=== PATIENT | female | born 1940 | race Caucasian/White ===

== ENCOUNTER → 2016-09-30 | Outpatient (CLI) | payer MEDICARE ==
[~2016-09-30] MED LIST: MULT-513 PO; PRLSR20 PO; PRMVC PV
[2016-09-30 13:32] LABS: BASO % 0.7 %; BASO ABS # 0.05 K/uL (0-0.2); COMPLETE YES; EOS % 2.4 %; HEMATOCRIT 39.7 % (37-47); IG% 0.3 %; LYMPH % 24.1 %; MEAN CELL VOLUME 85.4 fL (80-100); MEAN CORPUSCULAR HEMOGLOBIN 28.4 pg (25-34); MEAN CORPUSCULAR HGB CONC 33.2 g/dl (32-36); MEAN PLATELET VOLUME 12.9 fL (7.4-10.4); MONO % 9.5 %; PLATELET COUNT 228 K/uL (130-400); RED BLOOD COUNT 4.65 M/uL (4.2-5.4); WHITE BLOOD COUNT 7.46 K/uL (4.8-10.8)
[2016-09-30 14:24] LABS: ALB/GLOB RATIO 0.8 (0.9-2); ALKALINE PHOSPHATASE 88 U/L (45-117); ALT/SGPT 21 U/L (12-78); AST/SGOT 18 U/L (15-37); BLOOD UREA NITROGEN 12 mg/dl (7-18); BUN/CREATININE RATIO 10.8 (10-20); CALCIUM 9.3 mg/dl (8.5-10.1); CARBON DIOXIDE 30 mmol/L (21-32); CHLORIDE 103 mmol/L (98-107); CHOLESTEROL 240 mg/dl (0-200); CHOLESTEROL/HDL RATIO 4.2; GLUCOSE 77 mg/dl (70-99); HDL CHOLESTEROL 57 mg/dl; POTASSIUM 3.4 mmol/L (3.5-5.1); SODIUM 140 mmol/L (136-145); TRIGLYCERIDES 183 mg/dl (0-150); VERY LOW DENSITY LIPOPROT CALC 37 mg/dl
== END | disposition home or self-care (01) ==
LOC: C.LABSPEC 12:46
PROVIDERS: ATTEND Internal Medicine
DX: E55.9 Vitamin D deficiency, unspecified (principal); Z00.01 Encounter for general adult medical examination with abnormal findings; E78.5 Hyperlipidemia, unspecified

== ENCOUNTER → 2017-11-16 | Outpatient (CLI) | payer MEDICARE | END | disposition home or self-care (01) | LOC: C.LAB 13:34 | PROVIDERS: ATTEND Obstetrics & Gynecology | DX: N39.0 Urinary tract infection, site not specified (principal) ==

== ENCOUNTER 2024-05-11 20:01 | Inpatient (IN) ==
--- OUTSIDE RECORDS SUMMARY | 2024-05-11 20:07 | External Medical Summary | Continuity of Care Document ---
Author Name Unknown Organization [facility] Address [address], [place] [id number] Care Team Providers Care Online Content Developer Name Role Phone Mary Hernandes Primary Care Physician [phone] Encounter [facility] [id number] Date(s): 01/09/24 - 01/09/24 [facility] [address], [address] [place] [address] [phone] Discharge Disposition: Home or Self Care Attending Physician: DO Saldaña Jason D Referring Physician: DO Saldaña Jason D Allergies, Adverse Reactions, Alerts Substance Reaction Severity Status Zofran confusion/unresponsive Activ e Phenergan confusion/unresponsive Activ e Immunizations Given and Recorded Vaccine Date Status Refusal Reason influenza virus vaccine, inactivated 07/20/23 Give n influenza virus vaccine, inactivated 07/14/22 Give n influenza virus vaccine, inactivated 10/09/17 Give n SARS-CoV-2 (COVID-19) mRNA-1273 vaccine 1 12/07/20 Recorded SARS-CoV-2 (COVID-19) mRNA-1273 vaccine 2 11/09/20 Recorded Zoster Vaccine Unspecified 3 05/24/12 Recorded 1Result Comment: 2023-07-20: Historical information-source unspecified 2Result Comment: 2023-07-20: Historical information-source unspecified 3Result Comment: 2023-07-20: Historical information-source unspecified Medications amLODIPine 2.5 mg oral tablet Start: 10/30/23 9:00:00 EST, 1 tab, PO, Daily, Disp# 90 tab, Refills: 3, Pharmacy: [facility]/pharmacy #[id number] Start Date: 10/30/23 Status: Ordered aspirin 81 mg oral delayed release tablet Start: 03/14/18 11:51:00 EDT, 1 tab, PO, Daily Start Date: 03/14/18 Status: Ordered Co-Q10 100 mg oral capsule Start: 12/17/19 15:04:00 EDT, 2 cap, PO, Daily Start Date: 12/17/19 Status: Ordered escitalopram 10 mg oral tablet Start: 07/20/23 14:51:00 EST, 1 tab, PO, Daily, Disp# 90 tab, Refills: 3, Pharmacy: [facility]/pharmacy #[id number] Start Date: 07/20/23 Stop Date: 07/14/24 Status: Ordered furosemide 20 mg oral tablet Start: 11/02/22 11:57:00 EST, See Instructions, Disp# 45 tab, Refills: 3, TAKE 1 TAB BY MOUTH dailyas needed for swelling, Pharmacy: [facility] [id number] Start Date: 11/02/22 Status: Ordered isosorbide mononitrate 30 mg oral tablet, extended release Start: 01/03/24 14:20:00 EDT, 1 tab, PO, qAM, Disp# 90 tab, Refills: 3, Pharmacy: [facility] [id number] Start Date: 01/03/24 Status: Ordered LORazepam 0.5 mg oral tablet Start: 06/28/23 13:39:00 EDT, 1 tab, PO, bid, Disp# 60 tab, Refills: 5, Note to Pharmacy: PRN for anxiety, [id number] Start Date: 06/28/23 Status: Ordered losartan 50 mg oral tablet Start: 07/20/23 9:57:00 EST, 1 tab, PO, Daily, Disp# 90 tab, Refills: 3, Pharmacy: [facility] [id number] Start Date: 07/20/23 Status: Ordered Metoprolol Succinate ER 50 mg oral tablet, extended release Start: 01/27/23 10:08:00 EDT, See Instructions, Disp# 90 tab, Refills: 3, TAKE 1 TABLET BY MOUTH EVERY DAY, Pharmacy: [facility] [id number] Start Date: 01/27/23 Status: Ordered Multi Vitamin+ oral liquid Start: 08/29/17 9:06:00, 1 tab, PO, Daily Start Date: 08/29/17 Status: Ordered nitroglycerin 0.4 mg sublingual tablet Start: 09/14/23 16:10:00 EST, 1 tab, SL, q5min, Disp# 30 tab, Refills: 1, PRN: as needed for chest pain, [id number] Start Date: 09/14/23 Status: Ordered Potassium Chloride (Eqv-K-Tab) 20 mEq oral tablet, extended release Start: 07/18/22 10:02:00 EST, 1 tab, PO, Daily, Disp# 90 tab, Refills: 3, [id number] Start Date: 07/18/22 Status: Ordered rosuvastatin 10 mg oral tablet Start: 07/20/23 9:57:00 EST, 1 tab, PO, qhs, Disp# 90 tab, Refills: 3, Pharmacy: [id number] Start Date: 07/20/23 Status: Ordered Problem List Condition Confirmation Course Effective Dates Status H ealth Status Informant Carotid bruit Confirmed Active Chronic diarrhea Confirmed Active Chronic insomnia Confirmed Active Disturbance of sleep Confirmed Active JESSICA (generalized anxiety disorder) Confirmed Active S/P CABG x 2 Confirmed Active Apical variant hypertrophic cardiomyopathy Confirmed Active Lung cancer Confirmed Active Mixed incontinence Confirmed Active Chronic pain of right knee Confirmed Active 3-vessel CAD Confirmed Active Wide-complex tachycardia Confirmed Active Procedures Procedure Date Related Diagnosis Body Site Status Mammogram 1 07/04/23 Completed Chest x-ray 2 11/02/[address] of head 3 11/02/22 Completed EKG 02/27/18 Completed Anterior colporrhaphy, Total vaginal hysterectomy. Bilateral uterosacral ligament vaginal vault suspension.Perineorrhaphy. Cystoscopy.. 4 10/09/17 Completed Cystoscopy 10/09/17 Completed Perineorrhaphy 10/09/17 Completed Posterior colporrhaphy 10/09/17 Co mpleted Total vaginal hysterectomy. Bilateral uterosacral ligament vaginal vault suspension.Anterior colporrhaphy.Posterior colporrhaphy. Perineorrhaphy, Cystoscopy. 5 10/09/17 Co mpleted Uterosacral ligament 10/09/17 Comp leted Hemorrhoidectomy 2018 Complete d Colonoscopy 2017 Completed Operation on lung, collapsed lung [address] [place] [address] Impression: ACR BI-RADS CATEGORY 2: BENIGN 1. No evidence of malignancy [address] [place] [address] Impression: 1. No acute process within the chest 2. Mild cardiomegaly again noted 3. Left apical density persists and is better appeciated on the lateral 07/18/[address] [place] [address] Impression: 1. No acute intracranial hemorrhage or skull fractures. Scalp swelling is seen in the right supraorbital soft tissues 41. Total vaginal hysterectomy. 2. Bilateral uterosacral ligament vaginal vault suspension. 3. Anterior colporrhaphy. 4. Posterior colporrhaphy. 5. Perineorrhaphy. 6. Cystoscopy. 51. Total vaginal hysterectomy. 2. Bilateral uterosacral ligament vaginal vault suspension. 3. Anterior colporrhaphy. 4. Posterior colporrhaphy. 5. Perineorrhaphy. 6. Cystoscopy. Results Radiology Reports * Exam Date Time Procedure Performing Provider Status 01/09/24 1:56 PM Echo TransTHORacic TTE Complete w/ Cont Betsy Maki; Final Notes: (Echo TransTHORacic TTE Complete w/ Cont) Reason For Exam: pa htn, cad Echo TransTHORacic TTE Complete w/ Cont Report Signatures Finalized by Dr. Krystian Saldaña MD on 01/09/2024 05:52 PM [place] Act 112: Yes - Discussed with patient Summary 1. Study enhanced with Definity contrast for better endocardial definition, especially of the LV apex. 2. Normal left ventricular size. 3. Hyperdynamic LV systolic function with no regional wall motion abnormalities. Biplane ejection fraction is >75%. 4. Severe hypertrophy of the mid and apical wall segments, consistent with apical variant hypertrophic cardiomyopathy. No evidence of LVOT obstruction. 5. Abnormal LV strain. Severely abnormal segmental strain in the mid and distal LV with normal strain values in the basal segments. Global longitudinal strain is -10%. 6. Evidence for elevated left ventricular end-diastolic pressure. Grade II diastolic dysfunction of the left ventricle (pseudonormal filling pattern). 7. Severely dilated left atrium. 8. Mildly dilated right ventricle with reduced systolic function. 9. Dilated right atrium. 10. Mild aortic insufficiency (PHT 744 ms). 11. Moderate mitral regurgitation. 12. Severe tricuspid valve regurgitation. 13. Severely elevated pulmonary artery pressures, estimated PASP is 76 mmHg and PAMP is 51 mmHg. 14. Compared to the previous study performed 12/03/2021, the degree of TR is worse and estimated PA pressures are higher (76 mm/hg vs 47 mm/hg);. Patient Info Name: HYUN GO Age: 83 years : 1940 Gender: Female Ht: 150 cm Wt: 45 kg BSA: 1.38 m2 HR: 50 bpm BP: 142 / 68 mmHg Heart Rhythm: Sinus Bradycardia Technical Quality: Excellent Exam Date: 01/09/2024 1:02 PM Exam Location: [facility] Patient Status: Outpatient Staff Ordering Physician: Krystian Saldaña Water Taxi Driver: Betsy Maki RDCS, RVT Attending Physician: Krystian Saldaña Study Info [facility] [id number] - [id number] - Indications I2510 - Coronary artery disease without angina pectoris I422 - Other hypertrophic cardiomyopathy Procedure(s) * A complete two-dimensional, color flow and Doppler transthoracic echocardiogram was performed. * Failed 2D images were enhanced with Definity per lab protocol. * Water Taxi Driver, Betsy Maki RDCS, CARMEL, provided education about ultrasound enhancing agent to the patient. Exam Type: Cardiac Basic Left Ventricle Normal left ventricular size. Hyperdynamic LV systolic function with no regional wall motion abnormalities. Biplane ejection fraction is >75%. Severe hypertrophy of the mid and apical wall segments, consistent with apical variant hypertrophic cardiomyopathy. No evidence of LVOT obstruction. Abnormal LV strain. Severely abnormal segmental strain in the mid and distal LV with normal strain values in the basal segments. Global longitudinal strain is -10%. Evidence for elevated left ventricular end-diastolic pressure. Grade II diastolic dysfunction of the left ventricle (pseudonormal filling pattern). Right Ventricle Mildly dilated right ventricle with reduced systolic function. TAPSE is 1.1 cm. Left Atrium Severely dilated left atrium. Right Atrium Dilated right atrium. Atrial Septum Appears intact. Aortic Valve Calcified, tricuspid aortic valve without stenosis. Mild aortic insufficiency (PHT 744 ms). Pulmonic Valve Mild pulmonic insufficiency. Mitral Valve Moderate mitral regurgitation. Tricuspid Valve Severe tricuspid valve regurgitation. Severely elevated pulmonary artery pressures, estimated PASP is 76 mmHg and PAMP is 51 mmHg. Pericardium/Pleural No pericardial effusion. Inferior Vena Cava Dilated IVC with reduced (less than 50%) collapse. Estimated right atrial pressure is 15 mmHg. Aorta The aortic root at the sinus of Valsalva is dilated, measuring 3.5 cm with an index of 2.53 cm/m2. The ascending aorta is dilated for small BSA, measuring 3.0 cm with an index of 2.17 cm/m2. Left Ventricular Outflow Tract Name Value Normal LVOT 2D LVOT Diameter 2.1 cm LVOT Doppler LVOT Peak Velocity 1.22 m/s LVOT Peak Gradient 6 mmHg LVOT Mean Gradient 2 mmHg LVOT VTI 23.11 cm LVOT Stroke Volume 77.51 ml LVOT Stroke Volume Index 0.06 l/m2 LVOT Cardiac Output 3.88 l/min LVOT Cardiac Index 2.82 L/min/m2 Pulmonic Valve Name Value Normal RVOT Doppler RVOT Peak Velocity 0.51 m/s PV Regurgitation Doppler HI Peak End Diastolic Velocity 1.30 m/s HI Peak End Diastolic Gradient 7 mmHg HI Peak Velocity 2.08 m/s HI Decel Time 1,140 ms HI PHT 331 ms Mitral Valve Name Value Normal MV Doppler MV PHT 72 ms MV Diastolic Function MV E Peak Velocity 0.61 m/s <=0.50 MV A Peak Velocity 0.29 m/s MV E/A 2.11 <=0.80 MV Decel Time 248 ms MV Annular TDI MV Septal s' Velocity 4.90 cm/s MV Septal e' Velocity 2.81 cm/s >=7.00 MV E/e' (Septal) 21.7 <=8.0 MV Lateral s' Velocity 6.19 cm/s MV Lateral e' Velocity 5.57 cm/s >=10.00 MV E/e' (Lateral) 10.93 <=8.00 MV e' Average 4.19 MV E/e' (Average) 16.30 <=14.00 Tricuspid Valve Name Value Normal TV Regurgitation Doppler TR Peak Velocity 3.91 m/s <=2.80 TR Peak Gradient 61 mmHg Estimated PAP/RSVP RA Pressure 15 mmHg <=5 PA Systolic Pressure 76 mmHg <40 PA End Diastolic Pressure for HI 22 mmHg PA Mean Pressure (HI Velocity) 32 mmHg PA Mean Pressure (TR Gradient) 51 mmHg TV Diastolic Function TV E Peak Velocity 0.43 m/s TV A Peak Velocity 0.26 m/s TV E/A 1.61 0.80-2.00 TV Decel Time 148 ms >=120 TV Annular TDI TV Lateral Anjelica s' Velocity 9.1 cm/s 9.5-18.7 TV Lateral Anjelica e' Velocity 8.2 cm/s <7.8 TV E/e' 5.16 2.00-6.00 Pulmonary Vessels Name Value Normal Pulmonary Artery Doppler PA End Diastolic Pressure for HI 22 mmHg Aorta Name Value Normal Ascending Aorta Sinus of Valsalva Diameter 3.5 cm 2.7-3.3 Sinus of Valsalva Index 2.53 cm/m2 1.60-2.00 Prox Asc Ao Diameter 3.0 cm 2.3-3.1 Prox Asc Ao Diameter Index 2.17 cm/m2 1.30-1.90 Thoracic Aorta Ao Arch Diameter 2.2 cm Venous Name Value Normal IVC/SVC IVC Diameter (Insp 2D) 1.3 cm IVC Diameter (Exp 2D) 2.2 cm <=2.1 IVC Diameter Percent Change (2D) 42 % >=50 Aortic Valve Name Value Normal AV Doppler AV Peak Velocity 1.30 m/s <2.00 AV Peak Gradient 7 mmHg AV Area (Cont Eq Chay) 3.2 cm2 AV Area Index (Cont Eq Chay) 2.29 cm2/m2 AV V1/V2 Ratio 0.94 AV Regurgitation 2D LVOT Area 3.4 cm2 AV Regurgitation Doppler AR Peak Velocity 4.02 m/s AR Decel Time 2,565 ms AR Decel [place] 170.00 cm/s2 AR PHT 744 ms Ventricles Name Value Normal LV Dimensions 2D/MM IVS Diastolic Thickness (2D) 1.2 cm 0.6-0.9 LVID Diastole (2D) 3.8 cm 3.3-5.1 LVIW Diastolic Thickness (2D) 1.0 cm 0.6-0.9 LVID Systole (2D) 1.9 cm 2.2-3.5 LVOT Diameter 2.1 cm LV Mass (2D Cubed) 142.94 g 67.00-162.00 LV Mass Index (2D Cubed) 0.01 g/cm2 0.00-0.01 Relative Wall Thickness (2D) 0.53 LV Fractional Shortening/Ejection Fraction 2D/MM LV Fractional Shortening (2D) 51 % 27-45 LV Diastolic Volume (4C MOD) 92 ml LV Diastolic Volume (2C MOD) 75 ml LV Diastolic Volume (BP MOD) 83 ml 46-106 LV Diastolic Volume Index (BP MOD) 60.17 ml/m2 29.00-61.00 LV Systolic Volume (BP MOD) 13 ml 14-42 LV Systolic Volume Index (BP MOD) 9.53 ml/m2 8.00-24.00 LV EF (BP MOD) 84 % 58-69 LV SV (BP MOD) 69.64 ml RV Dimensions 2D/MM RV Basal Diastolic Dimension 4.2 cm 2.5-4.1 TAPSE 1.1 cm >=1.7 Atria Name Value Normal LA Dimensions LA Area (4C) 23.2 cm2 LA Length (4C) 6.0 cm LA Area (2C) 22.8 cm2 LA Length (2C) 6.4 cm LA Volume (4C A-L) 76.53 ml LA Volume (2C A-L) 68.90 ml LA Volume (BP A-L) 75 ml 22-52 LA Volume Index (BP A-L) 54.83 ml/m2 <=34.00 RA Dimensions RA Area (4C) 21.2 cm2 <=18.0 Final Signed by:DO Saldaña Jason D Signed (Electronic Signature):01/09/2024 1:02 p Social History Social History Type Response Tobacco Former smoker, Start ed age 16 Years. Stopped age 75 Years. Smoking Status Former Smoker, quit > 1 yr Sex Female Patient Care team information Care Team Personnel Name: KARINA Hernandes, Mary Mejias Position: Physician Asst Exmpt - Family Med Member Role: Primary Care Provider Address: Address: [address] [place] [id number] Care Team Related Persons Name: KEENA DEWITT Name: CARLOS GO Address: home [address] [place] [phone]
--- OUTSIDE RECORDS SUMMARY | 2024-05-11 20:07 | External Medical Summary | Continuity of Care Document ---
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) - 12/14/23 3-vessel CAD(Discharge Diagnosis) - 12/14/23 S/P CABG x 2(Discharge Diagnosis) - 12/14/23 Discharge Disposition: Home or Self Care Attending Physician: DO Saldaña Jason D Referring Physician: DO Saldaña Jason D Allergies, Adverse Reactions, Alerts Substance Reaction Severity Status Zofran confusion/unresponsive Activ e Phenergan confusion/unresponsive Activ e Assessment and Plan Extracted from: Title:Cardiology Office Visit Note Author:DO Saldaña Jason D Date:12/14/23 1.3-vessel CAD 2.Apical variant hypertrophic cardiomyopathy 3.S/P CABG x 2 Given her increasing shortness of breath the question is this related to LV dysfunction, worsening pulmonary hypertension, worsening valvular heart disease, anginal symptoms, or significantly elevated blood pressure due to the stress in her life. I recommended an echocardiogram as well as increasing her amlodipine from 2-1/2 mg to 5 mg. Given her age and how tiny she is I would try to avoid an assessment of coronary disease. If she were to have progressive dyspnea without evidence of valvular heart disease or pulmonary hypertension with control of her blood pressure we can weigh the risks and benefits at 85. My hope is amlodipine will not only lower her blood pressure but also vasodilator coronaries and improve her symptoms. I did order a BNP and a BMP today. The BMP will allow us to rule out heart failure as a cause for her dyspnea. She will see Tran our nurse practitioner in 3 to 4 weeks. She will have an echocardiogram in the next couple of weeks. Will follow via phone regards to her blood work. Immunizations Given and Recorded Vaccine Date Status [...] Daily, Disp# 90 tab, Refills: 3, Pharmacy: [facility]/pharmacy #[id number] Start Date: 10/30/23 Status: Ordered aspirin 81 mg oral delayed release tablet Start: 03/14/18 11:51:00 EDT, 1 tab, PO, Daily Start Date: 03/14/18 Status: Ordered Co-Q10 100 mg oral capsule Start: 12/17/19 15:04:00 EDT, 2 cap, PO, Daily Start Date: 12/17/19 Status: Ordered escitalopram 10 mg oral tablet Start: 07/20/23 14:51:00 EST, 1 tab, PO, Daily, Disp# 90 tab, Refills: 3, Pharmacy: [facility]/pharmacy #[id number] Start Date: 07/20/23 Stop Date: 07/14/24 Status: Ordered furosemide 20 mg oral tablet Start: 11/02/22 11:57:00 EST, See Instructions, Disp# 45 tab, Refills: 3, TAKE 1 TAB BY MOUTH dailyas needed for swelling, Pharmacy: [id number] Start Date: 11/02/22 Status: Ordered isosorbide mononitrate 30 mg oral tablet, extended release Start: 11/02/22 11:57:00 EST, See Instructions, Disp# 90 tab, Refills: 3, TAKE 1 TABLET BY MOUTH EVERY DAY IN THE MORNING, Pharmacy: [id number] Start Date: 11/02/22 Status: Ordered LORazepam 0.5 mg oral tablet Start: 06/28/23 13:39:00 EDT, 1 tab, PO, bid, Disp# 60 tab, Refills: 5, Note to Pharmacy: PRN for anxiety, Pharmacy: [facility]/pharmacy #[id number] Start Date: 06/28/23 Status: Ordered losartan 50 mg oral tablet Start: 07/20/23 9:57:00 EST, 1 tab, PO, Daily, Disp# 90 tab, Refills: 3, Pharmacy: [facility] [id number] Start Date: 07/20/23 Status: Ordered Metoprolol Succinate ER 50 mg oral tablet, extended release Start: 01/27/23 10:08:00 EDT, See Instructions, Disp# 90 tab, Refills: 3, TAKE 1 TABLET BY MOUTH EVERY DAY, Pharmacy: [facility] [id number] Start Date: 01/27/23 Status: Ordered Multi Vitamin+ oral liquid Start: 08/29/17 9:06:00, 1 tab, PO, Daily Start Date: 08/29/17 Status: Ordered nitroglycerin 0.4 mg sublingual tablet Start: 09/14/23 16:10:00 EST, 1 tab, SL, q5min, Disp# 30 tab, Refills: 1, PRN: as needed for chest pain, Pharmacy: [facility]/pharmacy #[id number] Start Date: 09/14/23 Status: Ordered Potassium Chloride (Eqv-K-Tab) 20 mEq oral tablet, extended release Start: 07/18/22 10:02:00 EST, 1 tab, PO, Daily, Disp# 90 tab, Refills: 3, Pharmacy: [facility]/pharmacy #[id number] Start Date: 07/18/22 Status: Ordered rosuvastatin 10 mg oral tablet Start: 07/20/23 9:57:00 EST, 1 tab, PO, qhs, Disp# 90 tab, Refills: 3, Pharmacy: [facility] [id number] Start Date: 07/20/23 Status: Ordered Problem List [...] CAD Confirmed Active Wide-complex tachycardia Confirmed Active Diagnosis Diagnosis Type Effective Dates Health Status Clinical Service Informant 3-vessel CAD Discharge Diagnosis 12/14/23 Apical variant hypertrophic cardiomyopathy Discharge Diagnosis 12/14/23 S/P CABG x 2 Discharge Diagnosis 12/14/23 Procedures Procedure Date Related Diagnosis Body Site [...] Operation on lung, collapsed lung [address] [place] [address] Impression: ACR BI-RADS CATEGORY 2: BENIGN 1. No evidence of malignancy [address] [place] [address] Impression: 1. No acute process within the chest 2. Mild cardiomegaly again noted 3. Left apical density persists and is better appeciated on the lateral 07/18/[address] [place] [address] Impression: 1. No acute intracranial hemorrhage or skull fractures. Scalp swelling is seen in the right supraorbital soft tissues 41. Total vaginal hysterectomy. 2. Bilateral uterosacral ligament vaginal vault suspension. 3. Anterior colporrhaphy. 4. Posterior colporrhaphy. 5. Perineorrhaphy. 6. Cystoscopy. 51. Total vaginal hysterectomy. 2. Bilateral uterosacral ligament vaginal vault suspension. 3. Anterior colporrhaphy. 4. Posterior colporrhaphy. 5. Perineorrhaphy. 6. Cystoscopy. Vital Signs Most recent to oldest [Reference Range]: 1 Patient Weight 47 kg (12/14/23 2:42 PM) Heart Rate 65 bpm (12/14/23 2:42 PM) Blood Pressure 160/80mmHg (12/14/23 2:42 PM) BP Location # 1 Right Arm (12/14/23 2:42 PM) Social History Social History Type Response Tobacco Former smoker, Start ed age 16 Years. Stopped age 75 Years. Smoking Status Former Smoker, quit > 1 yr Sex Female Cardiology Outpatient Note * DO Saldaña Jason D: PERFORM Event Display: Cardiology Outpt Note Authored Date: [id number] Primary Care Provider KARINA Hernandes, Mary Mejias Referring Provider DO Saldaña Jason D Chief Complaint 3 mon f/u CAD Cabg 2017 History of Present Illness She returns for follow-up and describes increasing shortness of breath over the last 6 to 12 months. Her daughter is with her today. She confirms this and notes she appears more short of breath climbing the steps or working in the garden. Life has been very stressful since August when her was admitted to the hospital with heart failure and progressive dementia. In fact her blood pressure today is significantly elevated when normally it has been well- controlled in the past. She has no lightheadedness or dizziness. She does note headaches though which are somewhat new for her. She denies any lower extremity edema or increased abdominal distention. She only rarely needed her diuretics. She denies any orthopnea. She did have a fall after standing on the kitchen table to decorate for Easter. Review of Systems PAST MEDICAL HISTORY: 1. Coronary disease status coronary bypass grafting x2 with a vein graft to the LAD and a vein graft to the OM 04/2018. 2. Echo: Hyperdynamic left ventricular systolic function with an EF in the range of 70%, significant hypertrophy of the mid to distal apical wall segments consistent with apical hypertrophic cardiomyopathy; type 2 diastolic dysfunction; severe tricuspid regurgitation with moderate pulmonary hypert ension. 3. Catheterization [facility] 02/2018 with a 40% ostial left main lesion with dampening; 60-70% mid LAD lesion just after the takeoff of the second diagonal; 20-30% mid circumflex lesion with a 60% lesion in the ostial portion of OM1; right-dominant small caliber vessel with a 20-30% ostial lesion. 4. 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 Surgery 10/2017 with a total vaginal hysterectomy and uterosacral ligament vault suspension. 6. Hypertension. 7. Less than 50% right internal carotid artery stenosis with a 50-69% left internal carotid artery stenosis and a 50% left subclavian stenosis with a 30 mm mercury difference between right arm and left arm (01/2022). 8. History of Lyme disease. 9. Palpitations. Physical Exam Vitals & Measurements HR:65(Monitored) BP:160/80 SpO2:98% WT:47.000kg(Dosing) WT:47kg PHYSICAL EXAMINATION: She is awake, alert, oriented x3, is in no acute distress. She looks younger than her stated age. HEENT: 2+ carotid upstrokes. No evidence of bruit on the right. She has a left carotid bruit.Lungs clear to auscultation bilaterally, no rales, rhonchi or wheezing. Heart: Regular rate and rhythm. She has a prominent RV and LV lift. She has a soft 2/6 early peaking systolic ejection murmur at the right sternal border. Extremities: No clubbing, cyanosis or edema. Psychiatric: Her affect appeared appropriate. Assessment/Plan 1.3-vessel CAD 2.Apical variant hypertrophic cardiomyopathy 3.S/P CABG x 2 Given her increasing shortness of breath the question is this related to LV dysfunction, worsening pulmonary hypertension, worsening valvular heart disease, anginal symptoms, or significantly elevated blood pressure due to the stress in her life. I recommended an echocardiogram as well as increasing her amlodipine from 2-1/2 mg to 5 mg. Givenher age and how tiny she is I would try to avoid an assessment of coronary disease. If she were to have progressive dyspnea without evidence of valvular heart disease or pulmonary hypertension withcontrol of her blood pressure we can weigh the risks and benefits at 85. My hope is amlodipine will not only lower her blood pressure but also vasodilator coronaries and improve her symptoms. I did order a BNP and a BMP today. The BMP will allow us to rule out heart failure as a cause for her dyspnea. She will see Tran our nurse practitioner in 3 to 4 weeks. She will have an echocardiogram in the next couple of weeks. Will follow via phone regards to her blood work. Problem List/Past Medical History Ongoing 3-vessel CAD Apical variant hypertrophic cardiomyopathy Carotid bruit Chronic diarrhea Chronic insomnia Chronic pain of right knee Disturbance of sleep JESSICA (generalized anxiety disorder) Lung cancer Mixed incontinence S/P CABG x 2 Wide-complex tachycardia Historical Atrial fibrillation Female cystocele Incomplete uterovaginal prolapse Rectocele Uterine prolapse Procedure/Surgical History Mammogram| Service Date: 3Chest x-ray| Service Date: 3CT of head| Service Date: 11/02/2022EKG| Service Date: 02/27/2018Uterosacral ligament| Service Date: 10/09/2017Cystoscopy| Service Date: 10/09/2017Total vaginal hysterectomy. Bilateral uterosacral ligament vaginal vault suspension.Anterior colporrhaphy.Posterior colporrhaphy. Perineorrhaphy, Cystoscopy.| Service Date: 10/09/2017Perineorrhaphy| Service Date: 10/09/2017Posterior colporrhaphy| Service Date: 10/09/2017Anterior colporrhaphy, Total vaginal hysterectomy. Bilateral uterosacral ligament vaginal vault suspension.Perineorrhaphy. Cystoscopy..| Service Date: 10/09/2017Hemorrhoidectomy| Service Date: 2017Colonoscopy| Service Date: 2016Operation on lung, collapsed lung| ServiceDate: 2017 Medications amLODIPine(amLODIPine 2.5 mg oral tablet), 2.5 mg= 1 tab, PO, Daily, 3 refills aspirin(aspirin 81 mg oral delayed release tablet), 81 mg= 1 tab, PO, Daily escitalopram(escitalopram 10 mg oral tablet), 10 mg= 1 tab, PO, Daily, 3 refills furosemide(furosemide 20 mg oral tablet), See Instructions isosorbide mononitrate(isosorbide mononitrate 30 mg oral tablet, extended release), See Instructions LORazepam(LORazepam 0.5 mg oral tablet), 0.5 mg= 1 tab, PO, bid, 5 refills losartan(losartan 50 mg oral tablet), 1 tab, PO, Daily metoprolol(Metoprolol Succinate ER 50 mg oral tablet, extended release), See Instructions multivitamin(Multi Vitamin+ oral liquid), 1 tab, PO, Daily nitroglycerin(nitroglycerin 0.4 mg sublingual tablet), 0.4 mg= 1 tab, SL, q5min, PRN, 1 refills potassium chloride(Potassium Chloride (Eqv-K-Tab) 20 mEq oral tablet, extended release), 20 mEq= 1 tab, PO, Daily, 3 refills rosuvastatin(rosuvastatin 10 mg oral tablet), 1 tab, PO, qhs ubiquinone(Co-Q10 100 mg oral capsule), 200 mg= 2 cap, PO, Daily Allergies Phenerganconfusion/unresponsive Zofranconfusion/unresponsive Social History Smoking Status Former Smoker, quit > 1 yr Tobacco Use:Former smoker Started at age:16Years Stopped at age:75Years Electronic Signature on File CC: Mary Hernandes PA-C,MPAS [address] [place] [address] Electronically Reviewed/Signed by: Krystian Saldaña DO Author Signature Dt/Tm:12/14/2023 04:33 PM [employer] Workercompensation specialist [facility] [place] [address] JDF Patient Care team information Care Team Personnel Name: KARINA Hernandes, Mary Mejias Position: Physician Asst Exmpt - Family Med Member Role: Primary Care Provider Address: Address: [address] [place] [id number] [place] Care Team Related Persons Name: KEENA DEWITT Name: CARLOS GO Address: [address] [id number]"
--- OUTSIDE RECORDS SUMMARY | 2024-05-11 20:07 | External Medical Summary | Continuity of Care Document ---
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 Name Role Phone ShirleygenoMary holm Primary Care Physician [phone] [facility] [id number] Date(s): 04/08/24 - 04/08/24 [facility] [address], [address] [place] [address] [phone] Encounter Diagnosis Pulmonary HTN(Discharge Diagnosis) - 04/08/24 Diastolic CHF(Discharge Diagnosis) - 04/08/24 CAD in tribe artery(Discharge Diagnosis) - 04/08/24 Pulmonary hypertension, unspecified(Final) - Discharge Disposition: Home or Self Care Attending Physician: RAJESH Carrillo Sarah A Allergies, Adverse Reactions, Alerts Substance Criticality Severity Reaction Reaction Severity Status Zofran confusion/unresponsive Active Phenergan confusion/unresponsive Active Assessment and Plan Extracted from: Title:Cardiology Office Visit Note Author:RAJESH White rd, Sarah A Date:04/08/24 Impression: 1. Coronary disease status coronary bypass grafting x2 with a vein graft to the LAD and a vein graft to the OM 04/2018. 2. Echo: Hyperdynamic left ventricular systolic function with an EF in the range of 70%, significant hypertrophy of the mid to distal apical wall segments consistent with apical hypertrophic cardiomyopathy; type 2 diastolic dysfunction; severe tricuspid regurgitation with severe pulmonary hypertension. 3. Catheterization [facility] 02/2018 with a 40% ostial left [...] 8. History of Lyme disease. 9. Palpitations. Ms. Go's shortness of breath is much improvedwithmidrange Entresto. She was having some hypotension but with discontinuation of amlodipine this has resolved. I will have herrepeata limited echo to look at her pulmonary pressures. She will have a BMP and a BNP on her way out today. She is not having any concerning anginal symptomsis toleratingdiscontinuation of the amlodipine well fromthat standpoint. She continues to be on appropriate CAD medications with aspirinARB and statin. She return to the clinic in 2 months Immunizations Given and Recorded Vaccine Date Status [...] 3Result Comment: 2023-07-20: Historical information-source unspecified Medications aspirin 81 mg oral delayed release tablet Start: 03/14/18 11:51:00 AM EDT, 1 tab, PO, Daily Start Date: 03/14/18 Status: Ordered Co-Q10 100 mg oral capsule Start: 12/17/19 3:04:00 PM EDT, 2 cap, PO, Daily Start Date: 12/17/19 Status: Ordered Entresto 49 mg-51 mg oral tablet Start: 02/05/24 9:41:00 AM EDT, 1 tab, PO, bid, Disp# 60 tab, Refills: 3, Pharmacy: [facility]/pharmacy #[id number] Start Date: 02/05/24 Status: Ordered escitalopram 5 mg oral tablet Start: 04/08/24 1:20:00 PM EDT, 1 tab, PO, Daily, Disp# 90 tab, Refills: 3, Pharmacy: [facility] [id number] Start Date: 04/08/24 Status: Ordered furosemide 20 mg oral tablet Start: 11/02/22 11:57:00 AM EST, See Instructions, Disp# 45 tab, Refills: 3, TAKE 1 TAB BY MOUTH daily as needed for swelling, Pharmacy: [facility] [id number] Start Date: 11/02/22 Status: Ordered isosorbide mononitrate 30 mg oral tablet, extended release Start: 01/03/24 2:20:00 PM EDT, 1 tab, PO, qAM, Disp# 90 tab, Refills: 3, Pharmacy: [facility] [id number] Start Date: 01/03/24 Status: Ordered LORazepam 0.5 mg oral tablet Start: 02/02/24 4:31:00 PM EDT, 1 tab, PO, bid, Disp# 60 tab, Refills: 5, Note to Pharmacy: PRN for anxiety, [id number] Start Date: 02/02/24 Status: Ordered Metoprolol Succinate ER 50 mg oral tablet, extended release Start: 01/30/24 9:07:00 AM EDT, 1 tab, PO, Daily, Disp# 90 tab, Refills: 3, Pharmacy: [facility] [id number] Start Date: 01/30/24 Status: Ordered Multi Vitamin+ oral liquid Start: 08/29/17 9:06:00 AM EST, 1 tab, PO, Daily Start Date: 08/29/17 Status: Ordered nitroglycerin 0.4 mg sublingual tablet Start: 09/14/23 4:10:00 PM EST, 1 tab, SL, q5min, Disp# 30 tab, Refills: 1, PRN: as needed for chestpain, Pharmacy: [facility]/pharmacy #[id number] Start Date: 09/14/23 Status: Ordered Potassium Chloride (Eqv-K-Tab) 20 mEq oral tablet, extended release Start: 07/18/22 10:02:00 AM EST, 1 tab, PO, Daily, Disp# 90 tab, Refills: 3, Pharmacy: [facility]/pharmacy#[id number] Start Date: 07/18/22 Status: Ordered rosuvastatin 10 mg oral tablet Start: 07/20/23 9:57:00 AM EST, 1 tab, PO, qhs, Disp# 90 tab, Refills: 3, Pharmacy: [id number] Start Date: 07/20/23 Status: Ordered Mental Status 04/08/24 Barriers to Learning one year None evide nt Mandatory Health Literacy Documentation Yes Health Literacy Communication Barriers N ever Primary Language Ken[place] Problem List Condition Confirmation Course Effective Dates Status H ealth Status Informant Benign hypertension with coincident congestive heart failure Confirmed Active Carotid bruit Confirmed Active Chronic diarrhea Confirmed [...] Diagnosis Diagnosis Type Effective Dates Health Status Cl inical Service Informant Diastolic CHF Discharge Diagnosis 04/08/24 Non-Specified CAD in tribe artery Discharge Diagnosis 04/08/24 Non-Specified Pulmonary HTN Discharge Diagnosis 04/08/24 Non-Specified Procedures Procedure Date Related Diagnosis Body Site [...] mpleted Uterosacral ligament 10/09/17 Comp leted Hemorrhoidectomy 2017 Complete d Colonoscopy 2017 Completed Operation on lung, collapsed lung [address] [place] [address] Impression: ACR BI-RADS CATEGORY 2: BENIGN 1. No evidence of malignancy [address] [place] [address] Impression: 1. No acute process within the chest 2. Mild cardiomegaly again noted 3. Left apical density persists and is better appeciated on the lateral 07/18/[address] [place] [address] Impression: 1. No acute intracranial hemorrhage or skull fractures. Scalp swelling is seen in the right supraorbital soft tissues 41. Total vaginal hysterectomy. 2. Bilateral uterosacral ligament vaginal vault suspension. 3. Anterior colporrhaphy. 4. Posterior colporrhaphy. 5. Perineorrhaphy. 6. Cystoscopy. 51. Total vaginal hysterectomy. 2. Bilateral uterosacral ligament vaginal vault suspension. 3. Anterior colporrhaphy. 4. Posterior colporrhaphy. 5. Perineorrhaphy. 6. Cystoscopy. Results Laboratory List Name Date Basic Metabolic Panel (BASIC METAB PANEL ) 04/08/24 NT-Pro BNP 04/08/24 Most recent to oldest [Reference Range]: 1 eGFR CKD-EPI [>60 mL/min/1.73 m2] 51 mL/ min/1.73 m2 1 *LOW* (04/08/24 1:51 PM) BNP, NT-Pro [<450 pg/mL] 6318 pg/mL *HI* (04/08/24 1:51 PM) Estimated CrCl 26.82 mL/min (04/08/24 2:30 PM) Anion Gap [5-14 mmol/L] 5 mmol/L (04/08/24 1:51 PM) BUN [7-20 mg/dL] 17 mg/dL (04/08/24 1:51 PM) Ca [8.4-10.2 mg/dL] 9.2 mg/dL (04/08/24 1:51 PM) Cl- [96-107 mmol/L] 100 mmol/L (04/08/24 1:51 PM) HCO3 [22-30 mmol/L] 28 mmol/L (04/08/24 1:51 PM) Cret [0.60-1.00 mg/dL] 1.06 mg/dL *HI* (04/08/24 1:51 PM) Glu [74-106 mg/dL] 99 mg/dL (04/08/24 1:51 PM) K [3.5-5.1 mmol/L] 4.4 mmol/L (04/08/24 1:51 PM) Na [137-145 mmol/L] 133 mmol/L *LOW* (04/08/24 1:51 PM) 1Result Comment: Testing Performed By: Dept of Pathology [facility] [address], [address], [place] [address] Vital Signs Most recent to oldest [Reference Range]: 1 Patient Weight 44 kg (04/08/24 1:22 PM) Heart Rate 58 bpm (04/08/24 1:22 PM) Respiratory Rate 18 br/min (04/08/24 1:22 PM) Blood Pressure 112/60mmHg (04/08/24 1:22 PM) BP Location # 1 Left Arm (04/08/24 1:22 PM) Social History Social History Type Response Tobacco Former smoker, Start ed age 16 Years. Stopped age 75 Years. Smoking Status Former Smoker, quit > 1 yr Sex Female Sex Representation Female (finding) Cardiology Outpatient Note * RAJESH Carrillo Sarah A: MODIFY, PERFORM Event Display: Cardiology Outpt Note Authored Date: [id number] Primary Care Provider KARINA Hernandes Jessica A Chief Complaint ongoing shortness of breath with exertion is doing better lower extremities edema resolved with Lasix History of Present Illness Ms. Go presents for follow up of pulmonary hypertension and diastolic heart failure. Her on 03/05/2024 after a long decline.She has been holding up ok. She notes her sob is improved. She rarely has to take the Lasix for lower extremity edema. Her blood pressures have come up a bit with discontinuing the amlodipine. No dizziness and no falls Review of Systems All other systems reviewed and negative except as discussed in the HPI Physical Exam Vitals & Measurements HR:58(Monitored) RR:18 BP:112/60 SpO2:97% WT:44kg WT:44.000kg(Dosing) Physical Examination General: Alert and oriented, No acute distress. Respiratory: Lungs are clear to auscultation, Respirations are non-labored. Cardiovascular: Normal rate, Regular rhythm, No murmur, No edema, Integumentary: Warm, Dry, [place] Neurologic: Alert, Oriented. Cognition and Speech: Speech clear and coherent. Psychiatric: Cooperative, Appropriate mood & affect. Assessment/Plan Impression: 1. Coronary disease status coronary bypass grafting x2 with a vein graft to the LAD and a vein graft to the OM 04/2018. 2. Echo: Hyperdynamic left ventricular systolic function with an EF in the range of 70%, significant hypertrophy of the mid to distal apical wall segments consistent with apical hypertrophic cardiomyopathy; type 2 diastolic dysfunction; severe tricuspid regurgitation with severe pulmonary hypertension. 3. Catheterization [facility] 02/2018 with a 40% ostial left [...] 8. History of Lyme disease. 9. Palpitations. Ms. Luo shortness of breath is much improvedwithmidrange Entresto. She was having some hypotension but with discontinuation of amlodipine this has resolved. I will have herrepeata limited echo to look at her pulmonary pressures. She will have a BMP and a BNP on her way out today. She is not having any concerning anginal symptomsis toleratingdiscontinuation of the amlodipinewell fromthat standpoint. She continues to be on appropriate CAD medications with aspirinARB and statin. She return to the clinic in 2 months Problem List/Past Medical History Ongoing 3-vessel CAD Apical variant hypertrophic cardiomyopathy Benign hypertension with coincident congestive heart failure Carotid bruit Chronic diarrhea Chronic insomnia Chronic pain of right knee Disturbance of sleep JESSICA (generalized anxiety disorder) Lung cancer Mixed incontinence S/P CABG x 2 Wide-complex tachycardia Resolved Atrial fibrillation Female cystocele Incomplete uterovaginal prolapse Rectocele Uterine prolapse Procedure/Surgical History Mammogram| Service Date: 07/04/2023hest x-ray| Service Date: 3CT of head| Service [...] on lung, collapsed lung| ServiceDate: 2017 Medications aspirin(aspirin 81 mg oral delayed release tablet), 81 mg= 1 tab, PO, Daily escitalopram(escitalopram 5 mg oral tablet), 1 tab, PO, Daily furosemide(furosemide 20 mg oral tablet), See Instructions isosorbide mononitrate(isosorbide mononitrate 30 mg oral tablet, extended release), 1 tab, PO, qAM LORazepam(LORazepam 0.5 mg oral tablet), 0.5 mg= 1 tab, PO, bid, 5 refills metoprolol(Metoprolol Succinate ER 50 mg oral tablet, extended release), 1 tab, PO, Daily multivitamin(Multi Vitamin+ oral liquid), 1 tab, PO, Daily nitroglycerin(nitroglycerin 0.4 mg sublingual tablet), 0.4 mg= 1 tab, SL, q5min, PRN, 1 refills potassium chloride(Potassium Chloride (Eqv-K-Tab) 20 mEq oral tablet, extended release), 20 mEq= 1 tab, PO, Daily, 3 refills rosuvastatin(rosuvastatin 10 mg oral tablet), 1 tab, PO, qhs sacubitril-valsartan(Entresto 49 mg-51 mg oral tablet), 1 tab, PO, bid, 3 refills ubiquinone(Co-Q10 100 mg oral capsule), 200 mg= 2 cap, PO, Daily Allergies Phenerganconfusion/unresponsive Zofranconfusion/unresponsive Social History Smoking Status Former Smoker, quit > 1 yr Tobacco Use:Former smoker Started at age:16Years Stopped at age:75Years Electronic Signature on File CC: Mary Hernandes PA-C,MPAS [address] [facility] [address] Electronically Reviewed/Signed by: RAJESH Porras Author Signature Dt/Tm:04/08/2024 01:56 PM [facility] Patient Care team information Care Team Personnel Name: KARINA Hernandes, Mary Mejias Position: Physician Asst Exmpt - Family Med Member Role: Primary Care Provider Address: [address] [place] [id number] [place] Care Team Related Persons Name: KEENA DEWITT Name: CARLOS GO"
--- OUTSIDE RECORDS SUMMARY | 2024-05-11 20:07 | External Medical Summary | Continuity of Care Document ---
Author Name Unknown Organization [facility] [address] [facility] Address [address] [place], [place] [id number] Care Team Providers Care Psychiatric Registered Nurse Name Role Phone Mary Hernandes Primary Care Physician [phone] Encounter [facility] ARNUL[facility] [id number] Date(s): 01/18/24 - 01/18/24 [facility] [address], [address] [place] [address] [phone] Encounter Diagnosis 3-vessel CAD(Discharge Diagnosis) - 01/18/24 Chronic insomnia(Discharge Diagnosis) - 01/18/24 Lung cancer(Discharge Diagnosis) - 01/18/24 JESSICA (generalized anxiety disorder)(Discharge Diagnosis) - 01/18/24 Benign hypertension with coincident congestive heart failure(Discharge Diagnosis) - 01/18/24 Discharge Disposition: Home or Self Care Attending Physician: KARINA Hernandes Jessica A Allergies, Adverse Reactions, Alerts Substance Criticality Severity Reaction Reaction Severity Status Zofran confusion/unresponsive Active Phenergan confusion/unresponsive Active Assessment and Plan Extracted from: Title:6 month f/u Author:KARINA Hernandes Jessic a A Date:01/18/24 1.3-vessel CAD Three-vessel CADand benign hypertension with coincidental diastolic heart failureare chronic. She will continue to follow with [facility] cardiology. She was seen earlier this week and losartan was discontinuedand was started on low- dose Entresto twice daily due to worsening SEGUNDO. Blood pressure todayislow. Has overall felt well, but admits she does not do much. This was discussed with Dr. Saldaña and we will discontinue her amlodipine 2.5 mg dailyto prevent hypotension since starting Entresto. She will keep her follow-up appointment with cardiology in 2 weeks and have BMP completed prior to that visit. Last cardiology note reviewed from 01/15/2024. Labs reviewed from July 2023 as well. 2.Benign hypertension with coincident congestive heart failure As above in #1. 3.Chronic insomnia Chronic insomnia is currently well-controlled with use of lorazepam 0.5 mg, 1 tab p.o. nightly. To continue current regimen and follow-up again in 6 months. 4.JESSICA (generalized anxiety disorder) Generalized anxiety disorder is chronic and currently stable with Lexapro 10 mg, 1 tab p.o. daily. Goal is partial to full remission of symptoms. She has hadsome breakthrough anxiety and low moodthat she attributes toongoing life stressors, which she feels is tolerable and has good support system. Follow-up again in 6 months and sooner if needed. 5.Lung cancer Lung cancer is chronic and stable status post radiation therapy. To continue with care of radiation oncology at [facility]. Immunizations Given and Recorded Vaccine Date Status [...] Daily Start Date: 12/17/19 Status: Ordered Entresto 24 mg-26 mg oral tablet Start: 01/15/24 9:46:00 AM EDT, 1 tab, PO, bid, Disp# 60 tab, Refills: 3, Pharmacy: [facility]/pharmacy #[id number] Start Date: 01/15/24 Status: Ordered escitalopram 10 mg oral tablet Start: 07/20/23 2:51:00 PM EST, 1 tab, PO, Daily, Disp# 90 tab, Refills: 3, Pharmacy: [facility]/pharmacy #[id number] Start Date: 07/20/23 Stop Date: 07/14/24 Status: Ordered furosemide 20 mg oral tablet Start: 11/02/22 11:57:00 AM EST, See Instructions, Disp# 45 tab, Refills: 3, TAKE 1 TAB BY MOUTH daily as needed for swelling, Pharmacy: [id number] Start Date: 11/02/22 Status: Ordered isosorbide mononitrate 30 mg oral tablet, extended release Start: 01/03/24 2:20:00 PM EDT, 1 tab, PO, qAM, Disp# 90 tab, Refills: 3, Pharmacy: [facility] [id number] Start Date: 01/03/24 Status: Ordered LORazepam 0.5 mg oral tablet Start: 06/28/23 1:39:00 PM EDT, 1 tab, PO, bid, Disp# 60 tab, Refills: 5, Note to Pharmacy: PRN foranxiety, Pharmacy: [facility]/pharmacy #[id number] Start Date: 06/28/23 Status: Ordered Metoprolol Succinate ER 50 mg oral tablet, extended release Start: 01/27/23 10:08:00 AM EDT, See Instructions, Disp# 90 tab, Refills: 3, TAKE 1 TABLET BY MOUTH EVERY DAY, Pharmacy: [facility] [id number] Start Date: 01/27/23 Status: Ordered Multi Vitamin+ oral liquid Start: 08/29/17 9:06:00 AM EST, 1 tab, PO, Daily Start Date: 08/29/17 Status: Ordered nitroglycerin 0.4 mg sublingual tablet Start: 09/14/23 4:10:00 PM EST, 1 tab, SL, q5min, Disp# 30 tab, Refills: 1, PRN: as needed for chestpain, Pharmacy: [facility]/pharmacy #[id number] Start Date: 09/14/23 Status: Ordered Potassium Chloride (Eqv-K-Tab) 20 mEq oral tablet, extended release Start: 07/18/22 10:02:00 AM EST, 1 tab, PO, Daily, Disp# 90 tab, Refills: 3, Pharmacy: [facility]/pharmacy#[id number] Start Date: 07/18/22 Status: Ordered rosuvastatin 10 mg oral tablet Start: 07/20/23 9:57:00 AM EST, 1 tab, PO, qhs, Disp# 90 tab, Refills: 3, Pharmacy: [id number] Start Date: 07/20/23 Status: Ordered Mental Status 01/18/24 Barriers to Learning one year None evide nt Mandatory Health Literacy Documentation Yes Health Literacy Communication Barriers N ever Primary Language Peruvian Problem List Condition Confirmation Course Effective Dates [...] Effective Dates Health Status Clinical Service Informant Benign hypertension with coincident congestive heart failure Discharge Diagnosis 01/18/24 Non-Specified 3-vessel CAD Discharge Diagnosis 01/18/24 Non-Specified Chronic insomnia Discharge Diagnosis 01/18/24 Non-Specified Lung cancer Discharge Diagnosis 01/18/24 Non-Specified JESSICA (generalized anxiety disorder) Discharge Diagnosis 01/18/24 Non-Specified Procedures Procedure Date Related Diagnosis Body [...] Operation on lung, collapsed lung [address] [place] [address] Impression: ACR BI-RADS CATEGORY 2: BENIGN 1. No evidence of malignancy [address] [place] [address] Impression: 1. No acute process within the chest 2. Mild cardiomegaly again noted 3. Left apical density persists and is better appeciated on the lateral 07/18/[address] [place] [address] Impression: 1. No acute intracranial hemorrhage or [...] to oldest [Reference Range]: 1 Patient Weight 45.3 kg (01/18/24 2:43 PM) Temperature [36.5-37.9 DegC] 36.7 DegC (01/18/24 2:43 PM) Heart Rate 64 bpm (01/18/24 2:43 PM) Respiratory Rate 20 br/min (01/18/24 2:43 PM) Blood Pressure 94/66mmHg (01/18/24 2:43 PM) Cuff Pulse Pressure 28 mmHg (01/18/24 2:43 PM) BP Location # 1 Left Arm, Manual (01/18/24 2:43 PM) Social History Social History Type Response Tobacco Former smoker, Start ed age 16 Years. Stopped age 75 Years. Smoking Status Former Smoker, quit > 1 yr Sex Female [facility] Note * KARINA Hernandes, Mary Mejias: PERFORM Event Display: [facility] Note Authored Date: [id number] Chief Complaint 6 month follow-up History of Present Illness Mau presents for 6-month follow-up of generalized anxiety disorder,chronic insomnia,lung cancer and CAD. Last clinic note was reviewed today. Generalized anxiety disorder is chronic. Unfortunately, since the time of her last appointment and her has had ongoing health issues. He has advanced dementia, was diagnosed with CLLandhad recently been hospitalizedwith heart failure and an SD. Notes that her children are now assisting with a lot of things, which has been helpful, but is trying to get used to not doing things on her own. She does have periods of feelingdown, but is trying to stay positive.She continues on Phumkcp03 mg daily that she feels is working well. Feels as thoughhigher periods of anxiety and sadness are manageable. Has a good support system with her daughters. No thoughts of self-harm, SI or HI. Chronic insomnia stable with use of lorazepam 0.5 mg, 1 tab p.o. nightly. With the medication sheis getting 5 to 6 hours of sleep, which she is happy with. CAD and hypertension without history of congestive heart failure are chronic. Continues to follow with [facility] cardiology every 3 to 4 months. Has a hx of CABG x 2w/vein graft to the LAD and avein graft to the marginal branch secondary to severe left main disease (04/2018).She did have an updated echocardiogram earlier this month that showed "hyperdynamic left ventricular systolic function with an EF in the range of 70%, significant hypertrophy of the mid to distal apical wall segmentsconsistent with apical hypertrophic cardiomyopathy; type 2 diastolic dysfunction; severe tricuspid regurgitation with severe pulmonary hypertension."At her appointment with cardiology on 01/15/2024 she did admit to having worseningshortness of breath. Losartan was discontinued and she was started on low-dose Entresto 23-24 mg, 1 tab p.o. twice daily.Does not check BP at home. Former smoker. Occasional ETOH use. No recreational drug use or regular exercise. + chronic SEGUNDO thatis unchanged from her baseline. + chronic cough. No claudication, chest pain, palpitations, tachycardia, dizziness, lightheadedness, weakness, near syncope, syncope, nausea, vomiting, diarrhea, constipation, headaches, blurred vision, loss of vision, confusion or epistaxis. Lung cancer [facility]. Lung cancer was initially diagnosedmore than 5 years ago and was found incidentally on a CT scan. Underwent radiationand reports that pulmonary lesion has been stable since. Last CT scanwas in July 2022 and cannot recall when her next appointmentis at this time. + chronic cough. Diagnosed with lung cancer about 5 years agothat wasreportedly found incidentally on CT scan. She underwent radiationand lung lesion has been stable since. Had an updated CT scan of her chest and appointment with radiation oncology in August 2023 at [facility].She's now following up annually. Former smoker. + chronicDOE.No fevers, chills, hemoptysis, cough, wheezing, chest pain, chest tightnessor shortness of breath at rest. Review of Systems ROS:All other systems negative, except HPI. Physical Exam Vitals & Measurements T:36.7C HR:64(Monitored) RR:20 BP:94/66 SpO2:97% WT:45.3kg WT:45.300kg(Dosing) PHQ2 Data(Data Documented on:01/18/2024 14:43) Emotional health assessment NEGATIVE General: Alert and oriented, No acute distress.Pleasant, thin elderly female. Eye: Pupils are equal, round and reactive to light, Extraocular movements are intact, Normal conjunctiva. HENT: Normocephalic. Neck: Supple, No lymphadenopathy, No thyromegaly. Respiratory: Lungs are clear to auscultation, Respirations are non-labored, Breath sounds are equal, Symmetrical chest wall expansion.Diminished air exchange throughout all lung miller. Cardiovascular: Normal rate, Regular rhythm, No murmur, No gallop, Good pulses equal in all extremities, Normal peripheral perfusion. No LE edema. Abdomen: Normoactive BS x 4. Soft. No tenderness, palpable masses or organomegaly.No CVA tenderness Lymphatics: No submandibular, anterior or posterior cervical adenopathy palpable. Musculoskeletal Normal gait. 5/5 strength and FROM and bilateral LEs. Integumentary: Warm, [place], No pallor. Neurologic: Alert, Oriented, Cranial Nerves II-XII are grossly intact. Cognition and Speech: Oriented, Speech clear and coherent, Functional cognition intact. Psychiatric: Cooperative, Appropriate mood & affect, Normal judgment, Nonsuicidal. Assessment/Plan 1.3-vessel CAD Three-vessel CADand benign hypertension with coincidental diastolic heart failureare chronic. She will continue to follow with [facility] cardiology. She was seen earlier this week and losartan was discontinuedand was started on low-dose Entresto twice daily due to worsening SEGUNDO. Blood pressure todayislow. Has overall felt well, but admits she does not do much. This was discussed with Dr. Saldaña and we will discontinue her amlodipine 2.5 mg dailyto prevent hypotension since starting Entresto. She will keep her follow-up appointment with cardiology in 2 weeks and have BMP completed prior to that visit. Last cardiology note reviewed from 01/15/2024. Labs reviewed from July 2023 as well. 2.Benign hypertension with coincident congestive heart failure As above in #1. 3.Chronic insomnia Chronic insomnia is currently well-controlled with use of lorazepam 0.5 mg, 1 tab p.o. nightly.To continue current regimen and follow-up again in 6 months. 4.JESSICA (generalized anxiety disorder) Generalized anxiety disorder is chronic and currently stable with Lexapro 10 mg, 1 tab p.o. daily. Goal is partial to full remission of symptoms. She has hadsome breakthrough anxiety and low moodthat she attributes toongoing life stressors, which she feels is tolerable and has good support system. Follow-up again in 6 months and sooner if needed. 5.Lung cancer Lung cancer is chronic and stable status post radiation therapy. To continue with care of radiation oncology at [facility]. Problem List/Past Medical History Ongoing 3-vessel CAD [...] suspension.Perineorrhaphy. Cystoscopy..| Service Date: 10/09/2017Hemorrhoidectomy| Service Date: 2018Colonoscopy| Service Date: 2016Operation on lung, collapsed lung| [...] oral tablet), 1 tab, PO, qhs sacubitril-valsartan(Entresto 24 mg-26 mg oral tablet), 1 tab, PO, bid, 3 refills ubiquinone(Co-Q10 100 mg oral capsule), 200 mg= 2 cap, PO, Daily Allergies Phenerganconfusion/unresponsive Zofranconfusion/unresponsive Social History Smoking Status Former Smoker, quit > 1 yr Tobacco Use:Former smoker Started at age:16Years Stopped at age:75Years Immunizations Vaccine Date Status influenza virus vaccine, inactivated 07/20/2023 Given influenza virus vaccine, inactivated 07/14/2022 Given SARS-CoV-2 (COVID-19) mRNA-1273 vaccine 12/07/2020 Recorded Comments : 2023-07-20: Historical information-source unspecified SARS-CoV-2 (COVID-19) mRNA-1273 vaccine 11/09/2020 Recorded Comments : 2023-07-20: Historical information-source unspecified influenza virus vaccine, inactivated 10/09/2017 Given Zoster Vaccine Unspecified 05/24/2012 Recorded Comments : 2023-07-20: Historical information-source unspecified Recommendations Health Maintenance Pending(in the next year) OverDue Body Mass Index due07/15/23and every 366day Due Adult COVID-19 Vaccination due01/18/24Unknown Frequency Adult Social Determinants of Health Screening due01/18/24Unknown Frequency Adult Tdap/Td Vaccine due01/18/24Unknown Frequency Falls Plan of Care due01/18/24Unknown Frequency Medicare Annual Wellness Visit due01/18/24and every 1year Osteoporosis Screening due01/18/24One-time only Pneumococcal Vaccine Older Adults due01/18/24One-time only Shingles Vaccine due01/18/24One-time only Due In Future Adult Influenza Vaccine not due until03/03/24and every 1year Satisfied(in the past 1 year) Satisfied Adult Influenza Vaccine on07/20/23.Satisfied by ETHAN Camacho Andrew E Breast Cancer Screening on07/06/23.Satisfied by ETHAN Camacho Andrew E Lipid Screening on07/20/23.Satisfied by [employer], [employer]aker Patient Care team information Care Team Personnel Name: KARINA Hernandes, Mary Mejias Position: Physician Gracet Exmpt - Family Med Member Role: Primary Care Provider Address: Address: [address] [place] [id number] Care Team Related Persons Name: KEENA DEWITT Name: CARLOS GO Address: home [address], [place] [phone]
--- OUTSIDE RECORDS SUMMARY | 2024-05-11 20:07 | External Medical Summary | Continuity of Care Document ---
Author Name Unknown Organization [facility] Address [address] [place], [place] [id number] Care Team Providers Care Insurance Follow Up Representative Name Role Phone ShirleygenoMary holm Primary Care Physician [phone] [id number] Date(s): 01/15/24 - 01/15/24 [facility] [address], [address] [place] [address] [phone] Encounter Diagnosis Pulmonary HTN(Discharge Diagnosis) - 01/15/24 HTN (hypertension)(Discharge Diagnosis) - 01/15/24 SEGUNDO (dyspnea on exertion)(Discharge Diagnosis) - 01/15/24 Discharge Disposition: Home or Self Care Attending Physician: RAJESH Carrillo Sarah A Allergies, Adverse Reactions, Alerts Substance Criticality Severity Reaction Reaction Severity Status Zofran confusion/unresponsive Active Phenergan confusion/unresponsive Active Assessment and Plan Extracted from: Title:Cardiology Office Visit Note Author:RAJESH White [address], Sarah A Date:01/15/24 PAST MEDICAL HISTORY: 1. Coronary disease status [...] regurgitation with severe pulmonary hypertension. 3. Catheterization [facility] 02/2018 with a 40% ostial left main [...] of Lyme disease. 9. Palpitations. Ms. Go's sob is due to her worsening pulmonary hypertension, likely secondary to diastolic dysfunction. We recommend she start on Entresto. I will have her dc he losartan. She will have a bmp in 10 days. She continues to have some falls. 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 I recommended she avoid fall risks as much as possible as she may have a difficult time recovering from a broken hip given her comorbidities. Her blood pressure is controlled. She will return to the clinic in 2 weeks for a bp check and uptitration of her Entresto and then I will see her back in a month. Immunizations Given and Recorded Vaccine Date Status [...] 2.5 mg oral tablet Start: 10/30/23 9:00:00 AM EST, 1 tab, PO, Daily, Disp# 90 tab, Refills: 3, Pharmacy: [facility]/pharmacy #[id number] Start Date: 10/30/23 Status: Ordered aspirin 81 mg oral delayed release tablet Start: 03/14/18 11:51:00 AM EDT, 1 tab, PO, Daily Start Date: 03/14/18 Status: Ordered Co-Q10 100 mg oral capsule Start: 4/14/20 3:04:00 PM EDT, 2 cap, PO, Daily Start Date: 12/17/19 Status: Ordered Entresto 24 mg-26 mg oral tablet Start: 01/15/24 9:46:00 AM EDT, 1 tab, PO, bid, Disp# 60 tab, Refills: 3, Pharmacy: [facility]/pharmacy #[id number] Start Date: 01/15/24 Status: Ordered escitalopram 10 mg oral tablet Start: 07/20/23 2:51:00 PM EST, 1 tab, PO, Daily, Disp# 90 tab, Refills: 3, Pharmacy: [facility]/pharmacy #[id number] Start Date: 07/20/23 Stop Date: 07/14/24 Status: Ordered furosemide 20 mg oral tablet Start: 11/02/22 11:57:00 AM EST, See Instructions, Disp# 45 tab, Refills: 3, TAKE 1 TAB BY MOUTH daily as needed for swelling, Pharmacy: [facility] STORE [id number] Start Date: 11/02/22 Status: Ordered isosorbide mononitrate 30 mg oral tablet, extended release Start: 01/03/24 2:20:00 PM EDT, 1 tab, PO, qAM, Disp# 90 tab, Refills: 3, Pharmacy: [facility] STORE [id number] Start Date: 01/03/24 Status: Ordered LORazepam 0.5 mg oral tablet Start: 06/28/23 1:39:00 PM EDT, 1 tab, PO, bid, Disp# 60 tab, Refills: 5, Note to Pharmacy: PRN foranxiety, Pharmacy: [facility]/pharmacy #[id number] Start Date: 06/28/23 Status: Ordered Metoprolol Succinate ER 50 mg oral tablet, extended release Start: 01/27/23 10:08:00 AM EDT, See Instructions, Disp# 90 tab, Refills: 3, TAKE 1 TABLET BY MOUTH EVERY DAY, Pharmacy: [id number] Start Date: 01/27/23 Status: Ordered Multi Vitamin+ oral liquid Start: 08/29/17 9:06:00 AM EST, 1 tab, PO, Daily Start Date: 08/29/17 Status: Ordered nitroglycerin 0.4 mg sublingual tablet Start: 09/14/23 4:10:00 PM EST, 1 tab, SL, q5min, Disp# 30 tab, Refills: 1, PRN: as needed for chestpain, Pharmacy: [id number] Start Date: 09/14/23 Status: Ordered Potassium Chloride (Eqv-K-Tab) 20 mEq oral tablet, extended release Start: 07/18/22 10:02:00 AM EST, 1 tab, PO, Daily, Disp# 90 tab, Refills: 3, Pharmacy: [id number] Start Date: 07/18/22 Status: Ordered rosuvastatin 10 mg oral tablet Start: 07/20/23 9:57:00 AM EST, 1 tab, PO, qhs, Disp# 90 tab, Refills: 3, Pharmacy: [id number] Start Date: 07/20/23 Status: Ordered Mental Status 01/15/24 Barriers to Learning one year None evide nt Mandatory Health Literacy Documentation Yes Health Literacy Communication Barriers N ever Primary Language Nam[place]ian Problem List Condition Confirmation Course Effective Dates [...] Dates Health Status Cl inical Service Informant Pulmonary HTN Discharge Diagnosis 01/15/24 Non-Specified HTN (hypertension) Discharge Diagnosis 01/15/24 Non-Specified SEGUNDO (dyspnea on exertion) Discharge Diagnosis 01/15/24 Non-Specified Procedures Procedure Date Related Diagnosis Body [...] Operation on lung, collapsed lung [address] [place] [address] Impression: ACR BI-RADS CATEGORY 2: BENIGN 1. No evidence of malignancy [address] [place] [address] Impression: 1. No acute process within the chest 2. Mild cardiomegaly again noted 3. Left apical density persists and is better appeciated on the lateral 07/18/[address] [place] [address] Impression: 1. No acute intracranial hemorrhage or [...] to oldest [Reference Range]: 1 Patient Weight 45.7 kg (01/15/24 9:36 AM) Heart Rate 54 bpm (01/15/24 9:36 AM) Respiratory Rate 18 br/min (01/15/24 9:36 AM) Blood Pressure 130/60mmHg (01/15/24 9:36 AM) BP Location # 1 Right Arm (01/15/24 9:36 AM) Social History Social History Type Response Tobacco Former smoker, Start ed age 16 Years. Stopped age 75 Years. Smoking Status Former Smoker, quit > 1 yr Sex Female Cardiology Outpatient Note * RAJESH Carrillo Sarah A: PERFORM, MODIFY Event Display: Cardiology Outpt Note Authored Date: [id number] Primary Care Provider KARINA Hernandes, Mary Mejias Chief Complaint Increased SOB- denies chest pain/ tightness, flutters or heart racing, o denies dizziness or lightheadedness, left edema twisted last week no unusual bleeding, no change activity level History of Present Illness Ms. Go presents for follow up of her dyspnea on exertion. She does feel that her sob is worse. No edema. She did twist her ankle in a minor fall recently but it is improving. No chest discomfort No edema No palpitations Review of Systems All other systems reviewed and negative except as discussed in the HPI Physical Exam Vitals & Measurements HR:54(Monitored) RR:18 BP:130/60 SpO2:95% WT:45.7kg WT:45.700kg(Dosing) Physical Examination General: Alert and oriented, No acute distress. Respiratory: Lungs are clear to auscultation, Respirations are non-labored. Cardiovascular: Normal rate, Regular rhythm, No murmur, No edema, no carotid bruits to auscultation bilaterally. Integumentary: Warm, Dry, [place] Neurologic: Alert, Oriented. Cognition and Speech: Speech clear and coherent. Psychiatric: Cooperative, Appropriate mood & affect. Assessment/Plan PAST MEDICAL HISTORY: 1. Coronary disease status [...] regurgitation with severe pulmonary hypertension. 3. Catheterization [facility] 02/2018 with a 40% ostial left main [...] of Lyme disease. 9. Palpitations. Ms. Go's sob is due to her worsening pulmonary hypertension, likely secondary to diastolic dysfunction. We recommend she start on Entresto. I will have her dc he losartan. She will have a bmp in10 days. She continues to have some falls. 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 I recommended she avoid fall risks as much as possible as she may have a difficult time recovering from a broken hip given her comorbidities. Her blood pressure is controlled. She will return to the clinic in 2 weeks for a bp check and uptitration of her Entresto and thenI will see her back in a month. Problem List/Past Medical History Ongoing 3-vessel CAD Apical variant hypertrophic cardiomyopathy Carotid bruit Chronic diarrhea Chronic insomnia Chronic pain of right knee Disturbance of sleep JESSICA (generalized anxiety disorder) Lung cancer Mixed incontinence S/P CABG x 2 Wide-complex tachycardia Historical Atrial fibrillation Female cystocele Incomplete uterovaginal prolapse Rectocele Uterine prolapse Procedure/Surgical History Mammogram| Service Date: 07/04/2023hest x-ray| Service Date: 11/02/2022T of head| Service Date: 11/02/2022EKG| Service Date: 02/27/2018Uterosacral ligament| Service Date: 10/09/2017Cystoscopy| Service Date: 10/09/2017Total vaginal hysterectomy. Bilateral uterosacral ligament vaginal vault suspension.Anterior colporrhaphy.Posterior colporrhaphy. Perineorrhaphy, Cystoscopy.| Service Date: 10/09/2017Perineorrhaphy| Service Date: 10/09/2017Posterior colporrhaphy| Service Date: 10/09/2017Anterior colporrhaphy, Total vaginal hysterectomy. Bilateral uterosacral ligament vaginal vault suspension.Perineorrhaphy. Cystoscopy..| Service Date: 10/09/2017Hemorrhoidectomy| Service Date: 2017Colonoscopy| Service Date: 2016Operation on lung, collapsed lung| ServiceDate: 2016 Medications amLODIPine(amLODIPine 2.5 mg oral tablet), 2.5 [...] on File CC: Mary Hernandes PA-C,MPAS [address] [place] [address] Electronically Reviewed/Signed by: RAJESH Porras Author Signature Dt/Tm:01/15/2024 11:05 AM [facility] Patient Care team information Care Team Personnel Name: KARINA Hernandes, Mary Mejias Position: Physician Asst Exmpt - Family Med Member Role: Primary Care Provider Address: Address: [address] [place] [address] [place] Care Team Related Persons Name: KEENA DEWITT Name: CARLOS GO Address: home [address] [place] [phone]"
--- OUTSIDE RECORDS SUMMARY | 2024-05-11 20:07 | External Medical Summary | Continuity of Care Document ---
Author Name Unknown Organization [facility] Address [address] [place], [place] [address] Care Team Providers Care Supervisor Telephone Clerks Name Role Phone ShirleygenoMary holm Primary Care Physician [phone] [facility] [id number] Date(s): 02/05/24 - 02/05/24 [facility] [address], [address] [place] [address] [phone] Encounter Diagnosis Diastolic CHF(Discharge Diagnosis) - 02/05/24 Discharge Disposition: Home or Self Care Attending Physician: RAJESH Carrillo Sarah A Allergies, Adverse Reactions, Alerts Substance Criticality Severity Reaction Reaction Severity Status Zofran confusion/unresponsive Active Phenergan confusion/unresponsive Active Immunizations Given and Recorded Vaccine Date Status [...] bid, Disp# 60 tab, Refills: 3, [id number] Start Date: 02/05/24 Status: Ordered escitalopram 10 mg oral tablet Start: 07/20/23 2:51:00 PM EST, 1 tab, PO, Daily, Disp# 90 tab, Refills: 3, [id number] Start Date: 07/20/23 Stop Date: 07/14/24 Status: Ordered furosemide 20 mg oral tablet Start: 11/02/22 11:57:00 AM EST, See Instructions, Disp# 45 tab, Refills: 3, TAKE 1 TAB BY MOUTH daily as needed for swelling, Pharmacy: [id number] Start Date: 11/02/22 Status: Ordered isosorbide mononitrate 30 mg oral tablet, extended release Start: 01/03/24 2:20:00 PM EDT, 1 tab, PO, qAM, Disp# 90 tab, Refills: 3, Pharmacy: [facility] ST[id number] Start Date: 01/03/24 Status: Ordered LORazepam 0.5 mg oral tablet Start: 02/02/24 4:31:00 PM EDT, 1 tab, PO, bid, Disp# 60 tab, Refills: 5, Note to Pharmacy: PRN for anxiety, [id number] Start Date: 02/02/24 Status: Ordered Metoprolol Succinate ER 50 mg oral tablet, extended release Start: 01/30/24 9:07:00 AM EDT, 1 tab, PO, Daily, Disp# 90 tab, Refills: 3, Pharmacy: [id number] Start Date: 01/30/24 Status: Ordered Multi Vitamin+ oral liquid Start: 08/29/17 9:06:00 AM EST, 1 tab, PO, Daily Start Date: 08/29/17 Status: Ordered nitroglycerin 0.4 mg sublingual tablet Start: 09/14/23 4:10:00 PM EST, 1 tab, SL, q5min, Disp# 30 tab, Refills: 1, PRN: as needed for chestpain, Pharmacy: [facility]/pharmacy #[id number] Start Date: 1/11/24 Status: Ordered Potassium Chloride (Eqv-K-Tab) 20 mEq oral tablet, extended release Start: 07/18/22 10:02:00 AM EST, 1 tab, PO, Daily, Disp# 90 tab, Refills: 3, Pharmacy: [facility]/pharmacy#[id number] Start Date: 07/18/22 Status: Ordered rosuvastatin 10 mg oral tablet Start: 07/20/23 9:57:00 AM EST, 1 tab, PO, qhs, Disp# 90 tab, Refills: 3, Pharmacy: [facility] STORE [id number] Start Date: 07/20/23 Status: Ordered Problem List [...] inical Service Informant Diastolic CHF Discharge Diagnosis 02/05/24 Non-Specified Procedures Procedure Date Related Diagnosis Body [...] Operation on lung, collapsed lung [address] [place] [address] Impression: ACR BI-RADS CATEGORY 2: BENIGN 1. No evidence of malignancy [address] [place] [address] Impression: 1. No acute process within the chest 2. Mild cardiomegaly again noted 3. Left apical density persists and is better appeciated on the lateral 07/18/[address] [place] [address] Impression: 1. No acute intracranial hemorrhage or [...] to oldest [Reference Range]: 1 Patient Weight 45.8 kg (02/05/24 9:37 AM) Heart Rate 56 bpm (02/05/24 9:37 AM) Blood Pressure 124/56mmHg (02/05/24 9:37 AM) BP Location # 1 Left Arm (02/05/24 9:37 AM) Social History Social History Type Response Tobacco Former smoker, Start ed age 16 Years. Stopped age 75 Years. Smoking Status Former Smoker, quit > 1 yr Sex Female Patient Care team information Care Team Personnel Name: KARINA Hernandes, Mary Mejias Position: Physician Asst Exmpt - Family Med Member Role: Primary Care Provider Address: Address: [address] [place] [address] Care Team Related Persons Name: KEENA DEWITT Name: CARLOS GO Address: home [address] [place] [phone]
--- OUTSIDE RECORDS SUMMARY | 2024-05-11 20:07 | External Medical Summary | Continuity of Care Document ---
Author Name Unknown Organization [facility] [address] Address [address] [place], [place] [id number] Care Team Providers Care Extension Forester Name Role Phone Mary Hernandes Primary Care Physician [phone] [id number] Date(s): 01/25/24 - 01/25/24 [facility] [address] [facility] [address], [facility] [place], [place] [phone] Encounter Diagnosis Atherosclerotic heart disease of [place] coronary artery without angina pectoris (Final) - Other hypertrophic cardiomyopathy(Final) - Presence of aortocoronary bypass graft(Final) - Discharge Disposition: Home or Self Care Attending Physician: DO Saldaña Jason D Referring Physician: DO Saldaña Jason D Allergies, Adverse Reactions, Alerts Substance Criticality Severity [...] bid, Disp# 60 tab, Refills: 3, Pharmacy: [facility]/pharmacy #[id number] Start Date: 01/15/24 Status: Ordered escitalopram 10 mg oral tablet Start: 07/20/23 2:51:00 PM EST, 1 tab, PO, Daily, Disp# 90 tab, Refills: 3, Pharmacy: [facility]/pharmacy #[id number] Start Date: 07/20/23 Stop Date: 07/14/24 Status: Ordered furosemide 20 mg oral tablet Start: 11/02/22 11:57:00 AM EST, See Instructions, Disp# 45 tab, Refills: 3, TAKE 1 TAB BY MOUTH daily as needed for swelling, Pharmacy: [facility] STORE [id number] Start Date: 11/02/22 Status: Ordered isosorbide mononitrate 30 mg oral tablet, extended release Start: 01/03/24 2:20:00 PM EDT, 1 tab, PO, qAM, Disp# 90 tab, Refills: 3, Pharmacy: [facility] STORE [id number] Start Date: 01/03/24 Status: Ordered LORazepam 0.5 mg oral tablet Start: 06/28/23 1:39:00 PM EDT, 1 tab, PO, bid, Disp# 60 tab, Refills: 5, Note to Pharmacy: PRN foranxiety, Pharmacy: [facility]/pharmacy #[id number] Start Date: 06/28/23 Status: Ordered Metoprolol Succinate ER 50 mg oral tablet, extended release Start: 01/27/23 10:08:00 AM EDT, See Instructions, Disp# 90 tab, Refills: 3, TAKE 1 TABLET BY MOUTH EVERY DAY, Pharmacy: [facility] ST[id number] Start Date: 01/27/23 Status: Ordered Multi Vitamin+ oral liquid Start: 08/29/17 9:06:00 AM EST, 1 tab, PO, Daily Start Date: 08/29/17 Status: Ordered nitroglycerin 0.4 mg sublingual tablet Start: 09/14/23 4:10:00 PM EST, 1 tab, SL, q5min, Disp# 30 tab, Refills: 1, PRN: as needed for chestpain, [id number] Start Date: 09/14/23 Status: Ordered Potassium Chloride (Eqv-K-Tab) 20 mEq oral tablet, extended release Start: 07/18/22 10:02:00 AM EST, 1 tab, PO, Daily, Disp# 90 tab, Refills: 3, [id number] Start Date: 07/18/22 Status: Ordered rosuvastatin 10 mg oral tablet Start: 07/20/23 9:57:00 AM EST, 1 tab, PO, qhs, Disp# 90 tab, Refills: 3, Pharmacy: [facility] [id number] Start Date: 07/20/23 Status: Ordered Problem List [...] [facility] Impression: ACR BI-RADS CATEGORY 2: BENIGN 1. No evidence of malignancy [address] [place] [address] Impression: 1. No acute process within the chest 2. Mild cardiomegaly again noted 3. Left apical density persists and is better appeciated on the lateral 07/18/[address] [place] [address] Impression: 1. No acute intracranial hemorrhage or [...] Basic Metabolic Panel (BASIC METAB PANEL ) 01/25/24 Complete Blood Count (CBC) 01/25/24 NT-Pro BNP 01/25/24 Most recent to oldest [Reference Range]: 1 eGFR CKD-EPI [>60 mL/min/1.73 m2] 51 mL/ min/1.73 m2 1 *LOW* (01/25/24 11:15 AM) BNP, NT-Pro [<450 pg/mL] 7228 pg/mL *HI* (01/25/24 11:15 AM) Estimated CrCl 26.82 mL/min (01/25/24 12:29 PM) MPV [9.0-12.2 fL] 13.2 fL *HI* (01/25/24 11:15 AM) RDW [11.5-14.2 %] 15.5 % *HI* (01/25/24 11:15 AM) Anion Gap [5-14 mmol/L] 6 mmol/L (01/25/24 11:15 AM) BUN [7-20 mg/dL] 15 mg/dL (01/25/24 11:15 AM) Ca [8.4-10.2 mg/dL] 8.9 mg/dL (01/25/24 11:15 AM) Cl- [96-107 mmol/L] 100 mmol/L (01/25/24 11:15 AM) HCO3 [22-30 mmol/L] 29 mmol/L (01/25/24 11:15 AM) Cret [0.60-1.00 mg/dL] 1.06 mg/dL *HI* (01/25/24 11:15 AM) Glu [74-106 mg/dL] 76 mg/dL (01/25/24 11:15 AM) Hct [35-44 %] 38.7 % (01/25/24 11:15 AM) Hgb [11.7-15.0 g/dL] 12.1 g/dL (01/25/24 11:15 AM) K [3.5-5.1 mmol/L] 4.2 mmol/L (01/25/24 11:15 AM) MCH [28-33 pg] 28.0 pg (01/25/24 11:15 AM) MCHC [32-36 g/dL] 31.3 g/dL *LOW* (01/25/24 11:15 AM) MCV [81-96 fL] 89.6 fL (01/25/24 11:15 AM) Na [137-145 mmol/L] 135 mmol/L *LOW* (01/25/24 11:15 AM) Plts [150-350 K/uL] 196 K/uL (01/25/24 11:15 AM) RBC [3.90-5.00 M/uL] 4.32 M/uL (01/25/24 11:15 AM) WBC [4.0-10.4 K/uL] 5.41 K/uL (01/25/24 11:15 AM) 1Result Comment: Testing Performed By: Dept of Pathology [facility] Kitty [address]ciaga, [address] [place] [id number] Social History Social History Type Response Tobacco Former smoker, Start ed age 16 Years. Stopped age 75 Years. Smoking Status Former Smoker, quit > 1 yr Sex Female Patient Care team information Care Team Personnel Name: KARINA Hernandes Jessica A Position: Physician Asst Exmpt - Family Med Member Role: Primary Care Provider Address: Address: [address] [place] [id number] [place] Care Team Related Persons Name: KEENA DEWITT Name: CARLOS GO Address: home [address] [place] [phone]
--- NOTE | 2024-05-11 20:36 | Emergency Department Note ---
Impression & Plan Hypoxia, COPD (chronic obstructive pulmonary disease), S/P CABG (coronary artery bypass graft), Dizziness ED Provider Note NAME: HYUN GO AGE: 84 SEX: F : 1940 ARRIVES VIA: Ambulance INFORMANT: Patient, ED PROVIDER(S): Chuck Kong MD CHIEF COMPLAINT: Dizziness, diarrhea MEDICAL DECISION MAKING: Patient presents due to concern for dizziness and diarrhea. IV was established and blood work was obtained. Patient was ordered IV Zofran. Patient noted to be hypoxemic decreased breath sounds left base. Bio fire obtained the patient was ordered a neb treatment. Patient's blood work showed a normal white count hemoglobin and platelet count kidney function was unremarkable. TSH is normal. BioFire negative. Chest x- ray with possible right lower lobe pleural effusion. No obvious pneumonia. Given the patient's hypoxia and symptoms do believe she would benefit from inpatient treatment. Upon reassessment the patient did feel improved. I did update family who are also comfortable plan of care. Patient was admitted to medicine service by Dr. Mejia. Critical Care: I have personally spent 35 minutes of critical care time in direct management of this patient. This includes bedside care, interpretation of diagnostic studies, and testing, discussion with consultants, patient, and family members, and other require inpatient management activities. This 35 minutes is in excess of all separately billable procedures. Discussion w/ other healthcare providers: Dr. Mejia inpatient medicine service Prior /Outside records reviewed: None Differential diagnosis: Benign positional vertigo, dehydration, hypovolemia, anemia, infection, hypoglycemia, electrolyte abnormalities, arrhythmia, tox among others were considered. Diagnostics, as interpreted by me: ECG: Sinus, rate of 68, normal intervals, normal axis no ST elevations Cardiac monitoring: An order was placed for continuous cardiac monitoring. The monitor shows a rate of 72 with sinus rhythm. Patient was placed on pulse oximetry Medical decision rules: None Imaging studies: I informally interpreted the patient's chest x-ray shows possible trace right pleural effusion no obvious pneumonia with formal report to follow. HPI: Patient presents due to concern for dizziness and decreased appetite as well as possible syncope. The patient states that her symptoms been ongoing today. The patient has not taken her medications today. The patient was unable to get up and out of bed until around noon secondary to her dizziness. When asked the patient describes it as a lightheadedness. No reported vertiginous symptoms. Patient states that she does not remember but believes that she passed out twice back into her bed. No reported tongue biting or incontinence no seizure history. Patient denies any cough or fever. The patient has had nausea and dry heaves but no vomiting and the patient denies any abdominal pain. Patient has not take anything for symptoms at home. Patient has had decreased appetite. Patient does have a prior history of COPD and former smoker smoking in 2018 with a prior history of lung CA. Patient also reports a prior history of what sounds like pleurodesis secondary to prior lung collapse. She does not believe that she has had a prior lobectomy. Patient does have a history of CABG and does follow with Dr. Saldaña. Patient denies any chest pains or shortness of breath and no cough. Patient thought that she had a little bit of leg swelling yesterday. They were up and about doing car shopping and were on parking lots on a hot day most of yesterday and thought this may be contributory. Nursing reported the patient was hypoxemic to 84%. The patient was placed on 2 L nasal cannula and the patient denies any oxygen use. PAST MEDICAL HISTORY: See Below PAST SURGICAL HISTORY: See Below SOCIAL HISTORY: See Below HOME MEDICATIONS: See Below ALLERGIES: See Below VITALS: See Below PHYSICAL EXAMINATION: GENERAL: NAD, non-toxic. Nasal cannula in place. EYE EXAM: Normal conjunctiva. PERRL, no anisocoria and EOM's grossly intact w/o pain. OROPHARYNX: Moist mucus membranes, grossly normal dentition. NECK: Trachea midline, no stridor. LUNGS: Decreased breath sounds at the left base. Normal chest wall mechanics. HEART: NSR, no MRG. ABDOMEN: Abdomen soft, non-tender, no masses, no rebound or guarding. BACK: No CVA TTP. SKIN: No rashes and no bruising. UPPER EXTREMITIES: Upper extremities are grossly normal. LOWER EXTREMITIES: Grossly normal, no edema. NEURO EXAM: A&O x3, cranial nerves II-XII grossly intact, normal speech, moves all 4 extremities. Past Med/Surg History Problem List (Updated 05/12/24 @ 15:55 by Chuck Kong MD) Diastolic heart failure Hypertension Dizziness (Acute) Hypoxia (Acute) COVID-19 (Acute) Encounter for laboratory testing for COVID-19 virus (Acute) Solitary pulmonary nodule (Chronic) Abnormal PET scan of lung COPD (chronic obstructive pulmonary disease) (Acute) Afib Carotid artery stenosis S/P CABG (coronary artery bypass graft) (Acute) 05-03-2018 Coronary artery disease Lower GI bleed (Acute) Medical History Chronic obstructive bronchitis with pulmonary emphysema Acute Lyme disease 2007 Collapsed lung surgery 1979 FH: BRENT-BSO (total abdominal hysterectomy and bilateral salpingo-oophorectomy) 10-07-2017 and had bladder tacked Surgical History H/O dilation and curettage H/O hemorrhoidectomy 10-07-2017 Family History Mother , age 72 Hodgkins disease Lymphoma Father , age 75 Cancer Brother Mental problems Daughter No problems noted. Daughter No problems noted. Daughter No problems noted. Social History Smoking Status: Former smoker Tobacco Type: Cigarettes Smoking End Date: 2017; Second Hand Exposure: No; Do You Dip or Chew Tobacco: No; Hx Alcohol Use: Yes Alcohol type: hard liquor Hx Substance Use: No Preferred Language: Khmer Communication Ability: Effective Hearing Ability: Normal Edi Developer Required: No Beliefs That Will Affect Care: None Current Living Situation: Alone Current Living Situation Comment: Patient stated that she lives alone and her 2 mo ago current occupation: Retired Other Information That Helps Us Care for You: No Feels Safe at Home: Yes Safety Concerns: Feels Safe At This Time Assistive Devices: Glasses Allergies Allergies Allergy/AdvReac Type Severity Reaction Status Date / Time ondansetron [From Zofran] AdvReac Intermediate Unknown Verified 05/11/24 21:05 promethazine [From Phenergan] AdvReac unknown Verified 05/11/24 21:05 Home Meds Home Medications Medication Instructions Recorded Confirmed nitroglycerin 0.4 mg sublingual 0.4 mg sublingual UD PRN Chest Pain 05/22/18 05/11/24 tablet (Nitrostat) multivitamin (Daily Multi-Vitamin 1 tab PO DAILY 10/05/18 05/11/24 tablet) coenzyme Q10 100 mg capsule 200 mg PO DAILY 05/13/20 05/11/24 (CoQ-10) isosorbide dinitrate 30 mg tablet 30 mg PO QAM 01/14/22 05/11/24 calcium carbonate 600 mg-vitamin 1 tab PO DAILY 08/17/23 05/11/24 D3 20 mcg (800 unit) chewable tablet (Caltrate 600 plus D) amlodipine 2.5 mg tablet 2.5 mg PO DAILY 05/11/24 05/11/24 escitalopram oxalate 5 mg tablet 5 mg PO DAILY 05/11/24 05/11/24 furosemide 20 mg tablet 20 mg PO WK 05/11/24 05/11/24 lorazepam 0.5 mg tablet 0.5 mg PO BID 05/11/24 05/11/24 metoprolol succinate 50 mg 50 mg PO DAILY 05/11/24 05/11/24 tablet,extended release 24 hr omeprazole 20 mg tablet,delayed 20 mg PO DAILYBB 05/11/24 05/11/24 release rosuvastatin 10 mg tablet 10 mg PO HS 05/11/24 05/11/24 sacubitril 49 mg-valsartan 51 mg 1 tab PO BID 05/11/24 05/11/24 tablet (Entresto) Previous Rx's Medication Instructions Recorded aspirin 81 mg chewable tablet 81 mg PO DAILY #0 tabs 05/23/18 Results & Data (ED) Vital Signs Vital Signs - 24 hr 05/11/24 20:04 05/11/24 20:11 05/11/24 20:23 Temperature 36.7 C Temperature Source Oral Pulse Rate 73 67 Pulse Rate [Apical] Respiratory Rate 16 Respiratory Effort / Characteristics Non-Labored Spontaneous Respiratory Depth Normal Respiratory Pattern Regular Blood Pressure 172/78 H Blood Pressure [Right Arm] Blood Pressure Mean 109 Blood Pressure Mean [Right Arm] Blood Pressure Position Semi-fowlers Blood Pressure Position [Right Arm] Pulse Oximetry 95 87 L Oxygen Delivery Method Room Air Room Air Nasal Cannula Oxygen Flow Rate 0 Sepsis Recent Fever Within 48 Hours No Sepsis New/Unexplained Change in Mental Status N/A Sepsis Action Taken by Nursing No Action Required Oxygen Flow Rate - Titration 2 Pulse Oximetry Post Tiitration 99 05/11/24 20:44 05/11/24 22:00 05/11/24 22:25 Temperature Temperature Source Pulse Rate Pulse Rate [Apical] 73 82 Respiratory Rate 20 20 Respiratory Effort / Characteristics Non-Labored Spontaneous Respiratory Depth Normal Respiratory Pattern Regular Blood Pressure Blood Pressure [Right Arm] 167/69 H 114/65 Blood Pressure Mean Blood Pressure Mean [Right Arm] 101 81 Blood Pressure Position Blood Pressure Position [Right Arm] Semi-fowlers Pulse Oximetry 99 96 96 Oxygen Delivery Method Nasal Cannula Nasal Cannula Nasal Cannula Oxygen Flow Rate 2 2 2 Sepsis Recent Fever Within 48 Hours Sepsis New/Unexplained Change in Mental Status Sepsis Action Taken by Nursing Oxygen Flow Rate - Titration Pulse Oximetry Post Tiitration 05/11/24 22:33 Temperature Temperature Source Pulse Rate Pulse Rate [Apical] Respiratory Rate Respiratory Effort / Characteristics Respiratory Depth Respiratory Pattern Blood Pressure Blood Pressure [Right Arm] Blood Pressure Mean Blood Pressure Mean [Right Arm] Blood Pressure Position Blood Pressure Position [Right Arm] Pulse Oximetry 89 L Oxygen Delivery Method Room Air Oxygen Flow Rate Sepsis Recent Fever Within 48 Hours Sepsis New/Unexplained Change in Mental Status Sepsis Action Taken by Nursing Oxygen Flow Rate - Titration Pulse Oximetry Post Tiitration Home Medications Current Medication List: was personally reviewed by me Laboratory Data Attestation: I reviewed the patient's lab results. 05/12/24 04:50 05/12/24 04:50 Lab Results 05/11/24 05/11/24 Range/Units 20:11 20:43 WBC 6.42 (4.8-10.8) K/ul RBC 4.52 (4.20-5.40) M/uL Hgb 12.8 (12.0-16.0) g/dl Hct 38.2 (37.0-47.0) % MCV 84.5 (80.0-100.0) fL MCH 28.3 (25.0-34.0) pg MCHC 33.5 (32.0-36.0) g/dL RDW Std Deviation 47.3 H (36.4-46.3) fL RDW Coeff of Tanya 15.4 H (11.5-14.5) % Plt Count 214 (130-400) K/uL MPV 12.9 H (9.4-12.4) fL Immature Gran % (Auto) 0.2 % Neut % (Auto) 87.5 % Lymph % (Auto) 6.7 % Hood % (Auto) 4.8 % Eos % (Auto) 0.3 % Baso % (Auto) 0.5 % Neut # (Auto) 5.62 (1.40-6.50) K/uL Lymph # (Auto) 0.43 L (1.20-3.40) K/uL Hood # (Auto) 0.31 (0.11-0.59) K/uL Eos # (Auto) 0.02 (0.00-0.50) K/uL Baso # (Auto) 0.03 (0.00-0.20) K/uL Immature Gran # (Auto) 0.01 (0.01-0.20) K/uL Sodium 134 L (136-145) mmol/L Potassium 3.9 (3.5-5.1) mmol/L Chloride 98 (98-107) mmol/L Carbon Dioxide 25 (21-32) mmol/L Anion Gap 11 (3-11) BUN 15 (6-23) mg/dl Creatinine 1.10 (0.6-1.2) mg/dl Est Cr Clr Drug Dosing Not Reportable Est GFR ( Amer) 52.6 ml/min Est GFR (Non-Af Amer) 45.4 ml/min BUN/Creatinine Ratio 13.6 (10-20) Glucose 133 H (70-99(Fasting)) mg/dl Calcium 9.4 (8.6-10.3) mg/dl Magnesium 1.8 (1.7-2.4) mg/dl Total Bilirubin 0.8 (0.2-1.0) mg/dl AST 16 (13-39) U/L ALT 9 (7-52) U/L Alkaline Phosphatase 58 (34-104) U/L Total Protein 7.1 (6.0-8.3) gm/dl Albumin 4.2 (3.4-5.0) gm/dl Globulin 2.9 (2.5-4.0) gm/dl Albumin/Globulin Ratio 1.4 (0.9-2) TSH 3.419 (0.300-4.500) uIu/ml Adenovirus (PCR) Not Detected (NotDetected) B. pertussis DNA (PCR) Not Detected (NotDetected) B.parapertussis DNA PCR Not Detected (NotDetected) C. pneumoniae DNA (PCR) Not Detected (NotDetected) Coronavirus OC43 (PCR) Not Detected (NotDetected) Coronavirus HKU1 (PCR) Not Detected (NotDetected) Coronavirus 229E (PCR) Not Detected (NotDetected) SARS-CoV-2 (PCR) Not Detected (NotDetected) Coronavirus NL63 (PCR) Not Detected (NotDetected) Human Metapneumovir PCR Not Detected (NotDetected) Influenza Type A (PCR) Not Detected (NotDetected) Influenza Type B (PCR) Not Detected (NotDetected) M. pneumoniae (PCR) Not Detected (NotDetected) Parainfluenza 1 (PCR) Not Detected (NotDetected) Parainfluenza 2 (PCR) Not Detected (NotDetected) Parainfluenza 3 (PCR) Not Detected (NotDetected) Parainfluenza 4 (PCR) Not Detected (NotDetected) RSV (PCR) Not Detected (NotDetected) Entero/Rhino (PCR) Not Detected (NotDetected) Administered Medications Albuterol (Albut/Ipratrop 3mg/0.5mg Neb 3 Ml Vial) 3 ml INH Q6R CORY Stop: 06/11/24 00:59 Last Admin: 05/12/24 12:16 Dose: 3 ml Documented By: Admin: 05/12/24 06:55 Dose: 3 ml Documented By: Admin: 05/12/24 01:09 Dose: 3 ml Documented By: NIKHIL Amlodipine Besylate (Amlodipine Besylate 5 Mg Tab) 2.5 mg PO DAILY CORY Stop: 06/11/24 08:59 Last Admin: 05/12/24 08:30 Dose: 2.5 mg Documented By: COUNT INCLUDES THE [facility](2) Aspirin (Aspirin 81 Mg Chew) 81 mg PO DAILY CORY Stop: 06/11/24 08:59 Last Admin: 05/12/24 08:30 Dose: 81 mg Documented By: SERA(2) Calcium/Vitamin D (Calcium 600mg + Vit D 400 Iu Tab) 1 tab PO DAILY CORY Stop: 06/11/24 08:59 Last Admin: 05/12/24 08:31 Dose: 1 tab Documented By: SERA(2) Doxycycline Hyclate (Doxycycline Hyclate 100 Mg Cap) 100 mg PO BID CORY Stop: 05/19/24 10:14 Last Admin: 05/12/24 14:06 Dose: 100 mg Documented By: ORVILLE(2) Escitalopram Oxalate (Escitalopram Oxalate 10 Mg Tab) 5 mg PO DAILY CORY Stop: 06/11/24 08:59 Last Admin: 05/12/24 08:29 Dose: 5 mg Documented By: ORVILLE(2) Ceftriaxone Sodium (Rocephin) 1,000 mg in 50 mls @ 100 mls/hr IV Q24H CORY Stop: 05/19/24 10:14 Last Infusion: 05/12/24 14:13 Dose: Infused Documented By: TMDeclan(2) Admin: 05/12/24 13:20 Dose: 100 mls/hr Documented By: ORVILLE(2) Isosorbide Mononitrate (Isosorbide Hood Extended Rel 30 Mg Tabcr) 30 mg PO QAM CORY Stop: 06/11/24 08:59 Last Admin: 05/12/24 08:28 Dose: 30 mg Documented By: ORVILLE(2) Metoprolol Succinate (Metoprolol Succ 50mg Ext Rel Tab) 50 mg PO DAILY CORY Stop: 06/11/24 08:59 Last Admin: 05/12/24 08:29 Dose: 50 mg Documented By: ORVILLE(2) Multivitamins (Multivitamin Tab) 1 tab PO DAILY CORY Stop: 06/11/24 08:59 Last Admin: 05/12/24 08:31 Dose: 1 tab Documented By: ORVILLE(2) Pantoprazole Sodium (Pantoprazole 40 Mg Tab) 40 mg PO DAILY CORY Stop: 06/11/24 08:59 Last Admin: 05/12/24 08:30 Dose: 40 mg Documented By: ORVILLE(2) Sacubitril/Valsartan (Valsartan/Sacubitril 51/49 Mg Tab) 1 tab PO BID CORY Stop: 06/11/24 08:59 Last Admin: 05/12/24 08:31 Dose: 1 tab Documented By: ORVILLE(2) Discontinued Medications Albuterol (Albut/Ipratrop 3mg/0.5mg Neb 3 Ml Vial) 3 ml NEB NOW STA; Protocol Stop: 05/11/24 20:31 Last Admin: 05/11/24 20:40 Dose: 3 ml Documented By: BRANDIE Sodium Chloride (Nss) 1,000 mls @ 999 mls/hr IV .[id number] ONE Stop: 05/11/24 21:30 Last Infusion: 05/11/24 22:21 Dose: Infused Documented By: Admin: 05/11/24 20:40 Dose: 999 mls/hr Documented By: BRANDIE Lactated Ringer's (Lr) 1,000 mls @ 80 mls/hr IV .[id number] CORY Stop: 06/11/24 00:54 Last Infusion: 05/12/24 11:09 Dose: Infused Documented By: ORVILLE(2) Admin: 05/12/24 01:49 Dose: 80 mls/hr Documented By: LOS Magnesium Sulfate/Dextrose (Magnesium Sulfate / D5w) 1 gm in 100 mls @ 50 mls/hr IV Q2H CORY Stop: 05/12/24 05:14 Last Infusion: 05/12/24 05:50 Dose: Infused Documented By: Admin: 05/12/24 03:50 Dose: 50 mls/hr Documented By: Infusion: 05/12/24 03:50 Dose: Infused Documented By: Admin: 05/12/24 01:50 Dose: 50 mls/hr Documented By: LOS Imaging Data Radiologist's Impression: Chest X-Ray 05/11/24 20:30 XR chest 1V portable HISTORY: 84 years-old Female hypoxia, COPD, decreased BS L base acute shortness of breath COMPARISON: Chest CT 08/15/2023 TECHNIQUE: AP view of the chest FINDINGS: Cardiac silhouette is enlarged. Median sternotomy. Pulmonary vascular congestion. No pneumothorax, pleural effusion or pulmonary edema. Emphysema with chronic fibrosis. Linear nodular opacity left lung apex redemonstrated measuring approximately 3 cm. IMPRESSION: 1. Cardiomegaly with pulmonary vascular congestion. 2. Emphysema with chronic fibrosis redemonstrated. 3. Unchanged linear scarlike opacity of the left lung apex. ACT 112: Negative or not required by law. The above report was generated using voice recognition software. It may contain grammatical, syntax or spelling errors. Electronically signed by: Jarod Rodriguez M.D. 05/12/2024 7:42 AM Discharge Plan Visit Data Chief Complaint: Nausea Stated Complaint: N/V, Dizziness, Diarrhea ED Provider: Chuck Kong Discharge Problem: Hypoxia, COPD (chronic obstructive pulmonary disease), S/P CABG (coronary artery bypass graft), Dizziness Patient Disposition: Admitted As Inpatient Discharge Instructions Interventions: ED Discharge Assessment Last Done: 05/12/24 00:21 Discharge Problem: COPD (chronic obstructive pulmonary disease) Qualifiers: COPD type: unspecified COPD Qualified Code(s): J44.9 - Chronic obstructive pulmonary disease, unspecified
[2024-05-11] MEDS: ALBUT/IPRATROP 3MG/0.5MG NEB 3 ML VIAL NEB STA (20:40)
[2024-05-11] MEDS: SODIUM CHLORIDE 0.9% 1,000 ML IV ONE (20:40)
[2024-05-11 20:50] LABS: Alanine Aminotransferase 9 U/L (7-52); Albumin Globulin Ratio 1.4 (0.9-2); Albumin Level 4.2 gm/dl (3.4-5.0); Alkaline Phosphatase 58 U/L (34-104); Anion Gap 11 (3-11); Aspartate Aminotransferase 16 U/L (13-39); BUN Creatinine Ratio 13.6 (10-20); Bilirubin,Total 0.8 mg/dl (0.2-1.0); Blood Urea Nitrogen 15 mg/dl (6-23); Calcium 9.4 mg/dl (8.6-10.3); Carbon Dioxide 25 mmol/L (21-32); Chloride 98 mmol/L (98-107); Est GFR (African American) 52.6 ml/min; Est GFR (Non-African American) 45.4 ml/min; Globulin 2.9 gm/dl (2.5-4.0); Glucose 133 mg/dl (70-99(Fasting)); Magnesium 1.8 mg/dl (1.7-2.4); Potassium 3.9 mmol/L (3.5-5.1); Sodium 134 mmol/L (136-145); Total Protein 7.1 gm/dl (6.0-8.3)
[2024-05-11 20:52] LABS: Basophils # (auto) 0.03 K/uL (0.00-0.20); Basophils % (auto) 0.5 %; Eosinophils # (auto) 0.02 K/uL (0.00-0.50); Eosinophils % (auto) 0.3 %; Hematocrit (blood only) 38.2 % (37.0-47.0); Hemoglobin 12.8 g/dl (12.0-16.0); Immature Granulocytes # (auto) 0.01 K/uL (0.01-0.20); Immature Granulocytes % (auto) 0.2 %; Lymphocytes # (auto) 0.43 K/uL (1.20-3.40); Lymphocytes % (auto) 6.7 %; Mean Corpuscular Hemoglobin 28.3 pg (25.0-34.0); Mean Corpuscular Hgb Conc 33.5 g/dL (32.0-36.0); Mean Corpuscular Volume 84.5 fL (80.0-100.0); Mean Platelet Volume 12.9 fL (9.4-12.4); Monocytes # (auto) 0.31 K/uL (0.11-0.59); Monocytes % (auto) 4.8 %; Neutrophils # (auto) 5.62 K/uL (1.40-6.50); Neutrophils % (auto) 87.5 %; Platelet Count 214 K/uL (130-400); RDW Coefficient of Variation 15.4 % (11.5-14.5); RDW Standard Deviation 47.3 fL (36.4-46.3); Red Blood Count 4.52 M/uL (4.20-5.40); White Blood Count 6.42 K/ul (4.8-10.8)
[2024-05-11 21:05] LABS: Thyroid Stimulating Hormone 3.419 uIu/ml (0.300-4.500)
[2024-05-11 21:51] LABS: Adenovirus PCR Not Detected (NotDetected); Bordetella parapertussis PCR Not Detected (NotDetected); Bordetella pertussis PCR Not Detected (NotDetected); Chlamydia pneumoniae PCR Not Detected (NotDetected); Coronavirus 229E PCR Not Detected (NotDetected); Coronavirus CoV-2 (COVID19)PCR Not Detected (NotDetected); Coronavirus HKU1 PCR Not Detected (NotDetected); Coronavirus NL63 PCR Not Detected (NotDetected); Coronavirus OC43PCR Not Detected (NotDetected); Human Metapneumovirus PCR Not Detected (NotDetected); Influenza A PCR Not Detected (NotDetected); Influenza B PCR Not Detected (NotDetected); Mycoplasma pneumoniae PCR Not Detected (NotDetected); Parainfluenza Virus 1 PCR Not Detected (NotDetected); Parainfluenza Virus 2 PCR Not Detected (NotDetected); Parainfluenza Virus 3 PCR Not Detected (NotDetected); Parainfluenza Virus 4 PCR Not Detected (NotDetected); Respiratory Syncytial VirusPCR Not Detected (NotDetected); Rhinovirus/Enterovirus PCR Not Detected (NotDetected)
--- NOTE | 2024-05-11 23:16 | History & Physical Report ---
Date of Service May 11, 2024 Assessment & Plan (1) Hypoxia: Plan: -In the ED patient was found to be hypoxic at 84% and put on 2 L nasal cannula. She does not have a history of being on oxygen. -Chart review reveals a history of COPD though is not on any inhalers. -Chest x-ray unchanged from previous chest x-rays, no signs of pneumonia, hemidiaphragm on the left stable. -Respiratory BioFire negative. -CBC, CMP, TSH benign. -UA pending. -Scheduled DuoNebs and albuterol as needed. -Incentive spirometry and flutter valve scheduled. -PT OT ordered. -CBC, CMP, and mag in the a.m. (2) Dizziness: Plan: -Patient with dizziness from an acute illness that has mostly resolved at this point. -Describes presyncopal events though most likely secondary to dehydration. -Symptoms improved with fluids in the ED. -Will continue on LR at 80 mL an hour. (3) Solitary pulmonary nodule: Plan: -Stable at this time following with radiation oncology. (4) COPD (chronic obstructive pulmonary disease): Plan: -History of COPD per chart review the patient does not say that she has COPD. -Lung cancer with history of smoking. -DuoNeb scheduled, oxygen as needed, albuterol as needed. -Will hold off on steroids and antibiotics at this time as patient is stable though needing 2 L of oxygen at time of admission. (5) Coronary artery disease: Plan: -CABG done in 2018. --Continue on home Norvasc, aspirin, isordil, metoprolol, Crestor, and Entresto. Coronary disease status coronary bypass grafting x2 with a vein graft to the LAD and a vein graft to the OM 04/2018. 2. Echo: Hyperdynamic left ventricular systolic function with an EF in the range of 70%, significant hypertrophy of the mid to distal apical wall segments consistent with apical hypertrophic cardiomyopathy; type 2 diastolic dysfuncti on; severe tricuspid regurgitation with severe pulmonary hypertension. 3. Catheterization [facility] 02/2018 with a 40% ostial left main lesion with dampening; 60-70% mid LAD lesion just after the takeoff of the second diagonal; 20-30% mid circumflex lesion with a 60% lesion in the ostial portion of OM1; right-dominant small caliber vessel with a 20-30% ostial lesion. 4. 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 Surgery 10/2017 with a total vaginal hysterectomy and uterosacral ligament vault suspension. 6. Hypertension. 7. Less than 50% right internal carotid artery stenosis with a 50-69% left internal carotid artery stenosis and a 50% left subclavian stenosis with a 30 mm mercury difference between right arm and left arm (01/2022). (6) Hypertension: Plan: -Continue on home medications. (7) Diastolic heart failure: Plan: - Last echo showed type II diastolic dysfunction with severe tricuspid regurgitation with severe pulmonary hypertension. EF of 70%. - on Lasix 20mg once a week but does not use often. - last saw cards on 04/08/2024. - Will hold off on Lasix at this time as patient appears dry - No lower extremity edema or shortness of breath. Plan Fluids: LR at 80 mL an hour Nutrition: Heart healthy Code status: DNR/DNI DVT ppx: SCDs PT/OT: consulted Dispo: PCU/telemetry History of Present Illness Chief Complaint: Dizziness, hypoxia Primary Care Provider: Mary Hernandes PA-C Patient is a 84-year-old female with past medical history of diastolic congestive heart failure, solitary pulmonary nodule status post radiation and lobectomy, hypertension, coronary artery disease with coronary artery bypass in 2018, and COPD who presents to the hospital with dizziness, hypoxia, weakness, and possible syncope. Patient states that yesterday she felt fine and was active with her family. Today she woke up and was dizzy with some nausea and dry heaving. She also had some cold sweats as well. She denies any abdominal pain. States that she does have a cough but has been the same for the past couple of years. She was diagnosed with lung cancer approximately in 2019 and had radiation done last in 2019. States that the cough has been persistent since then. No changes to the cough or production. She also states that she has diarrhea though has been ongoing for many years. States that she has not had any sick contacts and that she did not eat any seafood. Does state that she ate the same thing as her daughter who is not sick yesterday. Previous history of smoking though is not smoked since 2018. Also states that she had near syncopal events but describes this as feeling very lightheaded when trying to stand up after having some nausea and dry heaving. No loss of consciousness. Allergies Allergy/AdvReac Type Severity Reaction Status Date / Time ondansetron [From Zofran] AdvReac Intermediate Unknown Verified 05/11/24 21:05 promethazine [From Phenergan] AdvReac unknown Verified 05/11/24 21:05 Home Medications Medication Instructions Recorded Confirmed Type nitroglycerin 0.4 mg sublingual 0.4 mg sublingual UD PRN Chest Pain 05/22/18 05/11/24 History tablet (Nitrostat) aspirin 81 mg chewable tablet 81 mg PO DAILY #0 tabs 05/23/18 05/11/24 Rx multivitamin (Daily Multi-Vitamin 1 tab PO DAILY 10/05/18 05/11/24 History tablet) coenzyme Q10 100 mg capsule 200 mg PO DAILY 05/13/20 05/11/24 History (CoQ-10) isosorbide dinitrate 30 mg tablet 30 mg PO QAM 01/14/22 05/11/24 History calcium carbonate 600 mg-vitamin 1 tab PO DAILY 08/17/23 05/11/24 History D3 20 mcg (800 unit) chewable tablet (Caltrate 600 plus D) amlodipine 2.5 mg tablet 2.5 mg PO DAILY 05/11/24 05/11/24 History escitalopram oxalate 5 mg tablet 5 mg PO DAILY 05/11/24 05/11/24 History furosemide 20 mg tablet 20 mg PO WK 05/11/24 05/11/24 History lorazepam 0.5 mg tablet 0.5 mg PO BID 05/11/24 05/11/24 History metoprolol succinate 50 mg 50 mg PO DAILY 05/11/24 05/11/24 History tablet,extended release 24 hr omeprazole 20 mg tablet,delayed 20 mg PO DAILYBB 05/11/24 05/11/24 History release rosuvastatin 10 mg tablet 10 mg PO HS 05/11/24 05/11/24 History sacubitril 49 mg-valsartan 51 mg 1 tab PO BID 05/11/24 05/11/24 History tablet (Entresto) Past Med/Surg History Problem List (Updated 05/12/24 @ 00:15 by Daniel Marcelino DO) Diastolic heart failure Hypertension Dizziness Hypoxia COVID-19 (Acute) Encounter for laboratory testing for COVID-19 virus (Acute) Solitary pulmonary nodule (Chronic) Abnormal PET scan of lung COPD (chronic obstructive pulmonary disease) Afib Carotid artery stenosis S/P CABG (coronary artery bypass graft) 05-03-2018 Coronary artery disease Lower GI bleed (Acute) Medical History Chronic obstructive bronchitis with pulmonary emphysema Acute Lyme disease 2007 Collapsed lung surgery 1979 FH: BRENT-BSO (total abdominal hysterectomy and bilateral salpingo-oophorectomy) 10-07-2017 and had bladder tacked Surgical History H/O dilation and curettage H/O hemorrhoidectomy 10-07-2017 Family History Mother , age 72 Hodgkins disease Lymphoma Father , age 75 Cancer Brother Mental problems Daughter No problems noted. Daughter No problems noted. Daughter No problems noted. Social History Smoking Status: Former smoker Tobacco Type: Cigarettes Smoking End Date: 2017; Second Hand Exposure: No; Do You Dip or Chew Tobacco: No; Hx Alcohol Use: Yes Alcohol type: hard liquor Hx Substance Use: No Preferred Language: Ukrainian Communication Ability: Effective Hearing Ability: Normal Line Camera Operator Required: No Beliefs That Will Affect Care: None Current Living Situation: Alone Current Living Situation Comment: Patient stated that she lives alone and her 2 mo ago current occupation: Retired Other Information That Helps Us Care for You: No Feels Safe at Home: Yes Safety Concerns: Feels Safe At This Time Assistive Devices: Glasses Review of Systems Review of Systems: All systems reviewed & are unremarkable except as noted in Subjective Physical Exam Physical Exam: Constitutional: well-appearing, no acute distress HEENT: NCAT, no conjunctival injection CV: regular rhythm, no murmur appreciated, extremities well-perfused, no LE edema Resp: CTABL, no wheezes/rales/rhonchi appreciated, no increased work of breathing GI: soft, nondistended, nontender, BS normoactive MSK: no gross deformities appreciated Skin: warm, dry, no rash appreciated Neuro: alert, oriented, no focal neurologic deficit appreciated Results & Data Results & Data Vital Signs (Past 12 Hours) Vital Signs Temp Pulse Pulse Resp BP BP Pulse Ox 05/11/24 22:33 89 L 05/11/24 22:25 96 05/11/24 22:00 82 20 114/65 96 05/11/24 20:44 73 20 167/69 H 99 05/11/24 20:23 87 L 05/11/24 20:11 36.7 C 67 16 172/78 H 95 05/11/24 20:04 73 O2 Del Method O2 Flow Rate 05/11/24 22:33 Room Air 05/11/24 22:25 Nasal Cannula 2 05/11/24 22:00 Nasal Cannula 2 05/11/24 20:44 Nasal Cannula 2 05/11/24 20:23 Room Air, Nasal Cannula 0 05/11/24 20:11 Room Air 05/11/24 20:04 Laboratory Results Laboratory Results WBC 4.78 K/ul (4.8-10.8) L 05/12/24 04:50 RBC 3.76 M/uL (4.20-5.40) L 05/12/24 04:50 Hgb 10.2 g/dl (12.0-16.0) L 05/12/24 04:50 Hct 31.7 % (37.0-47.0) L 05/12/24 04:50 MCV 84.3 fL (80.0-100.0) 05/12/24 04:50 MCH 27.1 pg (25.0-34.0) 05/12/24 04:50 MCHC 32.2 g/dL (32.0-36.0) 05/12/24 04:50 RDW Std Deviation 47.8 fL (36.4-46.3) H 05/12/24 04:50 RDW Coeff of Tanya 15.6 % (11.5-14.5) H 05/12/24 04:50 Plt Count 174 K/uL (130-400) 05/12/24 04:50 MPV 13.0 fL (9.4-12.4) H 05/12/24 04:50 Immature Gran % (Auto) 0.2 % 05/12/24 04:50 Neut % (Auto) 81.0 % 05/12/24 04:50 Lymph % (Auto) 10.5 % 05/12/24 04:50 Bonner % (Auto) 7.9 % 05/12/24 04:50 Eos % (Auto) 0.0 % 05/12/24 04:50 Baso % (Auto) 0.4 % 05/12/24 04:50 Neut # (Auto) 3.87 K/uL (1.40-6.50) 05/12/24 04:50 Lymph # (Auto) 0.50 K/uL (1.20-3.40) L 05/12/24 04:50 Bonner # (Auto) 0.38 K/uL (0.11-0.59) 05/12/24 04:50 Eos # (Auto) 0.00 K/uL (0.00-0.50) 05/12/24 04:50 Baso # (Auto) 0.02 K/uL (0.00-0.20) 05/12/24 04:50 Immature Gran # (Auto) 0.01 K/uL (0.01-0.20) 05/12/24 04:50 Sodium 135 mmol/L (136-145) L 05/12/24 04:50 Potassium 3.8 mmol/L (3.5-5.1) 05/12/24 04:50 Chloride 102 mmol/L (98-107) 05/12/24 04:50 Carbon Dioxide 26 mmol/L (21-32) 05/12/24 04:50 Anion Gap 7 (3-11) 05/12/24 04:50 BUN 14 mg/dl (6-23) 05/12/24 04:50 Creatinine 1.07 mg/dl (0.6-1.2) 05/12/24 04:50 Est Cr Clr Drug Dosing 25.7 ml/min 05/12/24 04:50 Est GFR ( Amer) 54.4 ml/min 05/12/24 04:50 Est GFR (Non-Af Amer) 47.0 ml/min 05/12/24 04:50 BUN/Creatinine Ratio 13.1 (10-20) 05/12/24 04:50 Glucose 113 mg/dl (70-99(Fasting)) H 05/12/24 04:50 Calcium 8.2 mg/dl (8.6-10.3) L 05/12/24 04:50 Magnesium 2.5 mg/dl (1.7-2.4) H 05/12/24 04:50 Total Bilirubin 0.5 mg/dl (0.2-1.0) 05/12/24 04:50 AST 13 U/L (13-39) 05/12/24 04:50 ALT 6 U/L (7-52) L 05/12/24 04:50 Alkaline Phosphatase 43 U/L (34-104) 05/12/24 04:50 Total Protein 5.7 gm/dl (6.0-8.3) L 05/12/24 04:50 Albumin 3.5 gm/dl (3.4-5.0) 05/12/24 04:50 Globulin 2.2 gm/dl (2.5-4.0) L 05/12/24 04:50 Albumin/Globulin Ratio 1.6 (0.9-2) 05/12/24 04:50 TSH 3.419 uIu/ml (0.300-4.500) 05/11/24 20:11 Urine Color Yellow 05/12/24 01:06 Urine Appearance Clear (Clear) 05/12/24 01:06 Urine pH 6.0 (4.5-7.5) 05/12/24 01:06 Ur Specific [place] 1.012 (1.000-1.030) 05/12/24 01:06 Urine Protein 1+ (Negative) H 05/12/24 01:06 Urine Glucose (UA) Negative (Negative) 05/12/24 01:06 Urine Ketones 2+ (Negative) H 05/12/24 01:06 Urine Blood Negative (Negative) 05/12/24 01:06 Urine Nitrite Negative (Negative) 05/12/24 01:06 Urine Bilirubin Negative (Negative) 05/12/24 01:06 Urine Urobilinogen Negative (Negative) 05/12/24 01:06 Ur Leukocyte Esterase 2+ (Negative) H 05/12/24 01:06 Urine WBC (Auto) 6-10 /hpf (0-5) H 05/12/24 01:06 Urine RBC (Auto) 0-2 /hpf (0-2) 05/12/24 01:06 U Hyaline Cast (Auto) 0-2 /lpf (0-2) 05/12/24 01:06 U Epithel Cells (Auto) 0-2 /hpf (0-2) 05/12/24 01:06 Urine Bacteria (Auto) None Seen (None Seen) 05/12/24 01:06 Adenovirus (PCR) Not Detected (NotDetected) 05/11/24 20:43 B. pertussis DNA (PCR) Not Detected (NotDetected) 05/11/24 20:43 B.parapertussis DNA PCR Not Detected (NotDetected) 05/11/24 20:43 C. pneumoniae DNA (PCR) Not Detected (NotDetected) 05/11/24 20:43 Coronavirus OC43 (PCR) Not Detected (NotDetected) 05/11/24 20:43 Coronavirus HKU1 (PCR) Not Detected (NotDetected) 05/11/24 20:43 Coronavirus 229E (PCR) Not Detected (NotDetected) 05/11/24 20:43 SARS-CoV-2 (PCR) Not Detected (NotDetected) 05/11/24 20:43 Coronavirus NL63 (PCR) Not Detected (NotDetected) 05/11/24 20:43 Human Metapneumovir PCR Not Detected (NotDetected) 05/11/24 20:43 Influenza Type A (PCR) Not Detected (NotDetected) 05/11/24 20:43 Influenza Type B (PCR) Not Detected (NotDetected) 05/11/24 20:43 M. pneumoniae (PCR) Not Detected (NotDetected) 05/11/24 20:43 Parainfluenza 1 (PCR) Not Detected (NotDetected) 05/11/24 20:43 Parainfluenza 2 (PCR) Not Detected (NotDetected) 05/11/24 20:43 Parainfluenza 3 (PCR) Not Detected (NotDetected) 05/11/24 20:43 Parainfluenza 4 (PCR) Not Detected (NotDetected) 05/11/24 20:43 RSV (PCR) Not Detected (NotDetected) 05/11/24 20:43 Entero/Rhino (PCR) Not Detected (NotDetected) 05/11/24 20:43 Supervising Physician Co-Signing Physician Notes Patient seen and examined, chart reviewed, case discussed with Dr. Marcelino and I agree with the assessment and plan as above. Patient evaluated in room 459. Appears to be improved. Resting comfortably on 2L NC Gen - NAD Skin - intact HEENT - MMM, Neck supple Heart - +S1/S2, regular, no m/r/g Lungs - CTA Abd - soft, NT/ND Ext - warm, well perfused Labs and images reviewed Assessment/Plan -Gentle IVF given -Check orthostatic VS today -Added holding parameters to antihypertensives - do not give is SBP < 100 -Patient should be discharged with Spiriva daily and Albuterol PRN for her COPD -Remainder as above
[2024-05-12] MEDS ORDERED: ONDANSETRON INJ 2 MG/ML 2 ML VIAL IV PRN (00:55)
[2024-05-12] MEDS ORDERED: ALBUT/IPRATROP 3MG/0.5MG NEB 3 ML VIAL NEB PRN (00:55)
[2024-05-12] MEDS ORDERED: ACETAMINOPHEN 325 MG TAB PO PRN (00:55)
[2024-05-12] MEDS ORDERED: MAGNESIUM SULFATE / D5W 1 GM/100 ML BAG IV SCH (01:00)
[2024-05-12] MEDS: ALBUT/IPRATROP 3MG/0.5MG NEB 3 ML VIAL INH SCH (01:09)
[2024-05-12 01:36] LABS: Appearance Urine Clear (Clear); Bacteria Urine Automated None Seen (None Seen); Bilirubin Urine Negative (Negative); Blood Urine Negative (Negative); Cast Urine Automated 0-2 /lpf (0-2); Color Urine Yellow; Epithelial Cell Urine Auto 0-2 /hpf (0-2); Glucose Urine UA Negative (Negative); Ketones Urine 2+ (Negative); Leukocyte Esterase Urine 2+ (Negative); Nitrite Urine Negative (Negative); Protein Urine 1+ (Negative); RBC Urine Automated 0-2 /hpf (0-2); Specific Gravity Urine 1.012 (1.000-1.030); Urobilinogen Urine Negative (Negative)
[2024-05-12] MEDS: LACTATED RINGER'S 1,000 ML IV SCH (01:49)
[2024-05-12] MEDS: MAGNESIUM SULFATE / D5W 1 GM/100 ML BAG IV SCH (01:50)
[2024-05-12 05:41] LABS: Basophils # (auto) 0.02 K/uL (0.00-0.20); Basophils % (auto) 0.4 %; Hematocrit (blood only) 31.7 % (37.0-47.0); Hemoglobin 10.2 g/dl (12.0-16.0); Immature Granulocytes # (auto) 0.01 K/uL (0.01-0.20); Immature Granulocytes % (auto) 0.2 %; Lymphocytes % (auto) 10.5 %; Mean Corpuscular Hemoglobin 27.1 pg (25.0-34.0); Mean Corpuscular Hgb Conc 32.2 g/dL (32.0-36.0); Mean Corpuscular Volume 84.3 fL (80.0-100.0); Monocytes # (auto) 0.38 K/uL (0.11-0.59); Monocytes % (auto) 7.9 %; Neutrophils # (auto) 3.87 K/uL (1.40-6.50); Platelet Count 174 K/uL (130-400); RDW Coefficient of Variation 15.6 % (11.5-14.5); RDW Standard Deviation 47.8 fL (36.4-46.3); Red Blood Count 3.76 M/uL (4.20-5.40); White Blood Count 4.78 K/ul (4.8-10.8)
[2024-05-12 05:57] LABS: Albumin Globulin Ratio 1.6 (0.9-2); Albumin Level 3.5 gm/dl (3.4-5.0); BUN Creatinine Ratio 13.1 (10-20); Bilirubin,Total 0.5 mg/dl (0.2-1.0); Calcium 8.2 mg/dl (8.6-10.3); Creatinine Clr Calc Pharmacy 25.7 ml/min; Est GFR (African American) 54.4 ml/min; Globulin 2.2 gm/dl (2.5-4.0); Magnesium 2.5 mg/dl (1.7-2.4); Potassium 3.8 mmol/L (3.5-5.1); Total Protein 5.7 gm/dl (6.0-8.3)
--- NOTE | 2024-05-12 06:48 | Billing Data ---
Date of Service May 11, 2024 Coding Level of Care Code 96184 INT INP/OBS CARE
--- NOTE | 2024-05-12 07:43 | XRay Report ---
XR chest 1V portable HISTORY: 84 years-old Female hypoxia, COPD, decreased BS L base acute shortness of breath COMPARISON: Chest CT 08/15/2023 TECHNIQUE: AP view of the chest FINDINGS: Cardiac silhouette is enlarged. Median sternotomy. Pulmonary vascular congestion. No pneumothorax, pl eural effusion or pulmonary edema. Emphysema with chronic fibrosis. Linear nodular opacity left lung apex redemonstrated measuring approximately 3 cm. IMPRESSION: 1. Cardiomegaly with pulmonary vascular congestion. 2. Emphysema with chronic fibrosis redemonstrated. 3. Unchanged linear scarlike opacity of the left lung apex. ACT 112: Negative or not required by law. The above report was generated using voice recognition software. It may contain grammatical, syntax o r spelling errors. Electronically signed by: Jarod Rodriguez M.D. 05/12/2024 7:42 AM
[2024-05-12] MEDS: ISOSORBIDE MONO EXTENDED REL 30 MG TABCR PO SCH (08:28)
[2024-05-12] MEDS: ESCITALOPRAM OXALATE 10 MG TAB PO SCH (08:29)
[2024-05-12] MEDS: METOPROLOL SUCC 50MG EXT REL TAB PO SCH (08:29)
[2024-05-12] MEDS: ASPIRIN 81 MG CHEW PO SCH (08:30)
[2024-05-12] MEDS: PANTOprazole 40 MG TAB PO SCH (08:30)
[2024-05-12] MEDS: amLODIPine BESYLATE 5 MG TAB PO SCH (08:30)
[2024-05-12] MEDS: MULTIVITAMIN TAB PO SCH (08:31)
[2024-05-12] MEDS: VALSARTAN/SACUBITRIL 51/49 MG TAB PO SCH (08:31)
[2024-05-12] MEDS: CALCIUM 600MG + VIT D 400 IU TAB PO SCH (08:31)
[2024-05-12] MEDS ORDERED: NON-FORMULARY MEDICATION (Coenzyme Q10 [Coq-10] 100 mg capsule) PO SCH (09:00)
--- NOTE | 2024-05-12 12:50 | Hospitalist Progress Note ---
Date of Service May 12, 2024 Assessment & Plan (1) Hypoxia: Plan: Patient presented to the ED on 05/11 for nausea, dry heaving, and dizziness. Patient found to be hypoxic at 84%. She was placed on 2L nasal cannula. Patient denies history of being on oxygen. -CXR reviewed: unchanged from previous -Respiratory biofire negative -CBC/BMP stable - hgb 10.2 -UA negative -Scheduled DuoNebs and albuterol prn -2 step done - patient benefit from 2L while ambulating at home Discussed w/ case management - O2 will be arranged for patient 05/13 upon discharge pending therapy eval. -PT/OT consults pending -Incentive Spirometry and flutter valve scheduled AM CBC, BMP (2) Dizziness: Plan: -Patient with dizziness from an acute illness that has mostly resolved at this point. -Describes presyncopal events though most likely secondary to dehydration. -Symptoms improved with fluids (3) COPD (chronic obstructive pulmonary disease): Plan: -History of COPD per chart review the patient does not say that she has COPD. -Lung cancer with history of smoking. -DuoNeb scheduled, oxygen as needed, albuterol as needed. -Started on Rocephin and Doxycycline 05/12 for concern for COPD exacerbation (4) Coronary artery disease: Plan: -CABG done in 2017. --Continue on home Norvasc, aspirin, isordil, metoprolol, Crestor, and Entresto. Coronary disease status coronary bypass grafting x2 with a vein graft to the LAD and a vein graft to the OM 04/2018. 2. Echo: Hyperdynamic left ventricular systolic function with an EF in the range of 70%, significant hypertrophy of the mid to distal apical wall segments consistent with apical hypertrophic cardiomyopathy; type 2 diastolic dysfunction; severe tricuspid regurgitation with severe pulmonary hypertension. 3. Catheterization [facility] 02/2018 with a 40% ostial left main lesion with dampening; 60-70% mid LAD lesion just after the takeoff of the second diagonal; 20-30% mid circumflex lesion with a 60% lesion in the ostial portion of OM1; right-dominant small caliber vessel with a 20-30% ostial lesion. 4. 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 Surgery 10/2017 with a total vaginal hysterectomy and uterosacral ligament vault suspension. 6. Hypertension. 7. Less than 50% right internal carotid artery stenosis with a 50-69% left internal carotid artery stenosis and a 50% left subclavian stenosis with a 30 mm mercury difference between right arm and left arm (01/2022). (5) Hypertension: Plan: -Continue on home medications. (6) Diastolic heart failure: Plan: - Last echo showed type II diastolic dysfunction with severe tricuspid regurgitation with severe pulmonary hypertension. EF of 70%. - on Lasix 20mg once a week but does not use often. - last saw cards on 04/08/2024. - Will hold off on Lasix at this time as patient appears dry - No lower extremity edema or shortness of breath. Plan Nutrition: Heart healthy Code status: DNR/DNI DVT ppx: SCDs Dispo: PCU/telemetry Updated family at bedside 05/12 Admission and Anticipated Discharge Date Admission Date: May 11, 2024 Subjective Patient seen and examined this afternoon with family at bedside. Patient reports to be feeling okay today. She was tolerating her lunch at time of encounter. She denied further nausea or dry heaving. She reports she never had an episode of emesis. Patient also reports history of diarrhea. Has tried Imodium in the past but that constipated her for a week. Patient is concerned diarrhea is contributing to her dehydration. Physical Exam 2 Constitutional: WD/WN, vitals as above Eyes: PERRL, conjunctivae normal, anicteric sclerae Respiratory: wheezing in b/l upper lobes Cardiovascular: RRR, no murmur, no edema Skin: no rashes, warm and dry Psychiatric: A+Ox3, euthymic affect Results & Data Results & Data Vital Signs (Past 12 Hours) Vital Signs Temp Pulse Pulse Pulse Pulse Pulse Pulse 05/12/24 12:14 76 05/12/24 12:10 86 78 76 65 05/12/24 11:48 36.7 C 70 05/12/24 08:28 05/12/24 06:58 78 05/12/24 03:10 36.7 C 83 05/12/24 01:28 36.7 C 74 05/12/24 01:10 72 05/12/24 01:10 79 05/12/24 01:00 05/12/24 00:55 05/12/24 00:55 36.7 C 74 Resp Resp Resp Resp Resp BP Pulse Ox 05/12/24 12:14 16 96 05/12/24 12:10 20 20 16 16 05/12/24 11:48 17 107/57 L 90 05/12/24 08:28 120/67 05/12/24 06:58 20 93 05/12/24 03:10 16 115/53 L 97 05/12/24 01:28 18 143/73 H 96 05/12/24 01:10 05/12/24 01:10 18 95 05/12/24 01:00 05/12/24 00:55 05/12/24 00:55 19 143/73 H 96 Pulse Ox Pulse Ox Pulse Ox Pulse Ox Pulse Ox O2 Del Method O2 Del Method 05/12/24 12:14 Room Air 05/12/24 12:10 95 86 L 93 92 05/12/24 11:48 Room Air 05/12/24 08:28 05/12/24 06:58 Nasal Cannula 05/12/24 03:10 Nasal Cannula 05/12/24 01:28 Nasal Cannula 05/12/24 01:10 05/12/24 01:10 Nasal Cannula 05/12/24 01:00 Nasal Cannula 05/12/24 00:55 96 Nasal Cannula 05/12/24 00:55 Room Air O2 Flow Rate O2 Flow Rate O2 Flow Rate 05/12/24 12:14 05/12/24 12:10 2 05/12/24 11:48 05/12/24 08:28 05/12/24 06:58 1 05/12/24 03:10 05/12/24 01:28 1 05/12/24 01:10 05/12/24 01:10 2 05/12/24 01:00 2 05/12/24 00:55 2 05/12/24 00:55 Laboratory Results 05/12/24 04:50 05/12/24 04:50 PG Care Time/CCT Total # of Minutes Spent Total Time Spent with Patient: Total time spent is greater than 50% in coordination of care (as documented) at patient's floor/unit and/or counseling patient: Coding Level of Care Code 58626 SUB INP/OBS CARE 2/35MIN Diagnoses Hypoxia R09.02 Dizziness R42 COPD (chronic obstructive pulmonary disease) J44.9 Coronary artery disease I25.10 Hypertension I10 Diastolic heart failure I50.30
[2024-05-12] MEDS: cefTRIAXone SODIUM 1,000 MG/50 ML BAG IV SCH (13:20)
[2024-05-12] MEDS: DOXYCYCLINE HYCLATE 100 MG CAP PO SCH (14:06)
[2024-05-12] MEDS: ROSUVASTATIN CALCIUM 10 MG TAB PO SCH (20:22)
--- NOTE | 2024-05-12 20:52 | Electrocardiogram Report ---
Test Reason : Blood Pressure : */* mmHG Vent. Rate : 68 BPM Atrial Rate : 68 BPM P-R Int : 144 ms QRS Dur : 80 ms QT Int : 380 ms P-R-T Axes : 53 46 128 degrees QTcB Int : 404 ms Sinus rhythm with Premature ventricular complexes Possible Left atrial enlargement Left ventricular hypertrophy with repolarization abnormality Abnormal ECG When compared with ECG of 02-Nov-2022 13:17, Premature ventricular complexes are now Present Confirmed by Jovani Washington ([id number]) on 05/12/2024 8:52:12 PM Referred By: REFERRED SELF Confirmed By: Jovani Washington
[2024-05-12] MEDS: PROCHLORPERAZINE 5 MG in SYRINGE 4 ML IV ONE (23:15)
[2024-05-13] MEDS: PROCHLORPERAZINE 5 MG in SYRINGE 4 ML IV ONE (03:23)
[2024-05-13 06:22] LABS: Hematocrit (blood only) 34.5 % (37.0-47.0); Hemoglobin 11.7 g/dl (12.0-16.0); Mean Corpuscular Hemoglobin 28.1 pg (25.0-34.0); Mean Corpuscular Hgb Conc 33.9 g/dL (32.0-36.0); Mean Corpuscular Volume 82.7 fL (80.0-100.0); Mean Platelet Volume 12.8 fL (9.4-12.4); Platelet Count 172 K/uL (130-400); RDW Coefficient of Variation 15.5 % (11.5-14.5); RDW Standard Deviation 47.1 fL (36.4-46.3); Red Blood Count 4.17 M/uL (4.20-5.40); White Blood Count 9.94 K/ul (4.8-10.8)
[2024-05-13 06:32] LABS: Calcium 8.6 mg/dl (8.6-10.3); Carbon Dioxide 25 mmol/L (21-32); Chloride 103 mmol/L (98-107)
[2024-05-13 06:53] LABS: BUN Creatinine Ratio 18.5 (10-20); Blood Urea Nitrogen 17 mg/dl (6-23); Creatinine Clr Calc Pharmacy 29.9 ml/min; Est GFR (African American) 65.3 ml/min; Est GFR (Non-African American) 56.4 ml/min; Glucose 130 mg/dl (70-99(Fasting))
--- NOTE | 2024-05-13 16:56 | Hospitalist Progress Note ---
Date of Service May 13, 2024 Assessment & Plan (1) Hypoxia: Plan: Patient presented to the ED on 05/11 for nausea, dry heaving, and dizziness. Patient found to be hypoxic at 84%. She was placed on 2L nasal cannula. Patient denies history of being on oxygen. -CXR reviewed: cardiomegaly, emphysema, and scar like opacity of left lung apex -Respiratory biofire negative -UA negative patient has been weaned down and stable on room air - nebs changed to PRN - 2 step recommending 2L with ambulation -PT/OT - recommend return home -continue Incentive Spirometry and flutter valve AM CBC, BMP (2) COPD (chronic obstructive pulmonary disease): Plan: -History of COPD per chart review, however patient denies this -Lung cancer with history of smoking. -abx discontinued as patient is afebrile, without worsening cough or sputum production, no elevation in WBC and does not tolerate abx well - will initiate LAMA therapy which should be continued at discharged with prn albuterol -nebs changed to PRN (3) Esophageal dysfunction: Plan: Patient with difficulty swallowing and feeling like food is getting stuck sub sternally. Has been going on for awhile, but getting worse - Evaluated by INDUCTION FURNACE OPERATOR, did not want intervention - recommend soft slippery foods, aspiration precautions has now agreed to barium swallow, ordered (4) Dizziness: Plan: -Patient with dizziness from an acute illness that has mostly resolved at this point. -Describes presyncopal events though most likely secondary to dehydration. -Symptoms improved with fluids (5) Diastolic heart failure: Plan: - Last echo showed type II diastolic dysfunction with severe tricuspid regurgitation with severe pulmonary hypertension. EF of 70%. - on Lasix 20mg once a week but does not use often. - Will hold off on Lasix at this time as patient appears dry and suspect dehydration causing her dizziness symptoms Plan Chronic stable medical conditions: * CAD/HTN - -CABG done in 2018. -Continue on home Norvasc, aspirin, isordil, metoprolol, Crestor, and Entresto. Dispo: continued inpatient stay DVT proh: lovenox Updated family at bedside 05/12 and 05/13 Admission and Anticipated Discharge Date Admission Date: May 11, 2024 Subjective patient seen sititng up in the chair eating lunch, while eating she had to stop talking because she felt that her food was stuck substernally states that her dizziness has improved still having diarrhea but this is not new for her. Review of Systems Review of Systems: All systems reviewed & are unremarkable except as noted in Subjective Physical Exam Physical Exam: General: NAD, VS as above HEENT: clear diffuclty with esophageal motility Resp: normal respiratory effort,diminished in basis CV: RRR, no murmur, Abd: normal bowel sounds, non tender, no hepatosplenomegaly Extremities: Moves all extremities, no edema Neuro: A&O x3, Skin: intact, no lesions noted Results & Data Results & Data Vital Signs (Past 12 Hours) Vital Signs Temp Pulse Resp BP Pulse Ox O2 Del Method O2 Flow Rate 05/13/24 16:00 36.7 C 78 18 127/66 92 Room Air 05/13/24 13:40 69 15 94 Room Air 05/13/24 12:54 Room Air 05/13/24 11:40 36.4 C L 70 17 107/63 91 Room Air 05/13/24 08:00 36.6 C 90 18 148/72 H 90 Room Air 05/13/24 07:10 71 17 98 Nasal Cannula 2 Laboratory Results CBC and chemistry reviewed PG Care Time/CCT Total # of Minutes Spent Total Time Spent with Patient: Total time spent is greater than 50% in coordination of care (as documented) at patient's floor/unit and/or counseling patient: Coding Level of Care Code 80528 SUB INP/OBS CARE 3/50MIN Diagnoses Hypoxia R09.02 COPD (chronic obstructive pulmonary disease) J44.9 COPD type: unspecified COPD Esophageal dysfunction K22.4 Dizziness R42 Diastolic heart failure I50.30 (2) COPD (chronic obstructive pulmonary disease) COPD type: unspecified COPD Qualified Code(s): J44.9 - Chronic obstructive pulmonary disease, unspecified
[2024-05-13] MEDS: ENOXAPARIN INJ 40 MG/0.4 ML SYR SQ SCH (20:19)
[2024-05-14] MEDS: MELATONIN 3 MG TAB PO PRN (02:43)
[2024-05-14 08:10] VITALS: O2SAT 93
[2024-05-14] MEDS: UMECLIDINIUM BROMIDE 62.5MCG/BLISTER 7 PUFFS/INHALER INH SCH (08:13)
[2024-05-14 12:46] VITALS: BP 138/63; PULSE 68; RESP 17; TEMP 97.9
--- NOTE | 2024-05-14 14:41 | Fluoroscopy Report ---
FL barium swallow CLINICAL HISTORY: esophageal dysfunction TECHNIQUE: The patient was observed drinking thick and thin barium under fluoroscopic observation in both the upright and recumbent positions. Total fluoroscopy time: 42 seconds Ka,r: 12.8 mGy COMPARISON: Comparison is made to CT chest 08/25/2020 FINDINGS: The patient had no problem initiating the swallowing mechanism. There was no evidence of aspiration. Numerous tertiary contractions are seen with delayed peristalsis. There was no evidence of strictures, filling defects, or outpouchings. Contrast flowed readily from t he esophagus into the stomach. There may be a very small hiatal hernia. Reflux was seen during the course of this exam. A 13 mm pill was ingested by the patient. This passed through the esophagus and into the stomach with out any evidence of holdup. IMPRESSION: Prominent dysmotility, likely small hiatal hernia, and reflux. ACT 112: Negative or not required by law. Electronically signed by: Aris Rodgers M.D. 05/14/2024 2:40 PM
--- NOTE | 2024-05-14 15:45 | Discharge Summary ---
Discharge Summary Date of Service May 14, 2024 Principal Dx & Hospital Course #1 = Principal Diagnosis (1) Hypoxia: Patient presented to the ED on 05/11 for nausea, dry heaving, and dizziness. Patient found to be hypoxic at 84%. She was placed on 2L nasal cannula. Patient denies history of being on oxygen. -CXR reviewed: cardiomegaly, emphysema, and scar like opacity of left lung apex -Respiratory biofire negative -UA negative patient has been weaned down and stable on room air - nebs changed to PRN - 2 step recommending 2L with ambulation --> home O2 arranged for discharge -PT/OT - recommend return home -continue Incentive Spirometry and flutter valve (2) COPD (chronic obstructive pulmonary disease): -History of COPD per chart review, however patient denies this -Lung cancer with history of smoking. -abx discontinued as patient is afebrile, without worsening cough or sputum production, no elevation in WBC and does not tolerate abx well - will initiate LAMA therapy which should be continued at discharged with prn albuterol (sent) (3) Esophageal dysfunction: Patient with difficulty swallowing and feeling like food is getting stuck substernally. Has been going on for awhile, but getting worse - Evaluated by HIGH SCHOOL MUSIC DIRECTOR, did not want intervention - recommend soft slippery foods, aspiration precautions Agreed to barium swallow studying - showing prominent dysmotility, small hiatal hernia and reflux - continue PPI, offered GI consult and pt declined (4) Dizziness: -Patient with dizziness from an acute illness that has mostly resolved at this point. -Describes presyncopal events though most likely secondary to dehydration. -Symptoms improved with fluids (5) Diastolic heart failure: - Last echo showed type II diastolic dysfunction with severe tricuspid regurgitation with severe pulmonary hypertension. EF of 70%. - on Lasix 20mg once a week but does not use often - continue home dosing at discharge Plan Chronic stable medical conditions: * CAD/HTN - -CABG done in 2018. -Continue on home Norvasc, aspirin, isordil, metoprolol, Crestor, and Entresto. Dispo: discharge to home today Updated family at bedside 05/12 and 05/13 and 05/14 Notes For Next Care Provider Admitted with hypoxia and dizziness thought to be from dehydration. started on inhalers for COPD, 2L oxygen with ambulation. dysmotility on barium swallow - continue PPI, declined GI referral Medication Changes From Visit Incruse ellipta albuterol inhaler prn home O2 with ambulation Admission HPI Per Admitting Provider Patient is a 84-year-old female with past medical history of diastolic congestive heart failure, solitary pulmonary nodule status post radiation and lobectomy, hypertension, coronary artery disease with coronary artery bypass in 2018, and COPD who presents to the hospital with dizziness, hypoxia, weakness, and possible syncope. Patient states that yesterday she felt fine and was active with her family. Today she woke up and was dizzy with some nausea and dry heaving. She also had some cold sweats as well. She denies any abdominal pain. States that she does have a cough but has been the same for the past couple of years. She was diagnosed with lung cancer approximately in 2019 and had radiation done last in 2019. States that the cough has been persistent since then. No changes to the cough or production. She also states that she has diarrhea though has been ongoing for many years. States that she has not had any sick contacts and that she did not eat any seafood. Does state that she ate the same thing as her daughter who is not sick yesterday. Previous history of smoking though is not smoked since 2018. Also states that she had near syncopal events but describes this as feeling very lightheaded when trying to stand up after having some nausea and dry heaving. No loss of consciousness. Discharge Exam General: NAD, VS as above Resp: normal respiratory effort,diminished in bases CV: RRR, no murmur, Extremities: Moves all extremities, no edema Neuro: A&O x3, Skin: intact, no lesions noted Discharge Plan Discharge Items Patient Disposition: Home - Self-Care Reason For Visit: DIZZINESS, HYPOXIC Discharge Diagnosis: Dizziness - resolved chronic GERD Activity: Resume your previous activity Non-emergency contact: Primary Care Provider Call non-emergency contact if: you have any medication questions, your pain is not controlled and your pain is worsening Follow-up/Referrals: Mary Hernandes PA-C [Primary Care Provider] - (follow up within one week ) Diet: Heart Healthy Addtl Attending Provider Instructions: Ms. Cano, You were hospitalized after having low oxygen levels and weakness. It is very likely that you have COPD based on the imaging you have had here, your lung Cancer history and your smoking history. I have started you on a daily inhaler for COPD - take this once in the morning. You will also have albuterol inhaler for as needed for wheezing. You have also qualified for oxygen at home, 2L with ambulation. I would recommend getting a pulse oximeter from the pharmacy so you can monitor your oxygen levels at home. Your dizziness got better with hydration and was likely from dehydration. You should make sure that you are staying hydrated, especially with your chronic diarrhea. There were concerns about your swallowing, you had a barium study that showed reflux, a small hiatal hernia and esophageal dysmotility. You should continue your omeprazole and add extra sauces and gravy to foods. The next step would be a GI referral and likely EGD (upper endoscopy), if this is something you would be interested in, your PCP can send that referral. Medications: Your medication list has been reviewed and reconciled upon discharge to ensure accuracy and continuity of care. An updated list of all your medications is included with your hospital discharge paperwork. Please review this list closely, and make note of any changes. Take your medications as instructed; do not skip a dose of your medicines. Make sure all of your doctors know every medicine you are taking (including [id number] medicines, vitamins, and supplements). Call your primary care provider before taking any new medicines (including over- the-counter medicines, vitamins, and supplements), because some of these may interact with your current medications, or may make your symptoms worse. Tell your primary care provider if you cannot afford your medications. Activity: You can do normal everyday activities as your body allows. Take rest breaks if you feel tired. Do not overexert. Stop activity if you have pain, shortness of breath or feel dizzy. Follow-up appointments: Make an appointment with your primary care physician within one week of discharge. A copy of this summary will be sent to them. Every time you see your primary care physician, or any other doctor, bring your medication list, and a list of questions. CONTACT YOUR PRIMARY CARE PROVIDER if you experience any of the following: Shortness of breath or difficulty breathing Fevers or chills Feeling tired with normal activity or experiencing dizziness or fainting Difficulty following your treatment plan, or difficulty taking medications CALL 911 OR GO TO THE EMERGENCY DEPARTMENT if you experience any of the following: Severe abdominal pain or nausea/vomiting Severe chest pain, or chest pain that radiates (moves) to your jaw or arm Sudden, severe shortness of breath or difficulty breathing Thank you for allowing us to participate in your care. Pending Studies at Discharge: No Stand-Alone Forms: My [facility], Smoking Cessation Medications and DC Order Prescriptions: New Incruse Ellipta 62.5 mcg/actuation Blister With Device 1 inh inhalation QAM Qty: 30 1RF albuterol sulfate 90 mcg/actuation HFA aerosol inhaler 1 inh inhalation Q4H PRN (Reason: shortness of breath or wheezing) Qty: 6.7 0RF Continued coenzyme Q10 [CoQ-10] 100 mg capsule 200 mg PO DAILY isosorbide dinitrate 30 mg tablet 30 mg PO QAM Rx Instructions: allow nitrate-free interval of 12-14 hrs per 24-hr period multivitamin [Daily Multi-Vitamin] tablet 1 tab PO DAILY Caltrate 600 plus D 600 mg-20 mcg (800 unit) tablet,chewable 1 tab PO DAILY nitroglycerin [Nitrostat] 0.4 mg tablet, sublingual 0.4 mg Sublingual UD PRN (Reason: Chest Pain) aspirin 81 mg Tablet,Chewable 81 mg PO DAILY Qty: 0 0RF lorazepam 0.5 mg tablet 0.5 mg PO BID Entresto 49-51 mg tablet 1 tab PO BID metoprolol succinate 50 mg tablet extended release 24 hr 50 mg PO DAILY amlodipine 2.5 mg tablet 2.5 mg PO DAILY escitalopram oxalate 5 mg tablet 5 mg PO DAILY rosuvastatin 10 mg tablet 10 mg PO HS furosemide 20 mg Tablet 20 mg PO WK Rx Instructions: wednesdays omeprazole 20 mg Tablet,Delayed Release (Dr/Ec) 20 mg PO DAILYBB Discharge Orders: Discharge Order (Routine); Ordered 05/14/24 Ordered By: Eula Hebert/Other Patient Handouts: COPD Controlled Breathing Dc Admission Data Admit Date/Time: 05/13/24 16:10 Attending Provider: Anders Gilbert Admit Provider: Daniel Marcelino Primary Care Provider: Mary Hernandes Other Providers: Zahraa Mejia Hospital Stay Data Consultations 05/12/24 00:11 ED Decision to Admit Stat Diagnostic Imagining Performed Chest X-Ray 05/11/24 20:30 XR chest 1V portable HISTORY: 84 years-old Female hypoxia, COPD, decreased BS L base acute shortness of breath COMPARISON: Chest CT 08/15/2023 TECHNIQUE: AP view of the chest FINDINGS: Cardiac silhouette is enlarged. Median sternotomy. Pulmonary vascular congestion. No pneumothorax, pleural effusion or pulmonary edema. Emphysema with chronic fibrosis. Linear nodular opacity left lung apex redemonstrated measuring approximately 3 cm. IMPRESSION: 1. Cardiomegaly with pulmonary vascular congestion. 2. Emphysema with chronic fibrosis redemonstrated. 3. Unchanged linear scarlike opacity of the left lung apex. ACT 112: Negative or not required by law. The above report was generated using voice recognition software. It may contain grammatical, syntax or spelling errors. Electronically signed by: Jarod Rodriguez M.D. 05/12/2024 7:42 AM Barium Swallow X-Ray 05/14/24 08:00 FL barium swallow CLINICAL HISTORY: esophageal dysfunction TECHNIQUE: The patient was observed drinking thick and thin barium under fluoroscopic observation in both the upright and recumbent positions. Total fluoroscopy time: 42 seconds Ka,r: 12.8 mGy COMPARISON: Comparison is made to CT chest 08/25/2020 FINDINGS: The patient had no problem initiating the swallowing mechanism. There was no evidence of aspiration. Numerous tertiary contractions are seen with delayed peristalsis. There was no evidence of strictures, filling defects, or outpouchings. Contrast flowed readily from the esophagus into the stomach. There may be a very small hiatal hernia. Reflux was seen during the course of this exam. A 13 mm pill was ingested by the patient. This passed through the esophagus and into the stomach without any evidence of holdup. IMPRESSION: Prominent dysmotility, likely small hiatal hernia, and reflux. ACT 112: Negative or not required by law. Electronically signed by: Aris Rodgers M.D. 05/14/2024 2:40 PM Pending Results Patient Have Any Pending Studies at Discharge: No Discharge Instructions Given to Patient (Per Discharging Provider) Ms. Cano, You were hospitalized after having low oxygen levels and weakness. It is very likely that you have COPD based on the imaging you have had here, your lung Cancer history and your smoking history. I have started you on a daily inhaler for COPD - take this once in the morning. You will also have albuterol inhaler for as needed for wheezing. You have also qualified for oxygen at home, 2L with ambulation. I would recommend getting a pulse oximeter from the pharmacy so you can monitor your oxygen levels at home. Your dizziness got better with hydration and was likely from dehydration. You should make sure that you are staying hydrated, especially with your chronic diarrhea. There were concerns about your swallowing, you had a barium study that showed reflux, a small hiatal hernia and esophageal dysmotility. You should continue your omeprazole and add extra sauces and gravy to foods. The next step would be a GI referral and likely EGD (upper endoscopy), if this is something you would be interested in, your PCP can send that referral. Medications: Your medication list has been reviewed and reconciled upon discharge to ensure accuracy and continuity of care. An updated list of all your medications is included with your hospital discharge paperwork. Please review this list close ly, and make note of any changes. Take your medications as instructed; do not skip a dose of your medicines. Make sure all of your doctors know every medicine you are taking (including fuwj-eon-kslscws medicines, vitamins, and supplements). Call your primary care provider before taking any new medicines (including over- the-counter medicines, vitamins, and supplements), because some of these may interact with your current medications, or may make your symptoms worse. Tell your primary care provider if you cannot afford your medications. Activity: You can do normal everyday activities as your body allows. Take rest breaks if you feel tired. Do not overexert. Stop activity if you have pain, shortness of breath or feel dizzy. Follow-up appointments: Make an appointment with your primary care physician within one week of discharge. A copy of this summary will be sent to them. Every time you see your primary care physician, or any other doctor, bring your medication list, and a list of questions. CONTACT YOUR PRIMARY CARE PROVIDER if you experience any of the following: Shortness of breath or difficulty breathing Fevers or chills Feeling tired with normal activity or experiencing dizziness or fainting Difficulty following your treatment plan, or difficulty taking medications CALL 911 OR GO TO THE EMERGENCY DEPARTMENT if you experience any of the following: Severe abdominal pain or nausea/vomiting Severe chest pain, or chest pain that radiates (moves) to your jaw or arm Sudden, severe shortness of breath or difficulty breathing Thank you for allowing us to participate in your care. Total Time Total Time Spent Total Time Spent (In Minutes): Time spent day of discharge 45 minutes including direct patient care, medication reconciliation, documentation, review of labs and images, and coordination of care. Coding Level of Care Code 24624 INP/OBS DISCH >30 MIN Diagnoses Hypoxia R09.02 COPD (chronic obstructive pulmonary disease) J44.9 COPD type: unspecified COPD Esophageal dysfunction K22.4 Dizziness R42 Diastolic heart failure I50.30
== END 2024-05-14 19:17 | disposition home or self-care (01) | DRG 641 ==
LOC: ED 20:01 → 4W 20:01 → SUATTDRO 23:37 → 4W 05-12 00:21

== ENCOUNTER 2025-05-27 16:38 | Observation (INO) ==
--- NOTE | 2025-05-27 16:52 | Emergency Department Note ---
Impression & Plan Generalized weakness, Nausea, vomiting, and diarrhea, Gastroenteritis, Elevated troponin ED Provider Note HISTORY OF PRESENT ILLNESS: Patient is an 85-year-old female presenting with abdominal pain, nausea and vomiting. Patient reports that she has been unable to tolerate anything by mouth over the last 3 days. Reports that she has had no appetite secondary to nausea and profuse vomiting. She states she has also had multiple episodes of diarrhea. Denies any recent antibiotic use. Denies any measured fevers at home, but states that she breaks out in sweats and gets chills when she is going to vomit. She reports diffuse abdominal pain. States that she has not vomited today or had any diarrhea today, but has been significantly nauseous. Denies any chest pain or shortness of breath. She denies any recent sick contact exposures or recent travel. ROS: as above PHYSICAL EXAM: Constitutional: Patient appears in no acute distress. HENT: Head: Normocephalic and atraumatic. Eyes: EOMI, PERRL Mouth/Throat: Mucous membranes moist. Neck: Trachea midline. Neck supple. Cardiovascular: RRR, No murmurs, rubs or gallops. Intact distal pulses. Pulmonary/Chest: No respiratory distress. Breath sounds clear and equal bilaterally. No wheezes or rales. Abdominal: Abdomen soft, no tenderness, rebound or guarding. Musculoskeletal: No edema, tenderness or deformity noted. Skin: Warm and dry. No rash, erythema, pallor or cyanosis Psychiatric: Appropriate mood and affect for situation. Neurological: Alert and keenly responsive. CN II-XII grossly intact, moving all extremities equally and fully. MDM: - Vitals signs showed hypertension - History obtained via patient. History as above. - Chronic conditions affecting care: Afib - Differential diagnoses include, but are not limited to: Viral syndrome; electrolyte abnormality; acute dehydration; ACS; bowel obstruction; UTI - Order placed for continuous cardiac monitoring. At this time, monitor showed rate of 70 bpm with normal sinus rhythm, per my interpretation. - External medical records reviewed. Discharge summary dated 05/14/2024 was reviewed. Patient was admitted at that time for hypoxia and dizziness thought to be from dehydration. - EKG image interpreted by myself showed normal sinus rhythm. Rate bradycardic at 56 bpm. QT 436. No acute ischemic changes. - Laboratory workup interpreted by myself showed normal WBC; stable electrolytes; normal lactate; normal AST/ALT; normal lipase; elevated troponin (48.1) - UA negative for infection. Noted to have ketonuria - Viral respiratory panel negative - Stool PCR ordered - CT abdomen/pelvis with IV contrast showed inflammatory changes in the stomach and loops of small bowel suggestive of gastroenteritis. - Patient given 1L NS and 4 mg IV zofran in ER. - Discussion was had with insurance case manager about patient's case and need for admission - Hospitalist consulted for admission [facility] ASSESSMENT AND PLAN: Diagnosis: Generalized weakness; nausea, vomiting and diarrhea; elevated troponin; gastroenteritis Plan: Admit Past Med/Surg History Problem List (Updated 05/27/25 @ 19:41 by Jill Hinton MD) Elevated troponin (Acute) Gastroenteritis (Acute) Nausea, vomiting, and diarrhea (Acute) Generalized weakness (Acute) COVID-19 (Acute) Encounter for laboratory testing for COVID-19 virus (Acute) Abnormal PET scan of lung Afib Carotid artery stenosis Lower GI bleed (Acute) Medical History Encounter for pre-operative examination History of COVID-19 Hx of Lyme disease 2007 Esophageal dysfunction Diastolic heart failure Hypertension Solitary pulmonary nodule radiation treatment 2017 for lung cancer COPD (chronic obstructive pulmonary disease) Coronary artery disease Chronic obstructive bronchitis with pulmonary emphysema Collapsed lung surgery 1979 Surgical History Hx of right cataract extraction S/P bladder repair 2017 S/P CABG (coronary artery bypass graft) 05-03-2018 ? atrial fib and pt unaware H/O dilation and curettage H/O hemorrhoidectomy 10-07-2017 Family History Mother , age 72 Hodgkins disease Lymphoma Father , age 75 Cancer Brother Mental problems Daughter No problems noted. Daughter No problems noted. Daughter No problems noted. Social History Smoking Status: Former smoker Tobacco Type: Cigarettes Second Hand Exposure: No; Do You Dip or Chew Tobacco: No; Hx Alcohol Use: No Hx Substance Use: No Preferred Language: Icelandic Communication Ability: Effective Hearing Ability: Normal Regional Hr Manager Required: No Beliefs That Will Affect Care: None Current Living Situation: Alone Current Living Situation Comment: Patient stated that she lives alone and her 2 mo ago current occupation: Retired Feels Safe at Home: Yes Assistive Devices: Denture - Upper, Denture - Lower and Glasses Allergies Allergies Allergy/AdvReac Type Severity Reaction Status Date / Time ondansetron [From Zofran] AdvReac Intermediate Unknown Verified 10/16/24 07:05 promethazine [From Phenergan] AdvReac Mild unknown Verified 10/16/24 07:05 Home Meds Home Medications Medication Instructions Recorded Confirmed nitroglycerin 0.4 mg sublingual 0.4 mg sublingual UD PRN Chest Pain 05/22/18 10/09/24 tablet (Nitrostat) multivitamin (Daily Multi-Vitamin 1 tab PO QAM 10/05/18 10/09/24 tablet) coenzyme Q10 100 mg capsule 200 mg PO QAM 05/13/20 10/09/24 (CoQ-10) isosorbide dinitrate 30 mg tablet 30 mg PO QAM 01/14/22 10/09/24 calcium 600 mg (as carbonate)-vit 1 tab PO QAM 08/17/23 10/09/24 D3 20 mcg (800 unit) chewable tablet (Caltrate plus D) amlodipine 2.5 mg tablet 2.5 mg PO QAM 05/11/24 10/09/24 escitalopram oxalate 5 mg tablet 5 mg PO QAM 05/11/24 10/09/24 metoprolol succinate 50 mg 50 mg PO QAM 05/11/24 10/09/24 tablet,extended release 24 hr omeprazole 20 mg tablet,delayed 20 mg PO QAM 05/11/24 10/09/24 release rosuvastatin 10 mg tablet 10 mg PO HS 05/11/24 10/09/24 sacubitril 49 mg-valsartan 51 mg 1 tab PO BID 05/11/24 10/09/24 tablet (Entresto) furosemide 20 mg tablet 20 mg PO UD 09/06/24 10/09/24 lorazepam 0.5 mg tablet 0.5 mg PO BID PRN Anxiety 09/06/24 10/09/24 aspirin 81 mg chewable tablet 81 mg PO QAM 09/24/24 10/09/24 Previous Rx's Medication Instructions Recorded albuterol sulfate 90 mcg/actuation 1 inh inhalation Q4H PRN shortness 05/14/24 aerosol inhaler of breath or wheezing #6.7 grams umeclidinium 62.5 mcg/actuation 1 inh inhalation QAM #30 ea 05/14/24 blister powder for inhalation (Incruse Ellipta) Results & Data (ED) Vital Signs Vital Signs - 24 hr 05/27/25 16:43 05/27/25 16:47 05/27/25 18:00 Temperature 36.7 C Temperature Source Oral Pulse Rate 66 59 L Pulse Rate [Apical] Respiratory Rate 16 Blood Pressure 162/62 H Blood Pressure [Right Arm] Blood Pressure Mean 95 Blood Pressure Mean [Right Arm] Pulse Oximetry 90 Oxygen Delivery Method Room Air Room Air Sepsis Recent Fever Within 48 Hours No Sepsis New/Unexplained Change in Mental Status No Sepsis Action Taken by Nursing No Action Required 05/27/25 18:10 Temperature Temperature Source Pulse Rate Pulse Rate [Apical] 67 Respiratory Rate 16 Blood Pressure Blood Pressure [Right Arm] 164/80 H Blood Pressure Mean Blood Pressure Mean [Right Arm] 108 Pulse Oximetry 93 Oxygen Delivery Method Sepsis Recent Fever Within 48 Hours Sepsis New/Unexplained Change in Mental Status Sepsis Action Taken by Nursing Laboratory Data 05/27/25 16:48 05/27/25 16:48 Lab Results 05/27/25 05/27/25 05/27/25 Range/Units 16:48 17:10 18:09 WBC 6.56 (4.8-10.8) K/ul RBC 4.68 (4.20-5.40) M/uL Hgb 12.5 (12.0-16.0) g/dl Hct 39.8 (37.0-47.0) % MCV 85.0 (80.0-100.0) fL MCH 26.7 (25.0-34.0) pg MCHC 31.4 L (32.0-36.0) g/dL RDW Std Deviation 50.3 H (36.4-46.3) fL RDW Coeff of Tanya 16.4 H (11.5-14.5) % Plt Count 200 (130-400) K/uL MPV 12.3 (9.4-12.4) fL Immature Gran % (Auto) 0.3 % Neut % (Auto) 83.8 % Lymph % (Auto) 7.8 % [place] % (Auto) 7.2 % Eos % (Auto) 0.3 % Baso % (Auto) 0.6 % Neut # (Auto) 5.50 (1.40-6.50) K/uL Lymph # (Auto) 0.51 L (1.20-3.40) K/uL [place] # (Auto) 0.47 (0.11-0.59) K/uL Eos # (Auto) 0.02 (0.00-0.50) K/uL Baso # (Auto) 0.04 (0.00-0.20) K/uL Immature Gran # (Auto) 0.02 (0.01-0.20) K/uL Sodium 140 (136-145) mmol/L Potassium 3.9 (3.5-5.1) mmol/L Chloride 104 (98-107) mmol/L Carbon Dioxide 28 (21-32) mmol/L Anion Gap 8 (3-11) BUN 14 (6-23) mg/dl Creatinine 1.08 (0.6-1.2) mg/dl Est Cr Clr Drug Dosing 25.0 ml/min eGFR 49.71 BUN/Creatinine Ratio 13.0 (10-20) Glucose 188 H (70-99(Fasting)) mg/dl Lactate 1.5 (0.4-2.0) mmol/L Calcium 8.9 (8.6-10.3) mg/dl Magnesium 1.7 (1.7-2.4) mg/dl Total Bilirubin 0.5 (0.2-1.0) mg/dl AST 20 (13-39) U/L ALT 9 (7-52) U/L Alkaline Phosphatase 68 (34-104) U/L Troponin I High Sens 48.1 H (0-14) pg/ml Total Protein 7.1 (6.0-8.3) gm/dl Albumin 3.8 (3.4-5.0) gm/dl Globulin 3.3 (2.5-4.0) gm/dl Albumin/Globulin Ratio 1.2 (0.9-2) Lipase 11 (11-82) U/L Procalcitonin < 0.02 (0-0.5) ng/ml Urine Color Yellow Urine Appearance Clear (Clear) Urine pH 6.0 (4.5-7.5) Ur Specific [place] 1.018 (1.000-1.030) Urine Protein 1+ H (Negative) Urine Glucose (UA) Negative (Negative) Urine Ketones Trace H (Negative) Urine Blood Negative (Negative) Urine Nitrite Negative (Negative) Urine Bilirubin Negative (Negative) Urine Urobilinogen Negative (Negative) Ur Leukocyte Esterase 2+ H (Negative) Urine WBC (Auto) 11-20 H (0-5) /hpf Urine RBC (Auto) 0-2 (0-2) /hpf U Hyaline Cast (Auto) 0-2 (0-2) /lpf U Epithel Cells (Auto) 0-2 (0-2) /hpf Urine Bacteria (Auto) None Seen (None Seen) Urine Comment Adenovirus (PCR) Not Detected (NotDetected) B. pertussis DNA (PCR) Not Detected (NotDetected) B.parapertussis DNA PCR Not Detected (NotDetected) C. pneumoniae DNA (PCR) Not Detected (NotDetected) Coronavirus OC43 (PCR) Not Detected (NotDetected) Coronavirus HKU1 (PCR) Not Detected (NotDetected) Coronavirus 229E (PCR) Not Detected (NotDetected) SARS-CoV-2 (PCR) Not Detected (NotDetected) Coronavirus NL63 (PCR) Not Detected (NotDetected) Human Metapneumovir PCR Not Detected (NotDetected) Influenza Type A (PCR) Not Detected (NotDetected) Influenza Type B (PCR) Not Detected (NotDetected) M. pneumoniae (PCR) Not Detected (NotDetected) Parainfluenza 1 (PCR) Not Detected (NotDetected) Parainfluenza 2 (PCR) Not Detected (NotDetected) Parainfluenza 3 (PCR) Not Detected (NotDetected) Parainfluenza 4 (PCR) Not Detected (NotDetected) RSV (PCR) Not Detected (NotDetected) Entero/Rhino (PCR) Not Detected (NotDetected) Administered Medications Discontinued Medications Sodium Chloride (Nss) 1,000 mls @ 999 mls/hr IV .Q1H1M ONE Stop: 05/27/25 17:47 Last Admin: 05/27/25 17:03 Dose: 999 mls/hr Documented By: KASIA Ioversol (Optiray 320 100ml) 90 ml IV ONCE ONE Stop: 05/27/25 17:55 Last Admin: 05/27/25 17:54 Dose: 90 ml Documented By: SHANA Ondansetron HCl (Ondansetron Inj 2 Mg/Ml 2 Ml Vial) 4 mg IV NOW STA Stop: 05/27/25 16:48 Last Admin: 05/27/25 17:03 Dose: 4 mg Documented By: KASIA Imaging Data Radiologist's Impression: Abdomen/Pelvis CT 05/27/25 16:47 CT ABDOMEN and PELVIS with INTRAVENOUS CONTRAST HISTORY: Abdominal pain TECHNIQUE: CT abdomen and pelvis with contrast. IV CONTRAST: 100 mL of OMNIPAQUE 300 ENTERIC CONTRAST: Not Given COMPARISON: None FINDINGS: LOWER CHEST: Cardiomegaly. Chronic interstitial lung changes. LIVER: No focal lesion identified. Hepatic steatosis and hepatomegaly. Mild periportal edema. GALLBLADDER/BILIARY: Unremarkable gallbladder. No abnormal biliary dilatation. SPLEEN: Hypodensity in the periphery of the parenchyma posteriorly measuring 1.6 cm is probably hemangioma.. PANCREAS: No discrete lesion is identified. ADRENALS: Unremarkable. KIDNEYS: Cortical scarring and cysts. No urolithiasis, hydronephrosis or hydroureter.. PERITONEUM/RETROPERITONEUM. No lymphadenopathy by size criteria. Extensive atherosclerosis resulting in multifocal stenoses of the celiac trunk, the SMA, the renal arteries and the RICK. There is a partially thrombosed infrarenal abdominal aortic aneurysm measuring up to 3.1 cm. GASTROINTESTINAL: No obstruction. Inflammatory changes with wall thickening and mild fluid filling of the stomach and the loops of small bowel. Appendix is normal. Colonic diverticulosis without evidence of diverticulitis. REPRODUCTIVE: Status post hysterectomy. Likely right adnexal cyst measuring 1.5 cm (series 2, image 52). BONES: No acute findings. IMPRESSION: Inflammatory changes of the stomach and the loops of small bowel suggesting a gastroenteritis of nonspecific etiology. This may be infectious/inflammatory however ischemic etiology is a consideration given the extensive atherosclerosis with stenoses of the mesenteric arterial vasculature with enlarged heart suggesting heart failure. Electronically signed by Ld Mobley 05-27-2025 6:42 PM Discharge Plan Visit Data Chief Complaint: Illness Stated Complaint: ILLNESS, NAUSA, VOMITING ED Provider: Jill Hinton Discharge Problem: Generalized weakness, Nausea, vomiting, and diarrhea, Gastroenteritis, Elevated troponin Condition: Fair Forms Stand Alone Forms: My [facility] [employer] Prescriptions Prescriptions: No Action coenzyme Q10 [CoQ-10] 100 mg capsule 200 mg PO QAM isosorbide dinitrate 30 mg tablet 30 mg PO QAM Rx Instructions: allow nitrate-free interval of 12-14 hrs per 24-hr period multivitamin [Daily Multi-Vitamin] tablet 1 tab PO QAM Caltrate 600 plus D 600 mg-20 mcg (800 unit) tablet,chewable 1 tab PO QAM nitroglycerin [Nitrostat] 0.4 mg tablet, sublingual 0.4 mg Sublingual UD PRN (Reason: Chest Pain) sacubitril-valsartan [Entresto] 49-51 mg tablet 1 tab PO BID metoprolol succinate 50 mg tablet extended release 24 hr 50 mg PO QAM amlodipine 2.5 mg tablet 2.5 mg PO QAM escitalopram oxalate 5 mg tablet 5 mg PO QAM rosuvastatin 10 mg tablet 10 mg PO HS omeprazole 20 mg Tablet,Delayed Release (Dr/Ec) 20 mg PO QAM Incruse Ellipta 62.5 mcg/actuation Blister With Device 1 inh inhalation QAM Qty: 30 1RF albuterol sulfate 90 mcg/actuation HFA aerosol inhaler 1 inh inhalation Q4H PRN (Reason: shortness of breath or wheezing) Qty: 6.7 0RF furosemide 20 mg tablet 20 mg PO UD Rx Instructions: takes as needed lorazepam 0.5 mg tablet 0.5 mg PO BID PRN (Reason: Anxiety) aspirin 81 mg tablet,chewable 81 mg PO QAM Referrals Referrals: Ceci Shelby PA-C [Primary Care Provider] -
[2025-05-27 17:03] LABS: Hematocrit (blood only) 39.8 % (37.0-47.0); Hemoglobin 12.5 g/dl (12.0-16.0); Immature Granulocytes # (auto) 0.02 K/uL (0.01-0.20); Immature Granulocytes % (auto) 0.3 %; Mean Corpuscular Hemoglobin 26.7 pg (25.0-34.0); Mean Corpuscular Volume 85.0 fL (80.0-100.0); Platelet Count 200 K/uL (130-400); RDW Standard Deviation 50.3 fL (36.4-46.3); Red Blood Count 4.68 M/uL (4.20-5.40); White Blood Count 6.56 K/ul (4.8-10.8)
[2025-05-27] MEDS: ONDANSETRON INJ 2 MG/ML 2 ML VIAL IV STA (17:03)
[2025-05-27] MEDS: SODIUM CHLORIDE 0.9% 1,000 ML IV ONE (17:03)
[2025-05-27 17:19] LABS: Alanine Aminotransferase 9.0 U/L (7-52); Albumin Globulin Ratio 1.2 (0.9-2); Albumin Level 3.8 gm/dl (3.4-5.0); Alkaline Phosphatase 68.0 U/L (34-104); Anion Gap 8.0 (3-11); Bilirubin,Total 0.5 mg/dl (0.2-1.0); Blood Urea Nitrogen 14.0 mg/dl (6-23); Calcium 8.9 mg/dl (8.6-10.3); Carbon Dioxide 28.0 mmol/L (21-32); Chloride 104.0 mmol/L (98-107); Creatinine Clr Calc Pharmacy 25.0 ml/min; Globulin 3.3 gm/dl (2.5-4.0); Glucose 188.0 mg/dl (70-99(Fasting)); Lipase 11.0 U/L (11-82); Magnesium 1.7 mg/dl (1.7-2.4); Potassium 3.9 mmol/L (3.5-5.1); Sodium 140.0 mmol/L (136-145); Total Protein 7.1 gm/dl (6.0-8.3)
[2025-05-27 17:48] LABS: Chlamydia pneumoniae PCR Not Detected (NotDetected); Coronavirus 229E PCR Not Detected (NotDetected); Coronavirus CoV-2 (COVID19)PCR Not Detected (NotDetected); Coronavirus HKU1 PCR Not Detected (NotDetected); Coronavirus NL63 PCR Not Detected (NotDetected); Coronavirus OC43PCR Not Detected (NotDetected); Human Metapneumovirus PCR Not Detected (NotDetected); Parainfluenza Virus 1 PCR Not Detected (NotDetected); Parainfluenza Virus 2 PCR Not Detected (NotDetected); Parainfluenza Virus 3 PCR Not Detected (NotDetected); Parainfluenza Virus 4 PCR Not Detected (NotDetected); Respiratory Syncytial VirusPCR Not Detected (NotDetected); Rhinovirus/Enterovirus PCR Not Detected (NotDetected)
[2025-05-27] MEDS: OPTIRAY 320 100ml IV ONE (17:54)
[2025-05-27 18:23] LABS: Appearance Urine Clear (Clear); Bacteria Urine Automated None Seen (None Seen); Cast Urine Automated 0-2 /lpf (0-2); Epithelial Cell Urine Auto 0-2 /hpf (0-2); Glucose Urine UA Negative (Negative); RBC Urine Automated 0-2 /hpf (0-2)
--- NOTE | 2025-05-27 18:43 | CT Scan Report ---
CT ABDOMEN and PELVIS with INTRAVENOUS CONTRAST HISTORY: Abdominal pain TECHNIQUE: CT abdomen and pelvis with contrast. IV CONTRAST: 100 mL of OMNIPAQUE 300 ENTERIC CONTRAST: Not Given COMPARISON: None FINDINGS: LOWER CHEST: Cardiomegaly. Chronic interstitial lung changes. LIVER: No focal lesion identified. Hepatic steatosis and hepatomegaly. Mild periportal edema. GALLBLADDER/BILIARY: Unremarkable gallbladder. No abnormal biliary dilatation. SPLEEN: Hypodensity in the periphery of the parenchyma posteriorly measuring 1.6 cm is probably hemangioma.. PANCREAS: No discrete lesion is identified. ADRENALS: Unremarkable. KIDNEYS: Cortical scarring and cysts. No urolithiasis, hydronephrosis or hydroureter.. PERITONEUM/RETROPERITONEUM. No lymphadenopathy by size criteria. Extensive atherosclerosis resulting in multifocal stenoses of the celiac trunk, the SMA, the renal arteries and the RICK. There is a partially thrombosed infrarenal abdominal aortic aneurysm measuring up to 3.1 cm. GASTROINTESTINAL: No obstruction. Inflammatory changes with wall thickening and mild fluid filling of the stomach and the loops of small bowel. Appendix is normal. Colonic diverticulosis without evidence of diverticulitis. REPRODUCTIVE: Status post hysterectomy. Likely right adnexal cyst measuring 1.5 cm (series 2, image 52). BONES: No acute findings. IMPRESSION: Inflammatory changes of the stomach and the loops of small bowel suggesting a gastroenteritis of nonspecific etiology. This may be infectious/inflammatory however ischemic etiology is a consideration given the extensive atherosclerosis with stenoses of the mesenteric arterial vasculature with enlarged heart suggesting heart failure. Electronically signed by Ld Mobley 05-27-2025 6:42 PM
--- NOTE | 2025-05-27 20:19 | History & Physical Report ---
Date of Service May 27, 2025 Assessment & Plan (1) Gastroenteritis: (2) Nausea, vomiting, and diarrhea: (3) Elevated troponin: (4) Hypomagnesemia: Plan The patient is an 85-year-old female with a past medical history including atrial fibrillation, carotid artery stenosis, lower GI bleed, anxiety and depression, CAD, hypertension, GERD, and hyperlipidemia. Patient presents to the emergency department with at least 3 weeks of decreased oral intake due to abdominal pain, nausea and vomiting per family who is in attendance. She presents to the emergency department today, due to a more significant worsening of the abdominal pain over the past 3 days. Family also reports that she has had multiple episodes of loose stools. Has not any recent antibiotic use. She has no recent travels or sick exposures. She continues with nausea today, but has not had any vomiting. She reports that she has been able to take his medications as directed. Workup in the emergency department included the following: Elevated troponin 48.1 with follow-up pending, CT scan of abdomen and pelvis suggesting gastroenteritis, with multiple possible etiologies including infection, inflammation, and less likely ischemia. Patient received normal saline 1 L bolus and Zofran 4 mg IV from the ED. She was then referred for evaluation for admission. Gastroenteritis/persistent nausea, vomiting, diarrhea over at least 3 weeks- Patient has had decreased oral intake during this time for both liquids and solids CT scan abdomen pelvis suggest gastroenteritis with multiple possible etiologies including infection, inflammation, or less likely ischemia Respiratory BioFire test negative Add stool PCR testing Full liquid diet, but suspect she will be not able to eat much for a few days Pantoprazole 40 mg IV twice daily Zofran 4 mg IV every 6 hours as needed Tylenol 1 g IV every 6 hours as needed for mild pain or fever LR at 80 mL/h x 2 L Serial CBC with differential, renal function panel and magnesium level Elevated troponin/hypertension/paroxysmal atrial fibrillation/hyperlipidemia- The patient will be admitted to telemetry for serial cardiac enzymes, serial EKG's, cardiac rhythm monitoring Unlikely to tolerate oral medications at this point Initial troponin of 48.1 with follow-up pending. Likely supply/demand mismatch Continue metoprolol succinate and isosorbide dinitrate. For now, until she is feeling better, hold amlodipine, aspirin, Entresto and rosuvastatin Home medications should be resumed when she is feeling better and able to tolerate oral intake Hydralazine 10 mg IV every 4 hours as needed for systolic blood pressure greater than 160 Anxiety and depression- Continue sertraline Mirtazapine had been discontinued by her outpatient physician Hypomagnesemia- Magnesium 1.7 on admission Give magnesium sulfate 1 g IV, and recheck laboratories in the a.m. History of Present Illness Chief Complaint: Patient presents to the emergency department with at least 3 weeks of decreased oral intake due to abdominal pain, nausea and vomiting per family who is in attendance. She presents to the emergency department today, due to a more significant worsening of the abdominal pain over the past 3 days. Family also reports that she has had multiple episodes of loose stools. Has not any recent antibiotic use. She has no recent travels or sick exposures. She continues with nausea today, but has not had any vomiting. She reports that she has been able to take his medications as directed. Primary Care Provider: Ceci Shelby The patient is an 85-year-old female with a past medical history including atrial fibrillation, carotid artery stenosis, lower GI bleed, anxiety and depression, CAD, hypertension, GERD, and hyperlipidemia. Patient presents to the emergency department with at least 3 weeks of decreased oral intake due to abdominal pain, nausea and vomiting per family who is in attendance. She pres ents to the emergency department today, due to a more significant worsening of the abdominal pain over the past 3 days. Family also reports that she has had multiple episodes of loose stools. Has not any recent antibiotic use. She has no recent travels or sick exposures. She continues with nausea today, but has not had any vomiting. She reports that she has been able to take his medications as directed. Workup in the emergency department included the following: Elevated troponin 48.1 with follow-up pending, CT scan of abdomen and pelvis suggesting gastroenteritis, with multiple possible etiologies including infection, inflammation, and less likely ischemia. Patient received normal saline 1 L bolus and Zofran 4 mg IV from the ED. She was then referred for evaluation for admission. Allergies Allergy/AdvReac Type Severity Reaction Status Date / Time ondansetron [From Zofran] AdvReac Intermediate Unknown Verified 05/27/25 20:17 promethazine [From Phenergan] AdvReac Mild unknown Verified 05/27/25 20:17 Home Medications Medication Instructions Recorded Confirmed Type nitroglycerin 0.4 mg sublingual 0.4 mg sublingual UD PRN Chest Pain 05/22/18 05/27/25 History tablet (Nitrostat) multivitamin (Daily Multi-Vitamin 1 tab PO QAM 10/05/18 05/27/25 History tablet) coenzyme Q10 100 mg capsule 100 mg PO QAM 05/13/20 05/27/25 History (CoQ-10) isosorbide dinitrate 30 mg tablet 30 mg PO QAM 01/14/22 05/27/25 History calcium 600 mg (as carbonate)-vit 1 tab PO QAM 08/17/23 05/27/25 History D3 20 mcg (800 unit) chewable tablet (Caltrate plus D) amlodipine 2.5 mg tablet 2.5 mg PO QAM 05/11/24 05/27/25 History escitalopram oxalate 5 mg tablet 5 mg PO QAM 05/11/24 05/27/25 History metoprolol succinate 50 mg 50 mg PO QAM 05/11/24 05/27/25 History tablet,extended release 24 hr omeprazole 20 mg tablet,delayed 20 mg PO QAM 05/11/24 05/27/25 History release rosuvastatin 10 mg tablet 10 mg PO HS 05/11/24 05/27/25 History sacubitril 49 mg-valsartan 51 mg 1 tab PO BID 05/11/24 05/27/25 History tablet (Entresto) albuterol sulfate 90 mcg/actuation 1 inh inhalation Q4H PRN shortness 05/14/24 05/27/25 Rx aerosol inhaler of breath or wheezing #6.7 grams furosemide 20 mg tablet 20 mg PO UD 09/06/24 05/27/25 History lorazepam 0.5 mg tablet 0.5 mg PO BID PRN Anxiety 09/06/24 05/27/25 History aspirin 81 mg chewable tablet 81 mg PO QAM 09/24/24 05/27/25 History mirtazapine 7.5 mg tablet 7.5 mg PO HS 05/27/25 05/27/25 History sertraline 50 mg tablet 50 mg PO DAILY 05/27/25 05/27/25 History Past Med/Surg History Problem List (Updated 05/28/25 @ 05:33 by Julien Lara MD) Hypomagnesemia Elevated troponin (Acute) Gastroenteritis (Acute) Nausea, vomiting, and diarrhea (Acute) Generalized weakness (Acute) COVID-19 (Acute) Encounter for laboratory testing for COVID-19 virus (Acute) Abnormal PET scan of lung Afib Carotid artery stenosis Lower GI bleed (Acute) Medical History Encounter for pre-operative examination History of COVID-19 Hx of Lyme disease 2007 Esophageal dysfunction Diastolic heart failure Hypertension Solitary pulmonary nodule radiation treatment 2017 for lung cancer COPD (chronic obstructive pulmonary disease) Coronary artery disease Chronic obstructive bronchitis with pulmonary emphysema Collapsed lung surgery 1979 Surgical History Hx of right cataract extraction S/P bladder repair 2017 S/P CABG (coronary artery bypass graft) 05-03-2018 ? atrial fib and pt unaware H/O dilation and curettage H/O hemorrhoidectomy 10-07-2017 Family History Mother , age 72 Hodgkins disease Lymphoma Father , age 75 Cancer Brother Mental problems Daughter No problems noted. Daughter No problems noted. Daughter No problems noted. Social History Smoking Status: Former smoker Tobacco Type: Cigarettes Second Hand Exposure: No; Do You Dip or Chew Tobacco: No; Tobacco Cessation Education Requested by Patient: No Hx Alcohol Use: No Hx Substance Use: No Preferred Language: Kinyarwanda Communication Ability: Effective Hearing Ability: Normal Electronic Device Monitor Required: No Beliefs That Will Affect Care: None Current Living Situation: Alone Current Living Situation Comment: home alone current occupation: Retired Other Information That Helps Us Care for You: No Feels Safe at Home: Yes Safety Concerns: Feels Safe At This Time Assistive Devices: Glasses Review of Systems Review of Systems: The patient denies chest pain, palpitations, shortness of breath, dyspnea on exertion, cough, lower extremity swelling, sore throat, blood in urine or stool, dysuria, urinary frequency or urgency, loss of consciousness, rash, abnormal bruising or bleeding, focal weakness, numbness or tingling in arms or legs, generalized arthralgias or myalgias, back or neck pain, or night sweats. The review of systems is otherwise negative other than for that already noted above, and at least 10 systems have been reviewed. Physical Exam Physical Exam: The patient is awake, alert and oriented 3, normocephalic and atraumatic, lying in bed and in no acute distress. HEENT--PERRL, EOMI, mucous membranes and oropharynx dry. Neck--supple. No JVD. No bruits. Thyroid normal, trachea midline, no adenopathy. Heart--normal S1 and S2. No murmurs, rubs or gallops. Lungs--clear bilaterally, no respiratory distress, no accessory muscle use. Abdomen--normal bowel sounds and soft. Mild generalized pain. Nondistended, no hernias or masses, no organomegaly. Extremities--no cyanosis or clubbing. No edema. There are good distal pulses b/l. Dermatologic--normal skin turgor, normal color, no abnormal lymph nodes, no rash. Neurologic--cranial nerves II through XII grossly intact. Rheumatologic--normal range of motion. Psychiatric--normal affect. Results & Data Results & Data Vital Signs (Past 12 Hours) Vital Signs Temp Pulse Pulse Resp BP BP Pulse Ox 05/27/25 18:10 67 16 164/80 H 93 05/27/25 18:00 59 L 05/27/25 16:47 05/27/25 16:43 36.7 C 66 16 162/62 H 90 O2 Del Method 05/27/25 18:10 05/27/25 18:00 05/27/25 16:47 Room Air 05/27/25 16:43 Room Air Laboratory Results Laboratory Results WBC 6.56 K/ul (4.8-10.8) 05/27/25 16:48 RBC 4.68 M/uL (4.20-5.40) 05/27/25 16:48 Hgb 12.5 g/dl (12.0-16.0) 05/27/25 16:48 Hct 39.8 % (37.0-47.0) 05/27/25 16:48 MCV 85.0 fL (80.0-100.0) 05/27/25 16:48 MCH 26.7 pg (25.0-34.0) 05/27/25 16:48 MCHC 31.4 g/dL (32.0-36.0) L 05/27/25 16:48 RDW Std Deviation 50.3 fL (36.4-46.3) H 05/27/25 16:48 RDW Coeff of Tanya 16.4 % (11.5-14.5) H 05/27/25 16:48 Plt Count 200 K/uL (130-400) 05/27/25 16:48 MPV 12.3 fL (9.4-12.4) 05/27/25 16:48 Immature Gran % (Auto) 0.3 % 05/27/25 16:48 Neut % (Auto) 83.8 % 05/27/25 16:48 Lymph % (Auto) 7.8 % 05/27/25 16:48 [place] % (Auto) 7.2 % 05/27/25 16:48 Eos % (Auto) 0.3 % 05/27/25 16:48 Baso % (Auto) 0.6 % 05/27/25 16:48 Neut # (Auto) 5.50 K/uL (1.40-6.50) 05/27/25 16:48 Lymph # (Auto) 0.51 K/uL (1.20-3.40) L 05/27/25 16:48 [place] # (Auto) 0.47 K/uL (0.11-0.59) 05/27/25 16:48 Eos # (Auto) 0.02 K/uL (0.00-0.50) 05/27/25 16:48 Baso # (Auto) 0.04 K/uL (0.00-0.20) 05/27/25 16:48 Immature Gran # (Auto) 0.02 K/uL (0.01-0.20) 05/27/25 16:48 Sodium 140 mmol/L (136-145) 05/27/25 16:48 Potassium 3.9 mmol/L (3.5-5.1) 05/27/25 16:48 Chloride 104 mmol/L (98-107) 05/27/25 16:48 Carbon Dioxide 28 mmol/L (21-32) 05/27/25 16:48 Anion Gap 8 (3-11) 05/27/25 16:48 BUN 14 mg/dl (6-23) 05/27/25 16:48 Creatinine 1.08 mg/dl (0.6-1.2) 05/27/25 16:48 Est Cr Clr Drug Dosing 25.0 ml/min 05/27/25 16:48 eGFR 49.71 05/27/25 16:48 BUN/Creatinine Ratio 13.0 (10-20) 05/27/25 16:48 Glucose 188 mg/dl (70-99(Fasting)) H 05/27/25 16:48 POC Glucose 91 mg/dl (70-99) 05/27/25 20:30 Lactate 1.5 mmol/L (0.4-2.0) 05/27/25 17:10 Calcium 8.9 mg/dl (8.6-10.3) 05/27/25 16:48 Magnesium 1.7 mg/dl (1.7-2.4) 05/27/25 16:48 Total Bilirubin 0.5 mg/dl (0.2-1.0) 05/27/25 16:48 AST 20 U/L (13-39) 05/27/25 16:48 ALT 9 U/L (7-52) 05/27/25 16:48 Alkaline Phosphatase 68 U/L (34-104) 05/27/25 16:48 Troponin I High Sens 61.7 pg/ml (0-14) H* D 05/27/25 19:29 Total Protein 7.1 gm/dl (6.0-8.3) 05/27/25 16:48 Albumin 3.8 gm/dl (3.4-5.0) 05/27/25 16:48 Globulin 3.3 gm/dl (2.5-4.0) 05/27/25 16:48 Albumin/Globulin Ratio 1.2 (0.9-2) 05/27/25 16:48 Lipase 11 U/L (11-82) 05/27/25 16:48 Procalcitonin < 0.02 ng/ml (0-0.5) 05/27/25 16:48 Urine Color Yellow 05/27/25 18:09 Urine Appearance Clear (Clear) 05/27/25 18:09 Urine pH 6.0 (4.5-7.5) 05/27/25 18:09 Ur Specific [place] 1.018 (1.000-1.030) 05/27/25 18:09 Urine Protein 1+ (Negative) H 05/27/25 18:09 Urine Glucose (UA) Negative (Negative) 05/27/25 18:09 Urine Ketones Trace (Negative) H 05/27/25 18:09 Urine Blood Negative (Negative) 05/27/25 18:09 Urine Nitrite Negative (Negative) 05/27/25 18:09 Urine Bilirubin Negative (Negative) 05/27/25 18:09 Urine Urobilinogen Negative (Negative) 05/27/25 18:09 Ur Leukocyte Esterase 2+ (Negative) H 05/27/25 18:09 Urine WBC (Auto) 11-20 /hpf (0-5) H 05/27/25 18:09 Urine RBC (Auto) 0-2 /hpf (0-2) 05/27/25 18:09 U Hyaline Cast (Auto) 0-2 /lpf (0-2) 05/27/25 18:09 U Epithel Cells (Auto) 0-2 /hpf (0-2) 05/27/25 18:09 Urine Bacteria (Auto) None Seen (None Seen) 05/27/25 18:09 Urine Comment 05/27/25 18:09 Adenovirus (PCR) Not Detected (NotDetected) 05/27/25 16:48 Anaplasma Smear See Comment 05/27/25 21:11 Babesia Smear See Comment 05/27/25 21:11 B. pertussis DNA (PCR) Not Detected (NotDetected) 05/27/25 16:48 B.parapertussis DNA PCR Not Detected (NotDetected) 05/27/25 16:48 Lyme Disease Screen Negative (Negative) 05/27/25 21:11 C. pneumoniae DNA (PCR) Not Detected (NotDetected) 05/27/25 16:48 Coronavirus OC43 (PCR) Not Detected (NotDetected) 05/27/25 16:48 Coronavirus HKU1 (PCR) Not Detected (NotDetected) 05/27/25 16:48 Coronavirus 229E (PCR) Not Detected (NotDetected) 05/27/25 16:48 SARS-CoV-2 (PCR) Not Detected (NotDetected) 05/27/25 16:48 Coronavirus NL63 (PCR) Not Detected (NotDetected) 05/27/25 16:48 Human Metapneumovir PCR Not Detected (NotDetected) 05/27/25 16:48 Influenza Type A (PCR) Not Detected (NotDetected) 05/27/25 16:48 Influenza Type B (PCR) Not Detected (NotDetected) 05/27/25 16:48 M. pneumoniae (PCR) Not Detected (NotDetected) 05/27/25 16:48 Parainfluenza 1 (PCR) Not Detected (NotDetected) 05/27/25 16:48 Parainfluenza 2 (PCR) Not Detected (NotDetected) 05/27/25 16:48 Parainfluenza 3 (PCR) Not Detected (NotDetected) 05/27/25 16:48 Parainfluenza 4 (PCR) Not Detected (NotDetected) 05/27/25 16:48 RSV (PCR) Not Detected (NotDetected) 05/27/25 16:48 Entero/Rhino (PCR) Not Detected (NotDetected) 05/27/25 16:48 Impressions Abdomen/Pelvis CT 05/27/25 16:47 CT ABDOMEN and PELVIS with INTRAVENOUS CONTRAST HISTORY: Abdominal pain TECHNIQUE: CT abdomen and pelvis with contrast. IV CONTRAST: 100 mL of OMNIPAQUE 300 ENTERIC CONTRAST: Not Given COMPARISON: None FINDINGS: LOWER CHEST: Cardiomegaly. Chronic interstitial lung changes. LIVER: No focal lesion identified. Hepatic steatosis and hepatomegaly. Mild periportal edema. GALLBLADDER/BILIARY: Unremarkable gallbladder. No abnormal biliary dilatation. SPLEEN: Hypodensity in the periphery of the parenchyma posteriorly measuring 1.6 cm is probably hemangioma.. PANCREAS: No discrete lesion is identified. ADRENALS: Unremarkable. KIDNEYS: Cortical scarring and cysts. No urolithiasis, hydronephrosis or hydroureter.. PERITONEUM/RETROPERITONEUM. No lymphadenopathy by size criteria. Extensive atherosclerosis resulting in multifocal stenoses of the celiac trunk, the SMA, the renal arteries and the RICK. There is a partially thrombosed infrarenal abdominal aortic aneurysm measuring up to 3.1 cm. GASTROINTESTINAL: No obstruction. Inflammatory changes with wall thickening and mild fluid filling of the stomach and the loops of small bowel. Appendix is normal. Colonic diverticulosis without evidence of diverticulitis. REPRODUCTIVE: Status post hysterectomy. Likely right adnexal cyst measuring 1.5 cm (series 2, image 52). BONES: No acute findings. IMPRESSION: Inflammatory changes of the stomach and the loops of small bowel suggesting a gastroenteritis of nonspecific etiology. This may be infectious/inflammatory however ischemic etiology is a consideration given the extensive atherosclerosis with stenoses of the mesenteric arterial vasculature with enlarged heart suggesting heart failure. Electronically signed by Ld Mobley 05-27-2025 6:42 PM Code Status & VTE Plan Code Status Conditional code: Patient will except intubation. She does not want CPR or defibrillation. She would except pressors VTE Prophylaxis Plan VTE Prophylaxis will be ordered: Yes PG Care Time/CCT Total # of Minutes Spent Total Time Spent with Patient: Total time spent is greater than 50% in coordination of care (as documented) at patient's floor/unit and/or counseling patient: Coding Level of Care Code 19403 INT INP/OBS CARE 3/75MIN Diagnoses Gastroenteritis K52.9 Nausea, vomiting, and diarrhea R11.2; R19.7 Elevated troponin R79.89 Hypomagnesemia E83.42
[2025-05-27] MEDS: D5W AND LACTATED RINGERS 1,000 ML IV SCH (20:35)
[2025-05-27] MEDS: PANTOprazole 40 MG/10 ML SYR IV ONE (20:50)
[2025-05-27] MEDS: MAGNESIUM SULFATE / D5W 1 GM/100 ML BAG IV ONE (20:55)
[2025-05-27] MEDS: LACTATED RINGER'S 1,000 ML IV SCH (20:55)
[2025-05-27] MEDS: HEPARIN SOD 5,000 UNIT/0.5 ML VIAL SQ SCH (21:31)
[2025-05-27] MEDS ORDERED: ALBUTEROL HFA 8 GM INHALER INH PRN (21:31)
[2025-05-27] MEDS ORDERED: ACETAMINOPHEN 1000 MG/100 ML IV IV PRN (21:31)
[2025-05-28 06:11] LABS: Hematocrit (blood only) 33.1 % (37.0-47.0); Hemoglobin 10.8 g/dl (12.0-16.0); Immature Granulocytes # (auto) 0.01 K/uL (0.01-0.20); Immature Granulocytes % (auto) 0.2 %; Mean Corpuscular Hemoglobin 27.8 pg (25.0-34.0); Mean Corpuscular Volume 85.1 fL (80.0-100.0); Platelet Count 163 K/uL (130-400); RDW Standard Deviation 50.9 fL (36.4-46.3); Red Blood Count 3.89 M/uL (4.20-5.40); White Blood Count 4.98 K/ul (4.8-10.8)
[2025-05-28 06:24] LABS: Albumin Level 3.2 gm/dl (3.4-5.0); Anion Gap 5.0 (3-11); Blood Urea Nitrogen 10.0 mg/dl (6-23); Calcium 8.3 mg/dl (8.6-10.3); Carbon Dioxide 26.0 mmol/L (21-32); Chloride 108.0 mmol/L (98-107); Creatinine Clr Calc Pharmacy 27.9 ml/min; Glucose 84.0 mg/dl (70-99(Fasting)); Magnesium 2.0 mg/dl (1.7-2.4); Potassium 3.6 mmol/L (3.5-5.1); Sodium 139.0 mmol/L (136-145)
[2025-05-28] MEDS: UMECLIDINIUM BROMIDE 62.5MCG/BLISTER 7 PUFFS/INHALER INH SCH (09:03)
[2025-05-28] MEDS: METOPROLOL SUCC 50MG EXT REL TAB PO SCH (09:03)
[2025-05-28] MEDS: ISOSORBIDE MONO EXTENDED REL 30 MG TABCR PO SCH (09:03)
[2025-05-28] MEDS: SERTRALINE HCL 50 MG TABLET PO SCH (09:03)
[2025-05-28] MEDS: PANTOprazole 40 MG/10 ML SYR IV SCH (09:34)
--- NOTE | 2025-05-28 10:55 | Hospitalist Progress Note ---
Date of Service May 28, 2025 Assessment & Plan (1) Gastroenteritis: (2) Nausea, vomiting, and diarrhea: (3) Mesenteric artery stenosis: (4) Elevated troponin: (5) Hypomagnesemia: (6) COPD (chronic obstructive pulmonary disease): (7) Pulmonary hypertension: (8) Severe protein-calorie malnutrition: (9) Coronary artery disease: (10) S/P CABG (coronary artery bypass graft): (11) PAF (paroxysmal atrial fibrillation): Plan 85yo female with h/o paroxysmal atrial fibrillation, carotid artery stenosis, lower GI bleed, anxiety and depression, CAD, hypertension, GERD, and hyperlipidemia. Presented with 3 weeks of poor appetite, weight loss, post-prandial abdominal pain episodes, nausea, vomiting, and most recently loose stools for a few days. #post-prandial abdominal pain episodes with nausea/emesis - -CT a/p at presentation with significant stenoses of all 3 mesenteric vessels noted -same CT also saw inflammatory changes of the stomach and small bowel -differential - gastroenteritis vs mesenteric ischemia vs other -if she has diarrhea will send stool for Stool BioFire -will obtain mesenteric doppler study to look at her celiac/SMA/RICK more closely; could potentially need a dedicated CTA or MRA of her mesenterics -keep on liquid diet; no advancement -GI consult requested; appreciate their assistance -cont PPI IV -if indeed her symptoms are due to mesenteric ischemia will need vascular evaluation #severe protein calorie malnutrition - -6-7 pounds of weight loss since 3-4 weeks ago -2nd to the GI symptoms above -worrisome for mesenteric ischemia -GI consult requested #low-normal O2 sats, JVD on exam, etc - -echo 2023 with severe pulmonary HTN, severe TR, grade 2 diastolic dysfunction, apical variant hypertrophic CM -will repeat her echo -will obtain cxr - r/o pulm edema -suspect she will need a formal 2-step later in the stay #elevated troponin - -likely myocardial demand ischemia in setting of her GI symptoms -doubt ACS #h/o PAF - -her problem list mentions PAF but she is not on anticoagulation -would need to check with cardiology about this #hyperlipidemia - -cont rosuvastatin #HTN/CAD - -cont meto succ -cont imdur -cont asa -cont statin -with preserved EF on prior echo uncertain why she is on Entresto #Anxiety and depression - -Continue sertraline #Hypomagnesemia - -Magnesium 1.7 on admission -repleted/resolved will order PT/OT asiya while here Admission and Anticipated Discharge Date Admission Date: May 27, 2025 Subjective patient reports that her abdominal pain symptoms occur about 10-15 minutes after eating pain is "everywhere" - points to the whole abdomen some nausea with vomiting with these pain episodes first few episodes starting about 3 weeks ago has lost at least 6-7 pounds of weight during this time period took full liquids for breakfast this am and tolerated this without pain fortunately she has had these pains despite taking PPI regularly she does think she has had EGD in the past but can't remember when this am staff report her O2 sats in room air run low 90s she complained of mild dyspnea while laying in bed follows with [facility] in [place] last echo - January 2024 - -EF >75% -mild RV dilatation with reduced RV function -severe TR -severe pulmonary HTN with PAP 76mmHg -apical variant hypertrophic CM -grade 2 diastolic dysfunction Review of Systems Review of Systems: gen - weight loss as noted above cv - no chest pain pulm - dyspnea this am GI - see HPI Physical Exam Physical Exam: gen - very thin, NAD, lying in bed neck - severe JVD - to the jaw mouth - MMM heart - RRR, s1 s2, 3/6 holosystolic murmur LLSB lungs - CTA b/l except some mild crackles bases abd - soft, NT, ND, BS+, no HSM, no mass ext - no edema, pulses b/l feet 2+ psych - a/o x 3 Results & Data Results & Data Vital Signs (Past 12 Hours) Vital Signs Temp Pulse Pulse Resp BP Pulse Ox O2 Del Method 05/28/25 10:25 37.0 C 67 17 134/54 L 91 Nasal Cannula 05/28/25 09:00 Nasal Cannula 05/28/25 08:50 145/64 H 05/28/25 08:00 60 05/28/25 07:40 36.7 C 72 17 177/84 H 92 Room Air 05/28/25 03:50 36.7 C 70 17 151/77 H 91 Room Air O2 Flow Rate 05/28/25 10:25 2 05/28/25 09:00 2 05/28/25 08:50 05/28/25 08:00 05/28/25 07:40 05/28/25 03:50 Laboratory Results Laboratory Results - last 24 hr 05/27/25 05/27/25 05/27/25 16:48 17:10 18:09 WBC 6.56 RBC 4.68 Hgb 12.5 Hct 39.8 MCV 85.0 MCH 26.7 MCHC 31.4 L RDW Std Deviation 50.3 H RDW Coeff of Tanya 16.4 H Plt Count 200 MPV 12.3 Immature Gran % (Auto) 0.3 Neut % (Auto) 83.8 Lymph % (Auto) 7.8 [place] % (Auto) 7.2 Eos % (Auto) 0.3 Baso % (Auto) 0.6 Neut # (Auto) 5.50 Lymph # (Auto) 0.51 L [place] # (Auto) 0.47 Eos # (Auto) 0.02 Baso # (Auto) 0.04 Immature Gran # (Auto) 0.02 Sodium 140 Potassium 3.9 Chloride 104 Carbon Dioxide 28 Anion Gap 8 BUN 14 Creatinine 1.08 Est Cr Clr Drug Dosing 25.0 eGFR 49.71 BUN/Creatinine Ratio 13.0 Glucose 188 H POC Glucose Lactate 1.5 Calcium 8.9 Phosphorus Magnesium 1.7 Total Bilirubin 0.5 AST 20 ALT 9 Alkaline Phosphatase 68 Troponin I High Sens 48.1 H Total Protein 7.1 Albumin 3.8 Globulin 3.3 Albumin/Globulin Ratio 1.2 Lipase 11 Procalcitonin < 0.02 Urine Color Yellow Urine Appearance Clear Urine pH 6.0 Ur Specific [place] 1.018 Urine Protein 1+ H Urine Glucose (UA) Negative Urine Ketones Trace H Urine Blood Negative Urine Nitrite Negative Urine Bilirubin Negative Urine Urobilinogen Negative Ur Leukocyte Esterase 2+ H Urine WBC (Auto) 11-20 H Urine RBC (Auto) 0-2 U Hyaline Cast (Auto) 0-2 U Epithel Cells (Auto) 0-2 Urine Bacteria (Auto) None Seen Urine Comment Adenovirus (PCR) Not Detected Anaplasma Smear A. phagocytophilum DNA Babesia Smear Babesia microti DNA PCR B. pertussis DNA (PCR) Not Detected B.parapertussis DNA PCR Not Detected Lyme Disease Screen C. pneumoniae DNA (PCR) Not Detected Coronavirus OC43 (PCR) Not Detected Coronavirus HKU1 (PCR) Not Detected Coronavirus 229E (PCR) Not Detected SARS-CoV-2 (PCR) Not Detected Coronavirus NL63 (PCR) Not Detected Ehrlichia DNA (PCR) Human Metapneumovir PCR Not Detected Influenza Type A (PCR) Not Detected Influenza Type B (PCR) Not Detected M. pneumoniae (PCR) Not Detected Parainfluenza 1 (PCR) Not Detected Parainfluenza 2 (PCR) Not Detected Parainfluenza 3 (PCR) Not Detected Parainfluenza 4 (PCR) Not Detected RSV (PCR) Not Detected Entero/Rhino (PCR) Not Detected 05/27/25 05/27/25 05/27/25 19:29 20:30 21:11 WBC RBC Hgb Hct MCV MCH MCHC RDW Std Deviation RDW Coeff of Tanya Plt Count MPV Immature Gran % (Auto) Neut % (Auto) Lymph % (Auto) [place] % (Auto) Eos % (Auto) Baso % (Auto) Neut # (Auto) Lymph # (Auto) [place] # (Auto) Eos # (Auto) Baso # (Auto) Immature Gran # (Auto) Sodium Potassium Chloride Carbon Dioxide Anion Gap BUN Creatinine Est Cr Clr Drug Dosing eGFR BUN/Creatinine Ratio Glucose POC Glucose 91 Lactate Calcium Phosphorus Magnesium Total Bilirubin AST ALT Alkaline Phosphatase Troponin I High Sens 61.7 H* D Total Protein Albumin Globulin Albumin/Globulin Ratio Lipase Procalcitonin Urine Color Urine Appearance Urine pH Ur Specific [place] Urine Protein Urine Glucose (UA) Urine Ketones Urine Blood Urine Nitrite Urine Bilirubin Urine Urobilinogen Ur Leukocyte Esterase Urine WBC (Auto) Urine RBC (Auto) U Hyaline Cast (Auto) U Epithel Cells (Auto) Urine Bacteria (Auto) Urine Comment Adenovirus (PCR) Anaplasma Smear See Comment A. phagocytophilum DNA Pending Babesia Smear See Comment Babesia microti DNA PCR Pending B. pertussis DNA (PCR) B.parapertussis DNA PCR Lyme Disease Screen Negative C. pneumoniae DNA (PCR) Coronavirus OC43 (PCR) Coronavirus HKU1 (PCR) Coronavirus 229E (PCR) SARS-CoV-2 (PCR) Coronavirus NL63 (PCR) Ehrlichia DNA (PCR) Pending Human Metapneumovir PCR Influenza Type A (PCR) Influenza Type B (PCR) M. pneumoniae (PCR) Parainfluenza 1 (PCR) Parainfluenza 2 (PCR) Parainfluenza 3 (PCR) Parainfluenza 4 (PCR) RSV (PCR) Entero/Rhino (PCR) 05/28/25 05:48 WBC 4.98 RBC 3.89 L Hgb 10.8 L Hct 33.1 L MCV 85.1 MCH 27.8 MCHC 32.6 RDW Std Deviation 50.9 H RDW Coeff of Tanya 16.4 H Plt Count 163 MPV 12.4 Immature Gran % (Auto) 0.2 Neut % (Auto) 62.3 Lymph % (Auto) 22.9 [place] % (Auto) 11.8 Eos % (Auto) 2.0 Baso % (Auto) 0.8 Neut # (Auto) 3.10 Lymph # (Auto) 1.14 L [place] # (Auto) 0.59 Eos # (Auto) 0.10 Baso # (Auto) 0.04 Immature Gran # (Auto) 0.01 Sodium 139 Potassium 3.6 Chloride 108 H Carbon Dioxide 26 Anion Gap 5 BUN 10 Creatinine 0.97 Est Cr Clr Drug Dosing 27.9 eGFR 56.56 BUN/Creatinine Ratio 10.3 Glucose 84 POC Glucose Lactate Calcium 8.3 L Phosphorus 3.5 Magnesium 2.0 Total Bilirubin AST ALT Alkaline Phosphatase Troponin I High Sens 60.3 H* Total Protein Albumin 3.2 L Globulin Albumin/Globulin Ratio Lipase Procalcitonin Urine Color Urine Appearance Urine pH Ur Specific [place] Urine Protein Urine Glucose (UA) Urine Ketones Urine Blood Urine Nitrite Urine Bilirubin Urine Urobilinogen Ur Leukocyte Esterase Urine WBC (Auto) Urine RBC (Auto) U Hyaline Cast (Auto) U Epithel Cells (Auto) Urine Bacteria (Auto) Urine Comment Adenovirus (PCR) Anaplasma Smear A. phagocytophilum DNA Babesia Smear Babesia microti DNA PCR B. pertussis DNA (PCR) B.parapertussis DNA PCR Lyme Disease Screen C. pneumoniae DNA (PCR) Coronavirus OC43 (PCR) Coronavirus HKU1 (PCR) Coronavirus 229E (PCR) SARS-CoV-2 (PCR) Coronavirus NL63 (PCR) Ehrlichia DNA (PCR) Human Metapneumovir PCR Influenza Type A (PCR) Influenza Type B (PCR) M. pneumoniae (PCR) Parainfluenza 1 (PCR) Parainfluenza 2 (PCR) Parainfluenza 3 (PCR) Parainfluenza 4 (PCR) RSV (PCR) Entero/Rhino (PCR) Diagnostic Findings CT a/p: "Extensive atherosclerosis resulting in multifocal stenoses of the celiac trunk, the SMA, the renal arteries and the RICK. There is a partially thrombosed infrarenal abdominal aortic aneurysm measuring up to 3.1 cm. GASTROINTESTINAL: No obstruction. Inflammatory changes with wall thickening and mild fluid filling of the stomach and the loops of small bowel. Appendix is normal. Colonic diverticulosis without evidence of diverticulitis. REPRODUCTIVE: Status post hysterectomy. Likely right adnexal cyst measuring 1.5 cm (series 2, image 52). BONES: No acute findings. IMPRESSION: Inflammatory changes of the stomach and the loops of small bowel suggesting a gastroenteritis of nonspecific etiology. This may be infectious/inflammatory however ischemic etiology is a consideration given the extensive atherosclerosis with stenoses of the mesenteric arterial vasculature with enlarged heart suggesting heart failure." PG Care Time/CCT Total # of Minutes Spent Total Time Spent with Patient: Total time spent is greater than 50% in coordination of care (as documented) at patient's floor/unit and/or counseling patient: Coding Level of Care Code 28911 SUB INP/OBS CARE 3/50MIN Diagnoses Gastroenteritis K52.9 Nausea, vomiting, and diarrhea R11.2; R19.7 Mesenteric artery stenosis K55.1 Elevated troponin R79.89 Hypomagnesemia E83.42 COPD (chronic obstructive pulmonary disease) J44.9 COPD type: unspecified COPD Pulmonary hypertension I27.20 Severe protein-calorie malnutrition E43 Coronary artery disease I25.10 S/P CABG (coronary artery bypass graft) Z95.1 PAF (paroxysmal atrial fibrillation) I48.0 (6) COPD (chronic obstructive pulmonary disease) COPD type: unspecified COPD Qualified Code(s): J44.9 - Chronic obstructive pulmonary disease, unspecified
--- NOTE | 2025-05-28 11:35 | Gastrointestinal Consultation ---
Date of Consultation May 28, 2025 Assessment & Plan (1) Gastroenteritis: (2) Nausea, vomiting, and diarrhea: Plan Patient admitted with what appears to be a self limited gastroenteritis. She reports that her symptoms are resolving and that she was able to tolerate breakfast. her only GI complaint currently is some heartburn which she tells me has been an issue even before these acute symptoms. - continue with protonix 40mg bid. would recommend increasing her outpatient PPI to 40mg dosage on discharge. - she is tolerating her diet and would like to advance this. okay to advance diet from a GI standpoint. - if concern for ischemia, would recommend vascular opinion on her extensive atherosclerosis. - Further recommendations to come with Supervising GI provider on medical rounds. Please see co-signature comments. Supervising Physician Co-Signing Physician Notes Patient is a very pleasant 85-year-old female seen with her family at bedside. We are asked to see her regarding abdominal pain, nausea, and vomiting. She states she was in her usual state of health until about 2 to 3 weeks ago when she developed abdominal pain generally occurring just after eating. She states her pain will present 15 to 20 minutes after eating. It would resolve on its own but was occasionally associated with diarrhea and vomiting. She states she has lost at least 5 pounds over the past 2 weeks. She denies any blood in her stool. She states the pain became so severe yesterday she told her daughter to call an ambulance. On imaging she was noted to have some bowel wall thickening as well as some atherosclerotic disease of her SMA. Certainly, her symptoms could be related to a viral or bacterial gastroenteritis. We will check stool studies. I am quite concerned however that this could be ischemic in nature given her findings on her CT. I am going to check a lactic acid level on her. She is to undergo an ultrasound of her mesenteric vessels. Pending on the results of this, she may need to consult with vascular surgery. History of Present Illness Reason for Consultation: abdominal pain, nauesa, vomiting, abnormal CT - ? ischemia Requesting Physician: Mike Astorga MD Attending Physician: Mike Astorga MD History of Present Illness Patient is an 85 year old female with a past medical history of atrial fibrillation, carotid artery stenosis, lower GI bleed, anxiety and depression, CAD, hypertension, GERD, and hyperlipidemia who presented to the emergency department with at least 3 weeks of decreased oral intake due to abdominal pain, nausea, vomiting, and diarrhea. She had some worsening symptoms over the past 3 days leading into her ED evaluation. CT scan of abdomen and pelvis suggesting gastroenteritis, with multiple possible etiologies including infection, inflammation, and less likely ischemia. Since admission, she tells me that she is starting to feel better. she no longer has abdominal pain. she was able to tolerate cream of wheat and orange juice for breakfast. no nausea/vomiting. she admits to heartburn, but this is not new. Omeprazole 20mg as outpatient helps, but does not control. the remainder of GI ros are unremarkable. 05/28/25 wbc 4.98, hgb 10.8, hct 33.1, plts 163, Na 139, K 3.6, BUN 10, Cr 0.97. 05/27/25 CT - Inflammatory changes of the stomach and the loops of small bowel suggesting a gastroenteritis of nonspecific etiology. This may be infectious/inflammatory however ischemic etiology is a consideration given the extensive atherosclerosis with stenoses of the mesenteric arterial vasculature with enlarged heart suggesting heart failure. Allergies Allergy/AdvReac Type Severity Reaction Status Date / Time ondansetron [From Zofran] AdvReac Intermediate Unknown Verified 05/27/25 20:17 promethazine [From Phenergan] AdvReac Mild unknown Verified 05/27/25 20:17 Home Medications Medication Instructions Recorded Confirmed Type nitroglycerin 0.4 mg sublingual 0.4 mg sublingual UD PRN Chest Pain 05/22/18 05/27/25 History tablet (Nitrostat) multivitamin (Daily Multi-Vitamin 1 tab PO QAM 10/05/18 05/27/25 History tablet) coenzyme Q10 100 mg capsule 100 mg PO QAM 05/13/20 05/27/25 History (CoQ-10) isosorbide dinitrate 30 mg tablet 30 mg PO QAM 01/14/22 05/27/25 History calcium 600 mg (as carbonate)-vit 1 tab PO QAM 08/17/23 05/27/25 History D3 20 mcg (800 unit) chewable tablet (Caltrate plus D) amlodipine 2.5 mg tablet 2.5 mg PO QAM 05/11/24 05/27/25 History escitalopram oxalate 5 mg tablet 5 mg PO QAM 05/11/24 05/27/25 History metoprolol succinate 50 mg 50 mg PO QAM 05/11/24 05/27/25 History tablet,extended release 24 hr omeprazole 20 mg tablet,delayed 20 mg PO QAM 05/11/24 05/27/25 History release rosuvastatin 10 mg tablet 10 mg PO HS 05/11/24 05/27/25 History sacubitril 49 mg-valsartan 51 mg 1 tab PO BID 05/11/24 05/27/25 History tablet (Entresto) albuterol sulfate 90 mcg/actuation 1 inh inhalation Q4H PRN shortness 05/14/24 05/27/25 Rx aerosol inhaler of breath or wheezing #6.7 grams furosemide 20 mg tablet 20 mg PO UD 09/06/24 05/27/25 History lorazepam 0.5 mg tablet 0.5 mg PO BID PRN Anxiety 09/06/24 05/27/25 History aspirin 81 mg chewable tablet 81 mg PO QAM 09/24/24 05/27/25 History mirtazapine 7.5 mg tablet 7.5 mg PO HS 05/27/25 05/27/25 History sertraline 50 mg tablet 50 mg PO DAILY 05/27/25 05/27/25 History Patient History Medical History Encounter for pre-operative examination History of COVID-19 Hx of Lyme disease 2007 Esophageal dysfunction Diastolic heart failure Hypertension Solitary pulmonary nodule radiation treatment 2017 for lung cancer COPD (chronic obstructive pulmonary disease) Coronary artery disease Chronic obstructive bronchitis with pulmonary emphysema Collapsed lung surgery 1979 Surgical History Hx of right cataract extraction S/P bladder repair 2017 S/P CABG (coronary artery bypass graft) 05-03-2018 ? atrial fib and pt unaware H/O dilation and curettage H/O hemorrhoidectomy 10-07-2017 Family History Mother , age 72 Hodgkins disease Lymphoma Father , age 75 Cancer Brother Mental problems Daughter No problems noted. Daughter No problems noted. Daughter No problems noted. Social History Smoking Status: Former smoker Tobacco Type: Cigarettes Second Hand Exposure: No; Do You Dip or Chew Tobacco: No; Tobacco Cessation Education Requested by Patient: No Hx Alcohol Use: No Hx Substance Use: No Preferred Language: Slovak Communication Ability: Effective Hearing Ability: Normal [employer] Teacher Required: No Beliefs That Will Affect Care: None Current Living Situation: Alone Current Living Situation Comment: home alone current occupation: Retired Other Information That Helps Us Care for You: No Feels Safe at Home: Yes Safety Concerns: Feels Safe At This Time Assistive Devices: None Review of Systems Review of Systems: All systems reviewed & are unremarkable except as noted in HPI & below Physical Exam Constitutional: WD/WN, vitals as above Respiratory: normal respiratory effort, lungs clear to auscultation Cardiovascular: Rate/Rhythm: regular rate and regular rhythm Gastrointestinal (Abdomen): normal bowel sounds, soft, nontender, no hepatosplenomegaly Psychiatric: Orientation: alert and oriented x 3 Affect: euthymic affect Results & Data Vital Signs (Past 12 Hours) Vital Signs Temp Pulse Pulse Resp BP Pulse Ox O2 Del Method 05/28/25 10:25 98.6 F 67 17 134/54 L 91 Nasal Cannula 05/28/25 09:00 Nasal Cannula 05/28/25 08:50 145/64 H 05/28/25 08:00 60 05/28/25 07:40 98.1 F 72 17 177/84 H 92 Room Air 05/28/25 03:50 98.1 F 70 17 151/77 H 91 Room Air O2 Flow Rate 05/28/25 10:25 2 05/28/25 09:00 2 05/28/25 08:50 05/28/25 08:00 05/28/25 07:40 05/28/25 03:50 Coding Level of Care Code 22554 INT INP/OBS CARE 2/55MIN Diagnoses Gastroenteritis K52.9 Nausea, vomiting, and diarrhea R11.2; R19.7
--- NOTE | 2025-05-28 11:41 | XRay Report ---
XR chest 1V portable CLINICAL HISTORY: b/l basilar crackles, dyspnea COMPARISON STUDY: 05/11/2024 FINDINGS: Stable prominent cardiomegaly with mild pulmonary vascular congestion. Stable CABG. Stable diffuse pulmonary interstitial prominence. No consolidation or pleural effusion seen. No pneumothorax . IMPRESSION: CHF. ACT 112: Negative or not required by law. Electronically signed by: Caleb Marie M.D. 05/28/2025 11:40 AM
--- NOTE | 2025-05-28 20:31 | Ultrasound Report ---
Exam(s): US OTHER duplex mesenteric EXAM: US Duplex Arterial/Venous of the Abdomen, Complete CLINICAL HISTORY: ?celiac/SMA stenosis?. TECHNIQUE: Real-time duplex ultrasound scan of the aorta and mesenteric arteries integrating B-mode two-dimensional vascular structure, Doppler spectral analysis and color flow Doppler imaging. COMPARISON: No relevant prior studies available. FINDINGS: Aorta: Noted involving the abdominal aorta. The peak systolic velocity is 42 cm/sec. Mesenteric: The celiac artery is patent with elevated velocities of 246 cm/sec. The superior mesenteric artery is patent with biphasic waveforms and a peak systolic velocity of 500 70 cm/sec. The mid SMA demonstrates a peak systolic velocity of 277 cm/sec. The RICK is patent with a peak systolic velocity of 363 cm/sec. IMPRESSION: All three mesenteric arteries are patent; however, there is 70-99% luminal stenosis by duplex velocity measurements involving all three arteries. 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 Electronically signed by: Gerard Dong MD 05/28/25 20:30 PM
--- NOTE | 2025-05-28 21:31 | Communication Note ---
Date of Service: May 28, 2025 Nurse alerted me to results of mesenteric US in the system; "All three mesenteric arteries are patent; however, there is 70-99% luminal stenosis by duplex velocity measurements involving all three arteries. These findings are concerning for arterial mesenteric ischemia." Lactate level this evening was 0.9. Went to bedside. Pt states that she ate dinner and, as has been the case about the last 3 weeks, about 10 minutes after eating she experiences quite excruciating abdominal pain. She states with dinner tonight the pain was quite bad but less so than days prior. At this time, she states she is no longer having pain and feels well. Abdomen is soft and nontender. Consult placed for vascular surgery and reached out to surgeon around 2129. Heparin SQ transitioned to IV pending vascular consult recommendation and pt placed NPO given symptom burden with intake.Pt asymptomatic and hemodynamically stable at this point. Resident Activity Tracking Resident Involvement: Resident Care Provided Care Provided: Adult Hospital Medicine
[2025-05-28] MEDS: HEPARIN 25000 UNIT/500 ML D5W 25,000 UNITS/500 ML BAG IV SCH (23:34)
[2025-05-28] MEDS: Heparin IV Adult Wt-Based Standard *NO* INITIAL Bolus Protocol IV SCH (23:37)
[2025-05-29 00:48] LABS: INR 1.0 (0.9-1.1); Partial Thromboplastin Time 31 Seconds (21-31); Prothrombin Time 11.1 Seconds (9.0-12.0)
--- NOTE | 2025-05-29 05:58 | Electrocardiogram Report ---
Test Reason : Blood Pressure : */* mmHG Vent. Rate : 56 BPM Atrial Rate : 56 BPM P-R Int : 134 ms QRS Dur : 84 ms QT Int : 436 ms P-R-T Axes : 72 52 86 degrees QTcB Int : 420 ms Sinus bradycardia with Premature atrial complexes Left ventricular hypertrophy with repolarization abnormality Abnormal ECG When compared with ECG of 11-May-2024 20:05, Premature ventricular complexes are no longer Present Confirmed by Jovani Washington ([id number]) on 05/29/2025 5:57:43 AM Referred By: REFERRED SELF Confirmed By: Jovani Washington
[2025-05-29 06:29] LABS: Hematocrit (blood only) 32.5 % (37.0-47.0); Hemoglobin 10.8 g/dl (12.0-16.0); Immature Granulocytes # (auto) 0.02 K/uL (0.01-0.20); Immature Granulocytes % (auto) 0.2 %; Mean Corpuscular Hemoglobin 27.9 pg (25.0-34.0); Mean Corpuscular Volume 84.0 fL (80.0-100.0); Platelet Count 164 K/uL (130-400); RDW Standard Deviation 50.7 fL (36.4-46.3); Red Blood Count 3.87 M/uL (4.20-5.40); White Blood Count 8.21 K/ul (4.8-10.8)
[2025-05-29 07:14] LABS: Albumin Level 3.4 gm/dl (3.4-5.0); Anion Gap 7.0 (3-11); Blood Urea Nitrogen 13.0 mg/dl (6-23); Calcium 8.5 mg/dl (8.6-10.3); Carbon Dioxide 26.0 mmol/L (21-32); Chloride 106.0 mmol/L (98-107); Creatinine Clr Calc Pharmacy 25.3 ml/min; Glucose 98.0 mg/dl (70-99(Fasting)); Magnesium 1.8 mg/dl (1.7-2.4); Potassium 3.8 mmol/L (3.5-5.1); Sodium 139.0 mmol/L (136-145)
[2025-05-29 07:22] LABS: ANTI-Xa, UFH(UnfractionatedHep 0.64 IU/ml (0.3-0.7)
--- NOTE | 2025-05-29 10:10 | Vascular Surgery Consultation ---
Date of Consultation May 29, 2025 Assessment & Plan (1) Mesenteric artery stenosis: symptoms include postprandial abdominal pain, weight loss, nausea chronic (given extensive atherosclerotic disease on CT scan, history of carotid stenosis and CAD requiring CABG) vs acute on chronic given shorter duration of symptoms (possibly non-occlusive mesenteric ischemia related to heart failure) Lactate 0.9, WBC normal, no peritoneal signs on exam CT with extensive atherosclerosis in mesenteric vessels and aorta Mesenteric duplex with elevated velocities in all three mesenteric vessels, and especially in SMA, all suggesting >70% stenosis Recommend CTA abdomen/pelvis for better evaluation of stenoses and help with planning vascular intervention. Given her Cr and GFR, likely will need gentle hydration for contrast load-will discuss with attending. Ok to advance diet slowly and see how she tolerates Continue heparin drip for now. As long as abdominal exam continues to be benign, could do intervention as outpatient. (2) Abdominal pain: possibly related to mesenteric ischemia- see above, as pain seems to be post prandial also associated nausea, diarrhea-no bloody stools follow up on stool PCR as well to rule out infectious gastroenteritis Abdominal location: unspecified location Qualified Code(s): R10.9 - Unspecified abdominal pain History of Present Illness Reason for Consultation: mesenteric ischemia Requesting Physician: Dr. Xiao Suarez Attending Physician: Mike Astorga MD History of Present Illness Ms. Cano is a very pleasant 85 yo female admitted with 3 week history of nausea, diarrhea and abdominal pain, who we are being asked to see for mesenteric ischemia. History was obtained from patient as well as from reviewing patient's medical records. Patient has a past medical history significant for CAD s/p 2 vessel CABG, atrial fibrillation, carotid artery stenosis (L 50-69%), lower GI bleeding, HTN, hyperlipidemia, solitary pulmonary nodule s/p radiation therapy, COPD, GERD, anxiety and depression, who presented to [facility] after 3 weeks of decreased PO intake secondary to abdominal pain, nausea, vomiting and diarrhea, that had worsened the three days prior to admission. Work up in the ED revealed an elevated troponin of 48.1, thought to be due to supply/demand mismatch, CT abdomen/pelvis showed inflammatory changes of stomach and small bowel, which were non-specific for infectious vs inflammatory vs ischemia given the extensive atherosclerosis on CT. Upon admission stool PCR studies were ordered to asses for infectious causes, and are currently pending. Yesterday evening mesenteric arterial duplex was ordered along with a lactic acid, to assess for mesenteric ischemia. Lactic acid wnl at 0.9, however mesenteric duplex demonstrated elevated velocities in celiac artery, SMA and RICK, with SMA velocities close to 500 cm/s. In talking with her this morning, she notes again that her pain started about 3 weeks ago, more of a gradual onset, and she noted the pain several minutes after eating, along with some nausea and vomiting. The pain would eventually resolve on its own. She notes that during the past 3 weeks she has been unable to eat her normal amount (which is not much to begin with she says), due to the pain she experiences after she eats. She is even having the pain with drinking, although not as severe. She does not note any pain when she is not eating. As mentioned, she has had looser stools during this time as well, but denies any red stools, blood or clots in the toilet. Overall she estimates that she has lost 5 pounds in about 2 weeks. She does note that the pain in her stomach got worse a couple of days ago, which is why she presented to the ED. Given the findings on her mesenteric duplex, she was started on a heparin drip and made NPO. She is not currently having any pain. She is a former smoker. She is on aspirin and statin at home. As mentioned above she has a history of afib. She is unsure of when her last echo was. She lives alone, no difficulty ambulating. As mentioned lactate yesterday 0.9. WBC normal at 8.21 Coags within normal limits, heparin anti Xa 0.64 BUN 13, Cr 1.07 with eGFR 50. Allergies Allergy/AdvReac Type Severity Reaction Status Date / Time ondansetron [From Zofran] AdvReac Intermediate Unknown Verified 05/27/25 20:17 promethazine [From Phenergan] AdvReac Mild unknown Verified 05/27/25 20:17 Home Medications Medication Instructions Recorded Confirmed Type nitroglycerin 0.4 mg sublingual 0.4 mg sublingual UD PRN Chest Pain 05/22/18 05/27/25 History tablet (Nitrostat) multivitamin (Daily Multi-Vitamin 1 tab PO QAM 10/05/18 05/27/25 History tablet) coenzyme Q10 100 mg capsule 100 mg PO QAM 05/13/20 05/27/25 History (CoQ-10) isosorbide dinitrate 30 mg tablet 30 mg PO QAM 01/14/22 05/27/25 History calcium 600 mg (as carbonate)-vit 1 tab PO QAM 08/17/23 05/27/25 History D3 20 mcg (800 unit) chewable tablet (Caltrate plus D) amlodipine 2.5 mg tablet 2.5 mg PO QAM 05/11/24 05/27/25 History escitalopram oxalate 5 mg tablet 5 mg PO QAM 05/11/24 05/27/25 History metoprolol succinate 50 mg 50 mg PO QAM 05/11/24 05/27/25 History tablet,extended release 24 hr omeprazole 20 mg tablet,delayed 20 mg PO QAM 05/11/24 05/27/25 History release rosuvastatin 10 mg tablet 10 mg PO HS 05/11/24 05/27/25 History sacubitril 49 mg-valsartan 51 mg 1 tab PO BID 05/11/24 05/27/25 History tablet (Entresto) albuterol sulfate 90 mcg/actuation 1 inh inhalation Q4H PRN shortness 05/14/24 05/27/25 Rx aerosol inhaler of breath or wheezing #6.7 grams furosemide 20 mg tablet 20 mg PO UD 09/06/24 05/27/25 History lorazepam 0.5 mg tablet 0.5 mg PO BID PRN Anxiety 09/06/24 05/27/25 History aspirin 81 mg chewable tablet 81 mg PO QAM 09/24/24 05/27/25 History mirtazapine 7.5 mg tablet 7.5 mg PO HS 05/27/25 05/27/25 History sertraline 50 mg tablet 50 mg PO DAILY 05/27/25 05/27/25 History Patient History Medical History Encounter for pre-operative examination History of COVID-19 Hx of Lyme disease 2007 Esophageal dysfunction Diastolic heart failure Hypertension Solitary pulmonary nodule radiation treatment 2018 for lung cancer COPD (chronic obstructive pulmonary disease) Coronary artery disease Chronic obstructive bronchitis with pulmonary emphysema Collapsed lung surgery 1979 Surgical History Hx of right cataract extraction S/P bladder repair 2017 S/P CABG (coronary artery bypass graft) 05-03-2018 ? atrial fib and pt unaware H/O dilation and curettage H/O hemorrhoidectomy 10-07-2017 Family History Mother , age 72 Hodgkins disease Lymphoma Father , age 75 Cancer Brother Mental problems Daughter No problems noted. Daughter No problems noted. Daughter No problems noted. Social History Smoking Status: Former smoker Tobacco Type: Cigarettes Second Hand Exposure: No; Do You Dip or Chew Tobacco: No; Tobacco Cessation Education Requested by Patient: No Hx Alcohol Use: No Hx Substance Use: No Preferred Language: Guyanese Communication Ability: Effective Hearing Ability: Normal Manager Pulmonary Required: No Beliefs That Will Affect Care: None Current Living Situation: Alone Current Living Situation Comment: home alone current occupation: Retired Other Information That Helps Us Care for You: No Feels Safe at Home: Yes Safety Concerns: Feels Safe At This Time Assistive Devices: None Review of Systems Constitutional: Denies fevers, chills, sweats, fatigue Respiratory: denies coughing, wheezing, shortness of breath Cardiovascular: Additional Comments: Denies palpitations, racing heart beat, chest pain, dyspnea on exertion Gastrointestinal: see HPI Genitourinary: no dysuria, hematuria, or difficulty urinating Musculoskeletal: + occasional knee pain, no other joint p ain, muscle pain or muscle weakness Integumentary: no rashes, ulcerations, itching Neurologic: no history of stroke or mini stroke, does feel off balance with ambulation at times, no numbness or tingling Hematologic / Lymphatic: no easy bleeding or bruising, no history of blood clots that she is aware of Physical Exam Constitutional: thin, lying in bed, in no distress, pleasant and talkative Eyes: PERRLA, EOMI Neck: supple, trachea midline Respiratory: no increased respiratory effort or accessory muscle use, CTAB, no wheezes, rales or rhonchi Cardiovascular: RRR, no murmurs noted no carotid bruits appreciated +2 bilateral radial pulses +2 DP pulses bilaterally + 2 femoral pulses bilaterally Gastrointestinal (Abdomen): no abdominal bruits noted, non-distended, soft, NTTP. No masses noted. Musculoskeletal: no cyanosis, clubbing or edema noted. Skin: warm and dry with good capillary refill. Neurologic: CN II-XII grossly intact, AA&O x 3 Results & Data Vital Signs (Past 12 Hours) Vital Signs Temp Pulse Resp BP Pulse Ox O2 Del Method 05/29/25 08:00 36.9 C 76 17 148/73 H 90 Room Air 05/29/25 07:25 Room Air 05/29/25 04:27 36.9 C 74 18 170/64 H 90 Room Air 05/28/25 23:14 37.5 C 78 16 143/66 H 91 Room Air Laboratory Results 05/27/25 18:09 Urine Culture - Preliminary Urine,Clean Catch Pin-point growth present, reincubating. 05/29/25 05/28/25 05/28/25 05:27 23:57 20:19 WBC 8.21 RBC 3.87 L Hgb 10.8 L Hct 32.5 L MCV 84.0 MCH 27.9 MCHC 33.2 RDW Std Deviation 50.7 H RDW Coeff of Tanya 16.7 H Plt Count 164 MPV 12.8 H Immature Gran % (Auto) 0.2 Neut % (Auto) 79.0 Lymph % (Auto) 8.2 Talbot % (Auto) 10.7 Eos % (Auto) 1.0 Baso % (Auto) 0.9 Neut # (Auto) 6.49 Lymph # (Auto) 0.67 L Talbot # (Auto) 0.88 H Eos # (Auto) 0.08 Baso # (Auto) 0.07 Immature Gran # (Auto) 0.02 PT 11.1 INR 1.0 APTT 31 PTT Ratio 1.2 Heparin Anti-Xa, Unfract 0.64 Sodium 139 Potassium 3.8 Chloride 106 Carbon Dioxide 26 Anion Gap 7 BUN 13 Creatinine 1.07 Est Cr Clr Drug Dosing 25.3 eGFR 50.27 BUN/Creatinine Ratio 12.1 Glucose 98 Lactate 0.9 Calcium 8.5 L Phosphorus 3.3 Magnesium 1.8 Albumin 3.4 Diagnostic Findings Chest X-Ray 05/28/25 10:52 XR chest 1V portable CLINICAL HISTORY: b/l basilar crackles, dyspnea COMPARISON STUDY: 05/11/2024 FINDINGS: Stable prominent cardiomegaly with mild pulmonary vascular congestion. Stable CABG. Stable diffuse pulmonary interstitial prominence. No consolidation or pleural effusion seen. No pneumothorax. IMPRESSION: CHF. ACT 112: Negative or not required by law. Electronically signed by: Caleb Marie M.D. 05/28/2025 11:40 AM Mesenteric US 05/28/25 10:52 Exam(s): US OTHER duplex mesenteric EXAM: US Duplex Arterial/Venous of the Abdomen, Complete CLINICAL HISTORY: ?celiac/SMA stenosis?. TECHNIQUE: Real-time duplex ultrasound scan of the aorta and mesenteric arteries integrating B-mode two-dimensional vascular structure, Doppler spectral analysis and color flow Doppler imaging. COMPARISON: No relevant prior studies available. FINDINGS: Aorta: Noted involving the abdominal aorta. The peak systolic velocity is 42 cm/sec. Mesenteric: The celiac artery is patent with elevated velocities of 246 cm/sec. The superior mesenteric artery is patent with biphasic waveforms and a peak systolic velocity of 500 70 cm/sec. The mid SMA demonstrates a peak systolic velocity of 277 cm/sec. The RICK is patent with a peak systolic velocity of 363 cm/sec. IMPRESSION: All three mesenteric arteries are patent; however, there is 70-99% luminal stenosis by duplex velocity measurements involving all three arteries. 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 Electronically signed by: Gerard Dong MD 05/28/25 20:30 PM Medications Administered Home Medications Medication Instructions Recorded Confirmed Last Taken nitroglycerin 0.4 mg sublingual 0.4 mg sublingual UD PRN Chest Pain 05/22/18 05/27/25 05/27/25 tablet (Nitrostat) multivitamin (Daily Multi-Vitamin 1 tab PO QAM 10/05/18 05/27/25 05/27/25 tablet) coenzyme Q10 100 mg capsule 100 mg PO QAM 05/13/20 05/27/25 05/27/25 (CoQ-10) isosorbide dinitrate 30 mg tablet 30 mg PO QAM 01/14/22 05/27/25 05/27/25 calcium 600 mg (as carbonate)-vit 1 tab PO QAM 08/17/23 05/27/25 05/27/25 D3 20 mcg (800 unit) chewable tablet (Caltrate plus D) amlodipine 2.5 mg tablet 2.5 mg PO QAM 05/11/24 05/27/25 05/27/25 escitalopram oxalate 5 mg tablet 5 mg PO QAM 05/11/24 05/27/25 05/27/25 metoprolol succinate 50 mg 50 mg PO QAM 05/11/24 05/27/25 05/27/25 tablet,extended release 24 hr omeprazole 20 mg tablet,delayed 20 mg PO QAM 05/11/24 05/27/25 05/27/25 release rosuvastatin 10 mg tablet 10 mg PO 05/11/24 05/27/25 05/26/25 sacubitril 49 mg-valsartan 51 mg 1 tab PO BID 05/11/24 05/27/25 05/27/25 tablet (Entresto) albuterol sulfate 90 mcg/actuation 1 inh inhalation Q4H PRN shortness 05/14/24 05/27/25 05/27/25 aerosol inhaler of breath or wheezing #6.7 grams furosemide 20 mg tablet 20 mg PO UD 09/06/24 05/27/25 05/27/25 lorazepam 0.5 mg tablet 0.5 mg PO BID PRN Anxiety 09/06/24 05/27/25 05/27/25 aspirin 81 mg chewable tablet 81 mg PO QA 09/24/24 05/27/25 05/27/25 mirtazapine 7.5 mg tablet 7.5 mg PO 05/27/25 05/27/25 05/27/25 sertraline 50 mg tablet 50 mg PO DAILY 05/27/25 05/27/25 05/26/25 Active Medications Generic Name Dose Route Start Last Admin Trade Name Freq PRN Reason Stop Dose Admin Hydralazine HCl 10 mg 05/28/25 05:38 05/28/25 07:53 Hydralazine Hcl 20 Mg/Ml Vial IV 06/27/25 05:37 10 mg Q4H PRN Administration SBP above 160 Lactated Ringer's 1,000 mls @ 80 mls/hr 05/27/25 20:15 05/28/25 18:41 Lr IV Infused .[id number] CORY Infusion Pantoprazole Sodium 40 mg in 10 mls @ 5 mls/min 05/28/25 09:00 05/29/25 08:22 Protonix IV 06/27/25 08:59 5 mls/min BID CORY Administration Heparin Sodium/Dextrose 25,000 units in 500 mls @ 16 mls/hr 05/28/25 22:15 05/29/25 06:55 Heparin 96650 Unit/500 Ml D5w IV 06/27/25 22:14 800 units/hr .Q24H CORY 16 mls/hr Titration Protocol 800 UNITS/HR Isosorbide Mononitrate 30 mg 05/28/25 09:00 05/29/25 08:23 Isosorbide Talbot Extended Rel 30 Mg Tabcr PO 06/27/25 08:59 30 mg QAM CORY Administration Metoprolol Succinate 50 mg 05/28/25 09:00 05/29/25 08:23 Metoprolol Succ 50mg Ext Rel Tab PO 06/27/25 08:59 50 mg QAM CORY Administration Sertraline HCl 50 mg 05/28/25 09:00 05/29/25 08:23 Sertraline Hcl 50 Mg Tablet PO 06/27/25 08:59 50 mg DAILY CORY Administration Umeclidinium Webb 1 puffs 05/28/25 09:00 05/29/25 08:22 Umeclidinium Webb 62.5mcg/Blister 7 Puffs/Inhaler INH 06/27/25 08:59 1 puffs QAM CORY Administration PG Care Time/CCT Total # of Minutes Spent Total Time Spent with Patient: Total time spent is greater than 50% in coordination of care (as documented) at patient's floor/unit and/or counseling patient: [place] [address] INT INP/OBS CARE 3/75MIN Patient Type New History Detailed Exam Comprehensive Medical Decision Making High Complexity Diagnoses Mesenteric artery stenosis K55.1 Abdominal pain, unspecified abdominal location R10.9 Abdominal location: unspecified location
--- NOTE | 2025-05-29 12:27 | Hospitalist Progress Note ---
Date of Service May 29, 2025 Assessment & Plan (1) Abdominal pain: (2) Nausea, vomiting, and diarrhea: (3) Mesenteric artery stenosis: (4) Elevated troponin: (5) Hypomagnesemia: (6) COPD (chronic obstructive pulmonary disease): (7) Pulmonary hypertension: (8) Severe protein-calorie malnutrition: (9) Coronary artery disease: (10) S/P CABG (coronary artery bypass graft): (11) PAF (paroxysmal atrial fibrillation): Plan 85yo female with h/o paroxysmal atrial fibrillation, carotid artery stenosis, lower GI bleed, anxiety and depression, CAD, hypertension, GERD, and hyperlipidemia. Presented with 3 weeks of poor appetite, weight loss, post-prandial abdominal pain episodes, nausea, vomiting, and most recently loose stools for a few days. #post-prandial abdominal pain episodes with nausea/emesis and some recent diarrhea - -CT a/p at presentation with significant stenoses of all 3 mesenteric vessels noted -same CT also saw inflammatory changes of the stomach and small bowel -differential - gastroenteritis vs mesenteric ischemia vs other -if she has diarrhea will send stool for Stool BioFire but today's stool was formed by report -mesenteric doppler suggested high-grade stenoses of all 3 vessels including the celiac/SMA/RICK -vascular surgery consulted; they advised CTA a/p -this returned with mild celiac artery stenosis and moderate SMA/RICK stenosis but NOTHING high-grade -I corresponded with vascular surgery - no intervention at this time of any mesenteric vessel -GI following -did not tolerate liquids last pm --- etiology of symptoms?? -retrial of clears this evening and see how things go -cont IV PPI -added carafate for "heartburn" symptoms -anti-emetics prn -if diarrhea develops then send for c.diff and stool biofire -I corresponded with GI today updating them on the status of the mesenteric ischemia w/u -- GI to see again tomorrow -per vascular can STOP heparin drip; resume statin/asa #severe protein calorie malnutrition - -6-7 pounds of weight loss since 3-4 weeks ago -2nd to the GI symptoms above -see above discussion -GI and vascular surgery consults appreciated #low-normal O2 sats, JVD on exam, etc - -echo 2023 with severe pulmonary HTN, severe TR, grade 2 diastolic dysfunction, apical variant hypertrophic CM -repeat echo with ongoing SEVERE pulm HTN which is the likely cause of her JVD, low-normal O2 sats, etc. -EF >70%, RV function wnl -cause of pulm HTN - COPD?? other? -will need a formal 2-step later in the stay -will need f/u with Dr Krystian Saldaña, her primary payroll manager, post-d/c #elevated troponin - -likely myocardial demand ischemia in setting of her GI symptoms -doubt ACS -due to "heartburn" today I obtained a repeat EKG - looks similar to prior EKG (anterior ST changes, but has LVH as well) -repeat troponin was 58 - lower than prior #h/o PAF - -her problem list mentions PAF but she is not on anticoagulation -would need to check with cardiology about this #hyperlipidemia - -cont rosuvastatin -cont asa -SEVERE PAD as seen on CTA a/p today; also with known CAD and carotid artery stenosis #HTN/CAD - -cont meto succ -cont imdur -cont asa -cont statin -with preserved EF on prior echo uncertain why she is on Entresto #Anxiety and depression - -Continue sertraline #Hypomagnesemia - -Magnesium 1.7 on admission -repleted/resolved PT/OT evals requested updated pt's daughter Katja Cano by phone this pm (about 15 min phone conversation); all questions answered updated pt's grand-daughter at bedside this evening multiple correspondences with GI & vascular surgery today Admission and Anticipated Discharge Date Admission Date: May 27, 2025 Subjective saw patient couple times today first was on AM rounds she did not tolerate diet yesterday evening had CTA a/p - no severe mesenteric stenosis seen of the celiac/RICK/SMA vascular reported no plans for intervention clear liquids ordered for dinner today -- she did tolerate such without any nausea/vomiting/pain 2nd visit was late in the day after dinner -- grand-daughter present at bedside Review of Systems Review of Systems: gen - no fevers, no chills cv - had "heartburn" earlier in the day today, now resolved; apparently refused the carafate ordered pulm - denies dyspnea GI - see HPI; formed stool this am Physical Exam Physical Exam: gen - very thin, NAD, lying in bed comfortably, looks good today neck - severe JVD - to the jaw mouth - MMM heart - RRR, s1 s2, 3/6 holosystolic murmur LLSB lungs - CTA b/l abd - soft, NT, ND, BS+, no HSM, no mass, no peritoneal signs ext - no edema, pulses b/l feet 2+ psych - a/o x 3 Results & Data Results & Data Vital Signs (Past 12 Hours) Vital Signs Temp Pulse Pulse Resp BP Pulse Ox O2 Del Method 05/29/25 11:10 37.2 C 78 17 175/87 H 90 Room Air 05/29/25 10:55 76 05/29/25 08:00 36.9 C 76 17 148/73 H 90 Room Air 05/29/25 07:25 Room Air 05/29/25 04:27 36.9 C 74 18 170/64 H 90 Room Air Laboratory Results Laboratory Results - last 48 hr 05/28/25 05/28/25 05/29/25 20:19 23:57 05:27 WBC 8.21 RBC 3.87 L Hgb 10.8 L Hct 32.5 L MCV 84.0 MCH 27.9 MCHC 33.2 RDW Std Deviation 50.7 H RDW Coeff of Tanya 16.7 H Plt Count 164 MPV 12.8 H Immature Gran % (Auto) 0.2 Neut % (Auto) 79.0 Lymph % (Auto) 8.2 Rush % (Auto) 10.7 Eos % (Auto) 1.0 Baso % (Auto) 0.9 Neut # (Auto) 6.49 Lymph # (Auto) 0.67 L Rush # (Auto) 0.88 H Eos # (Auto) 0.08 Baso # (Auto) 0.07 Immature Gran # (Auto) 0.02 Absolute Nucleated RBC Nucleated RBC % (auto) Neutrophils % (Manual) Band Neutrophils % Lymphocytes % (Manual) Prolymphocyte % Reactive Lymphs % (Man) Monocytes % (Manual) Eosinophils % (Manual) Basophils % (Manual) Metamyelocytes % (Man) Myelocytes % (Man) Promyelocytes % (Man) Blast Cells % (Manual) Plasma Cell % (Manual) Other Cells % Nucleated RBC % Neutrophils # (Manual) Band Neutrophils # Total Absolute Neuts Lymphocytes # (Manual) Prolymphocyte # Reactive Lymphs # Total Abs Lymphocytes Monocytes # (Manual) Eosinophils # (Manual) Basophils # (Manual) Metamyelocytes # (Man) Myelocytes # (Manual) Promyelocytes # (Man) Blast Cells # (Man) Plasma Cell # (Manual) Other Cells # Nucleated RBCs # (Man) Hypersegmented Neuts Hyposegmented Neuts Hypogranular Neuts Large Granular Lymphs # Lrg Granular Lymphs Hairy Cells Smudge Cells Toxic Granulation Toxic Vacuolation Dohle Bodies Douglas Rods Platelet Estimate Hypogranular Platelets Giant Platelets Platelet Satelliting RBC Morphology Polychromasia Hypochromasia Poikilocytosis Basophilic Stippling Anisocytosis Microcytosis Macrocytosis Spherocytes Pappenheimer Bodies Sickle Cells Target Cells Tear Drop Cells Ovalocytes Stomatocytes Mulligan-[place] Corner Bodies Echinocytes Acanthocytes (Spur) Rouleaux RBC Agglutinates Schistocytes Sezary Cell PT 11.1 INR 1.0 APTT 31 PTT Ratio 1.2 Heparin Anti-Xa, Unfract 0.64 Sodium 139 Potassium 3.8 Chloride 106 Carbon Dioxide 26 Anion Gap 7 BUN 13 Creatinine 1.07 Est Cr Clr Drug Dosing 25.3 eGFR 50.27 BUN/Creatinine Ratio 12.1 Glucose 98 Lactate 0.9 Calcium 8.5 L Phosphorus 3.3 Magnesium 1.8 Troponin I High Sens Albumin 3.4 Blood Parasites ID Diagnostic Findings Abdomen/Pelvis CTA 05/29/25 12:21 CT ANGIOGRAM OF THE ABDOMEN AND PELVIS COMBO CLINICAL HISTORY: Generalized abdominal pain. Mesenteric stenosis. COMPARISON STUDY: Abdominal CT dated 05/27/2025. TECHNIQUE: Before and following the IV administration of 115 cc of Optiray 320, CT angiogram of the abdomen and pelvis was performed from the lung bases the proximal femora. Images are reviewed in the axial, sagittal, and coronal planes. 3-D MIPS images are created and assessed. IV contrast was administered without c omplication. A dose lowering technique was utilized adhering to the principles of ALARA. The examination is compromised by motion artifact. CT DOSE: 532.43 mGy.cm FINDINGS: Lower chest: The heart is enlarged and without pericardial effusion. There are small pleural effusions with dependent atelectasis. There is a small hiatal hernia. Liver: The contrast-enhanced liver is normal in size, contour, and attenuation. There is no intrahepatic biliary ductal dilatation. Reflux of contrast into hepatic veins suggests cardiac dysfunction. Gallbladder: The gallbladder is filled with vicariously excreted contrast. Spleen: Normal in size and attenuation noting heterogeneous arterial phase enhancement. Pancreas: Moderately atrophic and grossly unremarkable. Adrenal glands: Unremarkable. Kidneys: The contrast enhanced kidneys are atrophic and without hydronephrosis. No renal calculi are identified on the unenhanced series and no ureteral stone is seen. Retained cortical contrast is noted bilaterally. The kidneys enhance symmetrically. Cortical scarring is seen on the right. A 1.7 cm cyst is seen in the left lower pole. Abdominal aorta and iliac arteries: There is advanced atherosclerotic calcification and diffuse aneurysmal dilatation of the abdominal aorta. The aorta measures 3.3 x 3.9 cm at the hiatus (AP x transverse), 3.2 x 3.2 cm at the level of the renal arteries, 3.3 x 3.4 cm below the renal arteries, and 1.7 x 2.0 cm above the bifurcation. The abdominal aorta is patent noting mural thrombus. No dissection is seen. There is advanced atherosclerotic plaque and irregularity throughout the iliac arteries which are patent bilaterally. There is ectasia of the distal left common iliac artery which measures up to 1.3 cm. There is moderate to high-grade stenosis of the origin of both internal iliac arteries. Major branches of the abdominal aorta: There is moderate stenosis at the origin of the celiac trunk. Mild stenosis is seen in the proximal superior mesenteric artery approximately 1 cm from its origin. There is also moderate stenosis at the origin of the inferior mesenteric artery. Hepatic arterial anatomy is conventional. The splenic artery is patent. There are single bilateral renal arteries. Moderate to high-grade stenosis is seen at the origin of both renal arteries. Bowel: There is advanced colonic diverticulosis without CT evidence of acute diverticulitis. No bowel obstruction is seen. The appendix is not visualized. Peritoneum: There is no intraperitoneal free air or abdominal ascites. Lymphadenopathy: None. Pelvic viscera: The the bladder is filled with excreted IV contrast and grossly unremarkable. The uterus is surgically absent. No adnexal lesion is seen. Skeletal structures: The skeletal structures are osteopenic. There is mild to moderate lumbosacral spondylosis. No lytic or blastic bony lesions are seen. IMPRESSION: 1. There is advanced atherosclerotic change and mild diffuse aneurysmal dilatation throughout the abdominal aorta. This measures a maximum of 3.3 x 3.4 cm. 2. The abdominal aorta and iliac arteries are patent. 3. There is moderate to high-grade stenosis at the origin of both internal iliac arteries. 4. Moderate to high-grade stenosis is seen at the origin of both renal arteries. 5. There is moderate stenosis at the origin of the celiac artery, mild stenosis of the proximal superior mesenteric artery, and moderate stenosis at the origin of the inferior mesenteric artery 6. Cardiomegaly and small pleural effusions. 7. Diverticulosis of the colon without CT evidence of acute diverticulitis. 8. There is retained cortical contrast within both kidneys on the unenhanced series suggesting renal injury. 9. Additional findings as above. ACT 112: Negative or not required by law. Electronically signed by: Daniel Abreu M.D. 05/29/2025 3:53 PM PG Care Time/CCT Total # of Minutes Spent Total Time Spent with Patient: Total time spent is greater than 50% in coordination of care (as documented) at patient's floor/unit and/or counseling patient: Coding Level of Care Code 98046 SUB INP/OBS CARE 3/50MIN Diagnoses Abdominal pain, unspecified abdominal location R10.9 Abdominal location: unspecified location Nausea, vomiting, and diarrhea R11.2; R19.7 Mesenteric artery stenosis K55.1 Elevated troponin R79.89 Hypomagnesemia E83.42 COPD (chronic obstructive pulmonary disease) J44.9 COPD type: unspecified COPD Pulmonary hypertension I27.20 Severe protein-calorie malnutrition E43 Coronary artery disease I25.10 S/P CABG (coronary artery bypass graft) Z95.1 PAF (paroxysmal atrial fibrillation) I48.0 (1) Abdominal pain Abdominal location: unspecified location Qualified Code(s): R10.9 - Unspecified abdominal pain (6) COPD (chronic obstructive pulmonary disease) COPD type: unspecified COPD Qualified Code(s): J44.9 - Chronic obstructive pulmonary disease, unspecified
[2025-05-29] MEDS: SODIUM CHLORIDE 0.9% 500 ML IV SCH (13:02)
[2025-05-29] MEDS: OPTIRAY 320 125ml IV ONE (14:05)
[2025-05-29] MEDS: SUCRALFATE 1 GM/10 ML UDC PO SCH (14:19)
--- NOTE | 2025-05-29 15:18 | XCELERA ---
[id number]
--- NOTE | 2025-05-29 15:54 | CT Scan Report ---
CT ANGIOGRAM OF THE ABDOMEN AND PELVIS COMBO CLINICAL HISTORY: Generalized abdominal pain. Mesenteric stenosis. COMPARISON STUDY: Abdominal CT dated 05/27/2025. TECHNIQUE: Before and following the IV administration of 115 cc of Optiray 320, CT angiogram of the a bdomen and pelvis was performed from the lung bases the proximal femora. Images are reviewed in the a xial, sagittal, and coronal planes. 3-D MIPS images are created and assessed. IV contrast was adminis tered without complication. A dose lowering technique was utilized adhering to the principles of ALA RA. The examination is compromised by motion artifact. CT DOSE: 532.43 mGy.cm FINDINGS: Lower chest: The heart is enlarged and without pericardial effusion. There are small pleural effusion s with dependent atelectasis. There is a small hiatal hernia. Liver: The contrast-enhanced liver is normal in size, contour, and attenuation. There is no intrahepa tic biliary ductal dilatation. Reflux of contrast into hepatic veins suggests cardiac dysfunction. Gallbladder: The gallbladder is filled with vicariously excreted contrast. Spleen: Normal in size and attenuation noting heterogeneous arterial phase enhancement. Pancreas: Moderately atrophic and grossly unremarkable. Adrenal glands: Unremarkable. Kidneys: The contrast enhanced kidneys are atrophic and without hydronephrosis. No renal calculi are identified on the unenhanced series and no ureteral stone is seen. Retained cortical contrast is note d bilaterally. The kidneys enhance symmetrically. Cortical scarring is seen on the right. A 1.[address] is seen in the left lower pole. Abdominal aorta and iliac arteries: There is advanced atherosclerotic calcification and diffuse aneur ysmal dilatation of the abdominal aorta. The aorta measures 3.3 x 3.9 cm at the hiatus (AP x transver se), 3.2 x 3.2 cm at the level of the renal arteries, 3.3 x 3.4 cm below the renal arteries, and 1.7 x 2.0 cm above the bifurcation. The abdominal aorta is patent noting mural thrombus. No dissection is seen. There is advanced atherosclerotic plaque and irregularity throughout the iliac arteries which are patent bilaterally. There is ectasia of the distal left common iliac artery which measures up to 1.3 cm. There is moderate to high-grade stenosis of the origin of both internal iliac arteries. Major branches of the abdominal aorta: There is moderate stenosis at the origin of the celiac trunk. Mild stenosis is seen in the proximal superior mesenteric artery approximately 1 cm from its origin. There is also moderate stenosis at the origin of the inferior mesenteric artery. Hepatic arterial dominick tete is conventional. The splenic artery is patent. There are single bilateral renal arteries. Modera te to high-grade stenosis is seen at the origin of both renal arteries. Bowel: There is advanced colonic diverticulosis without CT evidence of acute diverticulitis. No bowel obstruction is seen. The appendix is not visualized. Peritoneum: There is no intraperitoneal free air or abdominal ascites. Lymphadenopathy: None. Pelvic viscera: The the bladder is filled with excreted IV contrast and grossly unremarkable. The inaja [place] is surgically absent. No adnexal lesion is seen. Skeletal structures: The skeletal structures are osteopenic. There is mild to moderate lumbosacral sp ondylosis. No lytic or blastic bony lesions are seen. IMPRESSION: 1. There is advanced atherosclerotic change and mild diffuse aneurysmal dilatation throughout the abd ominal aorta. This measures a maximum of 3.3 x 3.4 cm. 2. The abdominal aorta and iliac arteries are patent. 3. There is moderate to high-grade stenosis at the origin of both internal iliac arteries. 4. Moderate to high-grade stenosis is seen at the origin of both renal arteries. 5. There is moderate stenosis at the origin of the celiac artery, mild stenosis of the proximal super ior mesenteric artery, and moderate stenosis at the origin of the inferior mesenteric artery 6. Cardiomegaly and small pleural effusions. 7. Diverticulosis of the colon without CT evidence of acute diverticulitis. 8. There is retained cortical contrast within both kidneys on the unenhanced series suggesting renal injury. 9. Additional findings as above. ACT 112: Negative or not required by law. Electronically signed by: Daniel Abreu M.D. 05/29/2025 3:53 PM
[2025-05-30 06:53] LABS: Albumin Level 3.6 gm/dl (3.4-5.0); Anion Gap 9.0 (3-11); Blood Urea Nitrogen 12.0 mg/dl (6-23); Calcium 8.6 mg/dl (8.6-10.3); Carbon Dioxide 23.0 mmol/L (21-32); Chloride 104.0 mmol/L (98-107); Creatinine Clr Calc Pharmacy 29.1 ml/min; Glucose 120.0 mg/dl (70-99(Fasting)); Magnesium 1.7 mg/dl (1.7-2.4); Potassium 3.6 mmol/L (3.5-5.1); Sodium 136.0 mmol/L (136-145)
[2025-05-30 07:57] LABS: Hematocrit (blood only) 32.4 % (37.0-47.0); Hemoglobin 10.8 g/dl (12.0-16.0); Mean Corpuscular Hemoglobin 27.5 pg (25.0-34.0); Mean Corpuscular Volume 82.4 fL (80.0-100.0); Platelet Count 175 K/uL (130-400); RDW Standard Deviation 49.1 fL (36.4-46.3); Red Blood Count 3.93 M/uL (4.20-5.40); White Blood Count 8.93 K/ul (4.8-10.8)
[2025-05-30 08:14] LABS: Immature Granulocytes # (auto) 0.03 K/uL (0.01-0.20); Immature Granulocytes % (auto) 0.3 %; Ovalocytes 1+; Polychromasia 1+
[2025-05-30 08:44] LABS: Alanine Aminotransferase 8.0 U/L (7-52); Alkaline Phosphatase 57.0 U/L (34-104); Bilirubin,Total 0.9 mg/dl (0.2-1.0); Lipase 4.0 U/L (11-82); Total Protein 6.2 gm/dl (6.0-8.3)
[2025-05-30] MEDS: FAMOTIDINE 20MG IV PUSH 20 MG/5 ML SYR IV ONE (08:44)
--- NOTE | 2025-05-30 09:42 | Gastroenterology Progress Note ---
Date of Service May 30, 2025 Assessment & Plan (1) Nausea, vomiting, and diarrhea: Plan Patient with ongoing symptoms. Not felt to be due to vascular issue per vascular team. Case was discussed with Dr. Bartlett. - recommend checking HIDA scan to evaluate for gallbladder etiology to symptoms. - continue with protonix 40mg IV bid. she was just started on carafate 1 gm qid yesterday. would assess response. - recommend collecting stool sample to assess for infectious causes of symptoms. Still uncollected per chart. Admission and Anticipated Discharge Date Admission Date: May 27, 2025 Supervising Physician Co-Signing Physician Notes Patient seen with her family at bedside. She has been n.p.o. for the day. Because of this, she states she thinks she is feeling better. Her pain seems to be improved. Stool studies thus far are negative. C. difficile is still pending. Her abdominal exam today is completely benign, soft, nontender, no guarding or rebound. She is currently maintained on Protonix, Pepcid, and Carafate. HIDA scan results noted. No evidence of cholecystitis but it does not appear that the tracer reached the small bowel. This could be concerning for something such as ampullary stenosis or distal CBD stricture. I think this is less likely given her LFTs are normal and she does not have any biliary dilatation seen on any of the imaging that she has had. We may consider an MRCP pending her hospital course this weekend. If her symptoms persist we may need to consider an EGD on Monday. I did explain to the family that she would be a high risk for anesthesia given her high pulmonary artery pressures. I am going to restart her on clears tonight. I am going to add boost shakes. Subjective Patient has had ongoing nausea symptoms. Her last episode of this was this morning around 7 am. she denies any emesis. no abdominal pain. She has not had anything to eat today. Last bowel movement was yesterday that she tells me was still diarrhea. no blood in the stools or melena. Vascular PA-Jeannette was in the see patient this morning while I was in and tells me she does not feel like this is a vascular issue. CTA 05/29/25 1. There is advanced atherosclerotic change and mild diffuse aneurysmal dilatation throughout the abdominal aorta. This measures a maximum of 3.3 x 3.4 cm. 2. The abdominal aorta and iliac arteries are patent. 3. There is moderate to high-grade stenosis at the origin of both internal iliac arteries. 4. Moderate to high-grade stenosis is seen at the origin of both renal arteries. 5. There is moderate stenosis at the origin of the celiac artery, mild stenosis of the proximal superior mesenteric artery, and moderate stenosis at the origin of the inferior mesenteric artery 6. Cardiomegaly and small pleural effusions. 7. Diverticulosis of the colon without CT evidence of acute diverticulitis. 8. There is retained cortical contrast within both kidneys on the unenhanced series suggesting renal injury. Review of Systems Review of Systems: All systems reviewed & are unremarkable except as noted in HPI & below Physical Exam Constitutional: WD/WN, vitals as above Respiratory: normal respiratory effort, lungs clear to auscultation Cardiovascular: Rate/Rhythm: regular rate and regular rhythm Gastrointestinal (Abdomen): normal bowel sounds, soft, nontender, no hepatosplenomegaly Psychiatric: Orientation: alert and oriented x 3 Results & Data Results & Data Vital Signs (Past 12 Hours) Vital Signs Temp Pulse Pulse Pulse Resp BP BP 05/30/25 09:03 82 05/30/25 07:15 98.1 F 72 22 157/67 H 05/30/25 07:10 05/30/25 02:44 98.1 F 81 20 111/44 L 05/30/25 00:00 05/29/25 23:46 98.1 F 71 16 180/84 H 05/29/25 23:00 05/29/25 22:00 80 Pulse Ox Pulse Ox O2 Del Method O2 Del Method O2 Flow Rate O2 Flow Rate 05/30/25 09:03 05/30/25 07:15 92 Room Air 05/30/25 07:10 Room Air 05/30/25 02:44 97 Nasal Cannula 1.0 05/30/25 00:00 98 Nasal Cannula 1 05/29/25 23:46 90 Room Air 05/29/25 23:00 Nasal Cannula 1 05/29/25 22:00 Coding Level of Care Code 67176 SUB INP/OBS CARE 2/35MIN Diagnoses Nausea, vomiting, and diarrhea R11.2; R19.7
--- NOTE | 2025-05-30 09:43 | Vascular Surgery Progress Note ---
Date of Service May 30, 2025 Assessment & Plan (1) Mesenteric artery stenosis: Plan: She continues with nausea and diarrhea, however no abdominal pain and exam remains benign, last lactate wnl and no elevated WBC Mesenteric duplex with elevated velocities in all three mesenteric vessels, and especially in SMA, all suggesting >70% stenosis, however follow up CTA with only mild to moderate stenoses in celiac, SMA and RICK. Given these findings, less likely mesenteric ischemia causing current symptoms. Will hold off on any vascular intervention at this time OK from Vascular perspective to stop heparin (d/c last night) Medical management with statin and ASA (she is already on at home) (2) Abdominal pain: Plan: Continues with more nausea, vomiting and non bloody diarrhea less likely to be related to mesenteric ischemia based on CTA yesterday afternoon stool studies pending Continue work up per GI, primary Admission and Anticipated Discharge Date Admission Date: May 27, 2025 Subjective underwent CTA abd/pelvis yesterday to further assess her areas of stenoses in celiac, SMA and RICK. Stenoses in these vessels less impressive on CTA. Diet was started last night and she at some jello and ice. about 15-20 minutes after eating she started to feel nauseous and had vomiting and diarrhea during the night. She denies any blood in her stools. She denies any abdominal pain with eating last night, or this morning. Stool studies are pending. Heparin drip discontinued last night. Physical Exam Constitutional: thin, lying in bed, in no distress, appears tired. Gastrointestinal (Abdomen): no abdominal bruits noted, non-distended, soft, NTTP. No masses noted. Skin: warm and dry with good capillary refill. Results & Data Vital Signs (Past 12 Hours) Vital Signs Temp Pulse Pulse Pulse Resp BP BP 05/30/25 09:03 82 05/30/25 07:15 36.7 C 72 22 157/67 H 05/30/25 07:10 05/30/25 02:44 36.7 C 81 20 111/44 L 05/30/25 00:00 05/29/25 23:46 36.7 C 71 16 180/84 H 05/29/25 23:00 05/29/25 22:00 80 Pulse Ox Pulse Ox O2 Del Method O2 Del Method O2 Flow Rate O2 Flow Rate 05/30/25 09:03 05/30/25 07:15 92 Room Air 05/30/25 07:10 Room Air 05/30/25 02:44 97 Nasal Cannula 1.0 05/30/25 00:00 98 Nasal Cannula 1 05/29/25 23:46 90 Room Air 05/29/25 23:00 Nasal Cannula 1 05/29/25 22:00 Laboratory Results 05/27/25 18:09 Urine Culture - Final Urine,Clean Catch More than three types of organisms present, all low counts mixed probable skin margaret. No further identifications or sensitivities to follow. 05/30/25 05/30/25 05/29/25 07:36 06:01 17:57 WBC 8.93 Cancelled RBC 3.93 L Cancelled Hgb 10.8 L Cancelled Hct 32.4 L Cancelled MCV 82.4 Cancelled MCH 27.5 Cancelled MCHC 33.3 Cancelled RDW Std Deviation 49.1 H Cancelled RDW Coeff of Tanya 16.3 H Cancelled Plt Count 175 Cancelled MPV 12.7 H Cancelled Immature Gran % (Auto) 0.3 Cancelled Neut % (Auto) 90.2 Cancelled Lymph % (Auto) 3.6 Cancelled [place] % (Auto) 5.7 Cancelled Eos % (Auto) 0.0 Cancelled Baso % (Auto) 0.2 Cancelled Neut # (Auto) 8.05 H Cancelled Lymph # (Auto) 0.32 L Cancelled [place] # (Auto) 0.51 Cancelled Eos # (Auto) 0.00 Cancelled Baso # (Auto) 0.02 Cancelled Immature Gran # (Auto) 0.03 Cancelled Absolute Nucleated RBC Cancelled Nucleated RBC % (auto) Cancelled Neutrophils % (Manual) Cancelled Band Neutrophils % Cancelled Lymphocytes % (Manual) Cancelled Prolymphocyte % Cancelled Reactive Lymphs % (Man) Cancelled Monocytes % (Manual) Cancelled Eosinophils % (Manual) Cancelled Basophils % (Manual) Cancelled Metamyelocytes % (Man) Cancelled Myelocytes % (Man) Cancelled Promyelocytes % (Man) Cancelled Blast Cells % (Manual) Cancelled Plasma Cell % (Manual) Cancelled Other Cells % Cancelled Nucleated RBC % Cancelled Neutrophils # (Manual) Cancelled Band Neutrophils # Cancelled Total Absolute Neuts Cancelled Lymphocytes # (Manual) Cancelled Prolymphocyte # Cancelled Reactive Lymphs # Cancelled Total Abs Lymphocytes Cancelled Monocytes # (Manual) Cancelled Eosinophils # (Manual) Cancelled Basophils # (Manual) Cancelled Metamyelocytes # (Man) Cancelled Myelocytes # (Manual) Cancelled Promyelocytes # (Man) Cancelled Blast Cells # (Man) Cancelled Plasma Cell # (Manual) Cancelled Other Cells # Cancelled Nucleated RBCs # (Man) Cancelled Hypersegmented Neuts Cancelled Hyposegmented Neuts Cancelled Hypogranular Neuts Cancelled Large Granular Lymphs Cancelled # Lrg Granular Lymphs Cancelled Hairy Cells Cancelled Smudge Cells Cancelled Toxic Granulation Cancelled Toxic Vacuolation Cancelled Dohle Bodies Cancelled Douglas Rods Cancelled Platelet Estimate Cancelled Hypogranular Platelets Cancelled Giant Platelets Cancelled Platelet Satelliting Cancelled RBC Morphology Cancelled Polychromasia 1+ Cancelled Hypochromasia Cancelled Poikilocytosis Cancelled Basophilic Stippling Cancelled Anisocytosis Cancelled Microcytosis Cancelled Macrocytosis Cancelled Spherocytes Cancelled Pappenheimer Bodies Cancelled Sickle Cells Cancelled Target Cells Cancelled Tear Drop Cells Cancelled Ovalocytes 1+ Cancelled Stomatocytes Cancelled Mulligan-[place] Bodies Cancelled Echinocytes Cancelled Acanthocytes (Spur) Cancelled Rouleaux Cancelled RBC Agglutinates Cancelled Schistocytes Cancelled Sezary Cell Cancelled Sodium 136 Potassium 3.6 Chloride 104 Carbon Dioxide 23 Anion Gap 9 BUN 12 Creatinine 0.93 Est Cr Clr Drug Dosing 29.1 eGFR 59.49 BUN/Creatinine Ratio 12.9 Glucose 120 H Calcium 8.6 Phosphorus 3.2 Magnesium 1.7 Total Bilirubin 0.9 Direct Bilirubin 0.2 AST 19 ALT 8 Alkaline Phosphatase 57 Troponin I High Sens 58.0 H* Total Protein 6.2 Albumin 3.6 Lipase 4 L Blood Parasites ID Cancelled Diagnostic Findings Abdomen/Pelvis CTA 05/29/25 12:21 CT ANGIOGRAM OF THE ABDOMEN AND PELVIS COMBO CLINICAL HISTORY: Generalized abdominal pain. Mesenteric stenosis. COMPARISON STUDY: Abdominal CT dated 05/27/2025. TECHNIQUE: Before and following the IV administration of 115 cc of Optiray 320, CT angiogram of the abdomen and pelvis was performed from the lung bases the proximal femora. Images are reviewed in the axial, sagittal, and coronal planes. 3-D MIPS images are created and assessed. IV contrast was administered without complication. A dose lowering technique was utilized adhering to the principles of ALARA. The examination is compromised by motion artifact. CT DOSE: 532.43 mGy.cm FINDINGS: Lower chest: The heart is enlarged and without pericardial effusion. There are small pleural effusions with dependent atelectasis. There is a small hiatal hernia. Liver: The contrast-enhanced liver is normal in size, contour, and attenuation. There is no intrahepatic biliary ductal dilatation. Reflux of contrast into hepatic veins suggests cardiac dysfunction. Gallbladder: The gallbladder is filled with vicariously excreted contrast. Spleen: Normal in size and attenuation noting heterogeneous arterial phase enhancement. Pancreas: Moderately atrophic and grossly unremarkable. Adrenal glands: Unremarkable. Kidneys: The contrast enhanced kidneys are atrophic and without hydronephrosis. No renal calculi are identified on the unenhanced series and no ureteral stone is seen. Retained cortical contrast is noted bilaterally. The kidneys enhance symmetrically. Cortical scarring is seen on the right. A 1.7 cm cyst is seen in the left lower pole. Abdominal aorta and iliac arteries: There is advanced atherosclerotic calcification and diffuse aneurysmal dilatation of the abdominal aorta. The aorta measures 3.3 x 3.9 cm at the hiatus (AP x transverse), 3.2 x 3.2 cm at the level of the renal arteries, 3.3 x 3.4 cm below the renal arteries, and 1.7 x 2.0 cm above the bifurcation. The abdominal aorta is patent noting mural thrombus. No dissection is seen. There is advanced atherosclerotic plaque and irregularity throughout the iliac arteries which are patent bilaterally. There is ectasia of the distal left common iliac artery which measures up to 1.3 cm. There is moderate to high-grade stenosis of the origin of both internal iliac arteries. Major branches of the abdominal aorta: There is moderate stenosis at the origin of the celiac trunk. Mild stenosis is seen in the proximal superior mesenteric artery approximately 1 cm from its origin. There is also moderate stenosis at the origin of the inferior mesenteric artery. Hepatic arterial anatomy is conventional. The splenic artery is patent. There are single bilateral renal arteries. Moderate to high-grade stenosis is seen at the origin of both renal arteries. Bowel: There is advanced colonic diverticulosis without CT evidence of acute diverticulitis. No bowel obstruction is seen. The appendix is not visualized. Peritoneum: There is no intraperitoneal free air or abdominal ascites. Lymphadenopathy: None. Pelvic viscera: The the bladder is filled with excreted IV contrast and grossly unremarkable. The uterus is surgically absent. No adnexal lesion is seen. Skeletal structures: The skeletal structures are osteopenic. There is mild to moderate lumbosacral spondylosis. No lytic or blastic bony lesions are seen. IMPRESSION: 1. There is advanced atherosclerotic change and mild diffuse aneurysmal dilatation throughout the abdominal aorta. This measures a maximum of 3.3 x 3.4 cm. 2. The abdominal aorta and iliac arteries are patent. 3. There is moderate to high-grade stenosis at the origin of both internal iliac arteries. 4. Moderate to high-grade stenosis is seen at the origin of both renal arteries. 5. There is moderate stenosis at the origin of the celiac artery, mild stenosis of the proximal superior mesenteric artery, and moderate stenosis at the origin of the inferior mesenteric artery 6. Cardiomegaly and small pleural effusions. 7. Diverticulosis of the colon without CT evidence of acute diverticulitis. 8. There is retained cortical contrast within both kidneys on the unenhanced series suggesting renal injury. 9. Additional findings as above. ACT 112: Negative or not required by law. Electronically signed by: Daniel Abreu M.D. 05/29/2025 3:53 PM Medications Administered Home Medications Medication Instructions Recorded Confirmed Last Taken nitroglycerin 0.4 mg sublingual 0.4 mg sublingual UD PRN Chest Pain 05/22/18 05/27/25 05/27/25 tablet (Nitrostat) multivitamin (Daily Multi-Vitamin 1 tab PO QAM 10/05/18 05/27/25 05/27/25 tablet) coenzyme Q10 100 mg capsule 100 mg PO QAM 05/13/20 05/27/25 05/27/25 (CoQ-10) isosorbide dinitrate 30 mg tablet 30 mg PO QAM 01/14/22 05/27/25 05/27/25 calcium 600 mg (as carbonate)-vit 1 tab PO QAM 08/17/23 05/27/25 05/27/25 D3 20 mcg (800 unit) chewable tablet (Caltrate plus D) amlodipine 2.5 mg tablet 2.5 mg PO QAM 05/11/24 05/27/25 05/27/25 escitalopram oxalate 5 mg tablet 5 mg PO QAM 05/11/24 05/27/25 05/27/25 metoprolol succinate 50 mg 50 mg PO QAM 05/11/24 05/27/25 05/27/25 tablet,extended release 24 hr omeprazole 20 mg tablet,delayed 20 mg PO QAM 05/11/24 05/27/25 05/27/25 release rosuvastatin 10 mg tablet 10 mg PO HS 05/11/24 05/27/25 05/26/25 sacubitril 49 mg-valsartan 51 mg 1 tab PO BID 05/11/24 05/27/25 05/27/25 tablet (Entresto) albuterol sulfate 90 mcg/actuation 1 inh inhalation Q4H PRN shortness 05/14/24 05/27/25 05/27/25 aerosol inhaler of breath or wheezing #6.7 grams furosemide 20 mg tablet 20 mg PO UD 09/06/24 05/27/25 05/27/25 lorazepam 0.5 mg tablet 0.5 mg PO BID PRN Anxiety 09/06/24 05/27/25 05/27/25 aspirin 81 mg chewable tablet 81 mg PO QAM 09/24/24 05/27/25 05/27/25 mirtazapine 7.5 mg tablet 7.5 mg PO HS 05/27/25 05/27/25 05/27/25 sertraline 50 mg tablet 50 mg PO DAILY 05/27/25 05/27/25 05/26/25 Active Medications Generic Name Dose Route Start Last Admin Trade Name Freq PRN Reason Stop Dose Admin Hydralazine HCl 10 mg 05/28/25 05:38 05/30/25 00:45 Hydralazine Hcl 20 Mg/Ml Vial IV 06/27/25 05:37 10 mg Q4H PRN Administration SBP above 160 Pantoprazole Sodium 40 mg in 10 mls @ 5 mls/min 05/28/25 09:00 05/30/25 07:11 Protonix IV 06/27/25 08:59 5 mls/min BID CORY Administration Isosorbide Mononitrate 30 mg 05/28/25 09:00 05/30/25 08:09 Isosorbide [place] Extended Rel 30 Mg Tabcr PO 06/27/25 08:59 30 mg QAM CORY Administration Metoprolol Succinate 50 mg 05/28/25 09:00 05/30/25 08:08 Metoprolol Succ 50mg Ext Rel Tab PO 06/27/25 08:59 50 mg QAM CORY Administration Sertraline HCl 50 mg 05/28/25 09:00 05/30/25 08:08 Sertraline Hcl 50 Mg Tablet PO 06/27/25 08:59 50 mg DAILY CORY Administration Sucralfate 1 gm 05/29/25 13:00 05/30/25 08:08 Sucralfate 1 Gm/10 Ml Udc PO 06/28/25 12:59 1 gm QID CORY Administration Umeclidinium [place] 1 puffs 05/28/25 09:00 05/30/25 08:09 Umeclidinium [place] 62.5mcg/Blister 7 Puffs/Inhaler INH 06/27/25 08:59 1 puffs QAM CORY Administration PG Care Time/CCT Total # of Minutes Spent Total Time Spent with Patient: Total time spent is greater than 50% in coordination of care (as documented) at patient's floor/unit and/or counseling patient: (2) Abdominal pain Abdominal location: unspecified location Qualified Code(s): R10.9 - Unspecified abdominal pain
[2025-05-30] MEDS: PROCHLORPERAZINE 5 MG in SYRINGE 4 ML IV ONE (10:03)
[2025-05-30 12:18] LABS: Adenovirus F 40/41 PCR Not Detected (NotDetected); Campylobacter PCR Not Detected (NotDetected); Enteroaggregative E.coli(EAEC) Not Detected (NotDetected); Shiga-like Toxin E.coli (STEC) Not Detected (NotDetected); Vibrio species PCR Not Detected (NotDetected)
--- NOTE | 2025-05-30 16:46 | Nuclear Medicine Report ---
NUCLEAR HEPATOBILIARY SCAN CLINICAL HISTORY: Nausea and vomiting. COMPARISON STUDY: Abdominal CT dated 05/29/2025. TECHNIQUE: Dynamic images of the liver and anterior abdomen were obtained every 5 minutes for a total of 60 minutes following the IV administration of 5.8 mCi of technetium 99m Mebrofenin. Additional de layed imaging was performed at 70, 80, and 90 minutes post-injection. FINDINGS: The hepatobiliary scan shows prompt and homogeneous hepatic uptake. There is visualized act ivity within the intra and extrahepatic biliary tree at 15 minutes, and within the gallbladder at 30 minutes. There is delayed biliary to bowel transit. Bowel is not visualized by 90 minutes. IMPRESSION: 1. There is no scintigraphic evidence of cholecystitis. 2. There is delayed biliary to bowel transit. No bowel activity was seen at 90 minutes. ACT 112: Negative or not required by law. Electronically signed by: Daniel Abreu M.D. 05/30/2025 4:43 PM
--- NOTE | 2025-05-30 19:31 | Hospitalist Progress Note ---
Date of Service May 30, 2025 Assessment & Plan (1) Abdominal pain: (2) Nausea, vomiting, and diarrhea: (3) Mesenteric artery stenosis: (4) Elevated troponin: (5) Hypomagnesemia: (6) COPD (chronic obstructive pulmonary disease): (7) Pulmonary hypertension: (8) Severe protein-calorie malnutrition: (9) Coronary artery disease: (10) S/P CABG (coronary artery bypass graft): (11) PAF (paroxysmal atrial fibrillation): Plan 85yo female with h/o paroxysmal atrial fibrillation, carotid artery stenosis, lower GI bleed, anxiety and depression, CAD, hypertension, GERD, and hyperlipidemia. Presented with 3 weeks of poor appetite, weight loss, post-prandial abdominal pain episodes, nausea, vomiting, and most recently loose stools for a few days. #post-prandial abdominal pain episodes with nausea/emesis and some recent diarrhea - -CT a/p at presentation with significant stenoses of all 3 mesenteric vessels noted -same CT also saw inflammatory changes of the stomach and small bowel -differential - gastroenteritis vs mesenteric ischemia vs other -mesenteric doppler suggested high-grade stenoses of all 3 vessels including the celiac/SMA/RICK -vascular surgery consulted; they advised CTA a/p -this returned with mild celiac artery stenosis and moderate SMA/RICK stenosis but NOTHING high-grade -vascular surgery advising no intervention at this time of any mesenteric vessel -stool Biofire returned fully negative -c diff is pending -LFTs and lipase levels have remained normal -unfortunately she continues to have episodes of abd pain/N/V - and last pm had diarrhea as well -this is despite maximal antacid Rx - protonix, pepcid, and carafate -HIDA scan today w/o features of acute or chronic cholecystitis -however, there was delayed transit of tracer into the small bowel; distal CBD issue? other? -care d/w Dr Bartlett from GI in detail -plan - retrial of clear liquids -if any recurrence/worsening of symptoms consider MRCP to check her CBD; however, I agree that if a CBD issue was present you would expect LFT abnormali ties, especially an obstructive picture -?EGD on Monday if symptoms recur/persist -with headaches -- non-GI based issue causing her symptoms? but shouldn't cause abd pain... -check a sed rate/crp for completeness in am -family asking for 2nd opinion re: mesenteric artery disease - will see if Dr Goldman is available this weekend or early next week #severe protein calorie malnutrition - -6-7 pounds of weight loss since 3-4 weeks ago -2nd to the GI symptoms above -see above discussion -GI and vascular surgery consults appreciated #low-normal O2 sats, JVD on exam, etc - -echo 2023 with severe pulmonary HTN, severe TR, grade 2 diastolic dysfunction, apical variant hypertrophic CM -repeat echo with ongoing SEVERE pulm HTN which is the likely cause of her JVD, low-normal O2 sats, etc. -EF >70%, RV function wnl -cause of pulm HTN - COPD?? other? -will need a formal 2-step later in the stay -will need f/u with Dr Krystian Saldaña, her primary manager quality systems, post-d/c #elevated troponin - -likely myocardial demand ischemia in setting of her GI symptoms -doubt ACS #h/o PAF - -her problem list mentions PAF but she is not on anticoagulation -no a.fib seen while here #hyperlipidemia - -cont rosuvastatin -cont asa -SEVERE PAD as seen on CTA a/p; also with known CAD and carotid artery stenosis #HTN/CAD - -cont meto succ -cont imdur -cont asa -cont statin -with preserved EF on prior echo uncertain why she is on Entresto #Anxiety and depression - -Continue sertraline #Hypomagnesemia - -Magnesium 1.7 on admission -repleted/resolved PT/OT evals completed; can return home at discharge updated pt's daughter Katja Cano by phone 05/29 updated pt's grand-daughter at bedside 05/29 updated Katja & Danita - daughters - at bedside today care d/w Dr Bartlett from GI by phone Admission and Anticipated Discharge Date Admission Date: May 27, 2025 Subjective tele stable overnight patient underwent HIDA scan w/o incident today last pm - about 0100 - patient had multiple episodes of emesis and loose stool this time, however, she did not have abdominal pain further, she tolerated clear liquids last pm at dinner-time today she feels well without any abd pain/nausea/emesis during my visit late in the day 2 of her 3 daughters were present at bedside we had lengthy discussion about all test results, possible etiologies that have been ruled out, HIDA scan results, plan for the weekend, etc. all questions answered her daughters mentioned the possibility of a 2nd opinion regarding her mesenteric artery stenosis Review of Systems Review of Systems: gen - no fevers cv - no cp, no "heartburn" today pulm - no dyspnea at rest or with walking in room GI - see HPI neuro - headaches for several weeks - frontal; used to get headaches years ago but had none for long time, then they returned recently; not severe - mild at most Physical Exam Physical Exam: gen - very thin, NAD, lying in bed comfortably, looks good again today head - no temporal artery tenderness to palpation eyes - PERRL neck - severe JVD - to the jaw - no change mouth - MMM heart - RRR, s1 s2, 3/6 holosystolic murmur LLSB lungs - CTA b/l abd - soft, NT, ND, BS+, no HSM, no mass, no peritoneal signs -- very normal examination ext - no edema, pulses b/l feet 2+ psych - a/o x 3 Results & Data Results & Data Vital Signs (Past 12 Hours) Vital Signs Temp Pulse Pulse Resp BP Pulse Ox O2 Del Method 05/30/25 14:11 64 05/30/25 11:54 36.7 C 69 19 155/64 H 93 Room Air 05/30/25 09:03 82 Laboratory Results Laboratory Results - last 24 hr 05/30/25 05/30/25 05/30/25 06:01 07:36 10:43 WBC Cancelled 8.93 RBC Cancelled 3.93 L Hgb Cancelled 10.8 L Hct Cancelled 32.4 L MCV Cancelled 82.4 MCH Cancelled 27.5 MCHC Cancelled 33.3 RDW Std Deviation Cancelled 49.1 H RDW Coeff of Tanya Cancelled 16.3 H Plt Count Cancelled 175 MPV Cancelled 12.7 H Immature Gran % (Auto) Cancelled 0.3 Neut % (Auto) Cancelled 90.2 Lymph % (Auto) Cancelled 3.6 [place] % (Auto) Cancelled 5.7 Eos % (Auto) Cancelled 0.0 Baso % (Auto) Cancelled 0.2 Neut # (Auto) Cancelled 8.05 H Lymph # (Auto) Cancelled 0.32 L [place] # (Auto) Cancelled 0.51 Eos # (Auto) Cancelled 0.00 Baso # (Auto) Cancelled 0.02 Immature Gran # (Auto) Cancelled 0.03 Absolute Nucleated RBC Cancelled Nucleated RBC % (auto) Cancelled Neutrophils % (Manual) Cancelled Band Neutrophils % Cancelled Lymphocytes % (Manual) Cancelled Prolymphocyte % Cancelled Reactive Lymphs % (Man) Cancelled Monocytes % (Manual) Cancelled Eosinophils % (Manual) Cancelled Basophils % (Manual) Cancelled Metamyelocytes % (Man) Cancelled Myelocytes % (Man) Cancelled Promyelocytes % (Man) Cancelled Blast Cells % (Manual) Cancelled Plasma Cell % (Manual) Cancelled Other Cells % Cancelled Nucleated RBC % Cancelled Neutrophils # (Manual) Cancelled Band Neutrophils # Cancelled Total Absolute Neuts Cancelled Lymphocytes # (Manual) Cancelled Prolymphocyte # Cancelled Reactive Lymphs # Cancelled Total Abs Lymphocytes Cancelled Monocytes # (Manual) Cancelled Eosinophils # (Manual) Cancelled Basophils # (Manual) Cancelled Metamyelocytes # (Man) Cancelled Myelocytes # (Manual) Cancelled Promyelocytes # (Man) Cancelled Blast Cells # (Man) Cancelled Plasma Cell # (Manual) Cancelled Other Cells # Cancelled Nucleated RBCs # (Man) Cancelled Hypersegmented Neuts Cancelled Hyposegmented Neuts Cancelled Hypogranular Neuts Cancelled Large Granular Lymphs Cancelled # Lrg Granular Lymphs Cancelled Hairy Cells Cancelled Smudge Cells Cancelled Toxic Granulation Cancelled Toxic Vacuolation Cancelled Dohle Bodies Cancelled Douglas Rods Cancelled Platelet Estimate Cancelled Hypogranular Platelets Cancelled Giant Platelets Cancelled Platelet Satelliting Cancelled RBC Morphology Cancelled Polychromasia Cancelled 1+ Hypochromasia Cancelled Poikilocytosis Cancelled Basophilic Stippling Cancelled Anisocytosis Cancelled Microcytosis Cancelled Macrocytosis Cancelled Spherocytes Cancelled Pappenheimer Bodies Cancelled Sickle Cells Cancelled Target Cells Cancelled Tear Drop Cells Cancelled Ovalocytes Cancelled 1+ Stomatocytes Cancelled [place] Bodies Cancelled Echinocytes Cancelled Acanthocytes (Spur) Cancelled Rouleaux Cancelled RBC Agglutinates Cancelled Schistocytes Cancelled Sezary Cell Cancelled Total Bilirubin 0.9 Direct Bilirubin 0.2 AST 19 ALT 8 Alkaline Phosphatase 57 Total Protein 6.2 Albumin 3.6 Lipase 4 L Stl C. cayetanensis PCR Not Detected Stool Rotavirus A PCR Not Detected Stl Adenov F 40/41 PCR Not Detected Stool Astrovirus (PCR) Not Detected Stool Campylobacter PCR Not Detected Stool Cryptosporidium PCR Not Detected Stl E.coli Shiga Tox PCR Not Detected Stl Enterotoxigenic E PCR Not Detected Stool EPEC (PCR) Not Detected Stool EAEC (PCR) Not Detected Stl E. histolytica PCR Not Detected Stool Giardia Lamblia PCR Not Detected Stool Salmonella PCR Not Detected Stool Sapovirus (PCR) Not Detected Stl P. shigelloides PCR Not Detected Stl Shigella/EIEC PCR Not Detected St Y.enterocolitica PCR Not Detected Stool Vibrio (PCR) Not Detected Stl Vibrio cholerae PCR Not Detected Stl Norovirus GI/GII PCR Not Detected Blood Parasites ID Cancelled Diagnostic Findings Hepatobiliary Scan Nuclear Medicine 05/30/25 13:28 NUCLEAR HEPATOBILIARY SCAN CLINICAL HISTORY: Nausea and vomiting. COMPARISON STUDY: Abdominal CT dated 05/29/2025. TECHNIQUE: Dynamic images of the liver and anterior abdomen were obtained every 5 minutes for a total of 60 minutes following the IV administration of 5.8 mCi of technetium 99m Mebrofenin. Additional delayed imaging was performed at 70, 80, and 90 minutes post-injection. FINDINGS: The hepatobiliary scan shows prompt and homogeneous hepatic uptake. There is visualized activity within the intra and extrahepatic biliary tree at 15 minutes, and within the gallbladder at 30 minutes. There is delayed biliary to bowel transit. Bowel is not visualized by 90 minutes. IMPRESSION: 1. There is no scintigraphic evidence of cholecystitis. 2. There is delayed biliary to bowel transit. No bowel activity was seen at 90 minutes. ACT 112: Negative or not required by law. Electronically signed by: Daniel Abreu M.D. 05/30/2025 4:43 PM PG Care Time/CCT Total # of Minutes Spent Total Time Spent with Patient: Total time spent is greater than 50% in coordination of care (as documented) at patient's floor/unit and/or counseling patient: Coding Level of Care Code 26164 SUB INP/OBS CARE 3/50MIN Diagnoses Abdominal pain, unspecified abdominal location R10.9 Abdominal location: unspecified location Nausea, vomiting, and diarrhea R11.2; R19.7 Mesenteric artery stenosis K55.1 Elevated troponin R79.89 Hypomagnesemia E83.42 COPD (chronic obstructive pulmonary disease) J44.9 COPD type: unspecified COPD Pulmonary hypertension I27.20 Severe protein-calorie malnutrition E43 Coronary artery disease I25.10 S/P CABG (coronary artery bypass graft) Z95.1 PAF (paroxysmal atrial fibrillation) I48.0 (1) Abdominal pain Abdominal location: unspecified location Qualified Code(s): R10.9 - Unspecified abdominal pain (6) COPD (chronic obstructive pulmonary disease) COPD type: unspecified COPD Qualified Code(s): J44.9 - Chronic obstructive pulmonary disease, unspecified
[2025-05-31 07:36] LABS: Anion Gap 8.0 (3-11); Blood Urea Nitrogen 14.0 mg/dl (6-23); Calcium 8.7 mg/dl (8.6-10.3); Carbon Dioxide 26.0 mmol/L (21-32); Chloride 105.0 mmol/L (98-107); Creatinine Clr Calc Pharmacy 28.8 ml/min; Glucose 114.0 mg/dl (70-99(Fasting)); Potassium 3.3 mmol/L (3.5-5.1); Sodium 139.0 mmol/L (136-145)
[2025-05-31] MEDS: ALBUT/IPRATROP 3MG/0.5MG NEB 3 ML VIAL NEB PRN (09:37)
[2025-05-31] MEDS: POTASSIUM CHLORIDE 10 MEQ TABCR PO SCH (09:50)
[2025-05-31] MEDS: FUROSEMIDE INJ 20 MG/2 ML VIAL IV ONE (09:51)
--- NOTE | 2025-05-31 11:19 | Gastroenterology Progress Note ---
Date of Service May 31, 2025 Assessment & Plan (1) Abdominal pain: (2) Severe protein-calorie malnutrition: (3) Mesenteric artery stenosis: (4) Gastroenteritis: (5) Nausea, vomiting, and diarrhea: Plan: Patient overall continues to improved. I am not sure what the underlying etiology is and this whether it is a viral gastroenteritis versus some degree of ischemia. I had a long discussion with the patient and her family last night. I do think of her symptoms persist that we should proceed with an endoscopy on Monday. I will continue on a clear liquid diet today with protein shakes added in. If she tolerates this today then I would slowly advance her diet tomorrow. Admission and Anticipated Discharge Date Admission Date: May 27, 2025 Subjective Patient overall seems to be feeling much better. She tolerated clears last night without any abdominal pain and just a scant amount of diarrhea. Results & Data Results & Data Vital Signs (Past 12 Hours) Vital Signs Temp Pulse Pulse Resp BP Pulse Ox Pulse Ox 05/31/25 09:55 36.6 C 68 17 172/73 H 95 05/31/25 09:39 74 20 87 L 05/31/25 09:31 57 L 05/31/25 07:15 05/31/25 07:11 36.7 C 81 21 181/84 H 95 05/31/25 04:00 36.8 C 72 16 173/85 H 99 05/31/25 00:26 36.8 C 72 18 184/85 H 96 05/31/25 00:00 94 O2 Del Method O2 Del Method O2 Flow Rate O2 Flow Rate 05/31/25 09:55 Nasal Cannula 2 05/31/25 09:39 Room Air 05/31/25 09:31 05/31/25 07:15 Room Air 05/31/25 07:11 Nasal Cannula 1 05/31/25 04:00 Nasal Cannula 1 05/31/25 00:26 Nasal Cannula 1 05/31/25 00:00 Nasal Cannula 1 Laboratory Results 05/31/25 05/30/25 07:08 10:43 ESR 19 Sodium 139 Potassium 3.3 L Chloride 105 Carbon Dioxide 26 Anion Gap 8 BUN 14 Creatinine 0.94 Est Cr Clr Drug Dosing 28.8 eGFR 58.73 BUN/Creatinine Ratio 14.9 Glucose 114 H Calcium 8.7 C-Reactive Protein 5.83 H Stl C. cayetanensis PCR Not Detected Stool Rotavirus A PCR Not Detected Stl Adenov F 40/41 PCR Not Detected Stool Astrovirus (PCR) Not Detected Stool Campylobacter PCR Not Detected Stool Cryptosporidium PCR Not Detected Stl E.coli Shiga Tox PCR Not Detected Stl Enterotoxigenic E PCR Not Detected Stool EPEC (PCR) Not Detected Stool EAEC (PCR) Not Detected Stl E. histolytica PCR Not Detected Stool Giardia Lamblia PCR Not Detected Stool Salmonella PCR Not Detected Stool Sapovirus (PCR) Not Detected Stl P. shigelloides PCR Not Detected Stl Shigella/EIEC PCR Not Detected St Y.enterocolitica PCR Not Detected Stool Vibrio (PCR) Not Detected Stl Vibrio cholerae PCR Not Detected Stl Norovirus GI/GII PCR Not Detected Medications Administered Home Medications Medication Instructions Recorded Confirmed Last Taken nitroglycerin 0.4 mg sublingual 0.4 mg sublingual UD PRN Chest Pain 05/22/18 05/27/25 05/27/25 tablet (Nitrostat) multivitamin (Daily Multi-Vitamin 1 tab PO QAM 10/05/18 05/27/25 05/27/25 tablet) coenzyme Q10 100 mg capsule 100 mg PO QAM 05/13/20 05/27/25 05/27/25 (CoQ-10) isosorbide dinitrate 30 mg tablet 30 mg PO QAM 01/14/22 05/27/25 05/27/25 calcium 600 mg (as carbonate)-vit 1 tab PO QAM 08/17/23 05/27/25 05/27/25 D3 20 mcg (800 unit) chewable tablet (Caltrate plus D) amlodipine 2.5 mg tablet 2.5 mg PO QAM 05/11/24 05/27/25 05/27/25 escitalopram oxalate 5 mg tablet 5 mg PO QAM 05/11/24 05/27/25 05/27/25 metoprolol succinate 50 mg 50 mg PO QAM 05/11/24 05/27/25 05/27/25 tablet,extended release 24 hr omeprazole 20 mg tablet,delayed 20 mg PO QAM 05/11/24 05/27/25 05/27/25 release rosuvastatin 10 mg tablet 10 mg PO HS 05/11/24 05/27/25 05/26/25 sacubitril 49 mg-valsartan 51 mg 1 tab PO BID 05/11/24 05/27/25 05/27/25 tablet (Entresto) albuterol sulfate 90 mcg/actuation 1 inh inhalation Q4H PRN shortness 05/14/24 05/27/25 05/27/25 aerosol inhaler of breath or wheezing #6.7 grams furosemide 20 mg tablet 20 mg PO UD 09/06/24 05/27/25 05/27/25 lorazepam 0.5 mg tablet 0.5 mg PO BID PRN Anxiety 09/06/24 05/27/25 05/27/25 aspirin 81 mg chewable tablet 81 mg PO QAM 09/24/24 05/27/25 05/27/25 mirtazapine 7.5 mg tablet 7.5 mg PO HS 05/27/25 05/27/25 05/27/25 sertraline 50 mg tablet 50 mg PO DAILY 05/27/25 05/27/25 05/26/25 Active Medications Generic Name Dose Route Start Last Admin Trade Name Freq PRN Reason Stop Dose Admin Albuterol 3 ml 05/27/25 21:31 05/31/25 09:37 Albut/Ipratrop 3mg/0.5mg Neb 3 Ml Vial NEB 06/26/25 21:30 3 ml Q2H PRN Administration dyspnea Protocol Hydralazine HCl 10 mg 05/28/25 05:38 05/30/25 00:45 Hydralazine Hcl 20 Mg/Ml Vial IV 06/27/25 05:37 10 mg Q4H PRN Administration SBP above 160 Pantoprazole Sodium 40 mg in 10 mls @ 5 mls/min 05/28/25 09:00 05/31/25 08:03 Protonix IV 06/27/25 08:59 5 mls/min BID CORY Administration Isosorbide Mononitrate 30 mg 05/28/25 09:00 05/31/25 08:04 Isosorbide [place] Extended Rel 30 Mg Tabcr PO 06/27/25 08:59 30 mg QAM CORY Administration Metoprolol Succinate 50 mg 05/28/25 09:00 05/31/25 08:05 Metoprolol Succ 50mg Ext Rel Tab PO 06/27/25 08:59 50 mg QAM CORY Administration Potassium Chloride 20 meq 05/31/25 09:20 05/31/25 09:50 Potassium Chloride 10 Meq Tabcr PO 06/30/25 09:19 20 meq TID CORY Administration Sertraline HCl 50 mg 05/28/25 09:00 05/31/25 08:04 Sertraline Hcl 50 Mg Tablet PO 06/27/25 08:59 50 mg DAILY CORY Administration Sucralfate 1 gm 05/29/25 13:00 05/31/25 08:04 Sucralfate 1 Gm/10 Ml Udc PO 06/28/25 12:59 1 gm QID CORY Administration Umeclidinium [place] 1 puffs 05/28/25 09:00 05/31/25 08:04 Umeclidinium [place] 62.5mcg/Blister 7 Puffs/Inhaler INH 06/27/25 08:59 1 puffs QAM CORY Administration PG Care Time/CCT Total # of Minutes Spent Total Time Spent with Patient: Total time spent is greater than 50% in coordination of care (as documented) at patient's floor/unit and/or counseling patient: Coding Level of Care Code 79914 SUB INP/OBS CARE 2/35MIN Diagnoses Abdominal pain, unspecified abdominal location R10.9 Abdominal location: unspecified location Severe protein-calorie malnutrition E43 Mesenteric artery stenosis K55.1 Gastroenteritis K52.9 Nausea, vomiting, and diarrhea R11.2; R19.7 (1) Abdominal pain Abdominal location: unspecified location Qualified Code(s): R10.9 - Unspecified abdominal pain
--- NOTE | 2025-05-31 16:17 | XRay Report ---
Chest radiograph, one view History: Hypoxia Comparison: 05/28/2025 Findings/impression: Single AP view of the chest performed. Enlargement of the cardiomediastinal silhouette including the pulmonary arterial structures. A small right pleural effusion is increased. Mild perihilar opacity is favored to represent pulmonary edema, and appears increased from prior. No pneumothorax. Electronically signed by Thomas Rico 05-31-2025 4:17 PM
[2025-06-01 09:17] LABS: Anion Gap 7.0 (3-11); Blood Urea Nitrogen 12.0 mg/dl (6-23); Calcium 8.5 mg/dl (8.6-10.3); Carbon Dioxide 29.0 mmol/L (21-32); Chloride 103.0 mmol/L (98-107); Creatinine Clr Calc Pharmacy 29.4 ml/min; Glucose 87.0 mg/dl (70-99(Fasting)); Magnesium 1.6 mg/dl (1.7-2.4); Potassium 3.5 mmol/L (3.5-5.1); Sodium 139.0 mmol/L (136-145)
--- NOTE | 2025-06-01 09:44 | Hospitalist Progress Note ---
Date of Service May 31, 2025 Assessment & Plan (1) Abdominal pain: (2) Nausea, vomiting, and diarrhea: (3) Mesenteric artery stenosis: (4) Elevated troponin: (5) Hypomagnesemia: (6) COPD (chronic obstructive pulmonary disease): (7) Pulmonary hypertension: (8) Severe protein-calorie malnutrition: (9) Coronary artery disease: (10) S/P CABG (coronary artery bypass graft): (11) PAF (paroxysmal atrial fibrillation): (12) Acute on chronic heart failure with preserved ejection fraction (HFpEF): Plan 85yo female with h/o paroxysmal atrial fibrillation, carotid artery stenosis, lower GI bleed, anxiety and depression, CAD, hypertension, GERD, and hyperlipidemia. Presented with 3 weeks of poor appetite, weight loss, post-prandial abdominal pain episodes, nausea, vomiting, and most recently loose stools for a few days. #acute/chronic HFpEF - -decompensated today both clinically & radiographically; I personally reviewed the cxr image and there is evidence of pulm edema and at least a right-sided pleural effusion -s/p lasix IV with good diuresis -needs better BP control - resume amlodipine likely today or tomorrow -cont meto succ -pulmonary HTN likely a big player in her decompensation -echo 2023 with severe pulmonary HTN, severe TR, grade 2 diastolic dysfunction, apical variant hypertrophic CM -repeat echo with ongoing SEVERE pulm HTN which is the likely cause of her JVD, low-normal O2 sats, etc. -EF >70%, RV function wnl -cause of pulm HTN - COPD?? other? -will need a formal 2-step later in the stay -will need f/u with Dr Krystian Saldaña, her primary rfid manager, post-d/c #post-prandial abdominal pain episodes with nausea/emesis and some recent diarrhea - -CT a/p at presentation with significant stenoses of all 3 mesenteric vessels noted -same CT also saw inflammatory changes of the stomach and small bowel -differential - gastroenteritis vs mesenteric ischemia vs other -mesenteric doppler suggested high-grade stenoses of all 3 vessels including the celiac/SMA/RICK -vascular surgery consulted; they advised CTA a/p -this returned with mild celiac artery stenosis and moderate SMA/RICK stenosis but NOTHING high-grade -vascular surgery advising no intervention at this time of any mesenteric vessel -stool Biofire returned fully negative -c diff still is pending -LFTs and lipase levels have remained normal -HIDA scan w/o features of acute or chronic cholecystitis -however, there was delayed transit of tracer into the small bowel; distal CBD issue? other? -care d/w Dr Bartlett from GI in detail -plan - retrial of clear liquids and fortunately HAS tolerated such today -if any recurrence/worsening of symptoms consider MRCP to check her CBD; however, I agree that if a CBD issue was present you would expect LFT abnormalities, especially an obstructive picture -?EGD on Monday if symptoms recur/persist -with headaches -- non-GI based issue causing her symptoms? but shouldn't cause abd pain... -checked a sed rate/crp for completeness - sed rate wnl, crp only mildly high -family asking for 2nd opinion re: mesenteric artery disease - will consult Dr Goldman on Monday #severe protein calorie malnutrition - -6-7 pounds of weight loss since 3-4 weeks ago -2nd to the GI symptoms above -see above discussion -GI and vascular surgery consults appreciated #elevated troponin - -likely myocardial demand ischemia in setting of her GI symptoms and decompensated HFpEF -doubt ACS #h/o PAF - -her problem list mentions PAF but she is not on anticoagulation -no a.fib seen while here #hyperlipidemia - -cont rosuvastatin -cont asa -SEVERE PAD as seen on CTA a/p; also with known CAD and carotid artery stenosis #HTN/CAD - -cont meto succ -cont imdur -cont asa -cont statin -with preserved EF on prior echo uncertain why she is on Entresto -likely resume amlodipine soon #Anxiety and depression - -Continue sertraline #Hypomagnesemia - -Magnesium 1.7 on admission -repleted/resolved PT/OT evals completed; can return home at discharge updated pt's daughter Katja Cano by phone 05/29 updated pt's grand-daughter at bedside 05/29 updated Katja & Danita - daughters - at bedside 05/30 appreciate GI input & assistance Admission and Anticipated Discharge Date Admission Date: May 27, 2025 Subjective tele stable overnight no N/V/abd pain overnight but did have several loose stools today fortunately she is tolerating clear liquids w/o worsening of any GI symptom this am she was short of breath and O2 had to be applied for hypoxia she was given lasix and had NUMEROUS voids w/ such her dyspnea is better s/p lasix Review of Systems Review of Systems: CV - no chest pain or tightness GI - no pain today ; no blood per rectum pulm - mild cough with dyspnea Physical Exam Physical Exam: gen - very thin, NAD, lying in bed comfortably neck - severe JVD - to the jaw - no change mouth - MMM heart - RRR, s1 s2, 3/6 holosystolic murmur LLSB lungs - b/l basilar rales, no wheeze, no increased work of breathing abd - soft, NT, ND, BS+, no HSM, no mass ext - no edema, pulses b/l feet 2+ psych - a/o x 3 Results & Data Results & Data Vital Signs (Past 12 Hours) Vital Signs Temp Pulse Pulse Resp BP BP Pulse Ox 05/31/25 16:26 37 C 64 21 142/68 H 97 05/31/25 11:03 36.7 C 79 17 155/74 H 94 05/31/25 09:55 36.6 C 68 17 172/73 H 95 Laboratory Results Laboratory Results 05/30/25 05/31/25 10:43 07:08 ESR 19 Sodium 139 Potassium 3.3 L Chloride 105 Carbon Dioxide 26 Anion Gap 8 BUN 14 Creatinine 0.94 Est Cr Clr Drug Dosing 28.8 eGFR 58.73 BUN/Creatinine Ratio 14.9 Glucose 114 H Calcium 8.7 C-Reactive Protein 5.83 H Stl C. cayetanensis PCR Not Detected Stool Rotavirus A PCR Not Detected Stl Adenov F 40/41 PCR Not Detected Stool Astrovirus (PCR) Not Detected Stool Campylobacter PCR Not Detected Stool Cryptosporidium PCR Not Detected Stl E.coli Shiga Tox PCR Not Detected Stl Enterotoxigenic E PCR Not Detected Stool EPEC (PCR) Not Detected Stool EAEC (PCR) Not Detected Stl E. histolytica PCR Not Detected Stool Giardia Lamblia PCR Not Detected Stool Salmonella PCR Not Detected Stool Sapovirus (PCR) Not Detected Stl P. shigelloides PCR Not Detected Stl Shigella/EIEC PCR Not Detected St Y.enterocolitica PCR Not Detected Stool Vibrio (PCR) Not Detected Stl Vibrio cholerae PCR Not Detected Stl Norovirus GI/GII PCR Not Detected Diagnostic Findings Chest X-Ray 05/31/25 15:14 Chest radiograph, one view History: Hypoxia Comparison: 05/28/2025 Findings/impression: Single AP view of the chest performed. Enlargement of the cardiomediastinal silhouette including the pulmonary arterial structures. A small right pleural effusion is increased. Mild perihilar opacity is favored to represent pulmonary edema, and appears increased from prior. No pneumothorax. Electronically signed by Thomas Rico 05-31-2025 4:17 PM PG Care Time/CCT Total # of Minutes Spent Total Time Spent with Patient: Total time spent is greater than 50% in coordination of care (as documented) at patient's floor/unit and/or counseling patient: Coding Level of Care Code 77933 SUB INP/OBS CARE 3/50MIN Diagnoses Abdominal pain, unspecified abdominal location R10.9 Abdominal location: unspecified location Nausea, vomiting, and diarrhea R11.2; R19.7 Mesenteric artery stenosis K55.1 Elevated troponin R79.89 Hypomagnesemia E83.42 COPD (chronic obstructive pulmonary disease) J44.9 COPD type: unspecified COPD Pulmonary hypertension I27.20 Severe protein-calorie malnutrition E43 Coronary artery disease I25.10 S/P CABG (coronary artery bypass graft) Z95.1 PAF (paroxysmal atrial fibrillation) I48.0 Acute on chronic heart failure with preserved ejection fraction (HFpEF) I50.33 (1) Abdominal pain Abdominal location: unspecified location Qualified Code(s): R10.9 - Unspecified abdominal pain (6) COPD (chronic obstructive pulmonary disease) COPD type: unspecified COPD Qualified Code(s): J44.9 - Chronic obstructive pulmonary disease, unspecified
[2025-06-01] MEDS: FUROSEMIDE INJ 20 MG/2 ML VIAL IV ONE (10:19)
[2025-06-01] MEDS: MAGNESIUM SULFATE / D5W 1 GM/100 ML BAG IV SCH (10:19)
--- NOTE | 2025-06-01 11:22 | Gastroenterology Progress Note ---
Date of Service June 01, 2025 Assessment & Plan (1) Severe protein-calorie malnutrition: (2) Mesenteric artery stenosis: (3) Gastroenteritis: (4) Nausea, vomiting, and diarrhea: Plan: Patient continues to slowly improve. I am still not sure of the etiology of her symptoms. Questionable infectious process with compromised intestinal blood flow? I am going to advance her diet slowly today. If she tolerates this I think we can hold off on her endoscopy tomorrow. If her symptoms recur then I would proceed with an EGD. Admission and Anticipated Discharge Date Admission Date: May 27, 2025 Subjective Patient looks great today. She is sitting up in a chair. She tolerated clears all day yesterday without any problems. She denies any abdominal pain. She has had some scant diarrhea after eating. Physical Exam Constitutional: WD/WN, vitals as above Gastrointestinal (Abdomen): normal bowel sounds, soft, nontender, no hepatosplenomegaly Results & Data Results & Data Vital Signs (Past 12 Hours) Vital Signs Temp Pulse Pulse Resp BP BP Pulse Ox 06/01/25 10:58 36.4 C L 62 19 113/53 L 93 06/01/25 07:20 57 L 06/01/25 07:20 06/01/25 07:03 36.6 C 67 17 164/75 H 98 06/01/25 03:44 36.6 C 63 20 112/53 L 95 06/01/25 00:23 36.8 C 73 18 159/80 H 98 06/01/25 00:00 06/01/25 00:00 Pulse Ox O2 Del Method O2 Del Method O2 Flow Rate O2 Flow Rate 06/01/25 10:58 Room Air 06/01/25 07:20 06/01/25 07:20 Nasal Cannula 2 06/01/25 07:03 Nasal Cannula 2 06/01/25 03:44 Nasal Cannula 2 06/01/25 00:23 Nasal Cannula 2 06/01/25 00:00 95 Nasal Cannula 2 06/01/25 00:00 Nasal Cannula 2 Laboratory Results 06/01/25 07:28 Sodium 139 Potassium 3.5 Chloride 103 Carbon Dioxide 29 Anion Gap 7 BUN 12 Creatinine 0.92 Est Cr Clr Drug Dosing 29.4 eGFR 60.26 BUN/Creatinine Ratio 13.0 Glucose 87 Calcium 8.5 L Magnesium 1.6 L Medications Administered Home Medications Medication Instructions Recorded Confirmed Last Taken nitroglycerin 0.4 mg sublingual 0.4 mg sublingual UD PRN Chest Pain 05/22/18 05/27/25 05/27/25 tablet (Nitrostat) multivitamin (Daily Multi-Vitamin 1 tab PO QAM 10/05/18 05/27/25 05/27/25 tablet) coenzyme Q10 100 mg capsule 100 mg PO QAM 05/13/20 05/27/25 05/27/25 (CoQ-10) isosorbide dinitrate 30 mg tablet 30 mg PO QAM 01/14/22 05/27/25 05/27/25 calcium 600 mg (as carbonate)-vit 1 tab PO QAM 08/17/23 05/27/25 05/27/25 D3 20 mcg (800 unit) chewable tablet (Caltrate plus D) amlodipine 2.5 mg tablet 2.5 mg PO QAM 05/11/24 05/27/25 05/27/25 escitalopram oxalate 5 mg tablet 5 mg PO QAM 05/11/24 05/27/25 05/27/25 metoprolol succinate 50 mg 50 mg PO QAM 05/11/24 05/27/25 05/27/25 tablet,extended release 24 hr omeprazole 20 mg tablet,delayed 20 mg PO QAM 05/11/24 05/27/25 05/27/25 release rosuvastatin 10 mg tablet 10 mg PO 05/11/24 05/27/25 05/26/25 sacubitril 49 mg-valsartan 51 mg 1 tab PO BID 05/11/24 05/27/25 05/27/25 tablet (Entresto) albuterol sulfate 90 mcg/actuation 1 inh inhalation Q4H PRN shortness 05/14/24 05/27/25 05/27/25 aerosol inhaler of breath or wheezing #6.7 grams furosemide 20 mg tablet 20 mg PO UD 09/06/24 05/27/25 05/27/25 lorazepam 0.5 mg tablet 0.5 mg PO BID PRN Anxiety 09/06/24 05/27/25 05/27/25 aspirin 81 mg chewable tablet 81 mg PO QAM 09/24/24 05/27/25 05/27/25 mirtazapine 7.5 mg tablet 7.5 mg PO HS 05/27/25 05/27/25 05/27/25 sertraline 50 mg tablet 50 mg PO DAILY 05/27/25 05/27/25 05/26/25 Active Medications Generic Name Dose Route Start Last Admin Trade Name Leeanne PRN Reason Stop Dose Admin Albuterol 3 ml 05/27/25 21:31 05/31/25 09:37 Albut/Ipratrop 3mg/0.5mg Neb 3 Ml Vial NEB 06/26/25 21:30 3 ml Q2H PRN Administration dyspnea Protocol Hydralazine HCl 10 mg 05/28/25 05:38 05/30/25 00:45 Hydralazine Hcl 20 Mg/Ml Vial IV 06/27/25 05:37 10 mg Q4H PRN Administration SBP above 160 Pantoprazole Sodium 40 mg in 10 mls @ 5 mls/min 05/28/25 09:00 06/01/25 09:04 Protonix IV 06/27/25 08:59 5 mls/min BID CORY Administration Magnesium Sulfate/Dextrose 1 gm in 100 mls @ 50 mls/hr 06/01/25 09:45 06/01/25 10:19 Magnesium Sulfate / D5w IV 06/01/25 13:44 50 mls/hr Q2H CORY Administration Isosorbide Mononitrate 30 mg 05/28/25 09:00 06/01/25 09:04 Isosorbide [place] Extended Rel 30 Mg Tabcr PO 06/27/25 08:59 30 mg QAM CORY Administration Metoprolol Succinate 50 mg 05/28/25 09:00 06/01/25 09:04 Metoprolol Succ 50mg Ext Rel Tab PO 06/27/25 08:59 50 mg QAM CORY Administration Potassium Chloride 20 meq 05/31/25 09:20 06/01/25 09:06 Potassium Chloride 10 Meq Tabcr PO 06/30/25 09:19 20 meq TID CORY Administration Sertraline HCl 50 mg 05/28/25 09:00 06/01/25 09:04 Sertraline Hcl 50 Mg Tablet PO 06/27/25 08:59 50 mg DAILY CORY Administration Sucralfate 1 gm 05/29/25 13:00 06/01/25 09:04 Sucralfate 1 Gm/10 Ml Udc PO 06/28/25 12:59 1 gm QID CORY Administration Umeclidinium Mcintire 1 puffs 05/28/25 09:00 06/01/25 09:04 Umeclidinium [place] 62.5mcg/Blister 7 Puffs/Inhaler INH 06/27/25 08:59 1 puffs QAM CORY Administration PG Care Time/CCT Total # of Minutes Spent Total Time Spent with Patient: Total time spent is greater than 50% in coordination of care (as documented) at patient's floor/unit and/or counseling patient: Coding Level of Care Code 26454 SUB INP/OBS CARE 2/35MIN Diagnoses Severe protein-calorie malnutrition E43 Mesenteric artery stenosis K55.1 Gastroenteritis K52.9 Nausea, vomiting, and diarrhea R11.2; R19.7
--- NOTE | 2025-06-01 11:33 | Hospitalist Progress Note ---
Date of Service June 01, 2025 Assessment & Plan (1) Abdominal pain: (2) Nausea, vomiting, and diarrhea: (3) Mesenteric artery stenosis: (4) Elevated troponin: (5) Hypomagnesemia: (6) COPD (chronic obstructive pulmonary disease): (7) Pulmonary hypertension: (8) Severe protein-calorie malnutrition: (9) Coronary artery disease: (10) S/P CABG (coronary artery bypass graft): (11) PAF (paroxysmal atrial fibrillation): (12) Acute on chronic heart failure with preserved ejection fraction (HFpEF): Plan 85yo female with h/o paroxysmal atrial fibrillation, carotid artery stenosis, lower GI bleed, anxiety and depression, CAD, hypertension, GERD, and hyperlipidemia. Presented with 3 weeks of poor appetite, weight loss, post-prandial abdominal pain episodes, nausea, vomiting, and most recently loose stools. #acute/chronic HFpEF - -s/p lasix IV with good diuresis yesterday with improved volume status -give another dose of IV lasix this am -BPs improved with diuresis -cont meto succ -pulmonary HTN likely a big player in her decompensation -echo 2023 with severe pulmonary HTN, severe TR, grade 2 diastolic dysfunction, apical variant hypertrophic CM -repeat echo with ongoing SEVERE pulm HTN which is the likely cause of her JVD, low-normal O2 sats, etc. -EF >70%, RV function wnl -cause of pulm HTN - COPD?? other? -will need a formal 2-step later in the stay -will need f/u with Dr Krystian Saldaña, her primary brick paver, post-d/c #post-prandial abdominal pain episodes with nausea/emesis and recent diarrhea - -CT a/p at presentation with significant stenoses of all 3 mesenteric vessels noted -same CT also saw inflammatory changes of the stomach and small bowel -differential - gastroenteritis vs mesenteric ischemia vs other -mesenteric doppler suggested high-grade stenoses of all 3 vessels including the celiac/SMA/RICK -[facility] [place] consulted; they advised CTA a/p -this returned with mild celiac artery stenosis and moderate SMA/RICK stenosis but NOTHING high-grade -vascular surgery advised no intervention at this time of any mesenteric vessel -stool Biofire returned fully negative -c diff negative -LFTs and lipase levels have remained normal -HIDA scan w/o features of acute or chronic cholecystitis -however, there was delayed transit of tracer into the small bowel; distal CBD issue? other? unclear significance -care d/w Dr Bartlett from GI in detail multiple times the last 2-3 days -was tolerating clears yesterday/today; tried advancing diet to full liquids but did not tolerate such -thus, NPO after MN tonight and plan for EGD on 06/02/25 -family asking for 2nd opinion re: mesenteric artery disease - will consult Dr Goldman on Monday; consult placed #severe protein calorie malnutrition - -6-7 pounds of weight loss since 3-4 weeks ago -2nd to the GI symptoms above -see above discussion -GI and vascular surgery consults appreciated #elevated troponin - -likely myocardial demand ischemia in setting of her GI symptoms and decompensated HFpEF -doubt ACS #h/o PAF - -her problem list mentions PAF but she is not on anticoagulation -no a.fib seen while here #hyperlipidemia - -cont rosuvastatin -if EGD does not show PUD or severe gastritis will resume aspirin -SEVERE PAD as seen on CTA a/p; also with known CAD and carotid artery stenosis #HTN/CAD - -cont meto succ -cont imdur -asa on hold - resume if EGD is normal/negative for PUD, gastritis, etc. -cont statin -with preserved EF on prior echo uncertain why she is on Entresto -BPs improved with diuresis -amlodipine remains on hold #Anxiety and depression - -Continue sertraline #Hypomagnesemia - -Magnesium 1.7 on admission -repleted/resolved -today 1.6 due to lasix -->replace again; repeat level in am tomorrow PT/OT evals completed; can return home at discharge updated pt's daughter Katja Cano by phone 05/29 updated pt's grand-daughter at bedside 05/29 updated Katja & Danita - daughters - at bedside 05/30 updated Denise, pt's daughter, extensively by phone this evening, 06/01 reassured Denise we are doing everything possible to find the etiology for her mother's symptoms did state I was planning to start PPN on Monday however her volume overload precluded such (and did not want to place NG tube for enteral feedings for a variety of reasons) appreciate GI input & assistance Admission and Anticipated Discharge Date Admission Date: May 27, 2025 Subjective patient had good night last pm no abd pain, nausea, emesis, diarrhea was tolerating clears advanced to full liquids unfortunately, late this afternoon, she developed recurrent abd pain, nausea, and diarrhea c diff negative dyspnea and SEGUNDO both resolved during my visit her o2 sats were mid 90s in room air tele overnight wnl Review of Systems Review of Systems: cv - no chest pain, no peripheral edema, no orthopnea pulm - no cough GI - see HPI gen - no fevers or chills Physical Exam Physical Exam: gen - looks good today, lying in bed, comfortable, pleasant, NAD neck - JVD improved mouth - MMM heart - RRR, s1 s2, 2-3/6 holosystolic murmur LLSB lungs - b/l basilar rales improved, no wheeze, no increased work of breathing abd - soft, NT, ND, BS+, no HSM, no mass, no peritoneal signs ext - no edema, pulses b/l feet 2+ psych - a/o x 3 Results & Data Results & Data Vital Signs (Past 12 Hours) Vital Signs Temp Pulse Pulse Resp BP BP Pulse Ox 06/01/25 10:58 36.4 C L 62 19 113/53 L 93 06/01/25 07:20 57 L 06/01/25 07:20 06/01/25 07:03 36.6 C 67 17 164/75 H 98 06/01/25 03:44 36.6 C 63 20 112/53 L 95 06/01/25 00:23 36.8 C 73 18 159/80 H 98 06/01/25 00:00 06/01/25 00:00 Pulse Ox O2 Del Method O2 Del Method O2 Flow Rate O2 Flow Rate 06/01/25 10:58 Room Air 06/01/25 07:20 06/01/25 07:20 Nasal Cannula 2 06/01/25 07:03 Nasal Cannula 2 06/01/25 03:44 Nasal Cannula 2 06/01/25 00:23 Nasal Cannula 2 06/01/25 00:00 95 Nasal Cannula 2 06/01/25 00:00 Nasal Cannula 2 Laboratory Results Laboratory Results - last 24 hr 06/01/25 07:28 Sodium 139 Potassium 3.5 Chloride 103 Carbon Dioxide 29 Anion Gap 7 BUN 12 Creatinine 0.92 Est Cr Clr Drug Dosing 29.4 eGFR 60.26 BUN/Creatinine Ratio 13.0 Glucose 87 Calcium 8.5 L Magnesium 1.6 L c diff testing negative PG Care Time/CCT Total # of Minutes Spent Total Time Spent with Patient: Total time spent is greater than 50% in coordination of care (as documented) at patient's floor/unit and/or counseling patient: Coding Level of Care Code 92923 SUB INP/OBS CARE 3/50MIN Diagnoses Abdominal pain, unspecified abdominal location R10.9 Abdominal location: unspecified location Nausea, vomiting, and diarrhea R11.2; R19.7 Mesenteric artery stenosis K55.1 Elevated troponin R79.89 Hypomagnesemia E83.42 COPD (chronic obstructive pulmonary disease) J44.9 COPD type: unspecified COPD Pulmonary hypertension I27.20 Severe protein-calorie malnutrition E43 Coronary artery disease I25.10 S/P CABG (coronary artery bypass graft) Z95.1 PAF (paroxysmal atrial fibrillation) I48.0 Acute on chronic heart failure with preserved ejection fraction (HFpEF) I50.33 (1) Abdominal pain Abdominal location: unspecified location Qualified Code(s): R10.9 - Unspecified abdominal pain (6) COPD (chronic obstructive pulmonary disease) COPD type: unspecified COPD Qualified Code(s): J44.9 - Chronic obstructive pulmonary disease, unspecified
[2025-06-01] MEDS: ONDANSETRON INJ 2 MG/ML 2 ML VIAL IV PRN (16:45)
[2025-06-01 17:42] LABS: Cdiff Toxin B Gene (2yr or >) Negative Cdiff Gene (Neg)
--- NOTE | 2025-06-02 06:12 | Electrocardiogram Report ---
Test Reason : Blood Pressure : */* mmHG Vent. Rate : 72 BPM Atrial Rate : 72 BPM P-R Int : 138 ms QRS Dur : 84 ms QT Int : 400 ms P-R-T Axes : 38 61 111 degrees QTcB Int : 438 ms Sinus rhythm with Premature atrial complexes Minimal voltage criteria for LVH, may be normal variant ( Sokolow-Fenton ) Nonspecific ST and T wave abnormality Abnormal ECG When compared with ECG of 27-May-2025 16:53, No significant change Confirmed by Jovani Washington [id number] on 06/02/2025 6:12:45 AM Referred By: REFERRED SELF Confirmed By: Jovani Washington
[2025-06-02 06:51] LABS: Hematocrit (blood only) 36.2 % (37.0-47.0); Hemoglobin 11.2 g/dl (12.0-16.0); Mean Corpuscular Hemoglobin 26.5 pg (25.0-34.0); Mean Corpuscular Volume 85.6 fL (80.0-100.0); Platelet Count 190 K/uL (130-400); RDW Standard Deviation 51.5 fL (36.4-46.3); Red Blood Count 4.23 M/uL (4.20-5.40); White Blood Count 4.84 K/ul (4.8-10.8)
[2025-06-02 07:19] LABS: Anion Gap 4.0 (3-11); Blood Urea Nitrogen 18.0 mg/dl (6-23); Calcium 8.6 mg/dl (8.6-10.3); Carbon Dioxide 30.0 mmol/L (21-32); Chloride 104.0 mmol/L (98-107); Creatinine Clr Calc Pharmacy 23.9 ml/min; Glucose 86.0 mg/dl (70-99(Fasting)); Magnesium 2.2 mg/dl (1.7-2.4); Potassium 4.1 mmol/L (3.5-5.1); Sodium 138.0 mmol/L (136-145)
--- NOTE | 2025-06-02 10:50 | Communication Note ---
Date of Service: June 02, 2025 Patient was to have an EGD today for ongoing n/v and abdominal discomfort. Unfortunately, patient was given Carafate this morning around 10 AM. This was discussed with anesthesia. Carafate is not a clear liquid. Procedure would need to be delayed. Will add patient to schedule for 06/03/25.
--- NOTE | 2025-06-02 13:18 | Consultation ---
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 She has intermittent nausea/vomiting with dry heaves, and some associated diarrhea. Sx are not always associated with eating. Would not recommend vascular surgical intervention, as this will not likely improve her sx and would have considerable risks. Pt and daughter express understanding and agreement. Please call if needed. Agree with Dr Nunez that no intervention needed at this time. Patient's symptoms are not consistent with mesenteric ischemia at present. History of Present Illness Reason for Consultation: mesenteric stenosis Attending Physician: Mike Astorga MD History of Present Illness 85yo f with hx of HTN, a fib, pulmonary htn, HTN, carotid disease, osteoporosis, CAD, CHF, hypercholesterolemia, admitted with N/V, seenin consultation today for mesenteric stenosis noted on imaging. Pt states she has been having N/V, dry heaving intermittently for past few weeks. also associated with some abd pain, but not always concurrent with eating anything. Sometimes occurs after eating, but not always. States it comes over her in "waves" of nausea. States has been holding a steady weight at home until this illness. Also having some diarrhea. Denies MARQUEZ, fever, chest pain, SOB, rest pain, claudication, nonhealing ulcers, other complaints. Imaging demonstrates moderate SMA and celiac art stenosis. Allergies Allergy/AdvReac Type Severity Reaction Status Date / Time ondansetron [From Zofran] AdvReac Intermediate Unknown Verified 05/27/25 20:17 promethazine [From Phenergan] AdvReac Mild unknown Verified 05/27/25 20:17 Home Medications Medication Instructions Recorded Confirmed Type nitroglycerin 0.4 mg sublingual 0.4 mg sublingual UD PRN Chest Pain 05/22/18 05/27/25 History tablet (Nitrostat) multivitamin (Daily Multi-Vitamin 1 tab PO QAM 10/05/18 05/27/25 History tablet) coenzyme Q10 100 mg capsule 100 mg PO QAM 05/13/20 05/27/25 History (CoQ-10) isosorbide dinitrate 30 mg tablet 30 mg PO QAM 01/14/22 05/27/25 History calcium 600 mg (as carbonate)-vit 1 tab PO QAM 08/17/23 05/27/25 History D3 20 mcg (800 unit) chewable tablet (Caltrate plus D) amlodipine 2.5 mg tablet 2.5 mg PO QAM 05/11/24 05/27/25 History escitalopram oxalate 5 mg tablet 5 mg PO QAM 05/11/24 05/27/25 History metoprolol succinate 50 mg 50 mg PO QAM 05/11/24 05/27/25 History tablet,extended release 24 hr omeprazole 20 mg tablet,delayed 20 mg PO QAM 05/11/24 05/27/25 History release rosuvastatin 10 mg tablet 10 mg PO HS 05/11/24 05/27/25 History sacubitril 49 mg-valsartan 51 mg 1 tab PO BID 05/11/24 05/27/25 History tablet (Entresto) albuterol sulfate 90 mcg/actuation 1 inh inhalation Q4H PRN shortness 05/14/24 05/27/25 Rx aerosol inhaler of breath or wheezing #6.7 grams furosemide 20 mg tablet 20 mg PO UD 09/06/24 05/27/25 History lorazepam 0.5 mg tablet 0.5 mg PO BID PRN Anxiety 09/06/24 05/27/25 History aspirin 81 mg chewable tablet 81 mg PO QAM 09/24/24 05/27/25 History mirtazapine 7.5 mg tablet 7.5 mg PO HS 05/27/25 05/27/25 History sertraline 50 mg tablet 50 mg PO DAILY 05/27/25 05/27/25 History Patient History Medical History Encounter for pre-operative examination History of COVID-19 Hx of Lyme disease 2007 Esophageal dysfunction Diastolic heart failure Hypertension Solitary pulmonary nodule radiation treatment 2017 for lung cancer COPD (chronic obstructive pulmonary disease) Coronary artery disease Chronic obstructive bronchitis with pulmonary emphysema Collapsed lung surgery 1979 Surgical History Hx of right cataract extraction S/P bladder repair 2017 S/P CABG (coronary artery bypass graft) 05-03-2018 ? atrial fib and pt unaware H/O dilation and curettage H/O hemorrhoidectomy 10-07-2017 Family History Mother , age 72 Hodgkins disease Lymphoma Father , age 75 Cancer Brother Mental problems Daughter No problems noted. Daughter No problems noted. Daughter No problems noted. Social History Smoking Status: Former smoker Tobacco Type: Cigarettes Second Hand Exposure: No; Do You Dip or Chew Tobacco: No; Tobacco Cessation Education Requested by Patient: No Hx Alcohol Use: No Hx Substance Use: No Preferred Language: Urdu Communication Ability: Effective Hearing Ability: Normal Air Analyst Required: No Beliefs That Will Affect Care: None Current Living Situation: Alone Current Living Situation Comment: home alone current occupation: Retired Other Information That Helps Us Care for You: No Feels Safe at Home: Yes Safety Concerns: Feels Safe At This Time Assistive Devices: None Review of Systems Review of Systems: All systems reviewed & are unremarkable except as noted in HPI & below Physical Exam Constitutional: WD/WN, vitals as above + thin, + frail appearing, cooperative and comfortable; not in distress Neck: trachea midline Respiratory: normal respiratory effort, lungs clear to auscultation Auscultation: + diminished lung sounds Cardiovascular: Rate/Rhythm: regular rate and regular rhythm Vessels: femoral pulses present (+3L +2 R), posterior tibial pulses present (nonpalpable BLE), dorsalis pedis pulses present (+2BLE) and radial pulses present Extremities: normal capillary refill; no edema Gastrointestinal (Abdomen): Inspection/Auscultation: abdomen normal to inspection and normal bowel sounds Percussion/Palpation: abdomen soft; abdomen nontender and no guarding Musculoskeletal: no cyanosis or clubbing, extremities motor strength 5/5 Skin: no rashes, warm and dry Neurologic: moves all extremities and awake; no focal motor deficits and not confused Psychiatric: A+Ox3, euthymic affect Results & Data Vital Signs (Past 12 Hours) Vital Signs Temp Pulse Resp BP BP Pulse Ox O2 Del Method 06/02/25 10:57 36.7 C 61 20 103/55 L 92 Nasal Cannula 06/02/25 07:25 Nasal Cannula 06/02/25 07:04 36.7 C 74 20 153/71 H 97 Nasal Cannula 06/02/25 03:00 36.7 C 62 18 129/65 97 Nasal Cannula O2 Flow Rate 06/02/25 10:57 2 06/02/25 07:25 2 06/02/25 07:04 2 06/02/25 03:00 2
--- NOTE | 2025-06-02 15:33 | Hospitalist Progress Note ---
Date of Service June 02, 2025 Assessment & Plan (1) Abdominal pain: (2) Nausea, vomiting, and diarrhea: (3) Mesenteric artery stenosis: (4) Elevated troponin: (5) Hypomagnesemia: (6) COPD (chronic obstructive pulmonary disease): (7) Pulmonary hypertension: (8) Severe protein-calorie malnutrition: (9) Coronary artery disease: (10) S/P CABG (coronary artery bypass graft): (11) PAF (paroxysmal atrial fibrillation): (12) Acute on chronic heart failure with preserved ejection fraction (HFpEF): Plan 85yo female with h/o paroxysmal atrial fibrillation, carotid artery stenosis, lower GI bleed, anxiety and depression, CAD, hypertension, GERD, and hyperlipidemia. Presented with 3 weeks of poor appetite, weight loss, severe post-prandial abdominal pain episodes/nausea/vomiting, and most recently loose stools. Despite extensive work-up while here the exact etiology of her episodes has been elusive to date. #post-prandial abdominal pain episodes with nausea/emesis and recent diarrhea - -CT a/p at presentation with significant stenoses of all 3 mesenteric vessels noted -same CT also saw inflammatory changes of the stomach and small bowel -differential at time of admission - gastroenteritis vs mesenteric ischemia vs other -mesenteric doppler suggested high-grade stenoses of all 3 vessels including the celiac/SMA/RICK -[facility] vascular surgery consulted; they advised CTA a/p -this returned with mild celiac artery stenosis and moderate SMA/RICK stenosis but NOTHING high-grade -[facility] vascular surgery advised no intervention at this time of any mesenteric vessel -family requested 2nd opinion regarding the mesenterics -thus, Dr Goldman from [facility] saw Ms Cano in consult today -he, too, does not feel the degree of mesenteric stenoses explains her current symptomatology -in fact, right after her episode today, I obtained a lactate level and this returned normal -stool Biofire returned fully negative -c diff negative -LFTs and lipase levels have remained normal on multiple checks; LFTs today also normal -HIDA scan w/o features of acute or chronic cholecystitis -however, there was delayed transit of tracer into the small bowel; distal CBD issue? other? unclear significance -care d/w Dr Bartlett from GI in detail multiple times last week/over the weekend -care today d/w Dr Griffin and Eula Kim, GI physician communications assistant - multiple times -unfortunately her EGD was canceled today due to carafate use -thus, NPO after MN tonight and plan for EGD on 06/03/25 -if EGD is normal consider MRCP to look at her CBD given the HIDA findings -could consider upper GI series to exclude abnormal anatomy that could cause intermittent volvulus or other anatomical issue (but not sure she would tolerate such a study) #acute/chronic HFpEF - -s/p lasix IV with good diuresis on Sat & Sun of this weekend -appears near-euvolemic today -defer on IV lasix today -cont meto succ -pulmonary HTN likely a big player in her decompensation -echo 2023 with severe pulmonary HTN, severe TR, grade 2 diastolic dysfunction, apical variant hypertrophic CM -repeat echo with ongoing SEVERE pulm HTN which is the likely cause of her JVD, low-normal O2 sats, etc. -EF >70%, RV function wnl -cause of pulm HTN - COPD?? other? -will need a formal 2-step later in the stay -will need f/u with Dr Krystian Saldaña, her primary product safety technical assistant, post-d/c #severe protein calorie malnutrition - -6-7 pounds of weight loss since 3-4 weeks ago; likely more at this point -2nd to the GI symptoms above -see above discussion -GI and vascular surgery consults much appreciated -I had planned to start PPN this past weekend but I deferred on such due to her decompensated HFpEF -now that volume status is improved will start such tomorrow -would add MVI, folate, thiamine #elevated troponin - -likely myocardial demand ischemia in setting of her GI symptoms and decompensated HFpEF -doubt ACS -checked a troponin immediately following her spell today -- HS trop 38 - lower than prior trop -thus her spells are highly unlikely to be atypical anginal episodes #h/o PAF - -her problem list mentions PAF but she is not on anticoagulation -no a.fib seen while here #hyperlipidemia - -cont rosuvastatin -if EGD does not show PUD or severe gastritis will resume aspirin -SEVERE PAD of numerous vessels as seen on CTA a/p; also with known CAD and carotid artery stenosis #HTN/CAD - -cont meto succ -cont imdur -asa on hold - resume if EGD is normal/negative for PUD, gastritis, etc. -cont statin -with preserved EF on prior echo uncertain why she is on Entresto -BPs improved with diuresis -amlodipine remains on hold #Anxiety and depression - -Continue sertraline #Hypomagnesemia - -repleted/resolved -cont PT/OT updated pt's daughter Katja Cano by phone 05/29 and again this evening, 06/02 updated pt's grand-daughter at bedside 05/29 updated Katja & Danita - daughters - at bedside 05/30 updated Denise, pt's daughter, extensively by phone 06/01 reassured Denise we are doing everything possible to find the etiology for her mother's symptoms Admission and Anticipated Discharge Date Admission Date: May 27, 2025 Subjective tele overnight wnl pt was to have EGD today but it was canceled due to having received carafate this am I just happen to be rounding on Ms Cano when she developed an abdominal pain spell she had just finished eating her clear liquid tray (broth, etc) about 10-15 min after developed sharp, severe central abdominal pain this was followed by nausea, severe sweats, and dry heaves/vomiting I was in the room when the spell was happening - she was very uncomfortable, sweating she then said "It is easing up" -- the pain self-resolved, sweats resolved EKG obtained -- NSR, nonspecific/subtle ST changes anteriorly and laterally -- unchanged from prior EKG STAT lactate obtained -- normal Review of Systems Review of Systems: gen - no fevers cv - no chest pain even during her episode today pulm - no dyspnea or SEGUNDO today GI - see HPI Physical Exam Physical Exam: gen - very uncomfortable, diaphoretic, thin - but awake/alert neck - JVD - mild today & improved from prior exams mouth - MMM heart - RRR, s1 s2, 2-3/6 holosystolic murmur LLSB lungs - scant rales bases, no wheeze, no increased work of breathing abd - soft, tender central abdomen, BS+, no HSM ext - no edema, pulses b/l feet 2+ psych - a/o x 3 Results & Data Results & Data Vital Signs (Past 12 Hours) Vital Signs Temp Pulse Pulse Resp BP BP Pulse Ox 06/02/25 13:00 62 06/02/25 10:57 36.7 C 61 20 103/55 L 92 06/02/25 07:25 06/02/25 07:04 36.7 C 74 20 153/71 H 97 06/02/25 05:43 58 L O2 Del Method O2 Flow Rate 06/02/25 13:00 06/02/25 10:57 Nasal Cannula 2 06/02/25 07:25 Nasal Cannula 2 06/02/25 07:04 Nasal Cannula 2 06/02/25 05:43 Laboratory Results Laboratory Results - last 24 hr 05/27/25 06/02/25 06/02/25 21:11 06:09 15:11 WBC 4.84 RBC 4.23 Hgb 11.2 L Hct 36.2 L MCV 85.6 MCH 26.5 MCHC 30.9 L RDW Std Deviation 51.5 H RDW Coeff of Tanya 16.4 H Plt Count 190 MPV 12.3 Sodium 138 Potassium 4.1 Chloride 104 Carbon Dioxide 30 Anion Gap 4 BUN 18 Creatinine 1.00 Est Cr Clr Drug Dosing 23.9 eGFR 54.53 BUN/Creatinine Ratio 18.0 Glucose 86 Lactate 1.3 Calcium 8.6 Magnesium 2.2 Total Bilirubin 0.6 Direct Bilirubin 0.1 AST 13 ALT 9 Alkaline Phosphatase 59 Troponin I High Sens 38.0 H Total Protein 6.3 Albumin 3.3 L A. phagocytophilum DNA Negative Babesia microti DNA PCR Not Detected Ehrlichia DNA (PCR) Negative Diagnostic Findings EKG - my reading - NSR, nonspecific ST changes lateral limb leads & anterior chest leads - largely unchanged from prior EKG; LVH PG Care Time/CCT Total # of Minutes Spent Total Time Spent with Patient: Total time spent is greater than 50% in coordination of care (as documented) at patient's floor/unit and/or counseling patient: Coding Level of Care Code 35024 SUB INP/OBS CARE 3/50MIN Diagnoses Abdominal pain, unspecified abdominal location R10.9 Abdominal location: unspecified location Nausea, vomiting, and diarrhea R11.2; R19.7 Mesenteric artery stenosis K55.1 Elevated troponin R79.89 Hypomagnesemia E83.42 COPD (chronic obstructive pulmonary disease) J44.9 COPD type: unspecified COPD Pulmonary hypertension I27.20 Severe protein-calorie malnutrition E43 Coronary artery disease I25.10 S/P CABG (coronary artery bypass graft) Z95.1 PAF (paroxysmal atrial fibrillation) I48.0 Acute on chronic heart failure with preserved ejection fraction (HFpEF) I50.33 (1) Abdominal pain Abdominal location: unspecified location Qualified Code(s): R10.9 - Unspecified abdominal pain (6) COPD (chronic obstructive pulmonary disease) COPD type: unspecified COPD Qualified Code(s): J44.9 - Chronic obstructive pulmonary disease, unspecified
[2025-06-02 15:43] LABS: Alanine Aminotransferase 9.0 U/L (7-52); Albumin Level 3.3 gm/dl (3.4-5.0); Alkaline Phosphatase 59.0 U/L (34-104); Bilirubin,Total 0.6 mg/dl (0.2-1.0); Total Protein 6.3 gm/dl (6.0-8.3)
--- NOTE | 2025-06-02 16:24 | Gastroenterology Progress Note ---
Date of Service June 02, 2025 Assessment & Plan (1) Abdominal pain: Plan: Episodic abdominal pain could be consistent with mesenteric ischemia however CTA does not show severe stenosis of both the celiac and SMA arteries. She has had 2 vascular surgery consults. Could consider discontinuing isosorbide which could aggravate mesenteric blood flow. EGD tomorrow to evaluate for other potential sources. This would include peptic ulcer disease neoplasia e sophagitis (2) Acute on chronic heart failure with preserved ejection fraction (HFpEF): (3) PAF (paroxysmal atrial fibrillation): (4) Nausea, vomiting, and diarrhea: Admission and Anticipated Discharge Date Admission Date: May 27, 2025 Subjective Nausea vomiting Abdominal pain Please see notes from Dr. Dejesus and [facility]. Also received a note from her hospitalist about these episodes of severe pain associated with sweats. There has been concern of mesenteric ischemia with atherosclerosis of all 3 mesenteric vessels. However these appear to be in the 70% range. Or milder. Typically 90+ percent occlusion of these arteries are necessary for mesenteric ischemia. She has had 2 vascular consults which both feel that the symptoms are not consistent with mesenteric ischemia and do not recommend intervention. Potentially she could have a low flow state. I do see she is on isosorbide. This can increase the risk of mesenteric blood flow issues and may be beneficial if removed. Potential for upper GI pathology should be considered and she is scheduled for an EGD. Patient sleeping on rounds not awaken. Physical Exam Physical Exam: sleeping Results & Data Results & Data Vital Signs (Past 12 Hours) Vital Signs Temp Pulse Pulse Resp BP BP Pulse Ox 06/02/25 13:00 62 06/02/25 10:57 36.7 C 61 20 103/55 L 92 06/02/25 07:25 06/02/25 07:04 36.7 C 74 20 153/71 H 97 06/02/25 05:43 58 L O2 Del Method O2 Flow Rate 06/02/25 13:00 06/02/25 10:57 Nasal Cannula 2 06/02/25 07:25 Nasal Cannula 2 06/02/25 07:04 Nasal Cannula 2 06/02/25 05:43 PG Care Time/CCT Total # of Minutes Spent Total Time Spent with Patient: Total time spent is greater than 50% in coordination of care (as documented) at patient's floor/unit and/or counseling patient: Coding Level of Care Code 59818 SUB INP/OBS CARE 09/28MIN Diagnoses Abdominal pain, unspecified abdominal location R10.9 Abdominal location: unspecified location Acute on chronic heart failure with preserved ejection fraction (HFpEF) I50.33 PAF (paroxysmal atrial fibrillation) I48.0 Nausea, vomiting, and diarrhea R11.2; R19.7 (1) Abdominal pain Abdominal location: unspecified location Qualified Code(s): R10.9 - Unspecified abdominal pain
--- NOTE | 2025-06-02 16:56 | Electrocardiogram Report ---
Test Reason : Blood Pressure : */* mmHG Vent. Rate : 73 BPM Atrial Rate : 73 BPM P-R Int : 128 ms QRS Dur : 80 ms QT Int : 378 ms P-R-T Axes : 59 53 91 degrees QTcB Int : 416 ms Normal sinus rhythm with PACs Right atrial enlargement Minimal voltage criteria for LVH, may be normal variant Nonspecific ST and T wave abnormality Abnormal ECG Confirmed by Thomas Jimenez ([id number]) on 06/02/2025 4:56:04 PM Referred By: REFERRED SELF Confirmed By: Thomas Jimenez
[2025-06-03 07:06] LABS: Anion Gap 4.0 (3-11); Blood Urea Nitrogen 18.0 mg/dl (6-23); Calcium 8.7 mg/dl (8.6-10.3); Carbon Dioxide 29.0 mmol/L (21-32); Chloride 105.0 mmol/L (98-107); Creatinine Clr Calc Pharmacy 27.9 ml/min; Glucose 77.0 mg/dl (70-99(Fasting)); Potassium 4.5 mmol/L (3.5-5.1); Sodium 138.0 mmol/L (136-145)
--- NOTE | 2025-06-03 10:41 | History & Physical Bridge Note ---
Date of Service June 03, 2025 History & Physical Bridge Note I have examined the patient, reviewed the History & Physical and in the interval since the performance of the History & Physical I have noted the following changes of clinical significance: no changes noted Keep NPO and proceed with EGD today with Dr. Good. Supervising Physician Co-Signing Physician Notes Continued episodes of abd pain Abd: Soft, NT, ND, +BS Continue current therapy and supportive care Will proceed with EGD now
[2025-06-03] MEDS ORDERED: TPN/PPN CONSULT PHARMACY PRN (10:55)
[2025-06-03] MEDS ORDERED: DEXTROSE 10% 1,000 ML IV PRN (11:14)
[2025-06-03 11:24] LABS: Magnesium 2.0 mg/dl (1.7-2.4)
--- NOTE | 2025-06-03 13:46 | Pharmacy Report ---
Pharmacy Initial PN Consult Nt - Date of Service June 03, 2025 - [facility] Pharmacy has been consulted on this date to manage parenteral nutrition orders and order appropriate labs. As part of the Nutrition Support Team Guidelines, pharmacy will work in conjunction with dietary when determining the patients caloric needs. - Subjective * The patient is a 85 year old Female admitted on 05/27/25 for ELEVATED TROPONIN, GASTROENTERITIS. * Patient is to receive parenteral nutrition for severe abdominal pain with > days without significant nutrition and significant weight loss * Pertinent PMHx: lower GI bleed, GERD, lung cancer s/p radiation - Objective Vascular Access: * Patient currently has a peripheral line. * Peripheral line was confirmed by IV Team to be acceptable for PPN use on this date. Height & Weight (Last Documented) Height 4 ft 11 in Weight 43.6 kg Diet Order(s) 06/02/25 14:50 NPO Intake & Ouput (24hrs) 06/02/25 06/03/25 06/04/25 06:59 06:59 06:59 Intake Total 379.167 / 379.167 Output Total 1151 / 1151 400 / 400 Balance -771.833 / -771.833 -400 / -400 Selected Laboratory Results 06/02/25 06/03/25 15:11 05:28 Sodium 138 Potassium 4.5 Chloride 105 Carbon Dioxide 29 Anion Gap 4 BUN 18 Creatinine 0.97 BUN/Creatinine Ratio 18.6 Glucose 77 Calcium 8.7 Phosphorus 3.9 Magnesium 2.0 Total Bilirubin 0.6 AST 13 ALT [address] - Follow Up Nutrition Assessment Start: 05/31/25 09:59 Freq: Status: Active Protocol: Document 06/03/25 11:48 WN (Rec: 06/03/25 12:04 WN [id number]) RD - Initial Nutrition Assessment Start: 05/31/25 09:49 Freq: Status: Active Protocol: Document 05/31/25 09:50 ALR (Rec: 05/31/25 09:59 ALR [id number]) - Assessment & Plan Assessment: * Appreciate dietitians recommendations for macronutrients. * Will start with minimal volume and increase slowly as patient is at risk for refeeding syndrome. Plan: * For Day #1 of PPN administration, the following will be ordered: * Macronutrients: * Amino Acids: 42.5 grams/day * Dextrose: 50 grams/day * Lipids: 0 grams/day * Micronutrients: * TPN electrolytes: 0 mL/day - Contains 35 mEq Na, 20 mEq K, 4.5 mEq Ca, 5 mEq Mg, 35 mEq Cl, 29.5 mEq Acetate per 20 mL * Sodium phosphate: 0 mMol/day * Sodium chloride: 70 mEq/day * Sodium acetate: 0 mEq/day * Potassium phosphate: 3 mMol/day * Potassium chloride: 0 mEq/day * Potassium acetate: 30 mEq/day * Magnesium sulfate: 4.06 mEq/day * Calcium gluconate: 4.65 mEq/day * Multivitamins: 10 mL/day * Trace elements: 1 mL/day * Thiamine: 100 mg/day * Total volume of 1067 mL will be infused over 24 hours and will provide 340 kcal/day * Patient is on PPN which has a maximum mOsm/L of 900. Final osmolarity of current solution is 837.2 mOsm/L. * Labs will be ordered per PN protocol. * Pharmacy will follow and adjust PN orders on a daily basis. Thank you!
--- NOTE | 2025-06-03 15:16 | Anesthesiology Consultation ---
Date of Service June 03, 2025 Assessment & Plan Chart Review Chart Review: Acceptable Risk for Surgery and Patient NOT seen in Pre Admission Testing Consults Requested none ASA ASA3 Proposed Anesthesia Anesthesia Type: MAC Risk / Benefits Reviewed With: PT / POA / Parent / Guardian, Accepts Plan and Informed Consent Obtained History Surgery Operation Date: 06/03/25 16:30 Proposed Procedures p Esophagogastroduodenoscopy Dr. Elias Griffin MD Height/Weight Height: 4 ft 11 in Weight: 43.6 kg Allergies Allergy/AdvReac Type Severity Reaction Status Date / Time ondansetron [From Zofran] AdvReac Intermediate Unknown Verified 06/03/25 14:54 promethazine [From Phenergan] AdvReac Mild unknown Verified 06/03/25 14:54 Medications Home Medications Medication Instructions Recorded Confirmed Last Taken nitroglycerin 0.4 mg sublingual 0.4 mg sublingual UD PRN Chest Pain 05/22/18 05/27/25 05/27/25 tablet (Nitrostat) multivitamin (Daily Multi-Vitamin 1 tab PO QAM 10/05/18 05/27/25 05/27/25 tablet) coenzyme Q10 100 mg capsule 100 mg PO QAM 05/13/20 05/27/25 05/27/25 (CoQ-10) isosorbide dinitrate 30 mg tablet 30 mg PO QAM 01/14/22 05/27/25 05/27/25 calcium 600 mg (as carbonate)-vit 1 tab PO QAM 08/17/23 05/27/25 05/27/25 D3 20 mcg (800 unit) chewable tablet (Caltrate plus D) amlodipine 2.5 mg tablet 2.5 mg PO QAM 05/11/24 05/27/25 05/27/25 escitalopram oxalate 5 mg tablet 5 mg PO QAM 05/11/24 05/27/25 05/27/25 metoprolol succinate 50 mg 50 mg PO QAM 05/11/24 05/27/25 05/27/25 tablet,extended release 24 hr omeprazole 20 mg tablet,delayed 20 mg PO QAM 05/11/24 05/27/25 05/27/25 release rosuvastatin 10 mg tablet 10 mg PO HS 05/11/24 05/27/25 05/26/25 sacubitril 49 mg-valsartan 51 mg 1 tab PO BID 05/11/24 05/27/25 05/27/25 tablet (Entresto) albuterol sulfate 90 mcg/actuation 1 inh inhalation Q4H PRN shortness 05/14/24 05/27/25 05/27/25 aerosol inhaler of breath or wheezing #6.7 grams furosemide 20 mg tablet 20 mg PO UD 09/06/24 05/27/25 05/27/25 lorazepam 0.5 mg tablet 0.5 mg PO BID PRN Anxiety 09/06/24 05/27/25 05/27/25 aspirin 81 mg chewable tablet 81 mg PO QAM 09/24/24 05/27/25 05/27/25 mirtazapine 7.5 mg tablet 7.5 mg PO HS 05/27/25 05/27/25 05/27/25 sertraline 50 mg tablet 50 mg PO DAILY 05/27/25 05/27/25 05/26/25 Active Medications Generic Name Dose Route Start Last Admin Trade Name Freq PRN Reason Stop Dose Admin Albuterol 3 ml 05/27/25 21:31 05/31/25 09:37 Albut/Ipratrop 3mg/0.5mg Neb 3 Ml Vial NEB 06/26/25 21:30 3 ml Q2H PRN Administration dyspnea Protocol Hydralazine HCl 10 mg 05/28/25 05:38 05/30/25 00:45 Hydralazine Hcl 20 Mg/Ml Vial IV 06/27/25 05:37 10 mg Q4H PRN Administration SBP above 160 Pantoprazole Sodium 40 mg in 10 mls @ 5 mls/min 05/28/25 09:00 06/03/25 08:12 Protonix IV 06/27/25 08:59 5 mls/min BID CORY Administration Isosorbide Mononitrate 30 mg 05/28/25 09:00 06/03/25 08:11 Isosorbide Banner Extended Rel 30 Mg Tabcr PO 06/27/25 08:59 30 mg QAM CORY Administration Metoprolol Succinate 50 mg 05/28/25 09:00 06/03/25 08:11 Metoprolol Succ 50mg Ext Rel Tab PO 06/27/25 08:59 50 mg QAM CORY Administration Ondansetron HCl 4 mg 05/27/25 21:31 06/02/25 14:44 Ondansetron Inj 2 Mg/Ml 2 Ml Vial IV 06/26/25 21:30 4 mg Q6H PRN Administration NAUSEA/VOMITING Sertraline HCl 50 mg 05/28/25 09:00 06/03/25 08:11 Sertraline Hcl 50 Mg Tablet PO 06/27/25 08:59 50 mg DAILY CORY Administration Umeclidinium Morton 1 puffs 05/28/25 09:00 06/03/25 09:10 Umeclidinium Morton 62.5mcg/Blister 7 Puffs/Inhaler INH 06/27/25 08:59 1 puffs QAM CORY Administration NPO Date Last Intake of Fluids: 06/02/25 Time Last Intake of Fluids: 12:00 Date Last Intake of Solids: 06/02/25 Time Last Intake of Solids: 12:00 Past Medical History Medical History Encounter for pre-operative examination History of COVID-19 Hx of Lyme disease 2007 Esophageal dysfunction Diastolic heart failure Hypertension Solitary pulmonary nodule radiation treatment 2017 for lung cancer COPD (chronic obstructive pulmonary disease) Coronary artery disease Chronic obstructive bronchitis with pulmonary emphysema Collapsed lung surgery 1979 Exercise / Class Metabolic Activity III < 4 Walking/Shop/Light housework Past Family History Family History Mother , age 72 Hodgkins disease Lymphoma Father , age 75 Cancer Brother Mental problems Daughter No problems noted. Daughter No problems noted. Daughter No problems noted. Past Surgical History Surgical History Hx of right cataract extraction S/P bladder repair 2018 S/P CABG (coronary artery bypass graft) 05-03-2018 ? atrial fib and pt unaware H/O dilation and curettage H/O hemorrhoidectomy 10-07-2017 Past Anesthesia History No Hx of Anesthesia Complications and No Family Hx of Anesthesia Complications History of PONV No Hx of PONV and No Hx of Motion Sickness Social History Smoking Status: Former smoker tobacco type: cigarettes Do You Dip or Chew Tobacco: No Hx Alcohol Use: No Alcohol type: hard liquor alcohol intake frequency: holidays/special occasions only Hx Substance Use: No substance use type: does not use Review of Systems ROS Unobtainable: All systems reviewed & are unremarkable except as noted in HPI & below Physical Exam Vital Signs Last Vital Signs Temp 36.6 C 06/03/25 14:57 Pulse 66 06/03/25 14:57 Resp 16 06/03/25 14:57 BP 119/58 L 06/03/25 14:57 Pulse Ox 93 06/03/25 14:57 O2 Del Method Room Air 06/03/25 14:57 O2 Flow Rate 0.5 06/03/25 02:38 ENMT Mouth: no TMJ abnormality Thyromental Distance: > or= 3.5 Finger Breadths Mallampati Class: II Neck normal visual inspection and trachea midline; neck extension not limited Respiratory normal respiratory effort Auscultation: lungs clear to auscultation bilaterally Cardiovascular Rate/Rhythm: regular rate and regular rhythm Heart Sounds: no murmur Musculoskeletal Spine: normal cervical ROM Extremities: full ROM of extremities Neurologic moves all extremities Psychiatric Orientation: alert and oriented x 3 Testing Laboratory Results 06/02/25 06:09 06/03/25 05:28 PT 11.1 Seconds (9.0-12.0) 05/28/25 23:57 INR 1.0 (0.9-1.1) 05/28/25 23:57 APTT 31 Seconds (21-31) 05/28/25 23:57 Urine Color Yellow 05/27/25 18:09 Urine Appearance Clear (Clear) 05/27/25 18:09 Urine pH 6.0 (4.5-7.5) 05/27/25 18:09 Ur Specific [place] 1.018 (1.000-1.030) 05/27/25 18:09 Urine Protein 1+ (Negative) H 05/27/25 18:09 Urine Glucose (UA) Negative (Negative) 05/27/25 18:09 Urine Ketones Trace (Negative) H 05/27/25 18:09 Urine Nitrite Negative (Negative) 05/27/25 18:09 Ur Leukocyte Esterase 2+ (Negative) H 05/27/25 18:09 Urine WBC (Auto) 11-20 /hpf (0-5) H 05/27/25 18:09 Urine RBC (Auto) 0-2 /hpf (0-2) 05/27/25 18:09 U Hyaline Cast (Auto) 0-2 /lpf (0-2) 05/27/25 18:09 U Epithel Cells (Auto) 0-2 /hpf (0-2) 05/27/25 18:09 Urine Bacteria (Auto) None Seen (None Seen) 05/27/25 18:09 05/27/25 18:09 Urine Culture - Final Urine,Clean Catch More than three types of organisms present, all low counts mixed probable skin margaret. No further identifications or sensitivities to follow. Electrocardiogram Date: 06/02/25 Normal sinus rhythm with PACs Right atrial enlargement Minimal voltage criteria for LVH, may be normal variant Nonspecific ST and T wave abnormality Echocardiogram Date: 05/29/25 EF: 70 LV Function: normal Other Findings: + atrial enlargement (LA - severe) and + LVH severe pHTN
--- NOTE | 2025-06-03 16:49 | GI REPORT ---
[facility] Patient: HYUN GO : 1940 Sex at : Female Age: 85 Years Procedure: Upper GI endoscopy Date: 06/03/2025 Attending Physician: Tirso Good DO Referring MD: Referred Self Indications: - Generalized abdominal pain Medications: - Monitored Anesthesia Care Complications: - No immediate complications. Estimated Blood Loss: - Estimated blood loss: None. Procedure: - Prior to the procedure, a History and Physical was performed, and patient medications and allergies were reviewed. The patient's tolerance of previous anesthesia was also reviewed. The risks and benefits of the procedure and the sedation options and risks were discussed with the patient. All questions were answered, and informed consent was obtained. Prior Anticoagulants: The patient has taken no anticoagulant or antiplatelet agents except for aspirin, last dose was 7 days prior to procedure. ASA Grade Assessment: III - A patient with severe systemic disease. After reviewing the risks and benefits, the patient was deemed in satisfactory condition to undergo the procedure. - The EGD Scope was introduced through the mouth and advanced to the third part of the duodenum. - The upper GI endoscopy was accomplished without difficulty. - The patient tolerated the procedure well. Findings: - One benign-appearing, intrinsic mild stenosis was found at the gastroesophageal junction. This stenosis measured less than one cm (in length). The stenosis was traversed. A TTS dilator was passed through the scope. Dilation with a 15-16.5-18 mm balloon (to a maximum balloon size of 16.5 mm) dilator was performed 18 mm. The dilation site was examined and showed mild mucosal disruption. - Patchy moderate inflammation characterized by erosions was found in the gastric antrum. Biopsies were taken with a cold forceps for histology. - The examined duodenum was normal. Impression: - Benign-appearing esophageal stenosis. Dilated with a 15-16.5-18 mm balloon (to a maximum balloon size of 16.5 mm). - Gastritis, characterized by erosions. Biopsied. - Normal examined duodenum. Recommendation: - [facility]. - Resume previous diet. - Continue present medications. - Await pathology results. - Return to primary care physician as previously scheduled. - Patient has a contact number available for emergencies. The signs and symptoms of potential delayed complications were discussed with the patient. Return to normal activities tomorrow. Written discharge instructions were provided to the patient. Procedure Code(s): - 27473, Esophagogastroduodenoscopy, flexible, transoral; with transendoscopic balloon dilation of esophagus (less than 30 mm diameter) - 23424-33, Esophagogastroduodenoscopy, flexible, transoral; with biopsy, single or multiple Diagnosis Code(s): - R10.84, Generalized abdominal pain - K22.2, Esophageal obstruction - K29.70, Gastritis, unspecified, without bleeding CPT(R) - 2022 copyright [employer]. All Rights Reserved. The CPT codes, CCI edits and ICD codes generated are intended as suggestions and were generated based on input data. These codes are preliminary and upon data coder operator review may be revised to meet current compliance and payer requirements. The provider is responsible for the final determination of appropriate codes, and modifiers. Dr. Tirso Good, DO This document has been electronically signed. Note Initiated:06/03/2025 Note Completed:06/03/2025 4:48 PM \\[email or web address]\[email or web address]\[id number]
--- NOTE | 2025-06-03 17:09 | Anesthesiology Progress Note ---
Date of Service June 03, 2025 Anesthesia Post Procedure Vital Signs Vital Signs: Temp Pulse Pulse Resp BP BP Pulse Ox 06/03/25 16:56 66 16 150/71 H 93 06/03/25 16:41 68 16 124/58 L 93 06/03/25 16:26 36 C L 64 14 87/35 L 97 06/03/25 14:57 36.6 C 66 16 119/58 L 93 06/03/25 13:37 63 06/03/25 12:22 36.7 C 61 18 99/44 L 93 06/03/25 08:13 36.9 C 63 17 119/61 93 06/03/25 07:35 06/03/25 05:47 50 L 06/03/25 02:38 36.6 C 65 18 136/68 98 06/03/25 00:14 06/02/25 22:57 36.5 C 64 18 112/59 L 90 06/02/25 22:04 16 91 06/02/25 20:30 06/02/25 20:30 17 06/02/25 19:57 36.4 C L 66 18 116/61 96 O2 Del Method O2 Flow Rate 06/03/25 16:56 Room Air 06/03/25 16:41 Room Air 06/03/25 16:26 Room Air 06/03/25 14:57 Room Air 06/03/25 13:37 06/03/25 12:22 Room Air 06/03/25 08:13 Room Air 06/03/25 07:35 Room Air 06/03/25 05:47 06/03/25 02:38 Nasal Cannula 0.5 06/03/25 00:14 Nasal Cannula 0.5 06/02/25 22:57 Room Air 06/02/25 22:04 Room Air 06/02/25 20:30 Nasal Cannula 2 06/02/25 20:30 Room Air 06/02/25 19:57 Nasal Cannula 2 Pain Intensity Medial Abdomen: Pain Intensity: 2 Transfer of Care Handoff Completed per policy Notes Mental Status: alert / awake / arousable Patient Amnestic to Procedure: Yes Nausea / Vomiting: adequately controlled Pain: adequately controlled Airway Patency, RR, SpO2: stable & adequate BP & HR: stable & adequate Hydration State: stable & adequate Anesthetic Complications: no major complications apparent and Pt Satisfied with anesthetic care
[2025-06-03] MEDS: LIDOCAINE 2% 2 ML VIAL/AMP(20MG/ML) INFIL ONE (17:16)
[2025-06-03] MEDS: PROPOFOL IV EMULSION 10 MG/ML 20 ML VIAL IV ONE (17:17)
[2025-06-03] MEDS: PERIPHERAL TPN IV SCH (17:35)
[2025-06-03] MEDS: [UNRECOGNIZED DRUG - OTHER] IV SCH (17:35)
--- NOTE | 2025-06-03 18:44 | Hospitalist Progress Note ---
Date of Service June 03, 2025 Assessment & Plan (1) Abdominal pain: (2) Nausea, vomiting, and diarrhea: (3) Mesenteric artery stenosis: (4) Elevated troponin: (5) Hypomagnesemia: (6) COPD (chronic obstructive pulmonary disease): (7) Pulmonary hypertension: (8) Severe protein-calorie malnutrition: (9) Coronary artery disease: (10) S/P CABG (coronary artery bypass graft): (11) PAF (paroxysmal atrial fibrillation): (12) Acute on chronic heart failure with preserved ejection fraction (HFpEF): (13) Gastritis: (14) Esophageal stenosis: Plan 85yo female with h/o paroxysmal atrial fibrillation, carotid artery stenosis, lower GI bleed, anxiety and depression, CAD, hypertension, GERD, and hyperlipidemia. Presented with 3 weeks of poor appetite, weight loss, severe post-prandial abdominal pain episodes/nausea/vomiting, and most recently loose stools. Despite extensive work-up while here the exact etiology of her episodes has been elusive to date. Had EGD today - mild gastritis, mild esophageal stenosis s/p dilatation - but nothing that would fully explain her ongoing, intermittent symptoms. Appreciate GI assistance. #post-prandial abdominal pain episodes with nausea/emesis and recent diarrhea - -exact etiology uncertain despite EXTENSIVE w/u -CT a/p at presentation with significant stenoses of all 3 mesenteric vessels noted -same CT also saw inflammatory changes of the stomach and small bowel -differential at time of admission - gastroenteritis vs mesenteric ischemia vs other -mesenteric doppler suggested high-grade stenoses of all 3 vessels including the celiac/SMA/RICK [place] [place]; they advised CTA a/p -this returned with mild celiac artery stenosis and moderate SMA/RICK stenosis but NOTHING high-grade -[facility] [place] no intervention at this time of any mesenteric vessel -family requested 2nd opinion regarding the mesenterics -thus, Dr Goldman from [facility] saw Ms Cano in consult today -he, too, does not feel the degree of mesenteric stenoses explains her current symptomatology -stool Biofire returned fully negative -c diff negative -LFTs and lipase levels have remained normal on multiple checks -lactate was NORMAL following an abdominal pain episode on 06/02/25 -HIDA scan w/o features of acute or chronic cholecystitis -however, there was delayed transit of tracer into the small bowel; distal CBD issue? other? unclear significance -EGD completed by Dr Griffin today - appreciate his assistance; findings as above (gastritis, mild esophageal stenosis s/p dilatation) -these findings likely do not explain her recurrent, intermittent symptoms -next steps: ?MRCP to look at her CBD given the HIDA findings? ?upper GI series to exclude abnormal anatomy that could cause intermittent volvulus or other anatomical issue? ?other? -will rely heavily on GI input/recommendations moving forward #acute/chronic HFpEF - -s/p lasix IV with good diuresis on Sat & Sun of this past weekend -euvolemic today -cont meto succ -pulmonary HTN and systemic essential HTN likely big players in her decompensation -echo 2023 with severe pulmonary HTN, severe TR, grade 2 diastolic dysfunction, apical variant hypertrophic CM -repeat echo with ongoing SEVERE pulm HTN which is the likely cause of her JVD, low-normal O2 sats, etc. -EF >70%, RV function wnl -cause of pulm HTN - COPD?? other? 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, post-d/c #severe protein calorie malnutrition - -6-7 pounds of weight loss since 3-4 weeks ago; likely more at this point -2nd to the GI symptoms above -see above discussion -GI and vascular surgery consults much appreciated -I had planned to start PPN this past weekend but I deferred on such due to her decompensated HFpEF -now that volume status is improved will start such today -would add MVI, folate, thiamine - latter 2 things would use IV; MVI will be in the PPN #elevated troponin - -likely myocardial demand ischemia in setting of her GI symptoms and decompensated HFpEF -doubt ACS -checked a troponin immediately following an abdominal pain spell on 06/02 - HS troponin was 38 - lower than prior troponin levels -thus her spells are highly unlikely to be atypical anginal episodes #h/o PAF - -her problem list mentions PAF but she is not on anticoagulation chronically -no a.fib seen while here -cont meto succ 50mg daily #hyperlipidemia - -cont rosuvastatin -since EGD did not show PUD (only mild gastritis only) will resume aspirin 81mg daily -SEVERE PAD of numerous vessels as seen on CTA a/p; also with known CAD and carotid artery stenosis #HTN/CAD - -cont meto succ -cont imdur -asa on hold - resume tomorrow AM (81mg daily) since the EGD only showed mild gastritis and no severe PUD or any bleeding source -cont statin -with preserved EF on prior echo uncertain why she is on Entresto -BPs improved with diuresis -amlodipine remains on hold #Anxiety and depression - -Continue sertraline #Hypomagnesemia - -repleted/resolved -cont PT/OT updated pt's daughter Katja Cano by phone 05/29 and 06/02 updated pt's grand-daughter at bedside 05/29 updated Katja & Danita - daughters - at bedside 05/30 updated Denise, pt's daughter, extensively by phone 06/01 updated Denise at bedside today, 06/03 Admission and Anticipated Discharge Date Admission Date: May 27, 2025 Subjective patient resting comfortably during my early afternoon visit daughter Denise was present at bedside NPO and awaiting EGD we discussed that PPN will be started tonight due to inadequate PO intake over the last week overnight and today did NOT have any further spells of abd pain/prabhjot sea/emesis/diaphoresis still with mildly loose stools, but NOT liquid loose stools have been present for years Review of Systems Review of Systems: CV - no chest pain pulm - no dyspnea or SEGUNDO, no wheezing, o2 has been weaned off GI - see HPI Physical Exam Physical Exam: gen - at baseline today; thin, but NAD; awake/alert neck - mild JVD only mouth - MMM heart - RRR, s1 s2, 2/6 holosystolic murmur LLSB lungs - scant rales right base only; no rales left base; no wheeze, no increased work of breathing abd - soft, NT, ND, BS+, no HSM, no peritoneal signs ext - no edema, pulses b/l feet 2+ psych - a/o x 3 Results & Data Results & Data Vital Signs (Past 12 Hours) Vital Signs Temp Pulse Pulse Resp BP Pulse Ox O2 Del Method 06/03/25 17:24 66 18 116/61 92 Room Air 06/03/25 17:09 68 18 109/61 91 Room Air 06/03/25 16:56 66 16 150/71 H 93 Room Air 06/03/25 16:41 68 16 124/58 L 93 Room Air 06/03/25 16:26 36 C L 64 14 87/35 L 97 Room Air 06/03/25 14:57 36.6 C 66 16 119/58 L 93 Room Air 06/03/25 13:37 63 06/03/25 12:22 36.7 C 61 18 99/44 L 93 Room Air 06/03/25 08:13 36.9 C 63 17 119/61 93 Room Air 06/03/25 07:35 Room Air Laboratory Results Laboratory Results - last 24 hr 06/03/25 06/03/25 05:28 18:25 Sodium 138 Potassium 4.5 Chloride 105 Carbon Dioxide 29 Anion Gap 4 BUN 18 Creatinine 0.97 Est Cr Clr Drug Dosing 27.9 eGFR 56.56 BUN/Creatinine Ratio 18.6 Glucose 77 POC Glucose 160 H Calcium 8.7 Phosphorus 3.9 Magnesium 2.0 Diagnostic Findings EGD today - Findings: - One benign-appearing, intrinsic mild stenosis was found at the gastroesophageal junction. This stenosis measured less than one cm (in length). The stenosis was traversed. A TTS dilator was passed through the scope. Dilation with a 15-16.5-18 mm balloon (to a maximum balloon size of 16.5 mm) dilator was performed 18 mm. The dilation site was examined and showed mild mucosal disruption. - Patchy moderate inflammation characterized by erosions was found in the gastric antrum. Biopsies were taken with a cold forceps for histology. - The examined duodenum was normal. PG Care Time/CCT Total # of Minutes Spent Total Time Spent with Patient: Total time spent is greater than 50% in coordination of care (as documented) at patient's floor/unit and/or counseling patient: Coding Level of Care Code 47607 SUB INP/OBS CARE 3/50MIN Diagnoses Abdominal pain, unspecified abdominal location R10.9 Abdominal location: unspecified location Nausea, vomiting, and diarrhea R11.2; R19.7 Mesenteric artery stenosis K55.1 Elevated troponin R79.89 Hypomagnesemia E83.42 COPD (chronic obstructive pulmonary disease) J44.9 COPD type: unspecified COPD Pulmonary hypertension I27.20 Severe protein-calorie malnutrition E43 Coronary artery disease I25.10 S/P CABG (coronary artery bypass graft) Z95.1 PAF (paroxysmal atrial fibrillation) I48.0 Acute on chronic heart failure with preserved ejection fraction (HFpEF) I50.33 Gastritis K29.70 Esophageal stenosis K22.2 (1) Abdominal pain Abdominal location: unspecified location Qualified Code(s): R10.9 - Unspecified abdominal pain (6) COPD (chronic obstructive pulmonary disease) COPD type: unspecified COPD Qualified Code(s): J44.9 - Chronic obstructive pulmonary disease, unspecified
[2025-06-04 06:19] LABS: Anion Gap 7.0 (3-11); Blood Urea Nitrogen 19.0 mg/dl (6-23); Calcium 8.8 mg/dl (8.6-10.3); Carbon Dioxide 27.0 mmol/L (21-32); Chloride 102.0 mmol/L (98-107); Creatinine Clr Calc Pharmacy 26.9 ml/min; Glucose 95.0 mg/dl (70-99(Fasting)); Magnesium 1.8 mg/dl (1.7-2.4); Potassium 4.2 mmol/L (3.5-5.1); Sodium 136.0 mmol/L (136-145); Triglycerides 143.0 mg/dl (0-150)
[2025-06-04] MEDS: THIAMINE HCL 200 MG in SODIUM CHLORIDE 0.9% 50 ML IV SCH (08:01)
[2025-06-04] MEDS: FOLIC ACID 1 MG in SYRINGE 9.8 ML IV SCH (08:01)
[2025-06-04] MEDS: ASPIRIN 81 MG ECTAB PO SCH (08:01)
--- NOTE | 2025-06-04 08:32 | Hospitalist Progress Note ---
Date of Service June 04, 2025 Assessment & Plan (1) Abdominal pain: (2) Mesenteric artery stenosis: (3) Elevated troponin: (4) Hypomagnesemia: (5) Pulmonary hypertension: (6) Severe protein-calorie malnutrition: (7) Coronary artery disease: (8) PAF (paroxysmal atrial fibrillation): (9) Acute on chronic heart failure with preserved ejection fraction (HFpEF): (10) Gastritis: (11) Esophageal stenosis: Plan 85yo female with h/o paroxysmal atrial fibrillation, carotid artery stenosis, lower GI bleed, anxiety and depression, CAD, hypertension, GERD, and hyperlipidemia. Presented with 3 weeks of poor appetite, weight loss, severe post-prandial abdominal pain episodes/nausea/vomiting, and most recently loose stools. Had EGD 06/03 showing mild gastritis, mild esophageal stenosis s/p dilatation - but nothing that would fully explain her ongoing, intermittent symptoms. Despite extensive work-up while here the exact etiology of her episodes has been elusive to date #post-prandial abdominal pain episodes with nausea/emesis and recent diarrhea - -exact etiology uncertain despite EXTENSIVE w/u -CT a/p at presentation with significant stenoses of all 3 mesenteric vessels noted -same CT also saw inflammatory changes of the stomach and small bowel -differential at time of admission - gastroenteritis vs mesenteric ischemia vs other -mesenteric doppler suggested high-grade stenoses of all 3 vessels including the celiac/SMA/RICK [place] [place]; they advised CTA a/p -this returned with mild celiac artery stenosis and moderate SMA/RICK stenosis but NOTHING high-grade -[facility] [place] no intervention at this time of any mesenteric vessel -family requested 2nd opinion regarding the mesenterics -thus, Dr Goldman from [facility] saw Ms Cano in consult today -he, too, does not feel the degree of mesenteric stenoses explains her current symptomatology -stool Biofire returned fully negative -c diff negative -LFTs and lipase levels have remained normal on multiple checks -lactate was NORMAL following an abdominal pain episode on 06/02/25 -HIDA scan w/o features of acute or chronic cholecystitis -however, there was delayed transit of tracer into the small bowel; distal CBD issue? other? unclear significance -EGD completed by Dr Griffin today - appreciate his assistance; findings as above (gastritis, mild esophageal stenosis s/p dilatation) -these findings likely do not explain her recurrent, intermittent symptoms -next steps GI recommendations include: review of previous imaging for completeness Recommend stopping isosorbide due to its negative effects on mesenteric flow Suspect dumping syndrome and therefore also recommends eliminating non absorbable carbs such as hard candies, high fructose containing fruit juices and lactose. #acute/chronic HFpEF - Echo 2023 with severe pulmonary HTN, severe TR, grade 2 diastolic dysfunction, apical variant hypertrophic CM. Repeat echo on 06/02/25 with ongoing SEVERE pulm HTN. EF >70%, RV function wnl. S/p lasix IV over weekend and is euvolemic today -cont meto succ 50mg qd -Uncertian cause of pulm HTN -will need f/u with Dr Krystian Saldaña, her primary brush finisher, post-d/c #severe protein calorie malnutrition - 6-7 pounds of weight loss since 3-4 weeks ago; likely more at this point due to the GI symptoms. - Pt received PPN+ clinolipid 20% +B1 100mg - Resumed diet at full liquids, low fat on 06/04 - Will continue to monitor for GI symptoms - Will continue to monitor weight #elevated troponin - Resolved -likely myocardial demand ischemia in setting of her GI symptoms and decompensated HFpEF -Last troponin immediately following an abdominal pain spell on 06/02 was 38 - lower than prior troponin levels #h/o PAF - -her problem list mentions PAF but she is not on anticoagulation chronically -no a.fib seen while here -cont meto succ 50mg daily #hyperlipidemia - -cont rosuvastatin -SEVERE PAD of numerous vessels as seen on CTA a/p; also with known CAD and carotid artery stenosis #HTN/CAD - -cont meto succ -consider stopping imdur -asa 81mg resumed today - Entresto and amlodipine remains on hold Family would like to stop Entresto at DC #Anxiety and depression - -Continue sertraline #Hypomagnesemia - -repleted/resolved -cont PT/OT Dispo: Med/tele Diet: full liquid, low fat Code: conditional DVT prophylaxis: SCDs Admission and Anticipated Discharge Date Admission Date: May 27, 2025 Supervising Physician Co-Signing Physician Notes Attending attestation Pt seen and examined in concert with Dr. Silva. In agreement with the documented findings as noted in the resident documentation with any exceptions or additions as noted here. Resolution of abdominal pain at baseline. Did have 1x10 minute episode of cramping abdominal pain following eating a elian hard candy and lifesaver without changes in bowel movements or nausea. VS reviewed. On examination, S1/S2 nl RRR no MCG. CTAB. Abd NT/ND BS+ve Episodic abdominal pain of uncertain etiology - GI consultation - resolution of symptoms at baseline with intermittent flares today. EGD with gastritis, mild esophageal stenosis but no contributing etiology. CT A/P and mesenteric doppler with vascular consutlation with non-clinically relevant stenosis. HIDA without features of cholecystits. Protein/calorie malnutrition, severe - on PPN without adverse effect. Encourage POI and monitor labs daily, will D/C when tolerating adequate intake. Chronic HFpEF with euvolemia - last echo this admission as noted - caution w/ fluid use, monitor weights, I/O. Follow up with Dr. Saldaña outpatient, low threshold for 2-step for O2 therapy on discharge Else see resident documentation as noted. Subjective No acute events overnight. This morning, pr denies abdominal pain, but has not eaten in 2 days. Pt would like to try to eat, if possible. Denies CP, SOB, N/V, fever/chills, new myalgias Review of Systems Review of Systems: As per HPI Physical Exam Physical Exam: Gen: NAD HENT: Normocephalic, atraumatic. Trachea midline, no thyromegaly Cardio: RRR, no murmurs or clicks. No LE edema Resp: CTAB, Equal bilateral chest rise, no increased work of breathing GI: Non distended, soft, non tender, hypoactive bowel sounds MSK: Moving all 4 extremities independently Skin: Dry, of normal skin tone, no rashes noted Neuro: A& O x 3, normal affect Results & Data Results & Data Vital Signs (Past 12 Hours) Vital Signs Temp Pulse Pulse Resp BP Pulse Ox O2 Del Method 06/04/25 07:15 36.4 C L 60 18 148/69 H 97 Room Air 06/04/25 02:53 37.1 C 62 16 153/69 H 93 Room Air 06/03/25 23:28 36.7 C 58 L 18 145/69 H 96 Room Air 06/03/25 21:58 57 L Resident Activity Tracking Resident Involvement: Resident Care Provided Care Provided: Adult Hospital Medicine (1) Abdominal pain Abdominal location: unspecified location Qualified Code(s): R10.9 - Unspecified abdominal pain
--- NOTE | 2025-06-04 13:01 | Gastroenterology Progress Note ---
Date of Service June 04, 2025 Assessment & Plan (1) Abdominal pain: Plan: Unclear etiology. No findings on EGD. Will review prior imaging with radiology for completeness. Would also recommend discontinuation of Isosorbide. Please refer to Dr. Griffin's attending physician statement for further details when available. Admission and Anticipated Discharge Date Admission Date: May 27, 2025 Supervising Physician Co-Signing Physician Notes Reviewed imaging studies with Dr. Marie. Patient does not have enough stenosis to suggest high risk for ischemic gut. On review today her symptoms do occur with food though also with liquids. Drinks significant amount of juices ingests candy throughout the day and ingest lactose. Her symptoms include nausea abdominal distention then followed by diarrhea. The symptoms are somewhat suggestive of dumping. Dumping syndrome will be aggravated by high sugary liquids. Also put significant demand on the intestines. At this point I cannot exclude that the patient has a low flow or distal bowel ischemia. This however would not be improved by any sort of stenting. Dr. Marie did not think angio would add any more information to the CT angio. Also consider risks from cholesterol emboli in this patient with severe atherosclerosis. At this point my recommendation would be to consider stopping or is a Sorbide which can have negative effect on mesenteric blood flow. Eliminate all nonabsorbable carbohydrates from the diet including her hard candies frequent juices which are high in fructose and lactose. She can have sucrose or honey in her tea. Daughter would like her off valsartan. This will be a decision made by the hospitalist service. No further intervention or GI studies planned Subjective Patient is an 85 yo with episodic abdominal pain. EGD unrevealing for etiology of pain. She feels well today. Review of Systems Gastrointestinal: no abdominal pain Physical Exam Constitutional: well developed Respiratory: normal respiratory effort Cardiovascular: Rate/Rhythm: regular rate Gastrointestinal (Abdomen): normal bowel sounds, soft, nontender, no hepatosplenomegaly Results & Data Results & Data Vital Signs (Past 12 Hours) Vital Signs Temp Pulse Resp BP BP Pulse Ox O2 Del Method 06/04/25 10:58 36.6 C 74 19 151/80 H 96 Room Air 06/04/25 09:54 70 165/75 H 06/04/25 07:15 36.4 C L 60 18 148/69 H 97 Room Air 06/04/25 02:53 37.1 C 62 16 153/69 H 93 Room Air PG Care Time/CCT Total # of Minutes Spent Total Time Spent with Patient: Total time spent is greater than 50% in coordination of care (as documented) at patient's floor/unit and/or counseling patient: Coding Level of Care Code 31026 SUB INP/OBS CARE 2/35MIN Diagnoses Abdominal pain, unspecified abdominal location R10.9 Abdominal location: unspecified location (1) Abdominal pain Abdominal location: unspecified location Qualified Code(s): R10.9 - Unspecified abdominal pain
[2025-06-04] MEDS: CLINOLIPID 20% IV FAT EMULSION 250 ML IV SCH (16:10)
[2025-06-04] MEDS: PERIPHERAL TPN IV SCH (16:11)
[2025-06-04] MEDS: [UNRECOGNIZED DRUG - OTHER] IV SCH (16:11)
[2025-06-05] MEDS ORDERED: STOP CLINOLIPID SCH (04:00)
[2025-06-05 06:28] LABS: Anion Gap 9.0 (3-11); Blood Urea Nitrogen 16.0 mg/dl (6-23); Calcium 8.8 mg/dl (8.6-10.3); Carbon Dioxide 24.0 mmol/L (21-32); Chloride 100.0 mmol/L (98-107); Creatinine Clr Calc Pharmacy 27.9 ml/min; Glucose 96.0 mg/dl (70-99(Fasting)); Magnesium 1.6 mg/dl (1.7-2.4); Potassium 3.6 mmol/L (3.5-5.1); Sodium 133.0 mmol/L (136-145)
--- NOTE | 2025-06-05 07:10 | Hospitalist Progress Note ---
Date of Service June 05, 2025 Assessment & Plan (1) Abdominal pain: (2) Mesenteric artery stenosis: (3) Elevated troponin: (4) Hypomagnesemia: (5) Pulmonary hypertension: (6) Severe protein-calorie malnutrition: (7) Coronary artery disease: (8) PAF (paroxysmal atrial fibrillation): (9) Acute on chronic heart failure with preserved ejection fraction (HFpEF): (10) Gastritis: (11) Esophageal stenosis: Plan 85yo female with h/o paroxysmal atrial fibrillation, carotid artery stenosis, lower GI bleed, anxiety and depression, CAD, hypertension, GERD, and hyperlipidemia. Presented with 3 weeks of poor appetite, weight loss, severe post-prandial abdominal pain episodes/nausea/vomiting, and most recently loose stools. #post-prandial abdominal pain episodes with nausea/emesis and recent diarrhea - -exact etiology uncertain despite EXTENSIVE w/u Pt has undergone extensive imaging, lab and serological testing, EGD as well as consulted with GI and 2 vascular surgeons. While stenosis was found in celiac/SMA/RICK, it was found to mild to moderate without need for surgical intervention. Pt has returned to po nutrition with full liquid diet reinitiated on 06/04/25 and tolerating without c/o abdominal pain or diarrhea. -GI id following, recommendations include: Recommend stopping isosorbide due to its negative effects on mesenteric flow Suspect dumping syndrome and therefore also recommends eliminating non absorbable carbs such as hard candies, high fructose containing fruit juices and lactose. - advanced diet to heart health, low fat, lactose free. Pending pt tolerance, will consider DC on GI recommended diet. #acute/chronic HFpEF - Echo 2023 with severe pulmonary HTN, severe TR, grade 2 diastolic dysfunction, apical variant hypertrophic CM. Repeat echo on 06/02/25 with ongoing SEVERE pulm HTN. EF >70%, RV function wnl. S/p lasix IV over weekend and is euvolemic today -cont meto succ 50mg qd -Uncertain cause of pulm HTN -will need f/u with Dr Krystian Saldaña, her primary brick chimney supervisor, post-d/c #severe protein calorie malnutrition - 6-7 pounds of weight loss since 3-4 weeks ago; likely more at this point due to the GI symptoms. - Stopped PPN+ clinolipid 20% +B1 100mg - Advanced diet from full liquids to heart healthy, low fat, lactose free - Will continue to monitor for GI symptoms - Will continue to monitor weight #hypomagnesemia Mg was 1.6 this morning. -Repleted with IV magnesium 2g - Recheck with AM labs #elevated troponin - Resolved -likely myocardial demand ischemia in setting of her GI symptoms and decompensated HFpEF -Last troponin immediately following an abdominal pain spell on 06/02 was 38 - lower than prior troponin levels #h/o PAF - No a-fib noted during this admission thus far -cont meto succ 50mg daily #hyperlipidemia - -cont rosuvastatin #HTN/CAD - -cont meto succ -Hold imdur -asa 81mg resumed today - Entresto and amlodipine remains on hold Family would like to stop Entresto at DC #Anxiety and depression - -Continue sertraline -cont PT/OT Dispo: Med/tele Diet: heart health, low fat, lactose free Code: conditional DVT prophylaxis: SCDs Admission and Anticipated Discharge Date Admission Date: May 27, 2025 Supervising Physician Co-Signing Physician Notes Attending attestation Pt seen and examined in concert with Dr. Silva. In agreement with the documented findings as noted in the resident documentation with any exceptions or additions as noted here. Recurrence of symptoms - mild cramping with regurgitation following full diet meal which contained chicken and broccoli with gradual resolution. VS reviewed. On examination, S1/S2 nl RRR no MCG. CTAB. Abd NT/ND BS+ve Episodic abdominal pain of uncertain etiology - GI consultation - single flare, likely due to reintroduction of large bolus of foods. Will add carafate and continue remaining measures, adjust diet and monitor with likely D/C tomorrow. EGD with gastritis, mild esophageal stenosis but no contributing etiology. CT A/P and mesenteric doppler with vascular consutlation with non-clinically relev ant stenosis. HIDA without features of cholecystits. Protein/calorie malnutrition, severe - d/c'd PPN. Encourage POI and monitor labs daily Chronic HFpEF with euvolemia - last echo this admission as noted - caution w/ fluid use, monitor weights, I/O. Follow up with Dr. Saldaña outpatient, low threshold for 2-step for O2 therapy on discharge Else see resident documentation as noted. Subjective No acute events overnight. This morning, pt reports she was able to tolerate full liquids yesterday with abdominal pain. She is agreeable to stop isosorbide to see if this also helps relieve her symptoms. She is eager to return home. Denies CP, SOB, headache, dizziness, abdominal pain, or N/V/D Review of Systems Review of Systems: As per HPI Physical Exam Physical Exam: Gen: NAD, pleasant and cooperative HENT: Normocephalic, atraumatic. Trachea midline, no thyromegaly Cardio: RRR, no murmurs or clicks. No LE edema Resp: CTAB, Equal bilateral chest rise, no increased work of breathing GI: Non distended, soft, non tender, normoactive bowel sounds MSK: Moving all 4 extremities independently Skin: Dry, of normal skin tone, no rashes noted Neuro: A& O x 3, normal affect Results & Data Results & Data Vital Signs (Past 12 Hours) Vital Signs Temp Pulse Pulse Resp BP Pulse Ox O2 Del Method 06/05/25 03:42 68 128/66 06/05/25 03:02 37.0 C 68 20 172/75 H 93 Room Air 06/05/25 02:45 68 170/72 H 06/04/25 22:34 36.7 C 67 18 178/85 H 94 Room Air 06/04/25 22:30 61 06/04/25 20:06 36.6 C 51 L 18 167/74 H 93 Room Air 06/04/25 20:00 Room Air Resident Activity Tracking Resident Involvement: Resident Care Provided Care Provided: Adult Hospital Medicine (1) Abdominal pain Abdominal location: unspecified location Qualified Code(s): R10.9 - Unspecified abdominal pain
[2025-06-05] MEDS: MAGNESIUM SULFATE / D5W 1 GM/100 ML BAG IV SCH (08:22)
--- NOTE | 2025-06-05 10:49 | Gastroenterology Progress Note ---
Date of Service June 05, 2025 Assessment & Plan (1) Abdominal pain: (2) Diarrhea: Plan -Continue to avoid nonabsorbable carbohydrates (she eats a lot of candies, juices, and sweeteners). -Would advise avoidance of Isosorbide which can negatively impact mesenteric blood flow and at this point, we can't rule out that she has distal bowel ischemia. -Celiac panel ordered for completeness, but no further GI studies ordered/planned at this time. Admission and Anticipated Discharge Date Admission Date: May 27, 2025 Supervising Physician Co-Signing Physician Notes Agree with above. Patient examined at the bedside with daughter present. Seems to be doing better. No significant episodes. The nonabsorbable carbohydrates and simple sugars may not be the whole issue but certainly may be aggravating. I would continue to avoid these. Remain off isosorbide if possible. Gastric biopsies pending though do not expect anything bad. Okay for discharge from a GI perspective. Subjective Patient is an 85 yo female with abdominal pain and post prandial diarrhea. She is eliminating sweeteners, juices, and candies. She notes she did not have diarrhea yesterday afternoon/evening or thus far today. She denies abdominal pain at present. She does note she had a panic attack last night. Review of Systems Gastrointestinal: no abdominal pain and no diarrhea/loose stools Physical Exam Gastrointestinal (Abdomen): normal bowel sounds, soft, nontender, no hepatosplenomegaly Results & Data Results & Data Vital Signs (Past 12 Hours) Vital Signs Temp Pulse Pulse Resp BP BP Pulse Ox 06/05/25 08:24 36.6 C 79 17 122/79 95 06/05/25 08:00 64 06/05/25 03:42 68 128/66 06/05/25 03:02 37.0 C 68 20 172/75 H 93 06/05/25 02:45 68 170/72 H O2 Del Method 06/05/25 08:24 Room Air 06/05/25 08:00 06/05/25 03:42 06/05/25 03:02 Room Air 06/05/25 02:45 PG Care Time/CCT Total # of Minutes Spent Total Time Spent with Patient: Total time spent is greater than 50% in coordination of care (as documented) at patient's floor/unit and/or counseling patient: Coding Level of Care Code 12871 SUB INP/OBS CARE 2/35MIN Diagnoses Abdominal pain, unspecified abdominal location R10.9 Abdominal location: unspecified location Diarrhea R19.7 (1) Abdominal pain Abdominal location: unspecified location Qualified Code(s): R10.9 - Unspecified abdominal pain
[2025-06-05] MEDS: SUCRALFATE 1 GM/10 ML UDC PO SCH (17:13)
[2025-06-06] MEDS: LORazepam 0.5 MG TAB PO STA (05:14)
[2025-06-06 06:17] LABS: Hematocrit (blood only) 38.6 % (37.0-47.0); Hemoglobin 12.6 g/dl (12.0-16.0); Mean Corpuscular Hemoglobin 26.9 pg (25.0-34.0); Mean Corpuscular Volume 82.5 fL (80.0-100.0); Platelet Count 246 K/uL (130-400); RDW Standard Deviation 48.0 fL (36.4-46.3); Red Blood Count 4.68 M/uL (4.20-5.40); White Blood Count 4.56 K/ul (4.8-10.8)
[2025-06-06 06:33] LABS: Anion Gap 8.0 (3-11); Blood Urea Nitrogen 14.0 mg/dl (6-23); Calcium 9.0 mg/dl (8.6-10.3); Carbon Dioxide 27.0 mmol/L (21-32); Chloride 101.0 mmol/L (98-107); Creatinine Clr Calc Pharmacy 26.0 ml/min; Glucose 90.0 mg/dl (70-99(Fasting)); Magnesium 2.1 mg/dl (1.7-2.4); Potassium 3.6 mmol/L (3.5-5.1); Sodium 136.0 mmol/L (136-145)
--- NOTE | 2025-06-06 07:26 | Discharge Summary ---
Date of Service June 06, 2025 Admission HPI Per Admitting Provider The patient is an 85-year-old female with a past medical history including atrial fibrillation, carotid artery stenosis, lower GI bleed, anxiety and depression, CAD, hypertension, GERD, and hyperlipidemia. Patient presents to the emergency department with at least 3 weeks of decreased oral intake due to abdominal pain, nausea and vomiting per family who is in attendance. She presents to the emergency department today, due to a more significant worsening of the abdominal pain over the past 3 days. Family also reports that she has had multiple episodes of loose stools. Has not any recent antibiotic use. She has no recent travels or sick exposures. She continues with nausea today, but has not had any vomiting. She reports that she has been able to take his medications as directed. Workup in the emergency department included the following: Elevated troponin 48.1 with follow-up pending, CT scan of abdomen and pelvis suggesting gastroenteritis, with multiple possible etiologies including infection, inflammation, and less likely ischemia. Patient received normal saline 1 L bolus and Zofran 4 mg IV from the ED. She was then referred for evaluation for admission. Principal Diagnosis Abdominal pain, diarrhea Discharge Exam Gen: NAD, pleasant and cooperative HENT: Normocephalic, atraumatic. Trachea midline, no thyromegaly Cardio: RRR, no murmurs or clicks. No LE edema Resp: CTAB, Equal bilateral chest rise, no increased work of breathing GI: Non distended, soft, non tender, normoactive bowel sounds MSK: Moving all 4 extremities independently Skin: Dry, of normal skin tone, no rashes noted Neuro: A& O x 3, normal affect Discharge Data Allergies Allergy/AdvReac Type Severity Reaction Status Date / Time ondansetron [From Zofran] AdvReac Intermediate Unknown Verified 06/03/25 14:54 promethazine [From Phenergan] AdvReac Mild unknown Verified 06/03/25 14:54 Consultations 05/27/25 19:05 ED Decision to Admit Stat 05/28/25 10:56 Consult Gastroenterology Routine 05/28/25 21:31 Consult Vascular Surgery Routine 06/01/25 18:21 Consult Vascular Surgery Routine Procedures Performed Operation Date: 06/03/25 16:30 Actual Procedures p EGD Biopsy Deonte - Tirso Wilson Case, DO Ordered Studies 05/27/25 16:47 CT Abd and Pelvis [CT abd pelvis IV con only] Stat 05/28/25 10:52 US duplex mesenteric Routine 05/29/25 12:21 CTA abd pelvis wo/w con [CT angio abd pelvis wo/w con] Routine Hospital Course (1) Abdominal pain: (2) Mesenteric artery stenosis: (3) Elevated troponin: (4) Hypomagnesemia: (5) Pulmonary hypertension: (6) Severe protein-calorie malnutrition: (7) Coronary artery disease: (8) PAF (paroxysmal atrial fibrillation): (9) Acute on chronic heart failure with preserved ejection fraction (HFpEF): (10) Gastritis: (11) Esophageal stenosis: Plan 85yo female with h/o paroxysmal atrial fibrillation, carotid artery stenosis, lower GI bleed, anxiety and depression, CAD, hypertension, GERD, and hyperlipidemia. Presented with 3 weeks of poor appetite, weight loss, severe post-prandial abdominal pain episodes/nausea/vomiting, and most recently loose stools. #post-prandial abdominal pain episodes with nausea/emesis and recent diarrhea - -exact etiology uncertain despite EXTENSIVE w/u Pt has undergone extensive imaging, lab and serological testing, EGD as well as consulted with GI and 2 vascular surgeons. While stenosis was found in celiac/SMA/RICK, it was found to mild to moderate without need for surgical intervention. Pt has returned to po nutrition with full liquid diet reinitiated on 06/04/25 and tolerating without c/o abdominal pain or diarrhea. -GI id following, recommendations include: Recommend stopping isosorbide due to its negative effects on mesenteric flow Suspect dumping syndrome and therefore also recommends eliminating non absorbable carbs such as hard candies, high fructose containing fruit juices and lactose. - Pt tolerating heart healthy, low fat, low lactose, soft food diet without c/o abdominal pain or diarrhea. Plan to DC on GI recommended diet with close follow up with PCP, possible referral to outpt GI if symtpoms return. #acute/chronic HFpEF - Echo 2023 with severe pulmonary HTN, severe TR, grade 2 diastolic dysfunction, apical variant hypertrophic CM. Repeat echo on 06/02/25 with ongoing SEVERE pulm HTN. EF >70%, RV function wnl. S/p lasix IV over weekend and is euvolemic today -cont meto succ 50mg qd -Uncertain cause of pulm HTN -will need f/u with Dr Krystian Saldaña, her primary fuel cell designer, post-d/c #severe protein calorie malnutrition - 6-7 pounds of weight loss since 3-4 weeks ago; likely more at this point due to the GI symptoms. - Continue heart healthy, low fat, lactose free, soft food diet - Monitor weight #hypomagnesemia- Resolved Mg was 2.1 this morning. #elevated troponin - Resolved -likely myocardial demand ischemia in setting of her GI symptoms and decompensated HFpEF -Last troponin immediately following an abdominal pain spell on 06/02 was 38 - lower than prior troponin levels #h/o PAF - No a-fib noted during this admission thus far -cont meto succ 50mg daily #hyperlipidemia - -cont rosuvastatin #HTN/CAD - -cont meto succ, asa 81 mg. Resume amlodipine at home -Hold imdur - Entresto remains on hold per pt and family request due to s/e of diarrhea. Recommended pt consult with outpatient fuel cell designer regarding continued DC or restarting Entresto #Anxiety and depression - -Continue sertraline Dispo: Home with family assist Diet: heart health, low fat, lactose free, soft foods Code: conditional Total Time Total Time Spent Total Time Spent (In Minutes): Abdoulaye Sanders DO, attending physician, spent 20 minutes myself seeing the patient, reviewing the chart, and documenting today. Discharge Plan Discharge Items Patient Disposition: Home - Home Health Services Reason For Visit: ELEVATED TROPONIN, GASTROENTERITIS Discharge Diagnosis: Abdominal pain, diarrhea Condition on Discharge: Fair Activity: Resume your previous activity Non-emergency contact: Primary Care Provider Call non-emergency contact if: your symptoms worsen Follow-up/Referrals: Ceci Shelby PA-C [Primary Care Provider] - 06/25/25 4:20 pm (Primary Care hospital follow up scheduled on 06/25/25 at 4:20) Diet: Heart Healthy, Low Fat and Lactose Intolerant Addtl Attending Provider Instructions: You were admitted for severe abdominal pain, diarrhea and elevated troponin enzyme. After undergoing multiple tests, imaging, EGD procedure it was determined that you have some mild to moderate narrowing of intestinal arteries. However, they do not warrant surgical intervention at this time. The EGD showed that you have mild gastritis, that is best treated with antacid medications. The water taxi operator recommended that you stop the blood pressure medication, Isosorbide, as this can contribute to the narrowing of the intestinal arteries. Please stop taking this medication at home and discuss with you PCP and car diologist. You may resume the rest of your home medications. The Packager Hand also recommended a change to your diet that eliminates foods that contain complex sugars such as high fructose corn syrup and lactose. The dietitian also recommended small portions size, more frequent meals of easy to chew foods to reduce irritation of the hiatal hernia and regurgitation. Please follow up with your PCP in the next 5-7 days. Please follow up with your Primary Therapist in the next 2 weeks. If your Symptoms return you can request a referral for gastroenterology from your PCP. Pending Studies at Discharge: Yes Studies:: Celiac panel Stand-Alone Forms: My [facility] [employer], Smoking Cessation Medications and DC Order Prescriptions: New omeprazole 20 mg capsule,delayed release(DR/EC) 20 mg PO DAILY Qty: 30 0RF Continued coenzyme Q10 [CoQ-10] 100 mg capsule 100 mg PO QAM multivitamin [Daily Multi-Vitamin] tablet 1 tab PO QAM Caltrate 600 plus D 600 mg-20 mcg (800 unit) tablet,chewable 1 tab PO QAM nitroglycerin [Nitrostat] 0.4 mg tablet, sublingual 0.4 mg Sublingual UD PRN (Reason: Chest Pain) metoprolol succinate 50 mg tablet extended release 24 hr 50 mg PO QAM amlodipine 2.5 mg tablet 2.5 mg PO QAM escitalopram oxalate 5 mg tablet 5 mg PO QAM rosuvastatin 10 mg tablet 10 mg PO HS omeprazole 20 mg Tablet,Delayed Release (Dr/Ec) 20 mg PO QAM albuterol sulfate 90 mcg/actuation HFA aerosol inhaler 1 inh inhalation Q4H PRN (Reason: shortness of breath or wheezing) Qty: 6.7 0RF furosemide 20 mg tablet 20 mg PO UD Rx Instructions: takes as needed for swelling lorazepam 0.5 mg tablet 0.5 mg PO BID PRN (Reason: Anxiety) aspirin 81 mg tablet,chewable 81 mg PO QAM sertraline 50 mg tablet 50 mg PO DAILY mirtazapine 7.5 mg tablet 7.5 mg PO HS Held sacubitril-valsartan [Entresto] 49-51 mg tablet 1 tab PO BID Hold Instructions: Resume on 07/04/25. Discuss with PCP Discontinued isosorbide dinitrate 30 mg tablet 30 mg PO QAM Rx Instructions: allow nitrate-free interval of 12-14 hrs per 24-hr period Discharge Orders: Discharge Order (Routine); Ordered 06/06/25 Ordered By: Dunia Hebert/Other Patient Handouts: Low-Fat Cooking Tips, Tips for Lactose Int olerance Admission Data Admit Date/Time: 05/27/25 20:11 Attending Provider: Abdoulaye Hughes Admit Provider: Julien Lara Primary Care Provider: Ceci Shelby Other Providers: Julien Lara; Elaine Bartlett; Duong Nunez; [facility]; Aniceto Goldman; Thomas Hassan Other Interventions: Discharge Summary Assessment (RN) Last Done: 06/06/25 11:06 Supervising Physician Co-Signing Physician Notes I also saw the patient and confirmed catalan portions of the history and exam. I agree with the impression and plan as noted above. Patient notes that she is feeling well - at baseline - and is looking forward to discharge. No pain today and is doing well with adjusted diet. Follow up as outlined above. This was reviewed with patient and family member at bedside. Resident Activity Tracking Resident Involvement: Resident Care Provided Care Provided: Adult Hospital Medicine
[2025-06-06 11:23] VITALS: BP 100/59; PULSE 60; RESP 18; TEMP 97.9; O2SAT 94
== END 2025-06-06 12:48 | disposition home health service (06) ==
LOC: ED 16:38 → SUATTDRO 20:11 → 4W 20:11 → INTOOBSV 20:11 → 4W 21:08

== ENCOUNTER 2025-06-19 14:07 | Inpatient (IN) ==
[2025-06-19 15:01] LABS: Hematocrit (blood only) 38.1 % (37.0-47.0); Hemoglobin 11.9 g/dl (12.0-16.0); Immature Granulocytes # (auto) 0.03 K/uL (0.01-0.20); Immature Granulocytes % (auto) 0.4 %; Mean Corpuscular Hemoglobin 26.3 pg (25.0-34.0); Mean Corpuscular Volume 84.1 fL (80.0-100.0); Platelet Count 258 K/uL (130-400); RDW Standard Deviation 48.1 fL (36.4-46.3); Red Blood Count 4.53 M/uL (4.20-5.40); White Blood Count 8.36 K/ul (4.8-10.8)
[2025-06-19 15:14] LABS: Appearance Urine Clear (Clear); Glucose Urine UA Negative (Negative)
[2025-06-19 15:19] LABS: Alanine Aminotransferase 5 U/L (7-52); Albumin Globulin Ratio 0.9 (0.9-2); Albumin Level 3.5 gm/dl (3.4-5.0); Alkaline Phosphatase 67 U/L (34-104); Anion Gap 7 (3-11); Bilirubin,Total 0.5 mg/dl (0.2-1.0); Blood Urea Nitrogen 15 mg/dl (6-23); Calcium 9.1 mg/dl (8.6-10.3); Carbon Dioxide 26 mmol/L (21-32); Chloride 103 mmol/L (98-107); Globulin 3.8 gm/dl (2.5-4.0); Glucose 148 mg/dl (70-99(Fasting)); Lipase 7 U/L (11-82); Potassium 3.6 mmol/L (3.5-5.1); Sodium 136 mmol/L (136-145); Total Protein 7.3 gm/dl (6.0-8.3)
[2025-06-19 15:26] LABS: Magnesium 1.8 mg/dl (1.7-2.4)
--- NOTE | 2025-06-19 15:28 | Emergency Department Note ---
History of Present Illness General Chief Complaint: Abdominal Pain Stated Complaint: STOMACH PAIN Time Seen by Provider: 06/19/25 14:59 History of Present Illness Provider Complaint: abdominal pain Onset (ago): 1 day(s) Pain Consistency: intermittent Location: epigastric Quality: + cramping, + stabbing and + sharp Relieved By: + nothing Exacerbated By: + eating Context: + history of similar episodes; no foreign travel, no possible food poisoning, no sick contacts, no recent antibiotic use, no recent surgery/procedure or no recent injury Associated Symptoms: + nausea; no vomiting, no diarrhea, no fever, no chills, no constipation, no dysuria, no hematemesis, no melena, no hematuria, no headache, no chest pain and no breathing difficulty Home Medications Medication Instructions Recorded Confirmed Type nitroglycerin 0.4 mg sublingual 0.4 mg sublingual UD PRN Chest Pain 05/22/18 06/19/25 History tablet (Nitrostat) multivitamin (Daily Multi-Vitamin 1 tab PO QAM 10/05/18 06/19/25 History tablet) coenzyme Q10 100 mg capsule 100 mg PO QAM 05/13/20 06/19/25 History (CoQ-10) calcium 600 mg (as carbonate)-vit 1 tab PO QAM 08/17/23 06/19/25 History D3 20 mcg (800 unit) chewable tablet (Caltrate plus D) amlodipine 2.5 mg tablet 2.5 mg PO QAM 05/11/24 06/19/25 History escitalopram oxalate 5 mg tablet 5 mg PO QAM 05/11/24 06/19/25 History metoprolol succinate 50 mg 50 mg PO QAM 05/11/24 06/19/25 History tablet,extended release 24 hr rosuvastatin 10 mg tablet 10 mg PO HS 05/11/24 06/19/25 History sacubitril 49 mg-valsartan 51 mg 1 tab PO BID 05/11/24 06/19/25 History tablet (Entresto) albuterol sulfate 90 mcg/actuation 1 inh inhalation Q4H PRN shortness 05/14/24 06/19/25 Rx aerosol inhaler of breath or wheezing #6.7 grams furosemide 20 mg tablet 20 mg PO UD 09/06/24 06/19/25 History lorazepam 0.5 mg tablet 0.5 mg PO BID PRN Anxiety 09/06/24 06/19/25 History aspirin 81 mg chewable tablet 81 mg PO QAM 09/24/24 06/19/25 History mirtazapine 7.5 mg tablet 7.5 mg PO HS 05/27/25 06/19/25 History sertraline 50 mg tablet 50 mg PO DAILY 05/27/25 06/19/25 History omeprazole 20 mg capsule,delayed 20 mg PO DAILY #30 caps 06/06/25 06/19/25 Rx release ondansetron HCl 4 mg tablet 4 mg PO Q8H PRN nausea and 06/17/25 06/19/25 Rx vomiting 5 days #15 tabs Allergies Allergy/AdvReac Type Severity Reaction Status Date / Time ondansetron [From Zofran] AdvReac Intermediate Unknown Verified 06/03/25 14:54 promethazine [From Phenergan] AdvReac Mild unknown Verified 06/03/25 14:54 Past Med/Surg History Problem List (Updated 06/19/25 @ 16:48 by Kin Sethi MD) Abdominal pain (Acute) Vomiting (Acute) Abdominal pain (Acute) Diarrhea Abdominal pain Gastritis Esophageal stenosis Mesenteric artery stenosis (Acute) Acute on chronic heart failure with preserved ejection fraction (HFpEF) PAF (paroxysmal atrial fibrillation) Severe protein-calorie malnutrition Pulmonary hypertension Hypomagnesemia Elevated troponin (Acute) Generalized weakness (Acute) Abnormal PET scan of lung Afib Carotid artery stenosis Medical History Lower GI bleed Encounter for pre-operative examination History of COVID-19 Hx of Lyme disease 2007 Esophageal dysfunction Diastolic heart failure Hypertension Solitary pulmonary nodule radiation treatment 2017 for lung cancer COPD (chronic obstructive pulmonary disease) Coronary artery disease Chronic obstructive bronchitis with pulmonary emphysema Collapsed lung surgery 1979 Surgical History Hx of right cataract extraction S/P bladder repair 2017 S/P CABG (coronary artery bypass graft) 05-03-2018 ? atrial fib and pt unaware H/O dilation and curettage H/O hemorrhoidectomy - Family History Mother , age 72 Hodgkins disease Lymphoma Father , age 75 Cancer Brother Mental problems Daughter No problems noted. Daughter No problems noted. Daughter No problems noted. Social History Smoking Status: Former smoker Tobacco Type: Cigarettes Second Hand Exposure: No; Do You Dip or Chew Tobacco: No; Hx Alcohol Use: No Hx Substance Use: No Preferred Language: Montenegrin Communication Ability: Effective Hearing Ability: Normal Imaging Scheduler Required: No Beliefs That Will Affect Care: None Current Living Situation: Alone Current Living Situation Comment: home alone current occupation: Retired Feels Safe at Home: Yes Assistive Devices: None Physical Exam 2 Vital Signs: Vital Signs - 24 hr 06/19/25 14:14 06/19/25 15:26 06/19/25 16:00 Temperature 36.6 C Temperature Source Temporal Artery Sc an Pulse Rate 71 Pulse Rate [Left A pical] 60 57 L Respiratory Rate 18 20 17 Respiratory Effort / Characteristics Non-Labored Sponta neous Non-Labored Sponta neous Non-Labored Sponta neous Respiratory Depth Normal Normal Normal Respiratory Patter n Regular Regular Regular Blood Pressure 128/66 Blood Pressure [Ri ght Arm] 139/63 127/68 Blood Pressure Carmelina n 86 Blood Pressure Carmelina n [Right Arm] 88 87 Pulse Oximetry 96 95 94 Oxygen Delivery Me thod Room Air Room Air Room Air Sepsis Recent Feve r Within 48 Hours No Sepsis New/Unexpla ined Change in Men miriam Status N/A Sepsis Action Take n by Nursing No Action Required 06/19/25 16:18 06/19/25 16:30 Temperature Temperature Source Pulse Rate 54 L 59 L Pulse Rate [Left A pical] Respiratory Rate 17 Respiratory Effort / Characteristics Respiratory Depth Respiratory Patter n Blood Pressure 135/72 Blood Pressure [Ri ght Arm] Blood Pressure Carmelina n 107 Blood Pressure Carmelina n [Right Arm] Pulse Oximetry 95 Oxygen Delivery Me thod Room Air Sepsis Recent Feve r Within 48 Hours Sepsis New/Unexpla ined Change in Men miriam Status Sepsis Action Take n by Nursing Physical Exam: Physical Exam GENERAL: oriented to person, place, and time. appears well-developed and well- nourished. HENT: Exam performed. - Head: Normocephalic and atraumatic. EYES: Conjunctivae and EOM are normal. Right eye exhibits no discharge. Left eye exhibits no discharge. No scleral icterus. NECK: Normal range of motion. Neck supple. No JVD present. CV: Normal rate, regular rhythm, normal heart sounds and intact distal pulses. There is no peripheral edema. Palpable radial pulses bue. PULM/CHEST: Effort normal and breath sounds normal. No respiratory distress. No stridor. no wheezes. no rales. ABD: The abdomen is soft. There is no tenderness. NEURO: Motor and sensation grossly intact. SKIN: Skin is warm and dry. He is not diaphoretic. PSYCH: normal mood and affect. Behavior is normal. Judgment and thought content normal. Course Course 1459: The patient was evaluated in room C12. A complete history and physical exam was performed Cardiac monitoring: An order was placed for continuous cardiac monitoring. The monitor shows a rate of 60 with sinus rhythm interpreted by nc 1644: Vital signs stable. Labs and imaging are unremarkable. Patient states she cannot eat or drink and is too weak. Given patient's symptoms of having extreme abdominal pain after eating, it is thought that the patient's symptoms are most likely due to her mesentery ischemia. She states she has no pain when she is not eating. Lactic acid is within normal limits, no concern for bowel ischemia at this time. Patient does have a CT scan 2 days ago which was unremarkable. Patient states her pain after eating is too much and she cannot eat and is too weak. Patient be evaluated for admission by the [facility] hospitalist team Dr. Yap. Administered Medications Sodium Chloride (Nss) 1,000 mls @ 80 mls/hr IV .[id number] CORY Stop: 06/22/25 16:14 Last Admin: 06/19/25 16:24 Dose: 80 mls/hr Documented By: [facility] Medical Decision Making Medical Records Attestation: I reviewed the patient's medical records. Medical records reviewed. Patient was admitted from May 27 to June 06, 2025. She was diagnosed with abdominal pain. According to the discharge summary the patient's stenosis in the celiac SMA RICK was deemed to not need surgery. Patient was seen in the emergency department 2 days ago and had negative blood work and negative CT scan was discharged home. Laboratory Data Attestation: I reviewed the patient's lab results. 06/19/25 14:44 06/19/25 14:44 Lab Results 06/19/25 06/19/25 Range/Units 14:44 15:30 WBC 8.36 (4.8-10.8) K/ul RBC 4.53 (4.20-5.40) M/uL Hgb 11.9 L (12.0-16.0) g/dl Hct 38.1 (37.0-47.0) % MCV 84.1 (80.0-100.0) fL MCH 26.3 (25.0-34.0) pg MCHC 31.2 L (32.0-36.0) g/dL RDW Std Deviation 48.1 H (36.4-46.3) fL RDW Coeff of Tanya 15.6 H (11.5-14.5) % Plt Count 258 (130-400) K/uL MPV 12.3 (9.4-12.4) fL Immature Gran % (Auto) 0.4 % Neut % (Auto) 84.0 % Lymph % (Auto) 5.0 % [place] % (Auto) 9.7 % Eos % (Auto) 0.4 % Baso % (Auto) 0.5 % Neut # (Auto) 7.03 H (1.40-6.50) K/uL Lymph # (Auto) 0.42 L (1.20-3.40) K/uL Fallon # (Auto) 0.81 H (0.11-0.59) K/uL Eos # (Auto) 0.03 (0.00-0.50) K/uL Baso # (Auto) 0.04 (0.00-0.20) K/uL Immature Gran # (Auto) 0.03 (0.01-0.20) K/uL Sodium 136 (136-145) mmol/L Potassium 3.6 (3.5-5.1) mmol/L Chloride 103 (98-107) mmol/L Carbon Dioxide 26 (21-32) mmol/L Anion Gap 7 (3-11) BUN 15 (6-23) mg/dl Creatinine 1.00 (0.6-1.2) mg/dl Est Cr Clr Drug Dosing Not Reportable eGFR 54.53 BUN/Creatinine Ratio 15.0 (10-20) Glucose 148 H (70-99(Fasting)) mg/dl Lactate 0.9 (0.4-2.0) mmol/L Calcium 9.1 (8.6-10.3) mg/dl Magnesium 1.8 (1.7-2.4) mg/dl Total Bilirubin 0.5 (0.2-1.0) mg/dl AST 15 (13-39) U/L ALT 5 L (7-52) U/L Alkaline Phosphatase 67 (34-104) U/L Total Protein 7.3 (6.0-8.3) gm/dl Albumin 3.5 (3.4-5.0) gm/dl Globulin 3.8 (2.5-4.0) gm/dl Albumin/Globulin Ratio 0.9 (0.9-2) Lipase 7 L (11-82) U/L Urine Color Yellow Urine Appearance Clear (Clear) Urine pH 6.0 (4.5-7.5) Ur Specific [place] 1.025 (1.000-1.030) Urine Protein 2+ H (Negative) Urine Glucose (UA) Negative (Negative) Urine Ketones 1+ H (Negative) Urine Blood Trace-intact H (Negative) Urine Nitrite Negative (Negative) Urine Bilirubin 1+ H (Negative) Urine Urobilinogen Positive H (Negative) Ur Leukocyte Esterase Trace H (Negative) Urine RBC 0-2 (0-2) /hpf Urine WBC 0-5 (0-5) /hpf Ur Epithelial Cells 6-10 H (0-2) /hpf Calcium Oxalate Crystal Present A (None Prsent) Urine Bacteria 3+ H (None Seen) Hyaline Casts Present A (None Presnt) /lpf Granular Casts Present A (None Prsent) /lpf Urine Mucus Present A (None Prsent) Urine Comment Imaging Data Attestation: I personally reviewed and interpreted this imaging study as follows: My Impression: Acute abdominal series: Chest x-ray negative. Airway clear. No pneumothorax. No consolidation. No cardiomegaly or cephalization.. No free air under the diaphragm. No fractures of the skeletal structures. No air-fluid levels nonspecific bowel gas pattern. Radiologist's Impression: Chest/Abdomen X-ray 06/19/25 15:19 XR abdomen 2V w PA chest CLINICAL HISTORY: abdominal pain COMPARISON STUDY: 05/31/2025 FINDINGS: Stable CABG. Stable cardiomegaly without pulmonary vascular congestion. Stable aortic ectasia and tortuosity. Stable mildly hyperexpanded lungs. No consolidation or pleural effusion seen. No pneumothorax. There is moderate retained stool. No bowel obstruction seen. No gross free air. Calcified abdominal aortic aneurysm was better seen on the CT of 06/17/2025. IMPRESSION: No acute findings. ACT 112: Negative or not required by law. Electronically signed by: Caleb Marie M.D. 06/19/2025 3:53 PM [facility] Narrative 1459: The patient was evaluated in room C12. A complete history and physical exam was performed Cardiac monitoring: An order was placed for continuous cardiac monitoring. The monitor shows a rate of 60 with sinus rhythm interpreted by nc 1644: Vital signs stable. Labs and imaging are unremarkable. Patient states she cannot eat or drink and is too weak. Given patient's symptoms of having extreme abdominal pain after eating, it is thought that the patient's symptoms are most likely due to her mesentery ischemia. She states she has no pain when she is not eating. Lactic acid is within normal limits, no concern for bowel ischemia at this time. Patient does have a CT scan 2 days ago which was unremarkable. Patient states her pain after eating is too much and she cannot eat and is too weak. Patient be evaluated for admission by the [facility] hospitalist team Dr. Yap. Impression & Plan Abdominal pain, Mesenteric artery stenosis Discharge Plan Visit Data Chief Complaint: Abdominal Pain Stated Complaint: STOMACH PAIN ED Provider: Kin Sethi Discharge Problem: Abdominal pain, Mesenteric artery stenosis Patient Disposition: Being Evaluated by Hospitalist Condition: Fair Forms Stand Alone Forms: My [facility] Prescriptions Prescriptions: No Action coenzyme Q10 [CoQ-10] 100 mg capsule 100 mg PO QAM multivitamin [Daily Multi-Vitamin] tablet 1 tab PO QAM Caltrate 600 plus D 600 mg-20 mcg (800 unit) tablet,chewable 1 tab PO QAM nitroglycerin [Nitrostat] 0.4 mg tablet, sublingual 0.4 mg Sublingual UD PRN (Reason: Chest Pain) ondansetron HCl 4 mg tablet 4 mg PO Q8H PRN (Reason: nausea and vomiting) 5 Days Qty: 15 0RF sacubitril-valsartan [Entresto] 49-51 mg tablet 1 tab PO BID Hold Instructions: Resume on 07/04/25. Discuss with PCP metoprolol succinate 50 mg tablet extended release 24 hr 50 mg PO QAM amlodipine 2.5 mg tablet 2.5 mg PO QAM escitalopram oxalate 5 mg tablet 5 mg PO QAM rosuvastatin 10 mg tablet 10 mg PO HS albuterol sulfate 90 mcg/actuation HFA aerosol inhaler 1 inh inhalation Q4H PRN (Reason: shortness of breath or wheezing) Qty: 6.7 0RF furosemide 20 mg tablet 20 mg PO UD Rx Instructions: takes as needed for swelling lorazepam 0.5 mg tablet 0.5 mg PO BID PRN (Reason: Anxiety) aspirin 81 mg tablet,chewable 81 mg PO QAM sertraline 50 mg tablet 50 mg PO DAILY mirtazapine 7.5 mg tablet 7.5 mg PO HS omeprazole 20 mg capsule,delayed release(DR/EC) 20 mg PO DAILY Qty: 30 0RF Referrals Referrals: Ceci Shelby PA-C [Primary Care Provider] - Discharge Problem: Abdominal pain Qualifiers: Abdominal location: unspecified location Qualified Code(s): R10.9 - Unspecified abdominal pain
--- NOTE | 2025-06-19 15:54 | XRay Report ---
XR abdomen 2V w PA chest CLINICAL HISTORY: abdominal pain COMPARISON STUDY: 05/31/2025 FINDINGS: Stable CABG. Stable cardiomegaly without pulmonary vascular congestion. Stable aortic ectas ia and tortuosity. Stable mildly hyperexpanded lungs. No consolidation or pleural effusion seen. No p neumothorax. There is moderate retained stool. No bowel obstruction seen. No gross free air. Calcified abdominal a ortic aneurysm was better seen on the CT of 06/17/2025. IMPRESSION: No acute findings. ACT 112: Negative or not required by law. Electronically signed by: Caleb Marie M.D. 06/19/2025 3:53 PM
[2025-06-19] MEDS: SODIUM CHLORIDE 0.9% 1,000 ML IV SCH (16:24)
[2025-06-19] MEDS: Heparin IV Adult Wt-Based Standard *NO* INITIAL Bolus Protocol IV STA (17:53)
[2025-06-19 17:56] LABS: INR 1.1 (0.9-1.1); Partial Thromboplastin Time 28 Seconds (21-31); Prothrombin Time 11.7 Seconds (9.0-12.0)
[2025-06-19] MEDS: HEPARIN 25000 UNIT/500 ML D5W 25,000 UNITS/500 ML BAG IV SCH (18:07)
--- NOTE | 2025-06-19 18:10 | History & Physical Report ---
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 Will start systemic anticoagulation with heparin drip. If this helps, she will be switched to oral Eliquis at discharge. Vascular surgery consultation. Clear liquid diet for now (2) PAF (paroxysmal atrial fibrillation): Plan: Currently in normal sinus rhythm. Continue current medical management. Telemetry (3) Essential hypertension: Plan: Currently controlled. Continue current medical management (4) Coronary artery disease: Plan: Previous coronary artery bypass grafting. Currently stable. Medical management Plan Hopeful discharge to home within the next 2 to 3 days if she improves with systemic anticoagulation. History of Present Illness Chief Complaint: Postprandial abdominal pain Primary Care Provider: Ceci Shelby 85-year-old white female who presents with symptoms of intestinal angina that have been going on for quite some time. She was recently admitted and discharged for treatment of similar complaints. Abdominal CTA recently done reveals moderate stenosis of the celiac trunk with mild stenosis of the proximal superior mesenteric artery and moderate stenosis of the inferior mesenteric artery. HIDA scan done in May of this year was unremarkable. She also had an EGD in May of this year with low grade esophageal stenosis, evidence of gastritis and erosions which have been treated. She has no fever or chills. At the time of my examination she is alert and oriented without complaint. She will be started on a heparin drip and vascular consultation will be obtained. Hopefully she will respond to systemic anticoagulation and she can be switched to oral Eliquis or Xarelto at the time of discharge. The potential risks of bleeding with heparin were explained to the patient and her daughter and they understand and accept the risk. Allergies Allergy/AdvReac Type Severity Reaction Status Date / Time ondansetron [From Zofran] AdvReac Intermediate Unknown Verified 06/03/25 14:54 promethazine [From Phenergan] AdvReac Mild unknown Verified 06/03/25 14:54 Home Medications Medication Instructions Recorded Confirmed Type nitroglycerin 0.4 mg sublingual 0.4 mg sublingual UD PRN Chest Pain 05/22/18 06/19/25 History tablet (Nitrostat) multivitamin (Daily Multi-Vitamin 1 tab PO QAM 10/05/18 06/19/25 History tablet) coenzyme Q10 100 mg capsule 100 mg PO QAM 05/13/20 06/19/25 History (CoQ-10) calcium 600 mg (as carbonate)-vit 1 tab PO QAM 08/17/23 06/19/25 History D3 20 mcg (800 unit) chewable tablet (Caltrate plus D) amlodipine 2.5 mg tablet 2.5 mg PO QAM 05/11/24 06/19/25 History escitalopram oxalate 5 mg tablet 5 mg PO QAM 05/11/24 06/19/25 History metoprolol succinate 50 mg 50 mg PO QAM 05/11/24 06/19/25 History tablet,extended release 24 hr rosuvastatin 10 mg tablet 10 mg PO HS 05/11/24 06/19/25 History sacubitril 49 mg-valsartan 51 mg 1 tab PO BID 05/11/24 06/19/25 History tablet (Entresto) albuterol sulfate 90 mcg/actuation 1 inh inhalation Q4H PRN shortness 05/14/24 06/19/25 Rx aerosol inhaler of breath or wheezing #6.7 grams furosemide 20 mg tablet 20 mg PO UD 09/06/24 06/19/25 History lorazepam 0.5 mg tablet 0.5 mg PO BID PRN Anxiety 09/06/24 06/19/25 History aspirin 81 mg chewable tablet 81 mg PO QAM 09/24/24 06/19/25 History mirtazapine 7.5 mg tablet 7.5 mg PO HS 05/27/25 06/19/25 History sertraline 50 mg tablet 50 mg PO DAILY 05/27/25 06/19/25 History omeprazole 20 mg capsule,delayed 20 mg PO DAILY #30 caps 06/06/25 06/19/25 Rx release ondansetron HCl 4 mg tablet 4 mg PO Q8H PRN nausea and 06/17/25 06/19/25 Rx vomiting 5 days #15 tabs Past Med/Surg History Problem List (Updated 06/19/25 @ 18:09 by Jah Shah MD) Coronary artery disease Essential hypertension Intestinal angina Abdominal pain (Acute) Vomiting (Acute) Abdominal pain (Acute) Diarrhea Abdominal pain Gastritis Esophageal stenosis Mesenteric artery stenosis (Acute) Acute on chronic heart failure with preserved ejection fraction (HFpEF) PAF (paroxysmal atrial fibrillation) Severe protein-calorie malnutrition Pulmonary hypertension Hypomagnesemia Elevated troponin (Acute) Generalized weakness (Acute) Abnormal PET scan of lung Afib Carotid artery stenosis Medical History Lower GI bleed Encounter for pre-operative examination History of COVID-19 Hx of Lyme disease 2007 Esophageal dysfunction Diastolic heart failure Hypertension Solitary pulmonary nodule radiation treatment 2017 for lung cancer COPD (chronic obstructive pulmonary disease) Coronary artery disease Chronic obstructive bronchitis with pulmonary emphysema Collapsed lung surgery 1979 Surgical History Hx of right cataract extraction S/P bladder repair 2017 S/P CABG (coronary artery bypass graft) 05-03-2018 ? atrial fib and pt unaware H/O dilation and curettage H/O hemorrhoidectomy 10-07-2017 Family History Mother , age 72 Hodgkins disease Lymphoma Father , age 75 Cancer Brother Mental problems Daughter No problems noted. Daughter No problems noted. Daughter No problems noted. Social History Smoking Status: Former smoker Tobacco Type: Cigarettes Second Hand Exposure: No; Do You Dip or Chew Tobacco: No; Hx Alcohol Use: No Hx Substance Use: No Preferred Language: Uzbek Communication Ability: Effective Hearing Ability: Normal Poultry Tender Required: No Beliefs That Will Affect Care: None Current Living Situation: Alone Current Living Situation Comment: home alone current occupation: Retired Feels Safe at Home: Yes Assistive Devices: None Review of Systems 2 Review of Systems: Constitutionalno fever or chills ENTno blurred vision, no double vision, no epistaxis, no sore throat Respiratoryno cough, no wheezing, no shortness of breath Cardiacno palpitations, no chest pain, no syncope Armando nausea, vomiting, diarrhea, melena, hematochezia. Postprandial diffuse abdominal pain GUno urinary retention, no urinary incontinence, no dysuria, no hematuria Musculoskeletalno joint pain, no muscle tenderness Skinno bruising, no rashes, no pruritus Neurono isolated weakness, no paresthesia, no weakness Psychno depression, no anxiety Physical Exam 2 Physical Exam: General-alert and oriented x3, no fever, no chills HEENT-head atraumatic and normocephalic, pupils equal and reactive to light, extraocular muscles intact Neck-no lymphadenopathy or thyromegaly, trachea midline Chest-clear to auscultation. No rales, wheezing or rhonchi Cardiac-regular rate and rhythm, normal S1 and S2 Abdomen-normal bowel sounds, no hepatosplenomegaly Extremities-no cyanosis, clubbing, or edema Neuro-cranial nerves II through XII intact, motor and sensory function within normal limits, strength symmetrical, no focal deficits Psych-normal affect, normal mood Results & Data Results & Data Vital Signs (Past 12 Hours) Vital Signs Temp Pulse Pulse Resp BP BP Pulse Ox 06/19/25 17:03 59 L 22 134/60 94 06/19/25 16:30 59 L 17 135/72 95 06/19/25 16:18 54 L 06/19/25 16:00 57 L 17 127/68 94 06/19/25 15:26 60 20 139/63 95 06/19/25 14:14 36.6 C 71 18 128/66 96 O2 Del Method 06/19/25 17:03 Room Air 06/19/25 16:30 Room Air 06/19/25 16:18 06/19/25 16:00 Room Air 06/19/25 15:26 Room Air 06/19/25 14:14 Room Air Laboratory Results 06/19/25 14:44 06/19/25 14:44 Code Status & VTE Plan Code Status DNR/DNI PG Care Time/CCT Total # of Minutes Spent Total Time Spent with Patient: Total time spent is greater than 50% in coordination of care (as documented) at patient's floor/unit and/or counseling patient: Coding Level of Care Code 36965 INT INP/OBS CARE 3/75MIN Diagnoses Intestinal angina K55.1 PAF (paroxysmal atrial fibrillation) I48.0 Essential hypertension I10 Coronary artery disease I25.10
[2025-06-19] MEDS ORDERED: ONDANSETRON INJ 2 MG/ML 2 ML VIAL IV PRN (21:00)
[2025-06-19] MEDS ORDERED: ALBUTEROL HFA 8 GM INHALER INH PRN (21:00)
[2025-06-19] MEDS ORDERED: ACETAMINOPHEN 1,000 MG/100 ML VIAL IV PRN (21:00)
[2025-06-19] MEDS ORDERED: NITROGLYCERIN SL 0.4 MG/TAB TAB SL PRN (21:00)
[2025-06-19] MEDS: VALSARTAN/SACUBITRIL 51/49 MG TAB PO SCH (21:55)
[2025-06-19] MEDS: MIRTAZAPINE TAB 15 MG TAB PO SCH (21:55)
[2025-06-19] MEDS: ROSUVASTATIN CALCIUM 10 MG TAB PO SCH (21:55)
[2025-06-20 01:08] LABS: ANTI-Xa, UFH(UnfractionatedHep 0.34 IU/ml (0.3-0.7)
[2025-06-20 06:01] LABS: Hematocrit (blood only) 33.5 % (37.0-47.0); Hemoglobin 10.8 g/dl (12.0-16.0); Immature Granulocytes # (auto) 0.01 K/uL (0.01-0.20); Immature Granulocytes % (auto) 0.2 %; Mean Corpuscular Hemoglobin 26.9 pg (25.0-34.0); Mean Corpuscular Volume 83.3 fL (80.0-100.0); Platelet Count 209 K/uL (130-400); RDW Standard Deviation 47.2 fL (36.4-46.3); Red Blood Count 4.02 M/uL (4.20-5.40); White Blood Count 5.62 K/ul (4.8-10.8)
[2025-06-20 06:39] LABS: ANTI-Xa, UFH(UnfractionatedHep 0.37 IU/ml (0.3-0.7)
[2025-06-20] MEDS: METOPROLOL SUCC 50MG EXT REL TAB PO SCH (08:49)
[2025-06-20] MEDS: CALCIUM 600MG + VIT D 400 IU TAB PO SCH (08:49)
[2025-06-20] MEDS: MULTIVITAMIN TAB PO SCH (08:49)
[2025-06-20] MEDS: ASPIRIN 81 MG ECTAB PO SCH (08:50)
--- NOTE | 2025-06-20 11:06 | Consultation ---
Date of Consultation June 20, 2025 Assessment & Plan (1) Superior mesenteric artery stenosis: At this point with the change of her symptomatology which is now postprandial pain and the possibility of worsening narrowing of her SMA we recommended arteriography with possible intervention. Would recommend continued heparinization until after the interventions completed. Will get this scheduled for Monday. Thank you very much for letting us participate in the care of this patient. History of Present Illness Reason for Consultation: Superior mesenteric artery stenosis Attending Physician: Jah Shah MD History of Present Illness I had the pleasure of seeing Mau today for evaluation of mesenteric artery stenosis. As you know she is an 85-year-old female who we have seen in the recent past for abdominal pain. At that time her abdominal pain was not consistent with meals. Since then over the last 2 weeks she has been developing postprandial pain. The pain comes on approximately 20 to 30 minutes post eating and subsides in 2 to 3 hours. This occurs with all meals. She denies any pain in between meals. CTA done at the previous admission shows severe mesenteric artery stenosis just beyond the origin. A CT scan done this admission which was not a CT angiogram suggest a more proximal filling defect just before the area. Allergies Allergy/AdvReac Type Severity Reaction Status Date / Time ondansetron [From Zofran] AdvReac Intermediate Unknown Verified 06/03/25 14:54 promethazine [From Phenergan] AdvReac Mild unknown Verified 06/03/25 14:54 Home Medications Medication Instructions Recorded Confirmed Type nitroglycerin 0.4 mg sublingual 0.4 mg sublingual UD PRN Chest Pain 05/22/18 06/19/25 History tablet (Nitrostat) multivitamin (Daily Multi-Vitamin 1 tab PO QAM 10/05/18 06/19/25 History tablet) coenzyme Q10 100 mg capsule 100 mg PO QAM 05/13/20 06/19/25 History (CoQ-10) calcium 600 mg (as carbonate)-vit 1 tab PO QAM 08/17/23 06/19/25 History D3 20 mcg (800 unit) chewable tablet (Caltrate plus D) amlodipine 2.5 mg tablet 2.5 mg PO QAM 05/11/24 06/19/25 History escitalopram oxalate 5 mg tablet 5 mg PO QAM 05/11/24 06/19/25 History metoprolol succinate 50 mg 50 mg PO QAM 05/11/24 06/19/25 History tablet,extended release 24 hr rosuvastatin 10 mg tablet 10 mg PO HS 05/11/24 06/19/25 History sacubitril 49 mg-valsartan 51 mg 1 tab PO BID 05/11/24 06/19/25 History tablet (Entresto) albuterol sulfate 90 mcg/actuation 1 inh inhalation Q4H PRN shortness 05/14/24 06/19/25 Rx aerosol inhaler of breath or wheezing #6.7 grams furosemide 20 mg tablet 20 mg PO UD 09/06/24 06/19/25 History lorazepam 0.5 mg tablet 0.5 mg PO BID PRN Anxiety 09/06/24 06/19/25 History aspirin 81 mg chewable tablet 81 mg PO QAM 09/24/24 06/19/25 History mirtazapine 7.5 mg tablet 7.5 mg PO HS 05/27/25 06/19/25 History sertraline 50 mg tablet 50 mg PO DAILY 05/27/25 06/19/25 History omeprazole 20 mg capsule,delayed 20 mg PO DAILY #30 caps 06/06/25 06/19/25 Rx release ondansetron HCl 4 mg tablet 4 mg PO Q8H PRN nausea and 06/17/25 06/19/25 Rx vomiting 5 days #15 tabs Patient History Medical History Lower GI bleed Encounter for pre-operative examination History of COVID-19 Hx of Lyme disease 2007 Esophageal dysfunction Diastolic heart failure Hypertension Solitary pulmonary nodule radiation treatment 2017 for lung cancer COPD (chronic obstructive pulmonary disease) Coronary artery disease Chronic obstructive bronchitis with pulmonary emphysema Collapsed lung surgery 1979 Surgical History Hx of right cataract extraction S/P bladder repair 2017 S/P CABG (coronary artery bypass graft) 05-03-2018 ? atrial fib and pt unaware H/O dilation and curettage H/O hemorrhoidectomy - Family History Mother , age 72 Hodgkins disease Lymphoma Father , age 75 Cancer Brother Mental problems Daughter No problems noted. Daughter No problems noted. Daughter No problems noted. Social History Smoking Status: Former smoker Tobacco Type: Cigarettes Second Hand Exposure: No; Do You Dip or Chew Tobacco: No; Hx Alcohol Use: Yes Alcohol type: hard liquor Hx Substance Use: No Preferred Language: Uzbek Communication Ability: Effective Hearing Ability: Normal National Sales Representative Required: No Beliefs That Will Affect Care: None Current Living Situation: Alone Current Living Situation Comment: home alone current occupation: Retired Feels Safe at Home: Yes Assistive Devices: Denture - Upper, Denture - Lower and Glasses Review of Systems Review of Systems: All systems reviewed & are unremarkable except as noted in HPI & below Physical Exam Constitutional: WD/WN, vitals as above Respiratory: normal respiratory effort; no respiratory distress Auscultation: lungs clear to auscultation bilaterally Cardiovascular: RRR, no murmur, no edema Gastrointestinal (Abdomen): Inspection/Auscultation: abdomen normal to inspection; abdomen not distended Percussion/Palpation: abdomen soft; abdomen nontender Neurologic: CN's II-XI intact bilaterally and moves all extremities Psychiatric: A+Ox3, euthymic affect Results & Data Vital Signs (Past 12 Hours) Vital Signs Temp Pulse Pulse Resp BP Pulse Ox O2 Del Method 06/20/25 07:53 36.7 C 68 16 151/66 H 96 Room Air 06/20/25 05:53 59 L 06/20/25 04:00 36.8 C 75 18 137/68 93 Room Air
--- NOTE | 2025-06-20 14:57 | Hospitalist Progress Note ---
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 Continue heparin drip for now. No improvement as of yet. Vascular surgery consultation and recommendations noted. She will undergo mesenteric angiography on Monday. Continue clear liquid diet for now (2) PAF (paroxysmal atrial fibrillation): Plan: Currently in normal sinus rhythm. Continue current medical management. Telemetry (3) Essential hypertension: Plan: Currently controlled. Continue current medical management (4) Coronary artery disease: Plan: Previous coronary artery bypass grafting. Currently stable. Medical management Plan Eventual discharge to home sometime next week Admission and Anticipated Discharge Date Admission Date: June 19, 2025 Subjective Alert and oriented. No distress. She is now on a heparin drip. She states that she continues to have abdominal discomfort after meals despite being on a heparin drip. She is on a clear liquid diet. Vascular surgery consult noted. Abdominal mesenteric angiography will be performed on June 23. Review of Systems 2 Review of Systems: Constitutionalno fever or chills ENTno blurred vision, no double vision, no epistaxis, no sore throat Respiratoryno cough, no wheezing, no shortness of breath Cardiacno palpitations, no chest pain, no syncope Armando nausea, vomiting, diarrhea, melena, hematochezia. Postprandial diffuse abdominal pain GUno urinary retention, no urinary incontinence, no dysuria, no hematuria Musculoskeletalno joint pain, no muscle tenderness Skinno bruising, no rashes, no pruritus Neurono isolated weakness, no paresthesia, no weakness Psychno depression, no anxiety Physical Exam 2 Physical Exam: General-alert and oriented x3, no fever, no chills HEENT-head atraumatic and normocephalic, pupils equal and reactive to light, extraocular muscles intact Neck-no lymphadenopathy or thyromegaly, trachea midline Chest-clear to auscultation. No rales, wheezing or rhonchi Cardiac-regular rate and rhythm, normal S1 and S2 Abdomen-normal bowel sounds, no hepatosplenomegaly Extremities-no cyanosis, clubbing, or edema Neuro-cranial nerves II through XII intact, motor and sensory function within normal limits, strength symmetrical, no focal deficits Psych-normal affect, normal mood Results & Data Results & Data Vital Signs (Past 12 Hours) Vital Signs Temp Pulse Pulse Resp BP BP Pulse Ox 06/20/25 14:19 36.9 C 56 L 16 104/66 92 06/20/25 11:32 36.7 C 53 L 16 123/65 92 06/20/25 07:53 36.7 C 68 16 151/66 H 96 06/20/25 05:53 59 L 06/20/25 04:00 36.8 C 75 18 137/68 93 O2 Del Method 06/20/25 14:19 Room Air 06/20/25 11:32 Room Air 06/20/25 07:53 Room Air 06/20/25 05:53 06/20/25 04:00 Room Air Laboratory Results 06/20/25 05:40 06/19/25 14:44 PG Care Time/CCT Total # of Minutes Spent Total Time Spent with Patient: Total time spent is greater than 50% in coordination of care (as documented) at patient's floor/unit and/or counseling patient: Coding Level of Care Code 71312 SUB INP/OBS CARE 2/35MIN Diagnoses Intestinal angina K55.1 PAF (paroxysmal atrial fibrillation) I48.0 Essential hypertension I10 Coronary artery disease I25.10
--- NOTE | 2025-06-20 15:59 | Electrocardiogram Report ---
Test Reason : Blood Pressure : */* mmHG Vent. Rate : 56 BPM Atrial Rate : 56 BPM P-R Int : 150 ms QRS Dur : 84 ms QT Int : 430 ms P-R-T Axes : 15 51 94 degrees QTcB Int : 414 ms Sinus bradycardia Minimal voltage criteria for LVH, may be normal variant ( Sokolow-Fenton ) Nonspecific ST and T wave abnormality Abnormal ECG When compared with ECG of 02-Jun-2025 14:53, No significant change was found Confirmed by Abdullahi Barrera ([id number]) on 06/20/2025 3:59:03 PM Referred By: REFERRED SELF Confirmed By: Abdullahi Barrera
[2025-06-21 07:08] LABS: ANTI-Xa, UFH(UnfractionatedHep 0.42 IU/ml (0.3-0.7)
--- NOTE | 2025-06-21 11:40 | Hospitalist Progress Note ---
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 Continue heparin drip for now. No improvement as of yet. Vascular surgery consultation and recommendations noted. She will undergo mesenteric angiography on Monday. Continue clear liquid diet for now. Peripheral parenteral nutrition has been ordered to start today, June 21 (2) PAF (paroxysmal atrial fibrillation): Plan: Currently in normal sinus rhythm. Continue current medical management. Telemetry (3) Essential hypertension: Plan: Currently controlled. Continue current medical management (4) Coronary artery disease: Plan: Previous coronary artery bypass grafting. Currently stable. Medical management Plan Hopeful discharge to home sometime this coming week Admission and Anticipated Discharge Date Admission Date: June 19, 2025 Subjective Alert and oriented. She is still symptomatic despite the heparin drip. Parenteral nutrition will be started to give for some nutrition and calories until angiography and hopefully stenting of the mesenteric arterial tree and resolution of the intestinal angina occurs. Daughter is at the bedside Review of Systems 2 Review of Systems: Constitutionalno fever or chills ENTno blurred vision, no double vision, no epistaxis, no sore throat Respiratoryno cough, no wheezing, no shortness of breath Cardiacno palpitations, no chest pain, no syncope Armando nausea, vomiting, diarrhea, melena, hematochezia. Postprandial diffuse abdominal pain GUno urinary retention, no urinary incontinence, no dysuria, no hematuria Musculoskeletalno joint pain, no muscle tenderness Skinno bruising, no rashes, no pruritus Neurono isolated weakness, no paresthesia, no weakness Psychno depression, no anxiety Physical Exam 2 Physical Exam: General-alert and oriented x3, no fever, no chills HEENT-head atraumatic and normocephalic, pupils equal and reactive to light, extraocular muscles intact Neck-no lymphadenopathy or thyromegaly, trachea midline Chest-clear to auscultation. No rales, wheezing or rhonchi Cardiac-regular rate and rhythm, normal S1 and S2 Abdomen-normal bowel sounds, no hepatosplenomegaly Extremities-no cyanosis, clubbing, or edema Neuro-cranial nerves II through XII intact, motor and sensory function within normal limits, strength symmetrical, no focal deficits Psych-normal affect, normal mood Results & Data Results & Data Vital Signs (Past 12 Hours) Vital Signs Temp Pulse Pulse Resp BP Pulse Ox O2 Del Method 06/21/25 11:30 36.8 C 62 18 165/69 H 94 Room Air 06/21/25 07:19 37.3 C 60 18 127/67 94 Room Air 06/21/25 05:29 68 06/21/25 03:19 37.2 C 72 16 151/70 H 93 Nasal Cannula O2 Flow Rate 06/21/25 11:30 06/21/25 07:19 06/21/25 05:29 06/21/25 03:19 2 Laboratory Results 06/20/25 05:40 06/19/25 14:44 PG Care Time/CCT Total # of Minutes Spent Total Time Spent with Patient: Total time spent is greater than 50% in coordination of care (as documented) at patient's floor/unit and/or counseling patient: Coding Level of Care Code 16682 SUB INP/OBS CARE 2/35MIN Diagnoses Intestinal angina K55.1 PAF (paroxysmal atrial fibrillation) I48.0 Essential hypertension I10 Coronary artery disease I25.10
[2025-06-21] MEDS ORDERED: TPN/PPN CONSULT PHARMACY SCH (12:03)
[2025-06-21 12:51] LABS: Anion Gap 9.0 (3-11); Blood Urea Nitrogen 7.0 mg/dl (6-23); Calcium 8.1 mg/dl (8.6-10.3); Carbon Dioxide 21.0 mmol/L (21-32); Chloride 108.0 mmol/L (98-107); Creatinine Clr Calc Pharmacy 33.0 ml/min; Glucose 86.0 mg/dl (70-99(Fasting)); Magnesium 1.5 mg/dl (1.7-2.4); Potassium 3.3 mmol/L (3.5-5.1); Sodium 138.0 mmol/L (136-145); Triglycerides 75.0 mg/dl (0-150)
[2025-06-21] MEDS: POTASSIUM CHLORIDE / WTR 10 MEQ/100 ML PLCT IV SCH (13:24)
[2025-06-21] MEDS: MAGNESIUM SULFATE / D5W 1 GM/100 ML BAG IV SCH (13:24)
--- NOTE | 2025-06-21 13:49 | Pharmacy Report ---
Pharmacy Initial PN Consult Nt - Date of Service June 21, 2025 - Scope Pharmacy has been consulted on this date to manage parenteral nutrition orders and order appropriate labs. As part of the Nutrition Support Team Guidelines, pharmacy will work in conjunction with dietary when determining the patients caloric needs. - Subjective * The patient is a 85 year old Female admitted on 06/19/25 for mesenteric artery insufficiency. On heparin drip. No improvement as of yet. Vascular surgery consultation, mesenteric angiography on Monday. * Pertinent PMHx: Poor PO intake over past few months, cannot tolerate PO intake. - Objective Vascular Access: * Patient currently has a peripheral line. * Peripheral line was confirmed by IV Team to be acceptable for PPN use on this date. Height & Weight (Last Documented) Height 4 ft 11 in Weight 41.1 kg Diet Order(s) 06/19/25 Dinner Diet 06/23/25 00:01 NPO Intake & Ouput (24hrs) 06/20/25 06/21/25 06/22/25 06:59 06:59 06:59 Intake Total 1205.600 / 8208.580 5633.466 / 2567.466 1006.133 / 1006.133 Balance 1205.600 / 0853.023 8345.466 / 2567.466 1006.133 / 1006.133 Selected Laboratory Results 06/21/25 06:27 Sodium 138 Potassium 3.3 L Chloride 108 H Carbon Dioxide 21 Anion Gap 9 BUN 7 Creatinine 0.78 BUN/Creatinine Ratio 9.0 L Glucose 86 Calcium 8.1 L Phosphorus 2.8 Magnesium 1.[address] - Follow Up Nutrition Assessment Start: 06/20/25 11:05 Freq: Status: Active Protocol: Document 06/21/25 11:37 [id number] (Rec: 06/21/25 11:45 [id number]) RD - Initial Nutrition Assessment Start: 06/20/25 10:52 Freq: Status: Active Protocol: Document 06/20/25 10:52 ALR (Rec: 06/20/25 11:05 ALR [id number]) - Assessment & Plan Assessment: * Appreciate dietitians recommendations for macronutrients. Plan: * For Day #1 of PPN administration, the following will be ordered: * Macronutrients: * Amino Acids: 61 grams/day * Dextrose: 72 grams/day * Lipids: 40 grams/day * Micronutrients: * Sodium phosphate: 21 mMol/day * Potassium acetate: 40 mEq/day * Magnesium sulfate: 8.12 mEq/day * Calcium gluconate: 4.65 mEq/day * Multivitamins: 10 mL/day * Trace elements: 1 mL/day * Total volume of 1490 mL will be infused over 24 hours and will provide 890 kcal/day * Patient is on PPN which has a maximum mOsm/L of 900. Final osmolarity of current solution is 750.5 mOsm/L. * Labs will be ordered per PN protocol. * Pharmacy will follow and adjust PN orders on a daily basis. Thank you!
[2025-06-21] MEDS ORDERED: DEXTROSE 10% 1,000 ML IV PRN (16:00)
[2025-06-21] MEDS: CLINOLIPID 20% IV FAT EMULSION 250 ML IV SCH (16:17)
[2025-06-21] MEDS: PERIPHERAL TPN IV SCH (16:17)
[2025-06-21] MEDS: [UNRECOGNIZED DRUG - OTHER] IV SCH (16:17)
--- NOTE | 2025-06-21 19:11 | Ultrasound Report ---
Mesenteric arterial Doppler ultrasound Technique: Grayscale and color Doppler ultrasound images of the mesenteric vessels were obtained No comparison Findings: Markedly elevated velocity within the superior mesenteric artery measuring up to 468 cm/s suggesting significant SMA stenosis.Markedly elevated velocity within the celiac artery measuring 276 cm/s this is reduced with inspirationMarked atheromatous plaque involving the abdominal aorta. Impression Elevated velocities within the celiac and superior mesenteric arteries. CT angiogram recommended for further evaluation. Electronically signed by George Elliott 06-21-2025 7:10 PM
[2025-06-21] MEDS: OPTIRAY 320 100ml IV ONE (20:59)
--- NOTE | 2025-06-21 23:55 | CT Scan Report ---
Exam(s): CT ABDOMEN + PELVIS With Contrast IV Amt: 90 ml optiray 320 EXAM: CT Abdomen and Pelvis With Intravenous Contrast CLINICAL HISTORY: Reason for exam: intestinal angina ( thin cuts please). TECHNIQUE: Axial computed tomography images of the abdomen and pelvis with intravenous contrast. CTDI is 6.44 mGy and DLP is 254.05 mGy-cm. Automated exposure control was utilized for the study. A dose lowering technique was utilized adhering to the principles of ALARA. CONTRAST: Patient received 90 ml optiray 320 of IV contrast COMPARISON: 06/17/2025 FINDINGS: Small pleural effusions are increased from prior exam. There is bibasilar subsegmental atelectasis. There is stable cardiomegaly. Liver, gallbladder, pancreas, and adrenal glands are unremarkable. There is a stable splenic cyst. Kidneys enhance symmetrically. There is cortical scarring right kidney midpole. There is a simple left kidney cysts for which no further follow- up is required. There is no hydronephrosis bilaterally. There is atherosclerosis of the abdominal aorta with infrarenal aneurysm measuring 3.3 cm, containing significant mural thrombus. There is no adenopathy or free air. There is trace free fluid in the pelvis. There is no evidence of mechanical bowel obstruction. Appendix is not visualized. There is no bowel inflammation. There is diverticulosis without diverticulitis. Uterus is absent. Urinary bladder is unremarkable. There is disc degeneration at the L5-S1 level. There are no acute osseous findings. IMPRESSION: 1. No acute intra-abdominal findings. 2. Stable abdominal aortic aneurysm measuring 3.3 cm. 3. Small pleural effusions, increased from prior. Electronically signed by: Shahana Stanton M.D. 06/21/25 23:54 PM
[2025-06-22] MEDS: STOP CLINOLIPID SCH (04:12)
[2025-06-22 06:01] LABS: Hematocrit (blood only) 31.6 % (37.0-47.0); Hemoglobin 10.1 g/dl (12.0-16.0); Immature Granulocytes # (auto) 0.03 K/uL (0.01-0.20); Immature Granulocytes % (auto) 0.4 %; Mean Corpuscular Hemoglobin 26.2 pg (25.0-34.0); Mean Corpuscular Volume 82.1 fL (80.0-100.0); Platelet Count 230 K/uL (130-400); RDW Standard Deviation 46.6 fL (36.4-46.3); Red Blood Count 3.85 M/uL (4.20-5.40); White Blood Count 8.20 K/ul (4.8-10.8)
[2025-06-22 06:16] LABS: Anion Gap 6.0 (3-11); Blood Urea Nitrogen 10.0 mg/dl (6-23); Calcium 8.2 mg/dl (8.6-10.3); Carbon Dioxide 26.0 mmol/L (21-32); Chloride 105.0 mmol/L (98-107); Creatinine Clr Calc Pharmacy 31.4 ml/min; Glucose 133.0 mg/dl (70-99(Fasting)); Magnesium 1.9 mg/dl (1.7-2.4); Potassium 3.5 mmol/L (3.5-5.1); Sodium 137.0 mmol/L (136-145)
[2025-06-22 06:26] LABS: ANTI-Xa, UFH(UnfractionatedHep 0.46 IU/ml (0.3-0.7)
[2025-06-22] MEDS: SODIUM CHLORIDE 0.9% 250 ML IV ONE (09:42)
--- NOTE | 2025-06-22 14:22 | Hospitalist Progress Note ---
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 Continue heparin drip for now. No improvement as of yet. The family has requested transfer to [facility] for continued care. I spoke to the vascular surgeon at [facility] on Monday, June 21, and he requested further studies including thin cut CT scan of the abdomen along with mesenteric arterial ultrasound. These have been completed and the findings are on the chart. No new findings. She is on PPN due to recurrent abdominal pain when she attempts to eat. She also has clear liquid diet ordered and PPN. (2) PAF (paroxysmal atrial fibrillation): Plan: Currently in normal sinus rhythm. Continue current medical management. Telemetry (3) Essential hypertension: Plan: Currently controlled. Continue current medical management (4) Coronary artery disease: Plan: Previous coronary artery bypass grafting. Currently stable. Medical management Plan Awaiting acceptance at [facility] for transfer to their facility per family request. Admission and Anticipated Discharge Date Admission Date: June 19, 2025 Subjective Alert and oriented. No change in clinical status. Potassium corrected to 3.5. Magnesium corrected to 1.9. [facility] vascular surgery requested thin cut abdomen CT scan which shows no new findings. Mesenteric arterial ultrasound completed which reveals increased velocities in the celiac artery and superior mesenteric artery as expected. She is on PPN at 58. Hopefully she will be accepted at [facility] and she can be transferred to their tertiary care facility for further care Review of Systems 2 Review of Systems: Constitutionalno fever or chills ENTno blurred vision, no double vision, no epistaxis, no sore throat Respiratoryno cough, no wheezing, no shortness of breath Cardiacno palpitations, no chest pain, no syncope Armando nausea, vomiting, diarrhea, melena, hematochezia. Postprandial diffuse abdominal pain GUno urinary retention, no urinary incontinence, no dysuria, no hematuria Musculoskeletalno joint pain, no muscle tenderness Skinno bruising, no rashes, no pruritus Neurono isolated weakness, no paresthesia, no weakness Psychno depression, no anxiety Physical Exam 2 Physical Exam: General-alert and oriented x3, no fever, no chills HEENT-head atraumatic and normocephalic, pupils equal and reactive to light, extraocular muscles intact Neck-no lymphadenopathy or thyromegaly, trachea midline Chest-clear to auscultation. No rales, wheezing or rhonchi Cardiac-regular rate and rhythm, normal S1 and S2 Abdomen-normal bowel sounds, no hepatosplenomegaly Extremities-no cyanosis, clubbing, or edema Neuro-cranial nerves II through XII intact, motor and sensory function within normal limits, strength symmetrical, no focal deficits Psych-normal affect, normal mood Results & Data Results & Data Vital Signs (Past 12 Hours) Vital Signs Temp Pulse Pulse Resp BP Pulse Ox O2 Del Method 06/22/25 11:26 37.1 C 66 18 137/80 91 Room Air 06/22/25 07:32 37.1 C 83 18 146/81 H 92 Room Air 06/22/25 07:10 78 06/22/25 03:08 36.8 C 76 16 162/78 H 91 Room Air Laboratory Results 06/22/25 05:41 06/22/25 05:41 PG Care Time/CCT Total # of Minutes Spent Total Time Spent with Patient: Total time spent is greater than 50% in coordination of care (as documented) at patient's floor/unit and/or counseling patient: Coding Level of Care Code 11465 SUB INP/OBS CARE 2/35MIN Diagnoses Intestinal angina K55.1 PAF (paroxysmal atrial fibrillation) I48.0 Essential hypertension I10 Coronary artery disease I25.10
[2025-06-22] MEDS: CLINOLIPID 20% IV FAT EMULSION 200 ML IV SCH (16:32)
[2025-06-22] MEDS: [UNRECOGNIZED DRUG - OTHER] IV SCH (16:33)
[2025-06-22] MEDS: PERIPHERAL TPN IV SCH (16:33)
[2025-06-22] MEDS: LORazepam 0.5 MG TAB PO PRN (21:57)
[2025-06-23] MEDS: STOP CLINOLIPID SCH (04:30)
[2025-06-23 06:49] LABS: Anion Gap 7.0 (3-11); Blood Urea Nitrogen 16.0 mg/dl (6-23); Calcium 8.3 mg/dl (8.6-10.3); Carbon Dioxide 29.0 mmol/L (21-32); Chloride 103.0 mmol/L (98-107); Creatinine Clr Calc Pharmacy 30.6 ml/min; Glucose 110.0 mg/dl (70-99(Fasting)); Magnesium 2.0 mg/dl (1.7-2.4); Potassium 4.0 mmol/L (3.5-5.1); Sodium 139.0 mmol/L (136-145)
[2025-06-23 06:51] LABS: ANTI-Xa, UFH(UnfractionatedHep 0.35 IU/ml (0.3-0.7)
--- NOTE | 2025-06-23 09:31 | Hospitalist Progress Note ---
Date of Service June 23, 2025 Assessment & Plan (1) Superior mesenteric artery stenosis: (2) Coronary artery disease: (3) Essential hypertension: (4) Intestinal angina: Plan #Intestinal angina - continue heparin drip - Patient's family initially wanted to complete procedure at [place], after discussion today with family, they have decided to undergo mesenteric angiography on Monday with Dr. Goldman at [facility] - Diet: PPN + clear liquids #Dizziness/Hypoxia - satted 85%, discussed as an additional barrier to transferring to [place] - will monitor vitals #Paroxysmal afib - Continue home medications #Essential HTN - continue home medications #CAD - coronary artery bypass grafting hx - stable Dispo: med surg with tele Diet: clear liquids + PPN Code status: DNR/DNI VTE Prophylaxis: Heparin IV Admission and Anticipated Discharge Date Admission Date: June 19, 2025 Supervising Physician Co-Signing Physician Notes I personally examined the patient and verified all catalan points of history and exam, discussed case, and agree with decision making with Dr Vasques seen 3 separate times today. She is feeling okay as long as she is not eating much. She was n.p.o. today due to planned procedure which was then canceled given family's desire to have her transferred to [place]. Patient herself is fairly ambivalent about having procedure done here versus there. Yesterday had Jell-Odid not cause any pain, just very tired of it. Revisitedextensive discussion with family regarding transfer, roadblocks to it, etc. Discussed that procedure could be done here, and in my experience I would trust the vascular surgeon to do it welland her previous perioperative complications seems to be things that would be very manageable. Also discussed I totally understand and empathized with the family's desire to have procedure done at a tertiary care, but that I have been informed that it would require insurance authorization as it is a lateral move. They also ask about leaving against advice and going simply straight to the [place] ER. I discussed the many pitfalls this might entail vitals noted, in general she is awake and alert pleasant no distress. HEENT normocephalic atraumatic mucous membranes moist. Breathing unlabored no accessory muscle use good effort. Skin without rashes pallor or icterus. Neuro without focal deficits. Mesenteric artery ischemia with intestinal anginatolerating clear liquids, supplemented with PPN. Was to have vascular procedure today, but family had wanted her transferred to [place] if at all possiblethis then led to today's procedure being canceled. After extensive discussions, and the strong potential that they were going to take her from here to the [place] ER, they then decided to keep her here. They did ask for us to try for prior authorizationdiscussed that is not likely to be approved, but we have set process in motion. Unfortunately no OR time again until Monday. Continue heparin drip given that she has had a worsening intestinal anginal pattern prior to admission. Hypoxiaprobably atelectasis. Incentive spirometry. Supplemental oxygen and supportive care. Chronic atrial fibrillation/pulmonary hypertension/coronary artery diseaseclinically stable at this time severe protein calorie malnutrition present on admission with low overall weight and low and BMIsupplemental nutrition IV at this time. Once her int estinal ischemia has been alleviated, will need to work with a dietitian to improve her overall calorie intake. DVT prophylaxisanticoagulated Subjective Patient states she is not having abdominal pain today. Reports for past few weeks before being in the hospital, she had abdominal pain 10-12 minutes after eating. States it has resolved now. Denies nausea, vomiting, CP, SOB. Review of Systems Review of Systems: All systems reviewed & are unremarkable except as noted in HPI & below Physical Exam Constitutional: + thin; no acute distress Respiratory: normal respiratory effort, lungs clear to auscultation Cardiovascular: RRR, no murmur, no edema Gastrointestinal (Abdomen): normal bowel sounds, soft, nontender, no hepatosplenomegaly Skin: no rashes, warm and dry Psychiatric: A+Ox3, euthymic affect Results & Data Results & Data Vital Signs (Past 12 Hours) Vital Signs Temp Pulse Pulse Resp BP Pulse Ox O2 Del Method 06/23/25 08:17 68 06/23/25 08:03 36.9 C 84 16 177/82 H 89 L Nasal Cannula 06/23/25 03:03 36.8 C 96 H 16 154/77 H 97 Nasal Cannula 06/23/25 00:14 77 149/76 H 96 Nasal Cannula 06/22/25 23:16 37.1 C 98 H 16 173/68 H 95 Nasal Cannula 06/22/25 22:04 93 Nasal Cannula 06/22/25 22:00 Nasal Cannula 06/22/25 22:00 89 L Room Air 06/22/25 21:46 78 O2 Flow Rate 06/23/25 08:17 06/23/25 08:03 1.5 06/23/25 03:03 1 06/23/25 00:14 1 06/22/25 23:16 1 06/22/25 22:04 1 06/22/25 22:00 1 06/22/25 22:00 06/22/25 21:46 Resident Activity Tracking Resident Involvement: Resident Care Provided Care Provided: Adult Hospital Medicine
[2025-06-23] MEDS ORDERED: TPN/PPN CONSULT PHARMACY STA (14:31)
[2025-06-23] MEDS ORDERED: PERIPHERAL TPN IV SCH (16:00)
[2025-06-23] MEDS ORDERED: [UNRECOGNIZED DRUG - OTHER] IV SCH (16:00)
[2025-06-23] MEDS: [UNRECOGNIZED DRUG - OTHER] IV SCH (17:02)
[2025-06-23] MEDS: PERIPHERAL TPN IV SCH (17:02)
[2025-06-23] MEDS: CLINOLIPID 20% IV FAT EMULSION 200 ML IV SCH (17:04)
--- NOTE | 2025-06-23 18:05 | Billing Data ---
Date of Service June 23, 2025 Coding Level of Care Code 10369 SUB INP/OBS CARE MIN
[2025-06-23] MEDS: LIDOCAINE 1% LOCAL 20 ML VIAL ONE (19:32)
[2025-06-24] MEDS: ACETAMINOPHEN 325 MG TAB PO ONE (03:34)
[2025-06-24 06:09] LABS: Hematocrit (blood only) 30.6 % (37.0-47.0); Hemoglobin 10.0 g/dl (12.0-16.0); Immature Granulocytes # (auto) 0.02 K/uL (0.01-0.20); Immature Granulocytes % (auto) 0.3 %; Mean Corpuscular Hemoglobin 27.1 pg (25.0-34.0); Mean Corpuscular Volume 82.9 fL (80.0-100.0); Platelet Count 196 K/uL (130-400); RDW Standard Deviation 46.7 fL (36.4-46.3); Red Blood Count 3.69 M/uL (4.20-5.40); White Blood Count 7.26 K/ul (4.8-10.8)
[2025-06-24 06:34] LABS: Anion Gap 5.0 (3-11); Blood Urea Nitrogen 19.0 mg/dl (6-23); Calcium 8.3 mg/dl (8.6-10.3); Carbon Dioxide 30.0 mmol/L (21-32); Chloride 103.0 mmol/L (98-107); Creatinine Clr Calc Pharmacy 36.5 ml/min; Glucose 114.0 mg/dl (70-99(Fasting)); Magnesium 2.0 mg/dl (1.7-2.4); Potassium 3.9 mmol/L (3.5-5.1); Sodium 138.0 mmol/L (136-145)
[2025-06-24 06:58] LABS: ANTI-Xa, UFH(UnfractionatedHep 0.27 IU/ml (0.3-0.7)
[2025-06-24] MEDS: OPTIRAY 320 125ml IV ONE (08:47)
--- NOTE | 2025-06-24 10:18 | Hospitalist Progress Note ---
Date of Service June 24, 2025 Assessment & Plan (1) Superior mesenteric artery stenosis: (2) Coronary artery disease: (3) Essential hypertension: (4) Intestinal angina: Plan #Intestinal angina - continue heparin drip - Patient's family initially wanted to complete procedure at [place], after discussion with family, they have decided to undergo mesenteric angiography on Monday with Dr. Goldman at [facility] - Diet: PPN + clear liquids #Dizziness/Hypoxia - satted 85% 06/23 when getting up to go to bathroom, discussed as an additional barrier to transferring to [place] - will monitor vitals - incentive spirometry q4hwa #Cough - tessalon pearles prn #Paroxysmal afib - Continue home medications #Essential HTN - continue home medications #CAD - coronary artery bypass grafting hx - stable Dispo: med surg with tele Diet: clear liquids + PPN Code status: DNR/DNI VTE Prophylaxis: Heparin IV Admission and Anticipated Discharge Date Admission Date: June 19, 2025 Supervising Physician Co-Signing Physician Notes I personally examined the patient and verified all catalan points of history and exam, discussed case, and agree with decision making with Dr Vasques cough, clear sputum. No persistent shortness of breath. No orthopnea. Notes maybe occasionally feeling a little bit short winded, but cannot even really clarify when. Denies dyspnea when were talking. vitals noted, in general she is awake and alert pleasant no distress. HEENT normocephalic atraumatic mucous membranes moist. Breathing unlabored no accessory muscle use good effort. Lungs with scattered rales, but clears after incentive spirometry, no rhonchi no wheezes good effort. Skin without rashes pallor or icterus. Neuro without focal deficits. Mesenteric artery ischemia with intestinal anginatolerating clear liquids, supplemented with PPN. Was to have vascular procedure 06/23, but family had wanted her transferred to [place] if at all possiblethis then led to that procedure being canceled. right now the default plan would be OR here on Monday. Discussed with vascular surgery who is okay with this plan. Also awaiting insurance authorization for possible transfer to [facility] if we have transfer approved by insurance, we will still need to double back to get an accepting physician and a bed (therefore will need to discuss with family further). Considered PT/OT eval and treat, but given that she does get a little bit of abdominal pain even with her coughing fit, would hesitate to have her exert much until this stenosis is opened up. Hypoxiaprobably atelectasis. Incentive spirometry. Supplemental oxygen and supportive care. Considered pulmonary edema from fluid volume from PPNbut given that she does not have orthopnea (she was laying near flat when we were talking) and her lung findings clear with incentive spirometryhypoxia still the leading differential Chronic atrial fibrillation/pulmonary hypertension/coronary artery diseaseclinically stable at this time severe protein calorie malnutrition present on admission with low overall weight and low and BMIsupplemental nutrition IV at this time. Once her intestinal ischemia has been alleviated, will need to work with a dietitian to improve her overall calorie intake. DVT prophylaxisanticoagulated Subjective Patient states she had 4/10 abdominal pain this morning after transport for her imaging studies today. States she ate some Jello and drank some tea earlier this morning. Denies nausea and vomiting. Denies SOB, CP. Review of Systems Review of Systems: All systems reviewed & are unremarkable except as noted in HPI & below Physical Exam Constitutional: + thin; no acute distress Respiratory: normal respiratory effort, lungs clear to auscultation Cardiovascular: RRR, no murmur, no edema Gastrointestinal (Abdomen): normal bowel sounds, soft, nontender, no hepatosplenomegaly Skin: no rashes, warm and dry Psychiatric: A+Ox3, euthymic affect Results & Data Results & Data Vital Signs (Past 12 Hours) Vital Signs Temp Pulse Pulse Resp BP Pulse Ox O2 Del Method 06/24/25 07:38 36.5 C 68 16 117/65 97 Nasal Cannula 06/24/25 07:31 63 06/24/25 03:48 36.4 C L 78 30 H 131/71 99 Nasal Cannula 06/23/25 22:52 36.5 C 63 23 106/57 L 97 Nasal Cannula O2 Flow Rate 06/24/25 07:38 1 06/24/25 07:31 06/24/25 03:48 1.5 06/23/25 22:52 1.5 Resident Activity Tracking Resident Involvement: Resident Care Provided Care Provided: Adult Hospital Medicine
--- NOTE | 2025-06-24 10:51 | CT Scan Report ---
CT angio abdomen w con HISTORY: 85 years-old Female mesenteric stenosis COMPARISON: CT abdomen and pelvis 06/21/2025, duplex mesenteric Doppler study 06/21/2025, CTA 05/29/20 TECHNIQUE: CTA abdomen was obtained with IV contrast. 3-D coronal and sagittal MIPS were obtained and transmitted for review. All measurements were obtained according to NASCET criteria. A dose lowering technique was used consistent with the principals of SHAMA. FINDINGS: CTA chest dictated separately. Layering pleural effusions are again noted along with dependent bibasi lar consolidation and intralobular septal thickening suggestive of pulmonary edema with atelectasis. Cardiomegaly with median sternotomy wires are noted. There is no pneumatosis or pneumoperitoneum. Unremarkable spleen, pancreas and adrenal glands. Hyperdense material is again noted within the bladd er lumen suggestive of vicarious excretion of contrast. Unremarkable liver. Cortical scarring of the right kidney redemonstrated. 1.7 cm left renal cyst again noted. The inferior pole right kidney is on ly partially imaged. No hydronephrosis. There is mild nonspecific distal esophageal wall thickening. No bowel obstruction or bowel wall thickening. Colonic diverticulosis. Trace ascites. Body wall edema is noted. Degenerative changes of the spine without acute fracture identified. Sclerotic focus of th e T11 vertebral body is unchanged. No lymphadenopathy. CTA: Abdominal aorta and iliac arteries: There is advanced atherosclerotic calcification and diffuse aneur ysmal dilatation of the abdominal aorta. The aorta measures 3.4 x 3.9 cm at the hiatus (AP x transver se), 3.2 x 3.2 cm at the level of the renal arteries, 3.3 x 3.4 cm below the renal arteries, and 1.7 x 2.0 cm above the bifurcation. These findings are unchanged from 05/29/2025. There is no dissection o r acute intramural thrombus There is advanced atherosclerotic plaque and irregularity throughout the iliac arteries which are partially imaged. Major branches of the abdominal aorta: There is moderate stenosis at the origin of the celiac trunk, unchanged. Mild stenosis is seen in the proximal superior mesenteric artery approximately 1 cm from i ts origin, unchanged. There is also moderate stenosis at the origin of the inferior mesenteric artery , unchanged. The splenic artery is patent. There are single bilateral renal arteries. Moderate to hig h-grade stenosis is seen at the origin of both renal arteries, unchanged. IMPRESSION: 1. Advanced atherosclerosis with unchanging aneurysmal dilation of the abdominal aorta measuring up t o 3.4 cm which is unchanged compared to the 05/29/2025 CTA study. 2. Unchanged multifocal stenoses of the abdominal aorta branch vessels as above. 3. No acute intra-abdominal abnormality. 4. Cardiomegaly with evidence of volume overload including layering pleural effusions, anasarca with trace ascites. 5. Colonic diverticulosis. ACT 112: Negative or not required by law. The above report was generated using voice recognition software. It may contain grammatical, syntax o r spelling errors. Electronically signed by: Jarod Rodriguez M.D. 06/24/2025 10:50 AM
--- NOTE | 2025-06-24 11:36 | CT Scan Report ---
CT angio chest w con CLINICAL HISTORY: sma stenosis emphysema. History of prior left upper lobe mass. COMPARISON STUDY: 08/22/2024 FINDINGS: The patient was scanned in a dynamic helical fashion during intravenous administration 112 cc of Opti ray 320. There is no evidence of pathologic axillary lymphadenopathy. There are mildly enlarged mediastinal ly mph nodes similar to the prior study and likely reactive. The heart is enlarged. There are coronary artery calcifications. There is suspected left ventricular hypertrophy. There is thinning of the left cardiac apex. This sug gest a prior infarct. There are moderate bilateral pleural effusions. There are bilateral lower lobe compressive atelectati c changes. There is underlying pulmonary emphysema. There is evidence for bronchial wall thickening with areas o f mild mucous plugging. There is a 42 mm right middle lobe bulla with septations. There is an irregul ar left apical masslike opacity measuring measuring 32 x 12 x 9 mm. This appears similar in size to studies dating back to June 2021 and likely represents an area of post radiation change. There is aneurysmal dilatation of the descending thoracic aorta which measures 35 mm. There is irregularity th e contrast-enhanced lumen consistent with ulcerated plaques. No dissection is visualized. IMPRESSION: 1. Pulmonary emphysema. There is multifocal bronchial wall thickening with areas of mucous plugging 2. Stable 32 x 12 x 9 mm left apical masslike opacity likely representing an area of post radiation c hange 3. Cardiomegaly, suspected left ventricular hypertrophy, and left apical myocardial thinning. 4. Evidence of volume overload with bilateral pleural effusions and associated basilar atelectasis. 5. Stable mild mediastinal adenopathy 6. 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 Multiple ulcerated pl aques. No evidence of dissection. ACT 112: Negative or not required by law. Electronically signed by: Jose Rafael Richardson M.D. 06/24/2025 11:34 AM
[2025-06-24] MEDS ORDERED: BENZONATATE 100 MG CAPSULE PO PRN (11:52)
[2025-06-24 13:26] LABS: ANTI-Xa, UFH(UnfractionatedHep 0.30 IU/ml (0.3-0.7)
[2025-06-24] MEDS: [UNRECOGNIZED DRUG - OTHER] IV SCH (16:01)
[2025-06-24] MEDS: PERIPHERAL TPN IV SCH (16:01)
[2025-06-24] MEDS: CLINOLIPID 20% IV FAT EMULSION 200 ML IV SCH (16:11)
--- NOTE | 2025-06-24 17:20 | Billing Data ---
Date of Service June 24, 2025 Coding Level of Care Code 93480 SUB INP/OBS CARE MIN
--- NOTE | 2025-06-24 17:20 | Billing Data ---
Date of Service June 24, 2025 Coding Level of Care Code 31884 SUB INP/OBS CARE MIN
[2025-06-25 07:51] LABS: ANTI-Xa, UFH(UnfractionatedHep 0.38 IU/ml (0.3-0.7)
[2025-06-25 07:53] LABS: Alanine Aminotransferase 5.0 U/L (7-52); Alkaline Phosphatase 57.0 U/L (34-104); Anion Gap 5.0 (3-11); Bilirubin,Total 0.4 mg/dl (0.2-1.0); Blood Urea Nitrogen 17.0 mg/dl (6-23); Calcium 8.7 mg/dl (8.6-10.3); Carbon Dioxide 29.0 mmol/L (21-32); Chloride 103.0 mmol/L (98-107); Creatinine Clr Calc Pharmacy 37.5 ml/min; Glucose 96.0 mg/dl (70-99(Fasting)); Magnesium 2.0 mg/dl (1.7-2.4); Potassium 4.2 mmol/L (3.5-5.1); Sodium 137.0 mmol/L (136-145)
--- NOTE | 2025-06-25 09:14 | Hospitalist Progress Note ---
Date of Service June 25, 2025 Assessment & Plan (1) Superior mesenteric artery stenosis: (2) Coronary artery disease: (3) Essential hypertension: (4) Intestinal angina: Plan #Intestinal angina - continue heparin drip - Patient's family initially wanted to complete procedure at [place], after discussion with family, they have decided to undergo mesenteric angiography on Monday with Dr. Goldman at [facility] - Discussed insurance approval for [place] however patient is adamant to stay and have procedure done here, discussed risks and benefits of both options and agree with patient that with transfer, high likelihood for further delay for procedure, we will continue with planned procedure on Monday - Diet: PPN + clear liquids #Dizziness/Hypoxia - satted 85% 06/23 when getting up to go to bathroom, discussed as an additional barrier to transferring to [place] - will monitor vitals - incentive spirometry q4hwa #Cough - tessalon pearles prn #Paroxysmal afib - Continue home medications #Essential HTN - continue home medications #CAD - coronary artery bypass grafting hx - stable Dispo: med surg with tele Diet: clear liquids + PPN Code status: DNR/DNI VTE Prophylaxis: Heparin IV Admission and Anticipated Discharge Date Admission Date: June 19, 2025 Supervising Physician Co-Signing Physician Notes I personally examined the patient and verified all catalan points of history and exam, discussed case, and agree with decision making with Dr Vasques breathing feels okay. Cough far better. Discussed surprising approval by insurance for transfer to [place], discussed what next steps would entail for transferpatient clear with resident physician this morning, and then again very clear with me that she does not want us to pursue transfer furtherthat she would much rather just have the procedure done here, and she understandably worries about further delays should we try to pursue transfer, and feels comfortable being taken care of here. She has capacity. Vitals noted, in general she is awake alert oriented pleasant no distress. HEENT normocephalic atraumatic mucous membranes moist. Breathing unlabored no accessory muscle use good effort. Skin without rashes pallor or icterus. Neuro without focal deficits. Mesenteric artery ischemia with intestinal anginatolerating clear liquids, supplemented with PPN. Was to have vascular procedure 06/23, but family had wanted her transferred to [place] if at all possiblethis then led to that procedure being canceled. Now scheduled for procedure on 06/27. Patient prefers to have procedure done here, comfortable with care. Continue heparin drip, continue clear liquid diet. Hypoxiaprobably atelectasis. Incentive spirometry. Supplemental oxygen and supportive care. Improved from yesterday. Encouraged ongoing use of incentive spirometry Chronic atrial fibrillation/pulmonary hypertension/coronary artery diseaseclinically stable at this time severe protein calorie malnutrition present on admission with low overall weight and low and BMIsupplemental nutrition IV at this time. Once her intestinal ischemia has been alleviated, will need to work with a dietitian to improve her overall calorie intake. DVT prophylaxisanticoagulated Subjective Patient is without complaints. Denies abdominal pain, chest pain, SOB. She is doing well on liquid diet. Slept well last night. We discussed that insurance authorization approved her for [place] transfer, however patient was adamant on not being transferred anymore and stated "I would not like to go to [place], and would like to have procedure done here". Review of Systems Constitutional: as per Subjective / HPI Physical Exam Constitutional: + thin; no acute distress Respiratory: normal respiratory effort, lungs clear to auscultation Cardiovascular: RRR, no murmur, no edema Gastrointestinal (Abdomen): normal bowel sounds, soft, nontender, no hepatosplenomegaly Skin: no rashes, warm and dry Psychiatric: A+Ox3, euthymic affect Results & Data Results & Data Vital Signs (Past 12 Hours) Vital Signs Temp Pulse Pulse Resp BP Pulse Ox O2 Del Method 06/25/25 07:26 36.6 C 86 16 165/79 H 95 Nasal Cannula 06/25/25 07:15 Nasal Cannula 06/25/25 07:00 68 06/25/25 02:14 36.7 C 78 17 145/77 H 95 Nasal Cannula 06/24/25 22:37 36.4 C L 73 16 127/74 93 Nasal Cannula 06/24/25 22:00 84 O2 Flow Rate 06/25/25 07:26 1 06/25/25 07:15 1 06/25/25 07:00 06/25/25 02:14 1 06/24/25 22:37 1 06/24/25 22:00 Resident Activity Tracking Resident Involvement: Resident Care Provided Care Provided: Adult Hospital Medicine
--- NOTE | 2025-06-25 12:36 | Billing Data ---
Date of Service June 25, 2025 Coding Level of Care Code 40813 SUB INP/OBS CARE
[2025-06-25] MEDS: [UNRECOGNIZED DRUG - OTHER] IV SCH (15:48)
[2025-06-25] MEDS: CLINOLIPID 20% IV FAT EMULSION 200 ML IV SCH (15:48)
[2025-06-25] MEDS: PERIPHERAL TPN IV SCH (15:48)
[2025-06-26 06:09] LABS: Hematocrit (blood only) 31.5 % (37.0-47.0); Hemoglobin 10.3 g/dl (12.0-16.0); Immature Granulocytes # (auto) 0.01 K/uL (0.01-0.20); Immature Granulocytes % (auto) 0.3 %; Mean Corpuscular Hemoglobin 27.1 pg (25.0-34.0); Mean Corpuscular Volume 82.9 fL (80.0-100.0); Platelet Count 213 K/uL (130-400); RDW Standard Deviation 47.0 fL (36.4-46.3); Red Blood Count 3.80 M/uL (4.20-5.40); White Blood Count 3.33 K/ul (4.8-10.8)
[2025-06-26 06:30] LABS: Anion Gap 5.0 (3-11); Blood Urea Nitrogen 15.0 mg/dl (6-23); Calcium 8.6 mg/dl (8.6-10.3); Carbon Dioxide 29.0 mmol/L (21-32); Chloride 104.0 mmol/L (98-107); Creatinine Clr Calc Pharmacy 39.3 ml/min; Glucose 100.0 mg/dl (70-99(Fasting)); Magnesium 2.0 mg/dl (1.7-2.4); Potassium 4.2 mmol/L (3.5-5.1); Sodium 138.0 mmol/L (136-145)
[2025-06-26 06:32] LABS: ANTI-Xa, UFH(UnfractionatedHep 0.38 IU/ml (0.3-0.7)
--- NOTE | 2025-06-26 07:56 | Hospitalist Progress Note ---
Date of Service June 26, 2025 Assessment & Plan (1) Superior mesenteric artery stenosis: (2) Coronary artery disease: (3) Essential hypertension: (4) Intestinal angina: Plan #Intestinal angina - continue heparin drip - Patient's family initially wanted to complete procedure at [facility], after discussion with family, they have decided to undergo mesenteric angiography on Monday with Dr. Goldman at [facility] - Discussed insurance approval for [facility] 06/26, however patient is adamant to stay and have procedure done here, discussed risks and benefits of both options and agree with patient that with transfer, high likelihood for further delay for procedure, we will continue with planned procedure tomorrow, NPO at midnight - Diet: PPN + clear liquids #Dizziness/Hypoxia - satted 85% 06/23 when getting up to go to bathroom, discussed as an additional barrier to transferring to [facility] - will monitor vitals - incentive spirometry q4hwa - stable #Cough - tessalon pearles prn - stable #Paroxysmal afib - Continue home medications #Essential HTN - continue home medications #CAD - coronary artery bypass grafting hx - stable Dispo: med surg with tele Diet: clear liquids + PPN, NPO midnight Code status: DNR/DNI VTE Prophylaxis: Heparin IV Admission and Anticipated Discharge Date Admission Date: June 19, 2025 Supervising Physician Co-Signing Physician Notes I personally examined the patient and verified all catalan points of history and exam, discussed case, and agree with decision making with Dr Vasques Discussed with vascular surgery. Input greatly appreciated. Patient herself is feeling okay. Anxious to get procedure over with that she can start to get back to life. Discussed discharge planningwill need to make sure she is eating and drinking well and we will need to make sure she is functional. Vitals noted, in general she is awake alert oriented pleasant no distress. HEENT normocephalic atraumatic mucous membranes moist. Breathing unlabored no accessory muscle use good effort. Skin without rashes pallor or icterus. Neuro without focal deficits. Mesenteric artery ischemia with intestinal anginatolerating clear liquids, supplemented with PPN. Was to have vascular procedure 06/23, but family had wanted her transferred to [facility] if at all possiblethis then led to that procedure being canceled. Patient prefers to have procedure done here, comfortable with care. Continue heparin drip, continue clear liquid diet. Procedure to be done tomorrow. Advance diet after. Hypoxiaprobably atelectasis. Incentive spirometry. Supplemental oxygen and supportive care. Improved from yesterday. Encouraged ongoing use of incentive spirometry Chronic atrial fibrillation/pulmonary hypertension/coronary artery diseaseclinically stable at this time severe protein calorie malnutrition present on admission with low overall weight and low and BMIsupplemental nutrition IV at this time. Once her intestinal ischemia has been alleviated, will need to work with a dietitian to improve her overall calorie intake. PT/OT eval and treat after procedure. DVT prophylaxisanticoagulated Subjective Patient states she is doing well - no changes from yesterday. Denies CP, SOB, AP, N/V. She is eager for her surgery tomorrow. Review of Systems Review of Systems: All systems reviewed & are unremarkable except as noted in HPI & below Physical Exam Constitutional: + thin; no acute distress Respiratory: normal respiratory effort, lungs clear to auscultation Cardiovascular: RRR, no murmur, no edema Gastrointestinal (Abdomen): normal bowel sounds, soft, nontender, no hepatosplenomegaly Skin: no rashes, warm and dry Psychiatric: A+Ox3, euthymic affect Results & Data Results & Data Vital Signs (Past 12 Hours) Vital Signs Temp Pulse Pulse Resp BP Pulse Ox O2 Del Method 06/26/25 07:22 66 06/26/25 01:56 36.8 C 71 16 145/74 H 98 Nasal Cannula 06/25/25 23:15 36.5 C 71 16 126/64 97 Room Air 06/25/25 22:00 78 O2 Flow Rate 06/26/25 07:22 06/26/25 01:56 1 06/25/25 23:15 06/25/25 22:00 Resident Activity Tracking Resident Involvement: Resident Care Provided Care Provided: Adult Hospital Medicine
[2025-06-26] MEDS: ACETAMINOPHEN IV PRN (11:07)
--- NOTE | 2025-06-26 12:59 | Pharmacy Report ---
Pharmacy PN Follow-up Note - Date of Service June 26, 2025 - Subjective Patient is currently on day #6 of PPN for mesenteric artery insufficiency with severe protein calorie malnutrition on admission with low overall weight and low BMI. - Objective Height & Weight (Last Documented) Height 4 ft 11 in Weight 42.7 kg Diet Order(s) 06/23/25 Dinner Diet 06/27/25 00:01 NPO Intake & Ouput (24hrs) 06/25/25 06/26/25 06/27/25 06:59 06:59 06:59 Intake Total 3086.15 / 3287.883 2402.216 / 2402.216 260.367 / 260.367 Output Total 2 / 2 Balance 3084.15 / 3285.883 2402.216 / 2402.216 260.367 / 260.367 Selected Laboratory Results 06/26/25 05:31 Sodium 138 Potassium 4.2 Chloride 104 Carbon Dioxide 29 Anion Gap 5 BUN 15 Creatinine 0.68 BUN/Creatinine Ratio 22.1 H Glucose 100 H Calcium 8.6 Phosphorus 4.2 Magnesium 2.0 - Assessment & Plan Assessment: Mesenteric artery stenting scheduled for tomorrow morning--patient agreeable to have done here. Patient to be NPO at midnight. Plan: * For Day #6 of PPN administration, the following will be ordered: * Macronutrients: * Amino Acids: 61 grams/day * Dextrose: 72 grams/day * Lipids: 40 grams/day * Micronutrients: * TPN electrolytes: 0 mL/day Contains 35 mEq Na, 20 mEq K, 4.5 mEq Ca, 5 mEq Mg, 35 mEq Cl, 29.5 mEq Acetate per 20 mL * Sodium phosphate: 15 mMol/day * Sodium chloride: 70 mEq/day * Sodium acetate: 20 mEq/day * Potassium phosphate: 0 mMol/day * Potassium chloride: 0 mEq/day * Potassium acetate: 60 mEq/day * Magnesium sulfate: 8.12 mEq/day * Calcium gluconate: 4.65 mEq/day * Multivitamins: 10 mL/day * Trace elements: 1 mL/day * Total volume of 1536 mL will be infused over 24 hours and will provide 890 kcal/day * Patient is on PPN which has a maximum mOsm/L of 900. Final osmolarity of current solution is 862.3 mOsm/L. * Labs will be ordered per PN protocol. * Pharmacy will follow and adjust PN orders on a daily basis. Thank you!
--- NOTE | 2025-06-26 14:06 | Surgery Progress Note ---
Date of Service June 26, 2025 Assessment & Plan (1) Superior mesenteric artery stenosis: Plan: Will plan on stenting the SMA tomorrow am. Will keep on heparin until stenting is complete then switch to plavix. I have discussed the risks options and benefits of the procedure with the patient and her family. The patient and family understand the risks options and benefits and agrees to the procedure. Admission and Anticipated Discharge Date Admission Date: June 19, 2025 Subjective Patient on liquids. No abdominal pain when not eating Physical Exam Constitutional: WD/WN, vitals as above Respiratory: normal respiratory effort; no respiratory distress Cardiovascular: Rate/Rhythm: regular rate and regular rhythm Gastrointestinal (Abdomen): Inspection/Auscultation: abdomen normal to inspection; abdomen not distended Percussion/Palpation: abdomen soft; abdomen nontender Psychiatric: A+Ox3, euthymic affect Results & Data Vital Signs (Past 12 Hours) Vital Signs Temp Pulse Pulse Resp BP Pulse Ox O2 Del Method 06/26/25 11:46 36.8 C 71 16 117/69 94 Room Air 06/26/25 10:43 Room Air 06/26/25 08:02 36.3 C L 71 20 165/79 H 94 Room Air 06/26/25 07:22 66
[2025-06-26] MEDS: [UNRECOGNIZED DRUG - OTHER] IV SCH (17:24)
[2025-06-26] MEDS: PERIPHERAL TPN IV SCH (17:24)
[2025-06-26] MEDS: CLINOLIPID 20% IV FAT EMULSION 200 ML IV SCH (17:24)
--- NOTE | 2025-06-26 18:52 | Billing Data ---
Date of Service June 26, 2025 Coding Level of Care Code 71433 SUB INP/OBS CARE
[2025-06-27 06:46] LABS: Hematocrit (blood only) 35.8 % (37.0-47.0); Hemoglobin 11.2 g/dl (12.0-16.0); Immature Granulocytes # (auto) 0.01 K/uL (0.01-0.20); Immature Granulocytes % (auto) 0.2 %; Mean Corpuscular Hemoglobin 26.1 pg (25.0-34.0); Mean Corpuscular Volume 83.4 fL (80.0-100.0); Platelet Count 243 K/uL (130-400); RDW Standard Deviation 47.2 fL (36.4-46.3); Red Blood Count 4.29 M/uL (4.20-5.40); White Blood Count 4.07 K/ul (4.8-10.8)
[2025-06-27 06:58] LABS: Anion Gap 7.0 (3-11); Calcium 8.8 mg/dl (8.6-10.3); Carbon Dioxide 26.0 mmol/L (21-32); Chloride 104.0 mmol/L (98-107); Magnesium 2.1 mg/dl (1.7-2.4); Potassium 4.4 mmol/L (3.5-5.1); Sodium 137.0 mmol/L (136-145)
[2025-06-27 07:04] LABS: Blood Urea Nitrogen 19.0 mg/dl (6-23); Creatinine Clr Calc Pharmacy 34.5 ml/min; Glucose 99.0 mg/dl (70-99(Fasting))
[2025-06-27] MEDS ORDERED: DEXAMETHASONE SOD INJ 4 MG/ML VIAL ONE (07:04)
[2025-06-27] MEDS ORDERED: LIDOCAINE 2% 2 ML VIAL/AMP(20MG/ML) INFIL ONE (07:04)
[2025-06-27] MEDS ORDERED: ONDANSETRON INJ 2 MG/ML 2 ML VIAL ONE (07:04)
[2025-06-27] MEDS ORDERED: PROPOFOL IV EMULSION 10 MG/ML 20 ML VIAL IV ONE ×4 (07:04→09:10)
[2025-06-27] MEDS ORDERED: ROCURONIUM BROMIDE 10 MG/ML 5 ML VIAL IV ONE (07:04)
[2025-06-27 07:08] LABS: ANTI-Xa, UFH(UnfractionatedHep 0.39 IU/ml (0.3-0.7)
[2025-06-27] MEDS ORDERED: PHENYLEPHRINE HCL 10 MG/ML VIAL ONE (07:11)
--- NOTE | 2025-06-27 07:31 | Anesthesiology Consultation ---
Date of Service June 27, 2025 Assessment & Plan Chart Review Chart Review: Acceptable Risk for Surgery and Patient NOT seen in Pre Admission Testing Consults Requested none ASA ASA4 Proposed Anesthesia Anesthesia Type: General Anesthesia Line Insertion: Arterial line and Central Venous Catheter Risk / Benefits Reviewed With: PT / POA / Parent / Guardian, Accepts Plan and Informed Consent Obtained History Surgery Operation Date: 06/23/25 08:00 Proposed Procedures p Mesenteric Angiogram with Intervention - Aniceto Goldman MD Operation Date: 06/27/25 08:00 Proposed Procedures p Superior Mesenteric Artery Stenting - Aniceto Goldman MD Height/Weight Height: 4 ft 11 in Weight: 41.9 kg Allergies Allergy/AdvReac Type Severity Reaction Status Date / Time ondansetron [From Zofran] AdvReac Intermediate Unknown Verified 06/27/25 07:12 promethazine [From Phenergan] AdvReac Mild unknown Verified 06/27/25 07:12 Medications Home Medications Medication Instructions Recorded Confirmed Last Taken nitroglycerin 0.4 mg sublingual 0.4 mg sublingual UD PRN Chest Pain 05/22/18 06/19/25 05/27/25 tablet (Nitrostat) multivitamin (Daily Multi-Vitamin 1 tab PO QAM 10/05/18 06/19/25 05/27/25 tablet) coenzyme Q10 100 mg capsule 100 mg PO QAM 05/13/20 06/19/25 05/27/25 (CoQ-10) calcium 600 mg (as carbonate)-vit 1 tab PO QAM 08/17/23 06/19/25 05/27/25 D3 20 mcg (800 unit) chewable tablet (Caltrate plus D) amlodipine 2.5 mg tablet 2.5 mg PO QAM 05/11/24 06/19/25 05/27/25 escitalopram oxalate 5 mg tablet 5 mg PO QAM 05/11/24 06/19/25 05/27/25 metoprolol succinate 50 mg 50 mg PO QAM 05/11/24 06/19/25 05/27/25 tablet,extended release 24 hr rosuvastatin 10 mg tablet 10 mg PO HS 05/11/24 06/19/25 05/26/25 sacubitril 49 mg-valsartan 51 mg 1 tab PO BID 09/07/24 10/16/25 09/23/25 tablet (Entresto) albuterol sulfate 90 mcg/actuation 1 inh inhalation Q4H PRN shortness 05/14/24 06/19/25 05/27/25 aerosol inhaler of breath or wheezing #6.7 grams furosemide 20 mg tablet 20 mg PO UD 09/06/24 06/19/25 05/27/25 lorazepam 0.5 mg tablet 0.5 mg PO BID PRN Anxiety 09/06/24 06/19/25 05/27/25 aspirin 81 mg chewable tablet 81 mg PO QAM 09/24/24 06/19/25 05/27/25 mirtazapine 7.5 mg tablet 7.5 mg PO HS 05/27/25 06/19/25 05/27/25 sertraline 50 mg tablet 50 mg PO DAILY 05/27/25 06/19/25 05/26/25 omeprazole 20 mg capsule,delayed 20 mg PO DAILY #30 caps 06/06/25 06/19/25 Unknown release ondansetron HCl 4 mg tablet 4 mg PO Q8H PRN nausea and 06/17/25 06/19/25 Unknown vomiting 5 days #15 tabs Active Medications Generic Name Dose Route Start Last Admin Trade Name Freq PRN Reason Stop Dose Admin Amlodipine Besylate 2.5 mg 06/20/25 09:00 06/26/25 08:23 Amlodipine Besylate 5 Mg Tab PO 07/20/25 08:59 2.5 mg QAM CORY Administration Aspirin 81 mg 06/20/25 09:00 06/26/25 08:22 Aspirin 81 Mg Ectab PO 07/20/25 08:59 81 mg QAM CORY Administration Calcium/Vitamin D 1 tab 06/20/25 09:00 06/24/25 09:50 Calcium 600mg + Vit D 400 Iu Tab PO 07/20/25 08:59 1 tab QAM CORY Administration Acetaminophen 660 mg/ EMPTY 66 mls @ 264 mls/hr 06/19/25 21:15 06/26/25 11:31 BAG IV 07/19/25 21:14 Infused Q6H PRN Infusion Pain/Fever Protocol Amino Acids 1,536 ml/ 1,536 mls @ 64 mls/hr 06/26/25 16:00 06/26/25 17:24 Nutrition (Parenteral) IV 06/27/25 15:59 64 mls/hr .Q24H CORY Administration Protocol Lorazepam 0.5 mg 06/19/25 21:00 06/26/25 20:34 Lorazepam 0.5 Mg Tab PO 07/19/25 20:59 0.5 mg BID PRN Administration Anxiety Metoprolol Succinate 50 mg 06/20/25 09:00 06/26/25 08:23 Metoprolol Succ 50mg Ext Rel Tab PO 07/20/25 08:59 50 mg QAM CORY Administration Mirtazapine 7.5 mg 06/19/25 21:00 06/26/25 20:33 Mirtazapine Tab 15 Mg Tab PO 07/19/25 20:59 7.5 mg HS CORY Administration Miscellaneous 1 each 06/23/25 04:00 06/27/25 04:24 Stop Clinolipid N/A 07/23/25 03:59 1 each DAILY@0400 CORY Administration Multivitamins 1 tab 06/20/25 09:00 06/24/25 09:58 Multivitamin Tab PO 07/20/25 08:59 1 tab QAM CORY Administration Pantoprazole Sodium 40 mg 06/20/25 09:00 06/26/25 08:23 Pantoprazole 40 Mg Tab PO 07/20/25 08:59 40 mg DAILY CORY Administration Rosuvastatin Calcium 10 mg 06/19/25 21:00 06/26/25 20:33 Rosuvastatin Calcium 10 Mg Tab PO 07/19/25 20:59 10 mg HS CORY Administration Sacubitril/Valsartan 1 tab 06/19/25 21:00 06/26/25 20:33 Valsartan/Sacubitril 51/49 Mg Tab PO 07/19/25 20:59 1 tab BID CORY Administration NPO Date Last Intake of Fluids: 06/26/25 Time Last Intake of Fluids: 18:00 Date Last Intake of Solids: 06/26/25 Time Last Intake of Solids: 18:00 Past Medical History Medical History Lower GI bleed Encounter for pre-operative examination History of COVID-19 Hx of Lyme disease 2007 Esophageal dysfunction Diastolic heart failure Hypertension Solitary pulmonary nodule radiation treatment 2018 for lung cancer COPD (chronic obstructive pulmonary disease) Coronary artery disease Chronic obstructive bronchitis with pulmonary emphysema Collapsed lung surgery 1979 ASCVD Ao/carotids CAD Exercise / Class Metabolic Activity III < 4 Walking/Shop/Light housework Past Family History Family History Mother , age 72 Hodgkins disease Lymphoma Father , age 75 Cancer Brother Mental problems Daughter No problems noted. Daughter No problems noted. Daughter No problems noted. Past Surgical History Surgical History Hx of right cataract extraction S/P bladder repair 2018 S/P CABG (coronary artery bypass graft) 05-03-2018 ? atrial fib and pt unaware H/O dilation and curettage H/O hemorrhoidectomy 10-07-2017 Past Anesthesia History No Hx of Anesthesia Complications and No Family Hx of Anesthesia Complications History of PONV No Hx of PONV and No Hx of Motion Sickness Social History Smoking Status: Former smoker tobacco type: cigarettes Do You Dip or Chew Tobacco: No Hx Alcohol Use: Yes Alcohol type: hard liquor alcohol intake frequency: holidays/special occasions only Hx Substance Use: No substance use type: does not use Physical Exam Vital Signs Last Vital Signs Temp 36.7 C 06/27/25 07:04 Pulse 75 06/27/25 07:04 Resp 18 06/27/25 07:04 BP 162/69 H 06/27/25 07:04 Pulse Ox 93 06/27/25 07:04 O2 Del Method Room Air 06/27/25 07:04 O2 Flow Rate 1 06/26/25 19:49 Constitutional + cachectic; no acute distress ENMT Mouth: no dentition abnormality Thyromental Distance: < 3.5 Finger Breadths Mallampati Class: II Neck normal visual inspection and trachea midline; neck extension not limited Respiratory normal respiratory effort and + uses accessory muscles Auscultation: + diminished lung sounds Cardiovascular Rate/Rhythm: regular rate and regular rhythm Heart Sounds: no murmur Vessels: no carotid bruit Musculoskeletal Spine: normal cervical ROM and no pain with cervical ROM Extremities: extremities normal to inspection; full ROM of extremities Neurologic moves all extremities Motor/Sensory: no sensory deficit Psychiatric Orientation: alert and oriented x 3 Testing Laboratory Results 06/27/25 06:29 06/27/25 06:29 PT 11.7 Seconds (9.0-12.0) 06/19/25 Unknown INR 1.1 (0.9-1.1) 06/19/25 Unknown APTT 28 Seconds (21-31) 06/19/25 Unknown Urine Color Yellow 06/19/25 14:44 Urine Appearance Clear (Clear) 06/19/25 14:44 Urine pH 6.0 (4.5-7.5) 06/19/25 14:44 Ur Specific [place] 1.025 (1.000-1.030) 06/19/25 14:44 Urine Protein 2+ (Negative) H 06/19/25 14:44 Urine Glucose (UA) Negative (Negative) 06/19/25 14:44 Urine Ketones 1+ (Negative) H 06/19/25 14:44 Urine Nitrite Negative (Negative) 06/19/25 14:44 Ur Leukocyte Esterase Trace (Negative) H 06/19/25 14:44 Urine RBC 0-2 /hpf (0-2) 06/19/25 14:44 Urine WBC 0-5 /hpf (0-5) 06/19/25 14:44 Ur Epithelial Cells 6-10 /hpf (0-2) H 06/19/25 14:44 Blood Type A Positive 06/26/25 21:25 Antibody Screen NEGATIVE 06/26/25 21:25 06/27/25 06/27/25 05:52 00:29 POC Glucose 93 100 H Electrocardiogram Date: 06/20/25 Findings: + LVH and + SB @ (@ 56;NS ST & T wave abnl) Chest X-Ray Date: 06/30/25 Findings: + infiltrate (mild perihilar opacity c/w pulm edema), + pulmonary vascular congestion, + pleural effusion (small right) and + atherosclerosis of thoracic aorta Echocardiogram Date: 05/29/25 EF: > 70% LV Function: normal RWMA: + none Other Findings: + atrial enlargement (RA mod. dilated;LA-severely dilated) and + LVH (moderate) Valvular Disease: + AI (mod.) and + MR (mod.) TR-mod. severe pulm. HTN 80-85 mmhg mild RVH
--- NOTE | 2025-06-27 07:39 | History & Physical Bridge Note ---
Date of Service June 27, 2025 History & Physical Bridge Note Patient for mesenteric angio with possible intervention. I have discussed the risks options and benefits of the procedure with the patient. The patient understands the risks options and benefits and agrees to the procedure. I have examined the patient, reviewed the History & Physical and in the interval since the performance of the History & Physical I have noted the following changes of clinical significance: no changes noted
[2025-06-27] MEDS ORDERED: ATROPINE SULFATE 0.1 MG/ML 10ML SYR IV PRN (07:55)
[2025-06-27] MEDS ORDERED: NALOXONE HCL 0.4 MG/1 ML VIAL/CARP IV PRN (07:55)
--- NOTE | 2025-06-27 08:04 | Hospitalist Progress Note ---
Date of Service June 27, 2025 Assessment & Plan (1) Superior mesenteric artery stenosis: (2) Coronary artery disease: (3) Essential hypertension: (4) Intestinal angina: Plan #Intestinal angina - continue heparin drip - Patient's family initially wanted to complete procedure at [facility], after discussion with family, they have decided to undergo mesenteric angiography on Monday with Dr. Goldman at [facility] - Discussed insurance approval for [facility] 06/26, however patient is adamant to stay and have procedure done here, discussed risks and benefits of both options and agree with patient that with transfer, high likelihood for further delay for procedure, we will continue with planned procedure today - Diet: PPN + clear liquids post procedure, will attempt discontinuing PPn with just clear liquids tomorrow and advance diet as tolerated #Dizziness/Hypoxia - satted 85% 06/23 when getting up to go to bathroom, discussed as an additional barrier to transferring to [facility] - will monitor vitals - incentive spirometry q4hwa - stable #Cough - tessalon pearles prn - stable #Paroxysmal afib - Continue home medications #Essential HTN - continue home medications #CAD - coronary artery bypass grafting hx - stable Dispo: med surg with tele Diet: clear liquids + PPN Code status: DNR/DNI VTE Prophylaxis: Heparin IV Admission and Anticipated Discharge Date Admission Date: June 19, 2025 Supervising Physician Co-Signing Physician Notes I personally examined the patient and verified all catalan points of history and exam, discussed case, and agree with decision making with Dr Vasques asleep and appearing comfortable. Discussed with ICU nurse. She has overall been stable since surgery. Did have a little bit of abdominal pain after p.o. intake but seemed nonspecific and possibly just due to not having had much to eat or drink for several days. Vitals noted, in general she is resting comfortably and in no distress. Breathing unlabored no accessory muscle use good effort. Neuro without lateralizing signs. Skin without pallor or icterus. Mesenteric artery ischemia with intestinal angina Post angio and stenting. Advance diet slowly, continue PPN for now. Continue med management and secondary risk reduction. Hypoxiaprobably atelectasis. Incentive spirometry. Supplemental oxygen and supportive care. encourage ongoing use of incentive spirometry Chronic atrial fibrillation/pulmonary hypertension/coronary artery diseaseclinically stable at this time severe protein calorie malnutrition present on admission with low overall weight and low and BMIsupplemental nutrition IV at this time. Once her intestinal ischemia has been alleviated, will need to work with a dietitian to improve her overall calorie intake. Continue PPN for today. PT/OT eval and treat DVT prophylaxiswas anticoagulated; had procedure otday, likely start SQ proph 06/28 Subjective Did not see patient this morning as she was at her procedure. Results & Data Results & Data Vital Signs (Past 12 Hours) Vital Signs Temp Pulse Pulse Pulse Resp BP BP 06/27/25 07:04 36.7 C 75 18 157/71 H 162/69 H 06/27/25 05:51 80 06/27/25 02:43 36.5 C 76 16 128/73 06/27/25 01:00 72 06/26/25 23:15 36.6 C 69 16 120/66 Pulse Ox O2 Del Method 06/27/25 07:04 93 Room Air 06/27/25 05:51 06/27/25 02:43 92 Room Air 06/27/25 01:00 06/26/25 23:15 92 Room Air Resident Activity Tracking Resident Involvement: Resident Care Provided Care Provided: Adult Hospital Medicine
[2025-06-27] MEDS ORDERED: HEPARIN SOD (PORCINE) 1000 UNIT/ML ONE ×2 (08:32→09:41)
[2025-06-27] MEDS: LIDOCAINE 1% LOCAL 20 ML VIAL ONE (09:55)
[2025-06-27] MEDS: VISIPAQUE IV ONE (09:57)
[2025-06-27] MEDS: GELATIN SPONGE SZ 100 ONE (09:57)
[2025-06-27] MEDS: THROMBIN 5000 UNITS KIT ONE (09:57)
[2025-06-27] MEDS: SURGICEL ABSORB HEMOSTAT 2IN X 14IN TOP ONE (09:57)
--- NOTE | 2025-06-27 10:03 | Procedure Note ---
Angiogram Post Procedure Fluoroscopy Time (minutes): 22.8 Radiation (mGy): 263 Contrast: 95 Post Operative Report Pre & Post Diagnosis Operation Date: 06/27/25 08:00 Pre-Op Diagnosis: Superior mesenteric artery stenosis Post-Op Diagnosis: Superior mesenteric artery stenosis I identified the patient and participated in the time-out.: Yes Procedure Operation Date: 06/27/25 08:00 Actual Procedures p Superior Mesenteric Artery Stenting, Left Brachial Cut Down, Left upper extremity arteriogram, Mechanical Closure Right Femoral Artery(Not Applicable) - Aniceto Goldman MD Surgeon Aniceto Goldman MD Progress Developer Elizabeth,PAC Estimated Blood Loss 80 Findings Consistent with Post-Op Diagnosis Specimens none Anesthesia Type MAC Complications none Disposition Accompanied Patient To Recovery: No Disposition: Recovery Room Indications This is a 5-year-old female who was having postprandial pain. Is gotten worse in the last 2 weeks and comes on even after small meals and liquids. She does have a known SMA stenosis which appears to worsen on the CT angiogram. Intervention was recommended. I have discussed the risks options and benefits of the procedure with the patient. The patient understands the risks options and benefits and agrees to the procedure. Description of Procedure Patient was taken to the operating placed supine position. After the groins and left arm were prepped draped in sterile manner the patient was identified a timeout was performed. Local anesthesia was administered to the arm. A small incision was made over the brachial artery. This was in the mid upper arm. The artery was identified. The puncture was made in the brachial artery using micropuncture technique and a 5 Guamanian sheath inserted. Wire was then inserted. It was unable to get through the subclavian. We attempted multiple catheters and wires. We then inserted a Kumpe catheter. 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 The sheath was later pulled in the artery. A 6-0 Prolene suture. The wound was eventually closed with a running 3-0 Vicryl suture subcutaneous layer and a running 4-0 subcuticular suture for the skin edges. We then imaged the right groin. The common femoral artery was patent. Under ultrasound guidance puncture was made in the right common femoral artery and 5 Guamanian sheath inserted. We then exchanged the for a 7 Guamanian sheath. We then inserted an 035 wire and an [facility] glide cath and catheter. With this we are able to cannulate the severe mesenteric artery. This was done after we did an aortogram which showed the origin of the artery. The wire was then advanced into the superior mesenteric artery. We then inserted a 6 x 18 Herculink. It was placed in the area of the lesion. This was confirmed with hand-injection through the sheath. Good positioning was noted. The Herculink stent was then deployed. The balloon was then removed. Hand-injection through the sheath showed the superior mesenteric artery now to be widely patent. The sheath was then removed. We then closed the puncture site with a Star closure device. Adequate hemostasis was noted. Sterile dressings were applied to the wound.The patient left the operation room in satisfactory condition and tolerated the procedure well. All needle and sponge counts were correct at the end of the procedure. Arlin Padilla Pac assisted due to lack of resident availability and was necessary for positioning, draping, retraction, wound closure deep layers, subcutaneous tissue, and skin closure and was necessary for assisting with the case. I attest to the content of the Intraoperative Record and any orders documented therein. Any exceptions are noted below.
[2025-06-27] MEDS: DROPERIDOL 5 MG/2 ML VIAL IV STA (10:42)
--- NOTE | 2025-06-27 11:15 | Anesthesiology Progress Note ---
Date of Service June 27, 2025 Anesthesia Post Procedure Vital Signs Vital Signs: Temp Pulse Pulse Pulse Resp BP BP 06/27/25 10:45 36.2 C L 85 19 105/57 L 06/27/25 10:35 86 21 135/66 06/27/25 10:25 91 H 19 109/63 06/27/25 10:15 89 20 127/69 06/27/25 10:08 36.1 C L 91 H 16 147/72 H 06/27/25 07:04 36.7 C 75 18 157/71 H 162/69 H 06/27/25 05:51 80 06/27/25 02:43 36.5 C 76 16 128/73 06/27/25 01:00 72 06/26/25 23:15 36.6 C 69 16 120/66 06/26/25 19:49 06/26/25 19:15 36.6 C 69 16 110/68 06/26/25 15:37 36.9 C 74 16 105/64 06/26/25 15:19 80 06/26/25 11:46 36.8 C 71 16 117/69 Pulse Ox O2 Del Method O2 Flow Rate 06/27/25 10:45 97 Nasal Cannula 2 06/27/25 10:35 95 Nasal Cannula 2 06/27/25 10:25 96 Nasal Cannula 2 06/27/25 10:15 97 Nasal Cannula 2 06/27/25 10:08 92 Nasal Cannula 2 06/27/25 07:04 93 Room Air 06/27/25 05:51 06/27/25 02:43 92 Room Air 06/27/25 01:00 06/26/25 23:15 92 Room Air 06/26/25 19:49 Nasal Cannula 1 06/26/25 19:15 92 Room Air 06/26/25 15:37 92 Room Air 06/26/25 15:19 06/26/25 11:46 94 Room Air Pain Intensity Lower Medial Abdomen: Pain Intensity: 4 Transfer of Care Handoff Completed per policy Notes Mental Status: alert / awake / arousable Patient Amnestic to Procedure: Yes Nausea / Vomiting: adequately controlled Pain: adequately controlled Airway Patency, RR, SpO2: stable & adequate BP & HR: stable & adequate Hydration State: stable & adequate Anesthetic Complications: no major complications apparent
[2025-06-27] MEDS: SODIUM CHLORIDE 0.9% 1,000 ML IV SCH (11:51)
[2025-06-27] MEDS: DROPERIDOL 5 MG/2 ML VIAL ONE (12:38)
[2025-06-27] MEDS: CLOPIDOGREL BISULFATE 300 MG TAB PO STA (13:00)
--- NOTE | 2025-06-27 14:18 | Critical Care Consultation ---
Date of Consultation June 27, 2025 Assessment & Plan (1) Intestinal angina: (2) Superior mesenteric artery stenosis: (3) Essential hypertension: (4) Coronary artery disease: (5) Acute on chronic heart failure with preserved ejection fraction (HFpEF): (6) PAF (paroxysmal atrial fibrillation): (7) Pulmonary hypertension: Plan Mau Cano is an 85-year-old female with past medical history of CAD, HTN, gastritis, PAF, pulm HTN, carotid stenosis, and mesenteric insufficiency with intestinal angina. Patient presented to [facility] on 06/20/2025 with abdominal pain mostly noted post prandial. CTA in the past showed showed mesenteric mesenteric artery stenosis. Patient was admitted and evaluated by vascular surgery. She was started on heparin gtt and peripheral parenteral nutrition. 06/27/25 underwent mesenteric angiography with stenting to mesenteric artery. Mesenteric insufficiency; mesenteric artery stenosis; intestinal angina -Stent placed to mesenteric artery on 06/27/25 -Heparin gtt discontinued -Continue PPN. Full liquid diet ordered to start tonight. -Patient asymptomatic post op -Cont ASA and plavix. HTN, CAD; PAF; HFrEF -Continue metoprolol -Cont DAPT -Continue amlodipine and Entresto. Held initially post op due to soft BP. Pulmonary Hypertension -Treat heart failure as above -Maintain SpO2 > 92% -Patient on 2L NC post op GERD;Gastritis -Cont PPI Thank you for allowing us to participate in this patient's care. Please feel free to reach out with questions or concerns. 55 minutes is the time spent reviewing the chart, obtaining history, performing the physical exam and updating the patient/family and bedside nurse. History of Present Illness Reason for Consultation: Mesenteric insufficiency s/p revascularization of SMA Attending Physician: George Moncada DO History of Present Illness Mau Cano is an 85-year-old female with past medical history of CAD, HTN, gastritis, PAF, pulm HTN, carotid stenosis, and mesenteric insufficiency with intestinal angina. Patient presented to [facility] on 06/20/2025 with abdominal pain mostly noted post prandial. CTA in the past showed showed mesenteric mesenteric artery stenosis. Patient was admitted and evaluated by vascular surgery. She was started on heparin gtt and peripheral parenteral nutrition. Patient was considering transfer to [facility] for mesenteric arteriography and possible intervention but elected to stay at [facility] and have the procedure done by Dr. Goldman. Per report the procedure went well without complication. Attempt to access left brachial but were unable to gain access. Right femoral artery acces sed and stent placed in mesenteric artery. Patient brought to the ICU post operatively for continued evaluation and management. On exam in ICU patient without abdominal pain and is hemodynamically stable. Allergies Allergy/AdvReac Type Severity Reaction Status Date / Time ondansetron [From Zofran] AdvReac Intermediate Unknown Verified 06/27/25 07:12 promethazine [From Phenergan] AdvReac Mild unknown Verified 06/27/25 07:12 Home Medications Medication Instructions Recorded Confirmed Type nitroglycerin 0.4 mg sublingual 0.4 mg sublingual UD PRN Chest Pain 05/22/18 06/19/25 History tablet (Nitrostat) multivitamin (Daily Multi-Vitamin 1 tab PO QAM 10/05/18 06/19/25 History tablet) coenzyme Q10 100 mg capsule 100 mg PO QAM 05/13/20 06/19/25 History (CoQ-10) calcium 600 mg (as carbonate)-vit 1 tab PO QAM 08/17/23 06/19/25 History D3 20 mcg (800 unit) chewable tablet (Caltrate plus D) amlodipine 2.5 mg tablet 2.5 mg PO QAM 05/11/24 06/19/25 History escitalopram oxalate 5 mg tablet 5 mg PO QAM 05/11/24 06/19/25 History metoprolol succinate 50 mg 50 mg PO QAM 05/11/24 06/19/25 History tablet,extended release 24 hr rosuvastatin 10 mg tablet 10 mg PO HS 05/11/24 06/19/25 History sacubitril 49 mg-valsartan 51 mg 1 tab PO BID 05/11/24 06/19/25 History tablet (Entresto) albuterol sulfate 90 mcg/actuation 1 inh inhalation Q4H PRN shortness 05/14/24 06/19/25 Rx aerosol inhaler of breath or wheezing #6.7 grams furosemide 20 mg tablet 20 mg PO UD 09/06/24 06/19/25 History lorazepam 0.5 mg tablet 0.5 mg PO BID PRN Anxiety 09/06/24 06/19/25 History aspirin 81 mg chewable tablet 81 mg PO QAM 09/24/24 06/19/25 History mirtazapine 7.5 mg tablet 7.5 mg PO HS 05/27/25 06/19/25 History sertraline 50 mg tablet 50 mg PO DAILY 05/27/25 06/19/25 History omeprazole 20 mg capsule,delayed 20 mg PO DAILY #30 caps 06/06/25 06/19/25 Rx release ondansetron HCl 4 mg tablet 4 mg PO Q8H PRN nausea and 06/17/25 06/19/25 Rx vomiting 5 days #15 tabs Patient History Medical History Lower GI bleed Encounter for pre-operative examination History of COVID-19 Hx of Lyme disease 2007 Esophageal dysfunction Diastolic heart failure Hypertension Solitary pulmonary nodule radiation treatment 2017 for lung cancer COPD (chronic obstructive pulmonary disease) Coronary artery disease Chronic obstructive bronchitis with pulmonary emphysema Collapsed lung surgery 1979 Surgical History Hx of right cataract extraction S/P bladder repair 2017 S/P CABG (coronary artery bypass graft) 05-03-2018 ? atrial fib and pt unaware H/O dilation and curettage H/O hemorrhoidectomy 10-07-2017 Family History Mother , age 72 Hodgkins disease Lymphoma Father , age 75 Cancer Brother Mental problems Daughter No problems noted. Daughter No problems noted. Daughter No problems noted. Social History Smoking Status: Former smoker Tobacco Type: Cigarettes Second Hand Exposure: No; Do You Dip or Chew Tobacco: No; Hx Alcohol Use: Yes Alcohol type: hard liquor Hx Substance Use: No Preferred Language: Nigerian Communication Ability: Effective Hearing Ability: Normal Pediatric Oncologist Required: No Beliefs That Will Affect Care: None Current Living Situation: Alone Current Living Situation Comment: home alone current occupation: Retired Feels Safe at Home: Yes Assistive Devices: Cane Review of Systems Review of Systems: All systems reviewed & are unremarkable except as noted in HPI & below Physical Exam Physical Exam: VITALS: Reviewed. WEIGHT/BMI reviewed. GEN: Well-developed, NAD. PSYCH: Good Judgment. AOx3. Normal memory, mood, and affect. HEENT -Head: NC/AT; -Eyes: PERRL, EOMI. No discharge or redn ess; -Ears: External ears are normal. -Nose: Normal nares. NECK: Supple, with no masses. CV: RRR, no m/r/g. LUNGS: CTAB, no w/r/c. ABD: Soft, NT/ND, NBS, no masses or organomegaly. : SKIN: Warm, well perfused. No skin rashes or abnormal lesions MSK: No deformities, Normal gait. EXT: No clubbing, cyanosis, or edema. Right groin access site without hematoma or bleeding. Left brachial site without hematoma or bleeding. NEURO: Normal muscle strength and tone. No focal deficits. Results & Data Results & Data Vital Signs (Past 12 Hours) Vital Signs Temp Pulse Pulse Pulse Resp BP BP 06/27/25 13:36 06/27/25 13:09 82 23 06/27/25 13:00 103/58 L 06/27/25 12:45 100/54 L 06/27/25 12:42 81 20 06/27/25 12:33 78 23 06/27/25 12:30 104/59 L 06/27/25 12:24 85 20 06/27/25 12:15 88/53 L 06/27/25 12:06 91 H 23 06/27/25 12:03 85 22 06/27/25 12:00 89/52 L 06/27/25 11:45 100/54 L 06/27/25 11:45 100/54 L 06/27/25 11:39 78 18 06/27/25 11:36 83 19 06/27/25 11:36 96/56 L 06/27/25 11:30 101/52 L 06/27/25 11:24 78 19 06/27/25 11:17 88 06/27/25 11:15 77 19 06/27/25 11:10 109/62 06/27/25 11:06 114/58 L 06/27/25 10:45 36.2 C L 85 19 06/27/25 10:35 86 21 06/27/25 10:25 91 H 19 06/27/25 10:15 89 20 06/27/25 10:08 36.1 C L 91 H 16 06/27/25 07:04 36.7 C 75 18 157/71 H 06/27/25 05:51 80 06/27/25 02:43 36.5 C 76 16 128/73 BP Pulse Ox O2 Del Method O2 Flow Rate 06/27/25 13:36 Nasal Cannula 2 06/27/25 13:09 93 Nasal Cannula 2 06/27/25 13:00 06/27/25 12:45 06/27/25 12:42 95 06/27/25 12:33 95 06/27/25 12:30 06/27/25 12:24 96 06/27/25 12:15 06/27/25 12:06 97 06/27/25 12:03 98 06/27/25 12:00 06/27/25 11:45 06/27/25 11:45 06/27/25 11:39 97 06/27/25 11:36 99 06/27/25 11:36 06/27/25 11:30 06/27/25 11:24 96 06/27/25 11:17 06/27/25 11:15 95 Nasal Cannula 2 06/27/25 11:10 06/27/25 11:06 06/27/25 10:45 105/57 L 97 Nasal Cannula 2 06/27/25 10:35 135/66 95 Nasal Cannula 2 06/27/25 10:25 109/63 96 Nasal Cannula 2 06/27/25 10:15 127/69 97 Nasal Cannula 2 06/27/25 10:08 147/72 H 92 Nasal Cannula 2 06/27/25 07:04 162/69 H 93 Room Air 06/27/25 05:51 06/27/25 02:43 92 Room Air Critical Care Results & Data Vital Signs (Past 12 Hours) Vital Signs Temp Pulse Pulse Resp BP BP BP 06/27/25 14:00 105/60 06/27/25 14:00 88 20 06/27/25 13:36 89 18 06/27/25 13:36 06/27/25 13:09 82 23 06/27/25 13:00 103/58 L 06/27/25 12:45 100/54 L 06/27/25 12:42 81 20 06/27/25 12:33 78 23 06/27/25 12:30 104/59 L 06/27/25 12:24 85 20 06/27/25 12:15 88/53 L 06/27/25 12:06 91 H 23 06/27/25 12:03 85 22 06/27/25 12:00 89/52 L 06/27/25 11:45 100/54 L 06/27/25 11:45 100/54 L 06/27/25 11:39 78 18 06/27/25 11:36 83 19 06/27/25 11:36 96/56 L 06/27/25 11:30 101/52 L 06/27/25 11:24 78 19 06/27/25 11:17 88 06/27/25 11:15 77 19 06/27/25 11:10 109/62 06/27/25 11:06 114/58 L 06/27/25 10:45 36.2 C L 85 19 105/57 L 06/27/25 10:35 86 21 135/66 06/27/25 10:25 91 H 19 109/63 06/27/25 10:15 89 20 127/69 06/27/25 10:08 36.1 C L 91 H 16 147/72 H 06/27/25 07:04 36.7 C 75 18 157/71 H 162/69 H 06/27/25 05:51 80 Pulse Ox O2 Del Method O2 Flow Rate 06/27/25 14:00 06/27/25 14:00 06/27/25 13:36 97 06/27/25 13:36 Nasal Cannula 2 06/27/25 13:09 93 Nasal Cannula 2 06/27/25 13:00 06/27/25 12:45 06/27/25 12:42 95 06/27/25 12:33 95 06/27/25 12:30 06/27/25 12:24 96 06/27/25 12:15 06/27/25 12:06 97 06/27/25 12:03 98 06/27/25 12:00 06/27/25 11:45 06/27/25 11:45 06/27/25 11:39 97 06/27/25 11:36 99 06/27/25 11:36 06/27/25 11:30 06/27/25 11:24 96 06/27/25 11:17 06/27/25 11:15 95 Nasal Cannula 2 06/27/25 11:10 06/27/25 11:06 06/27/25 10:45 97 Nasal Cannula 2 06/27/25 10:35 95 Nasal Cannula 2 06/27/25 10:25 96 Nasal Cannula 2 06/27/25 10:15 97 Nasal Cannula 2 06/27/25 10:08 92 Nasal Cannula 2 06/27/25 07:04 93 Room Air 06/27/25 05:51 Lab & Micro Results (Past 24 Hours) RBC 4.29 M/uL (4.20-5.40) 06/27/25 WBC 4.07 K/ul (4.8-10.8) L 06/27/25 Hgb 11.2 g/dl (12.0-16.0) L 06/27/25 Hct 35.8 % (37.0-47.0) L 06/27/25 MCV 83.4 fL (80.0-100.0) 06/27/25 MCH 26.1 pg (25.0-34.0) 06/27/25 MCHC 31.3 g/dL (32.0-36.0) L 06/27/25 RDW Standard Deviation 47.2 fL (36.4-46.3) H 06/27/25 RDW Coefficient of Variation 15.6 % (11.5-14.5) H 06/27/25 Plt Count 243 K/uL (130-400) 06/27/25 MPV 12.4 fL (9.4-12.4) 06/27/25 Neutrophils (%) (Auto) 48.2 % 06/27/25 Lymphocytes (%) (Auto) 24.3 % 06/27/25 Monocytes # (Auto) 0.73 K/uL (0.11-0.59) H 06/27/25 Eosinophils # (Auto) 0.32 K/uL (0.00-0.50) 06/27/25 Immature Granulocyte % (Auto) 0.2 % 06/27/25 Neutrophils # (Auto) 1.96 K/uL (1.40-6.50) 06/27/25 Lymphocytes # (Auto) 0.99 K/uL (1.20-3.40) L 06/27/25 Monocytes # (Auto) 0.73 K/uL (0.11-0.59) H 06/27/25 Eosinophils # (Auto) 0.32 K/uL (0.00-0.50) 06/27/25 Basophils # (Auto) 0.06 K/uL (0.00-0.20) 06/27/25 Immature Granulocyte # (Auto) 0.01 K/uL (0.01-0.20) 5 Na 137 mmol/L (136-145) 06/27/25 K 4.4 mmol/L (3.5-5.1) 06/27/25 Cl 104 mmol/L (98-107) 06/27/25 CO2 26 mmol/L (21-32) 06/27/25 Anion Gap 7 (3-11) 06/27/25 BUN 19 mg/dl (6-23) 06/27/25 Creatinine 0.76 mg/dl (0.6-1.2) 06/27/25 BUN/Creatinine Ratio 25.0 (10-20) H 06/27/25 Glu 99 mg/dl (70-99(Fasting)) 06/27/25 Ca 8.8 mg/dl (8.6-10.3) 06/27/25 Phosphorus Level 4.1 mg/dl (2.5-4.9) 06/27/25 Mg 2.1 mg/dl (1.7-2.4) 06/27/25 06:29 Calcium Level 8.8 mg/dl (8.6-10.3) 06/27/25 06:29 I & O Totals 24 Hours 06/26/25 06/27/25 06/28/25 06:59 06:59 06:59 Intake Total 2402.216 / 2402.216 2752.000 / 2752.000 712.767 / 712.767 Output Total 80 / 80 Balance 2402.216 / 2402.216 2752.000 / 2752.000 632.767 / 632.767 Cumulative 06/19/25 14:07 thru 06/27/25 10:22 Intake Total 90008.465 Output Total 82 Balance 28445.465 RT Ventilator Mngmt (Last Documented) Ventilator Ordered Settings Respiratory Rate 20 06/27/25 14:00 Ventilator - PT Measurements Respiratory Rate 20 Coding Level of Care Code 26837 INT INP/OBS CARE 2/55MIN Diagnoses Intestinal angina K55.1 Superior mesenteric artery stenosis K55.1 Essential hypertension I10 Coronary artery disease I25.10 Acute on chronic heart failure with preserved ejection fraction (HFpEF) I50.33 PAF (paroxysmal atrial fibrillation) I48.0 Pulmonary hypertension I27.20
[2025-06-27] MEDS: PERIPHERAL TPN IV SCH (16:01)
[2025-06-27] MEDS: [UNRECOGNIZED DRUG - OTHER] IV SCH (16:01)
[2025-06-27] MEDS: CLINOLIPID 20% IV FAT EMULSION 200 ML IV SCH (16:01)
--- NOTE | 2025-06-27 18:15 | Billing Data ---
Date of Service June 27, 2025 Coding Level of Care Code 68159 SUB INP/OBS CARE
[2025-06-28 05:27] LABS: Hematocrit (blood only) 28.2 % (37.0-47.0); Hemoglobin 8.7 g/dl (12.0-16.0); Immature Granulocytes # (auto) 0.02 K/uL (0.01-0.20); Immature Granulocytes % (auto) 0.4 %; Mean Corpuscular Hemoglobin 26.0 pg (25.0-34.0); Mean Corpuscular Volume 84.2 fL (80.0-100.0); Platelet Count 206 K/uL (130-400); RDW Standard Deviation 48.5 fL (36.4-46.3); Red Blood Count 3.35 M/uL (4.20-5.40); White Blood Count 5.64 K/ul (4.8-10.8)
[2025-06-28 05:44] LABS: Anion Gap 6.0 (3-11); Blood Urea Nitrogen 25.0 mg/dl (6-23); Calcium 8.2 mg/dl (8.6-10.3); Carbon Dioxide 25.0 mmol/L (21-32); Chloride 104.0 mmol/L (98-107); Creatinine Clr Calc Pharmacy 30.1 ml/min; Glucose 98.0 mg/dl (70-99(Fasting)); Magnesium 2.0 mg/dl (1.7-2.4); Potassium 4.8 mmol/L (3.5-5.1); Sodium 135.0 mmol/L (136-145)
[2025-06-28] MEDS ORDERED: SODIUM CHLORIDE 0.9% 100 ML IV PRN (05:53)
[2025-06-28] MEDS: CLOPIDOGREL BISULFATE 75 MG TAB PO SCH (08:43)
--- NOTE | 2025-06-28 08:45 | Hospitalist Progress Note ---
Date of Service June 28, 2025 Assessment & Plan (1) Superior mesenteric artery stenosis: (2) Coronary artery disease: (3) Essential hypertension: (4) Intestinal angina: Plan Mau Cano is an 85-year-old female with past medical history of CAD, HTN, gastritis, PAF, pulm HTN, carotid stenosis, and mesenteric insufficiency with intestinal angina. Patient presented to [facility] on 06/20/2025 with abdominal pain mostly noted post prandial. CTA in the past showed showed mesenteric mesenteric artery stenosis. Patient was admitted and evaluated by vascular surgery. She was started on heparin gtt and peripheral parenteral nutrition. 06/27/25 underwent mesenteric angiography with stenting to mesenteric artery. #Intestinal angina #S/P mesenteric angiography with stenting for Mesenteric artery stenosis - Heparin gtt has been discontinued.Will consider switching to oral AC - Diet: PPN + On clear liquid , will advance to heart healthy starting dinner tonight. #Acute Blood Loss Anemia -Hbg dropped down to 8.7 post procedure. -Transfuse 2 pack of PRBCs -Repeat Hand H at 1200 #Paroxysmal afib/HTN/CAD with bypass graft/HFrEF - continue home medications -Continue Metoprolol, DAPT -Continue Amlodipine and Entresto #Pulmonary Hypertension -Treat heart failure as above -Maintain SpO2 > 92% -Patient on 2L NC #GERD -Cont PPI Dispo: ICU Diet: clear liquids + PPN; Advance to starting dinner Code status: DNR/DNI VTE Prophylaxis: Lovenox Admission and Anticipated Discharge Date Admission Date: June 19, 2025 Supervising Physician Co-Signing Physician Notes I personally examined the patient and verified all catalan points of history and exam, discussed case, and agree with decision making with Dr Velasquez Awake and alert. Daughter present at the bedside. Patient notes recurrent abdominal painjust started about 5 minutes ago. Periumbilical fairly diffuse and very intensecausing her to feel a bit nauseated and hot. She notes that she has not eaten anything in the last hour or so. Earlier, however, after eating she did have about a half an hour of similar pain. In discussion with nursing nursing noted that the patient had some discomfort a little more in the morning and felt better after small bowel movement. Vitals noted, in general she is awake and alert pleasant but does appear uncomfortable from abdominal pain. Breathing unlabored no accessory muscle use, cardio is regular rate. Abdomen is soft mild to moderately distended, mild reproducible tenderness epigastric no guarding rebound or rigidity. Mesenteric artery ischemia with intestinal angina Post angio and stenting. Advance diet slowly, continue PPN for now. In regards to her pain todayI am more suspicious that it is actually gas/constipation given her bloating and a mild degree of reproducibility on exam, as well as nursing noting that she had similar pain and felt better after a bowel movement. However, given that she does have known mesenteric ischemia and has worsening pain todayand the pain could certainly fit with a description she would feel for mesenteric ischemia, obligated to rule out any worsening/new thrombus/etc.check lactate and CT angio of the abdomen. Hypoxiaprobably atelectasis. Incentive spirometry. Improved. Chronic atrial fibrillation/pulmonary hypertension/coronary artery diseaseclinically stable at this time severe protein calorie malnutrition present on admission with low overall weight and low and BMIsupplemental nutrition IV at this time. Once her intestinal ischemia has been alleviated, will need to work with a dietitian to improve her overall calorie intake. Continue PPN Until her p.o. intake is adequate. PT/OT eval and treat. Acute blood loss anemiaalready transfused. Appears to have been due to procedure, and not unexpected. DVT prophylaxiswas anticoagulated; Had procedure 06/27 and some degree of acute blood loss anemiacontinue to follow for now. Anticipate initiating pharmacologic DVT prophylaxis once stable to do so (from bleeding standpoint). Subjective Schryl reported that she has very mild abdominal pain but is much improved compared to preoperative. She is advanced to liquid diet this morning and she tolerated liquids well. Her hgb has dropped down to 8.7 post procedure. So she is getting 1 unit of PRBCs. Review of Systems Constitutional: as per Subjective / HPI Physical Exam Constitutional: WD/WN, vitals as above Respiratory: normal respiratory effort; no respiratory distress Cardiovascular: Rate/Rhythm: regular rate and regular rhythm Gastrointestinal (Abdomen): Inspection/Auscultation: abdomen normal to inspection; abdomen not distended Percussion/Palpation: abdomen soft; abdomen nontender Psychiatric: A+Ox3, euthymic affect Results & Data Results & Data Vital Signs (Past 12 Hours) Vital Signs Temp Pulse Resp BP Pulse Ox O2 Del Method O2 Flow Rate 06/28/25 08:09 36.6 C 64 16 120/56 L 96 06/28/25 07:39 36.8 C 66 20 117/56 L 91 06/28/25 07:24 36.7 C 65 18 116/56 L 95 06/28/25 07:06 36.6 C 65 19 117/62 96 2 06/28/25 06:03 67 20 106/50 L 96 Nasal Cannula 2 06/28/25 05:08 74 22 106/55 L 94 Nasal Cannula 2 06/28/25 05:00 69 19 106/55 L 92 Nasal Cannula 2 06/28/25 04:09 70 17 107/49 L 94 Nasal Cannula 2 06/28/25 03:02 70 18 96/51 L 94 Nasal Cannula 2 06/28/25 02:30 72 19 97/49 L 92 Nasal Cannula 2 06/28/25 02:00 69 20 110/48 L 92 Nasal Cannula 2 06/28/25 01:30 72 20 112/45 L 92 Nasal Cannula 2 06/28/25 01:00 71 20 99/41 L 92 Nasal Cannula 2 06/28/25 00:30 75 20 96/46 L 92 Nasal Cannula 2 06/28/25 00:12 85 20 92/53 L 95 Nasal Cannula 2 06/28/25 00:00 76 06/27/25 23:00 79 20 90/43 L 94 Nasal Cannula 2 06/27/25 22:00 89 23 110/54 L 94 Nasal Cannula 2 06/27/25 21:30 102/54 L 06/27/25 21:00 93 H 24 129/65 95 Nasal Cannula 2 Resident Activity Tracking Resident Involvement: Resident Care Provided Care Provided: Adult Hospital Medicine
--- NOTE | 2025-06-28 09:17 | Critical Care Progress Note ---
Date of Service June 28, 2025 Assessment & Plan (1) Intestinal angina: (2) Superior mesenteric artery stenosis: (3) Essential hypertension: (4) Coronary artery disease: (5) Acute on chronic heart failure with preserved ejection fraction (HFpEF): (6) PAF (paroxysmal atrial fibrillation): (7) Pulmonary hypertension: Plan Mau Cano is an 85-year-old female with past medical history of CAD, HTN, gastritis, PAF, pulm HTN, carotid stenosis, and mesenteric insufficiency with intestinal angina. Patient presented to [facility] on 06/20/2025 with abdominal pain mostly noted post prandial. CTA in the past showed showed mesenteric mesenteric artery stenosis. Patient was admitted and evaluated by vascular surgery. She was started on heparin gtt and peripheral parenteral nutrition. 06/27/25 underwent mesenteric angiography with stenting to mesenteric artery. Mesenteric insufficiency; mesenteric artery stenosis; intestinal angina -Stent placed to mesenteric artery on 06/27/25 -Continue PPN. Tolerating diet -Patient asymptomatic post op -Cont ASA and plavix. HTN, CAD; PAF; HFrEF -Continue metoprolol -Cont DAPT -Continue amlodipine and Entresto. Held initially post op due to soft BP. Pulmonary Hypertension -Treat heart failure as above -Maintain SpO2 > 92% -Patient on 2L NC post op GERD;Gastritis -Cont PPI Receiving 1 unit packed red blood cells will check H&H in between. At this point I have instructed only 1 unit to be transfused Stable for downgrade out of ICU. Admission and Anticipated Discharge Date Admission Date: June 19, 2025 Subjective Patient reports feeling well. Optimistic that she might be able to be dischar ged home soon Physical Exam Physical Exam: General: Alert. nontoxic. Skin: Warm, dry, Head: Atraumatic Ears, nose, mouth and throat: airway patent Cardiovascular: Normal peripheral perfusion Respiratory: no respiratory distress Gastrointestinal: Non distended Musculoskeletal: No deformity Results & Data Results & Data Vital Signs (Past 12 Hours) Vital Signs Temp Pulse Resp BP Pulse Ox O2 Del Method O2 Flow Rate 06/28/25 08:51 64 06/28/25 08:09 36.6 C 64 16 120/56 L 96 06/28/25 07:39 36.8 C 66 20 117/56 L 91 06/28/25 07:24 36.7 C 65 18 116/56 L 95 06/28/25 07:06 36.6 C 65 19 117/62 96 2 06/28/25 06:03 67 20 106/50 L 96 Nasal Cannula 2 06/28/25 05:08 74 22 106/55 L 94 Nasal Cannula 2 06/28/25 05:00 69 19 106/55 L 92 Nasal Cannula 2 06/28/25 04:09 70 17 107/49 L 94 Nasal Cannula 2 06/28/25 03:02 70 18 96/51 L 94 Nasal Cannula 2 06/28/25 02:30 72 19 97/49 L 92 Nasal Cannula 2 06/28/25 02:00 69 20 110/48 L 92 Nasal Cannula 2 06/28/25 01:30 72 20 112/45 L 92 Nasal Cannula 2 06/28/25 01:00 71 20 99/41 L 92 Nasal Cannula 2 06/28/25 00:30 75 20 96/46 L 92 Nasal Cannula 2 06/28/25 00:12 85 20 92/53 L 95 Nasal Cannula 2 06/28/25 00:00 76 06/27/25 23:00 79 20 90/43 L 94 Nasal Cannula 2 06/27/25 22:00 89 23 110/54 L 94 Nasal Cannula 2 06/27/25 21:30 102/54 L Critical Care Results & Data Vital Signs (Past 12 Hours) Vital Signs Temp Pulse Resp BP Pulse Ox O2 Del Method O2 Flow Rate 06/28/25 08:51 64 06/28/25 08:09 36.6 C 64 16 120/56 L 96 06/28/25 07:39 36.8 C 66 20 117/56 L 91 06/28/25 07:24 36.7 C 65 18 116/56 L 95 06/28/25 07:06 36.6 C 65 19 117/62 96 2 06/28/25 06:03 67 20 106/50 L 96 Nasal Cannula 2 06/28/25 05:08 74 22 106/55 L 94 Nasal Cannula 2 06/28/25 05:00 69 19 106/55 L 92 Nasal Cannula 2 06/28/25 04:09 70 17 107/49 L 94 Nasal Cannula 2 06/28/25 03:02 70 18 96/51 L 94 Nasal Cannula 2 06/28/25 02:30 72 19 97/49 L 92 Nasal Cannula 2 06/28/25 02:00 69 20 110/48 L 92 Nasal Cannula 2 06/28/25 01:30 72 20 112/45 L 92 Nasal Cannula 2 06/28/25 01:00 71 20 99/41 L 92 Nasal Cannula 2 06/28/25 00:30 75 20 96/46 L 92 Nasal Cannula 2 06/28/25 00:12 85 20 92/53 L 95 Nasal Cannula 2 06/28/25 00:00 76 06/27/25 23:00 79 20 90/43 L 94 Nasal Cannula 2 06/27/25 22:00 89 23 110/54 L 94 Nasal Cannula 2 06/27/25 21:30 102/54 L Lab & Micro Results (Past 24 Hours) RBC 3.35 M/uL (4.20-5.40) L 06/28/25 WBC 5.64 K/ul (4.8-10.8) 06/28/25 Hgb 8.7 g/dl (12.0-16.0) L 06/28/25 Hct 28.2 % (37.0-47.0) L 06/28/25 MCV 84.2 fL (80.0-100.0) 06/28/25 MCH 26.0 pg (25.0-34.0) 06/28/25 MCHC 30.9 g/dL (32.0-36.0) L 06/28/25 RDW Standard Deviation 48.5 fL (36.4-46.3) H 06/28/25 RDW Coefficient of Variation 15.7 % (11.5-14.5) H 06/28/25 Plt Count 206 K/uL (130-400) 06/28/25 MPV 12.0 fL (9.4-12.4) 06/28/25 Neutrophils (%) (Auto) 77.2 % 06/28/25 Lymphocytes (%) (Auto) 8.5 % 06/28/25 Monocytes # (Auto) 0.51 K/uL (0.11-0.59) 06/28/25 Eosinophils # (Auto) 0.25 K/uL (0.00-0.50) 06/28/25 Immature Granulocyte % (Auto) 0.4 % 06/28/25 Neutrophils # (Auto) 4.35 K/uL (1.40-6.50) 06/28/25 Lymphocytes # (Auto) 0.48 K/uL (1.20-3.40) L 06/28/25 Monocytes # (Auto) 0.51 K/uL (0.11-0.59) 06/28/25 Eosinophils # (Auto) 0.25 K/uL (0.00-0.50) 06/28/25 Basophils # (Auto) 0.03 K/uL (0.00-0.20) 06/28/25 Immature Granulocyte # (Auto) 0.02 K/uL (0.01-0.20) 5 Na 135 mmol/L (136-145) L 06/28/25 K 4.8 mmol/L (3.5-5.1) 06/28/25 Cl 104 mmol/L (98-107) 06/28/25 CO2 25 mmol/L (21-32) 06/28/25 Anion Gap 6 (3-11) 06/28/25 BUN 25 mg/dl (6-23) H 06/28/25 Creatinine 0.87 mg/dl (0.6-1.2) 06/28/25 BUN/Creatinine Ratio 28.7 (10-20) H 06/28/25 Glu 98 mg/dl (70-99(Fasting)) 06/28/25 Ca 8.2 mg/dl (8.6-10.3) L 06/28/25 Phosphorus Level 4.9 mg/dl (2.5-4.9) 06/28/25 Mg 2.0 mg/dl (1.7-2.4) 06/28/25 05:01 Calcium Level 8.2 mg/dl (8.6-10.3) L 06/28/25 05:01 I & O Totals 24 Hours 06/27/25 06/28/25 06/29/25 06:59 06:59 06:59 Intake Total 2752.000 / 2752.000 3660.234 / 3660.234 0 / 0 Output Total 480 / 480 Balance 2752.000 / 2752.000 3180.234 / 3180.234 0 / 0 Cumulative 06/19/25 14:07 thru 06/28/25 07:09 Intake Total 31009.932 Output Total 482 Balance 60343.932 RT Ventilator Mngmt (Last Documented) Ventilator Ordered Settings Respiratory Rate 16 06/28/25 08:09 Ventilator - PT Measurements Respiratory Rate 16 Coding Level of Care Code 63385 SUB INP/OBS CARE 2/35MIN Diagnoses Intestinal angina K55.1 Superior mesenteric artery stenosis K55.1 Essential hypertension I10 Coronary artery disease I25.10 Acute on chronic heart failure with preserved ejection fraction (HFpEF) I50.33 PAF (paroxysmal atrial fibrillation) I48.0 Pulmonary hypertension I27.20
--- NOTE | 2025-06-28 10:44 | Surgery Progress Note ---
Date of Service June 28, 2025 Assessment & Plan (1) Superior mesenteric artery stenosis: Plan: pod 1 from sma stenting doing well will increase dieat (2) Acute blood loss as cause of postoperative anemia: Plan: hgb low post procedure from dilution and blood loss will transfuse 2 units and repeat hgb Admission and Anticipated Discharge Date Admission Date: June 19, 2025 Subjective Claims to have no abd pain today. took liquids without pain. she did have pain before with liquids also. Physical Exam Constitutional: WD/WN, vitals as above Respiratory: normal respiratory effort; no respiratory distress Cardiovascular: Rate/Rhythm: regular rate and regular rhythm Gastrointestinal (Abdomen): Inspection/Auscultation: abdomen normal to inspection; abdomen not distended Percussion/Palpation: abdomen soft; abdomen nontender Psychiatric: A+Ox3, euthymic affect Results & Data Vital Signs (Past 12 Hours) Vital Signs Temp Pulse Resp BP Pulse Ox O2 Del Method O2 Flow Rate 06/28/25 10:05 36.6 C 61 20 142/60 H 95 1 06/28/25 09:57 36.6 C 61 20 142/60 H 95 1 06/28/25 09:09 36.7 C 66 22 153/91 H 92 2 06/28/25 08:51 64 06/28/25 08:09 36.6 C 64 16 120/56 L 96 06/28/25 08:09 36.6 C 64 16 120/56 L 96 06/28/25 08:00 Nasal Cannula 2 06/28/25 07:39 36.8 C 66 20 117/56 L 91 06/28/25 07:24 36.7 C 65 18 116/56 L 95 06/28/25 07:06 36.6 C 65 19 117/62 96 2 06/28/25 06:03 67 20 106/50 L 96 Nasal Cannula 2 06/28/25 05:08 74 22 106/55 L 94 Nasal Cannula 2 06/28/25 05:00 69 19 106/55 L 92 Nasal Cannula 2 06/28/25 04:09 70 17 107/49 L 94 Nasal Cannula 2 06/28/25 03:02 70 18 96/51 L 94 Nasal Cannula 2 06/28/25 02:30 72 19 97/49 L 92 Nasal Cannula 2 06/28/25 02:00 69 20 110/48 L 92 Nasal Cannula 2 06/28/25 01:30 72 20 112/45 L 92 Nasal Cannula 2 06/28/25 01:00 71 20 99/41 L 92 Nasal Cannula 2 06/28/25 00:30 75 20 96/46 L 92 Nasal Cannula 2 06/28/25 00:12 85 20 92/53 L 95 Nasal Cannula 2 06/28/25 00:00 76 06/27/25 23:00 79 20 90/43 L 94 Nasal Cannula 2
[2025-06-28 12:33] LABS: Hematocrit (blood only) 36.9 % (37.0-47.0); Hemoglobin 11.7 g/dl (12.0-16.0)
[2025-06-28] MEDS: MoRPHine SULFATE 4 MG/ML 1 ML CARP\\VIAL IV STA (14:26)
[2025-06-28] MEDS: ONDANSETRON INJ 2 MG/ML 2 ML VIAL IV STA (14:40)
--- NOTE | 2025-06-28 14:46 | Billing Data ---
Date of Service June 28, 2025 Coding Level of Care Code 90560 SUB INP/OBS CARE MIN
[2025-06-28] MEDS: OPTIRAY 320 125ml IV ONE (14:50)
[2025-06-28] MEDS: [UNRECOGNIZED DRUG - OTHER] IV SCH (15:51)
[2025-06-28] MEDS: PERIPHERAL TPN IV SCH (15:51)
[2025-06-28] MEDS: CLINOLIPID 20% IV FAT EMULSION 200 ML IV SCH (15:51)
--- NOTE | 2025-06-28 16:17 | CT Scan Report ---
EXAM: CT Angiography Abdomen and Pelvis With Intravenous Contrast INDICATION: Mesenteric ischemia. Stent evaluation. TECHNIQUE: Axial computed tomographic angiography images of the abdomen and pelvis with intravenous contrast. Sagittal and coronal reformatted images were created and reviewed. This CT exam was performed using one or more of the following dose reduction techniques: automated exposure control, adjustment of the mA and/or kV according to patient size, and/or use of iterative reconstruction technique. MIP reconstructed images were created and reviewed. CONTRAST: 120 ml of Optiray 320 was administered intravenously. COMPARISON: 06/21/2025 FINDINGS: VASCULATURE: Aorta: Stable 3 cm infrarenal abdominal aortic aneurysm with prominent left lateral atheromatous plaque. No dissection or hemorrhage. Celiac trunk and mesenteric arteries: Patent superior mesenteric artery stent. Distal to the stent there is about 30% stenosis by mixed plaque. There is stable stenosis at the origin of the celiac trunk without occlusion. Renal arteries: No acute change noted. No occlusion or significant stenosis. Iliac arteries: No acute change noted. No occlusion or significant stenosis. Lung bases: See below. Pleural space: Stable small bilateral pleural effusions and dependent lower lobe atelectasis. Heart: Stable cardiomegaly. ABDOMEN: Liver: Fatty. There is mild intrahepatic biliary dilatation. Gallbladder and bile ducts: The gallbladder is moderately distended. There is layering hyperdense content in the gallbladder likely reflecting vicarious excretion. No calcified stones noted. The common bile duct is normal for age 7 mm. Pancreas: No abnormality noted. No ductal dilation. No mass. Spleen: No abnormality noted. No splenomegaly. Adrenals: No abnormality noted. No mass. Kidneys and ureters: The left kidney is somewhat small. There is a simple cyst. No further assessment of this is required. There is scarring of the right renal cortex. No hydronephrosis or stone. Stomach and bowel: Marked diverticular burden in the colon. Moderate amounts of stool in the colon. No obstruction. No mucosal thickening. PELVIS: Appendix: No findings to suggest acute appendicitis. Bladder: No abnormality noted. No mass. Reproductive: No significant abnormality noted. ABDOMEN and PELVIS: Intraperitoneal space: No change small amounts of scattered free fluid. No organized collection or free air. Bones/joints: There is moderate to marked bilateral iliac atherosclerotic calcification without segmental stenosis or occlusion. Degenerative changes noted throughout the spine. No acute osseous abnormality seen. Soft tissues: There is now an open wound in the anterior right proximal thigh. Lymph nodes: No abnormality noted. No enlarged lymph nodes. IMPRESSION: 1. The superior mesenteric artery stent is patent. 2. Stable approximate 3 cm infrarenal abdominal aortic aneurysm without rupture or dissection. 3. Distended gallbladder with layering hyperdense material likely sludge and/or vicarious excretion. 4. Stable pleural effusions and compressive atelectasis of the lower lobes. 5. Hepatic steatosis and stable biliary dilatation. ACT 112: N/A Electronically signed by Bruna Andres 06-28-2025 4:17 PM
[2025-06-28] MEDS: PROCHLORPERAZINE 5 MG in SYRINGE 4 ML IV ONE (18:29)
[2025-06-28] MEDS: POLYETHYLENE (MIRALAX) 17 GM PACK PO ONE (18:39)
[2025-06-28] MEDS: POLYETHYLENE (MIRALAX) 17 GM PACK PO SCH (21:43)
--- NOTE | 2025-06-29 06:41 | Hospitalist Progress Note ---
Date of Service June 29, 2025 Assessment & Plan (1) Superior mesenteric artery stenosis: (2) Coronary artery disease: (3) Essential hypertension: (4) Intestinal angina: Plan Mau Cano is an 85-year-old female with past medical history of CAD, HTN, gastritis, PAF, pulm HTN, carotid stenosis, and mesenteric insufficiency with intestinal angina. Patient presented to [facility] on 06/20/2025 with abdominal pain mostly noted post prandial. CTA in the past showed showed mesenteric artery stenosis. Patient was admitted and evaluated by vascular surgery. She was started on heparin gtt which has been discontinued now. 06/27/25 underwent mesenteric angiography with stenting to mesenteric artery for Mesenteric Artery Stenosis. She is being admitted for her ongoing pain post surgery. CT angio of abdomen and pelvis was done to rule out recurrence of clots. No new findings of clot on imaging. #Intestinal angina # 2 POD S/P mesenteric angiography with stenting for Mesenteric artery stenosis - Diet: PPN + HH diet -Still reporting abdominal pain which gets better with bowel movement -CT angio (abdomen and Pelvis) done on 06/28 to rule out clots. No findings of new clots -Suspect constipation is contributing to her abdominal pain. -Plan to discharge once she has had bowel movements, has her abdominal pain better, and she is able to eat adequately. #Acute Blood Loss Anemia -Hgb 10.4 from 11.7 yesterday -Recheck in the AM #Paroxysmal afib/HTN/CAD with bypass graft/HFrEF - continue home medications -Continue Metoprolol, DAPT -Continue Amlodipine and Entresto #Pulmonary Hypertension -Treat heart failure as above -Maintain SpO2 > 92% -Patient on 2L NC #GERD -Cont PPI Dispo: Med/Surg with tele Diet: PPN + Heart Healthy Diet Code status: DNR/DNI VTE Prophylaxis: Lovenox Admission and Anticipated Discharge Date Admission Date: June 19, 2025 Supervising Physician Co-Signing Physician Notes I personally examined the patient and verified all catalan points of history and exam, discussed case, and agree with decision making with Dr Velasquez Still feeling fairly bad. Abdominal pain. Very small bowel movements x 2 today. Somewhat nauseated. Later saw daughter and updated in depth to the best my ability and to her satisfaction. Vitals noted, in general she is awake and alert pleasant but does appear somewhat uncomfortable. HEENT normocephalic atraumatic mucous membranes moist. Breathing unlabored no accessory muscle use good effort. Abdomen is slightly more distended than yesterday with positive bowel sounds . There is no rigidity, no guarding rebound, but there is a degree of vague diffuse predominantly periumbilical tenderness to palpation. Mesenteric artery ischemia with intestinal angina Post angio and stenting. Advance diet slowly, continue PPN for now. In regards to her pain yesterday andtoday it fits far better withgas/constipation given her bloating and a mild degree of reproducibility on exam, as well as nursing noting that she had simila r pain and felt better after a bowel movement. normal lactate, CT with intact blood supply, and CT findings of gas and feces all corroborate this. Gentle bowel regimen given her nausea. Hypoxiaprobably atelectasis. Incentive spirometry. Improved. Chronic atrial fibrillation/pulmonary hypertension/coronary artery diseaseclinically stable at this time severe protein calorie malnutrition present on admission with low overall weight and low and BMIsupplemental nutrition IV at this time. Once her intestinal ischemia has been alleviated, will need to work with a dietitian to improve her overall calorie intake. Continue PPN until her p.o. intake is adequate. PT/OT eval and treat. (has been doing well) Acute blood loss anemiaalready transfused. Appears to have been due to procedure, and not unexpected. DVT prophylaxiswas anticoagulated; Had procedure 06/27 and some degree of acute blood loss anemiacontinue to follow for now. Anticipate initiating pharmacologic DVT prophylaxis once stable to do so (from bleeding standpoint). Anticipate being able to send her home once she has had bowel movements, assuming that that has her abdominal pain better, and assuming she is able to eat adequately. She has been doing well with PT, and as of her last assessment rehab would not be necessary, but obviously also want want to make sure she stays as good and her functional status. Subjective Schryl reported that she has moderate abdominal pain this morning. She has been on Heart Healthy diet started yesterday morning. She had very small Bowel movement this morning. Denies any blood in the stool. Her hgb has dropped down to 10.4 from 11.7 yesterday. Otherwise denies nausea, vomiting or any other new concerns. Review of Systems Constitutional: as per Subjective / HPI Physical Exam Constitutional: WD/WN, vitals as above Respiratory: normal respiratory effort; no respiratory distress Cardiovascular: Rate/Rhythm: regular rate and regular rhythm Gastrointestinal (Abdomen): Inspection/Auscultation: abdomen normal to inspection; abdomen not distended Percussion/Palpation: abdomen soft; abdomen nontender Psychiatric: A+Ox3, euthymic affect Results & Data Results & Data Vital Signs (Past 12 Hours) Vital Signs Temp Pulse Pulse Resp BP BP Pulse Ox 06/29/25 04:00 36.4 C L 80 16 121/62 94 06/29/25 00:34 36.7 C 77 17 123/58 L 92 06/28/25 21:42 78 06/28/25 20:44 36.6 C 75 18 106/59 L 96 06/28/25 20:00 O2 Del Method O2 Flow Rate 06/29/25 04:00 Room Air 06/29/25 00:34 Room Air 06/28/25 21:42 06/28/25 20:44 Nasal Cannula 2 06/28/25 20:00 Room Air Resident Activity Tracking Resident Involvement: Resident Care Provided Care Provided: Adult Hospital Medicine
[2025-06-29 08:22] LABS: Hematocrit (blood only) 32.3 % (37.0-47.0); Hemoglobin 10.4 g/dl (12.0-16.0); Immature Granulocytes # (auto) 0.03 K/uL (0.01-0.20); Immature Granulocytes % (auto) 0.5 %; Mean Corpuscular Hemoglobin 27.1 pg (25.0-34.0); Mean Corpuscular Volume 84.1 fL (80.0-100.0); Platelet Count 192 K/uL (130-400); RDW Standard Deviation 49.1 fL (36.4-46.3); Red Blood Count 3.84 M/uL (4.20-5.40); White Blood Count 6.34 K/ul (4.8-10.8)
[2025-06-29 08:43] LABS: Anion Gap 5.0 (3-11); Blood Urea Nitrogen 25.0 mg/dl (6-23); Calcium 8.6 mg/dl (8.6-10.3); Carbon Dioxide 28.0 mmol/L (21-32); Chloride 103.0 mmol/L (98-107); Creatinine Clr Calc Pharmacy 32.4 ml/min; Glucose 92.0 mg/dl (70-99(Fasting)); Magnesium 2.1 mg/dl (1.7-2.4); Potassium 4.7 mmol/L (3.5-5.1); Sodium 136.0 mmol/L (136-145)
--- NOTE | 2025-06-29 15:19 | Billing Data ---
Date of Service June 29, 2025 Coding Level of Care Code 17025 SUB INP/OBS CARE MIN
[2025-06-29] MEDS: ALUMINUM/MAGNESIUM SUSP 30 ML UDC PO ONE (16:03)
[2025-06-29] MEDS: ALUMINUM/MAGNESIUM/SIMETH (MAALOX MAX) 30 ML UDC PO SCH (20:25)
[2025-06-30 07:26] LABS: Hematocrit (blood only) 34.5 % (37.0-47.0); Hemoglobin 11.0 g/dl (12.0-16.0); Immature Granulocytes # (auto) 0.03 K/uL (0.01-0.20); Immature Granulocytes % (auto) 0.6 %; Mean Corpuscular Hemoglobin 26.8 pg (25.0-34.0); Mean Corpuscular Volume 84.1 fL (80.0-100.0); Platelet Count 202 K/uL (130-400); RDW Standard Deviation 49.8 fL (36.4-46.3); Red Blood Count 4.10 M/uL (4.20-5.40); White Blood Count 4.67 K/ul (4.8-10.8)
[2025-06-30 07:44] LABS: Anion Gap 6.0 (3-11); Blood Urea Nitrogen 18.0 mg/dl (6-23); Calcium 8.9 mg/dl (8.6-10.3); Carbon Dioxide 27.0 mmol/L (21-32); Chloride 104.0 mmol/L (98-107); Creatinine Clr Calc Pharmacy 33.2 ml/min; Glucose 90.0 mg/dl (70-99(Fasting)); Magnesium 2.1 mg/dl (1.7-2.4); Potassium 4.3 mmol/L (3.5-5.1); Sodium 137.0 mmol/L (136-145)
--- NOTE | 2025-06-30 07:57 | Hospitalist Progress Note ---
Date of Service June 30, 2025 Assessment & Plan (1) Superior mesenteric artery stenosis: (2) Coronary artery disease: (3) Essential hypertension: (4) Intestinal angina: Plan Mau Cano is an 85-year-old female with past medical history of CAD, HTN, gastritis, PAF, pulm HTN, carotid stenosis, and mesenteric insufficiency with intestinal angina. Patient presented to [facility] on 06/20/2025 with abdominal pain mostly noted post prandial. CTA in the past showed showed mesenteric artery stenosis. Patient was admitted and evaluated by vascular surgery. She was started on heparin gtt which has been discontinued now. 06/27/25 underwent mesenteric angiography with stenting to mesenteric artery for Mesenteric Artery Stenosis. She is being admitted for her ongoing pain post surgery. CT angio of abdomen and pelvis was done to rule out recurrence of clots. No new findings of clot on imaging. #Intestinal angina # 3 POD S/P mesenteric angiography with stenting for Mesenteric artery stenosis - Diet: Heart healthy regular diet. - Abdominal pain which improved, eating small quantity. - CT angio (abdomen and Pelvis) done on 06/28 to rule out clots. No findings of new clots -Plan to discharge, but needs rehab per OT/PT. #Acute Blood Loss Anemia -Hgb stable #Paroxysmal afib/HTN/CAD with bypass graft/HFrEF - continue home medications -Continue Metoprolol, DAPT -Continue Amlodipine and Entresto #Pulmonary Hypertension -Treat heart failure as above -Maintain SpO2 > 92% -Patient on room air now. #GERD -Cont PPI Dispo: OT/PT recs rehab. Diet: PPN + Heart Healthy Diet Code status: DNR/DNI VTE Prophylaxis: Lovenox Admission and Anticipated Discharge Date Admission Date: June 19, 2025 Supervising Physician Co-Signing Physician Notes I personally examined the patient and verified catalan points of history and exam, discussed case, and agree with decision making and plan documented by Dr. Velasquez. Patient unsteady on feet today and PT recommending rehabilitation. Subjective 85 yo very pleasant female, with hx of mesenteric artery disease, S/P SMA stenting. Pt states she has been eating small amts without abd pain, but her stomach does not feel just right. When I asked her "is that rumbling", She says yes, and she has been taking miralax. Had 3-4 BM this morning only. Slept ok last night. Had IADLs, 3 daughters nearby who can help her. She has 14 rooms in her house, initially handed over by her mom, planning to sell as she does not use all of them. We had very pleasant conversation for 20 minutes in room and she was very comfortable throughout. Review of Systems Review of Systems: Per HPI Physical Exam Physical Exam: Constitutional: Well appearing, No acute distress HEENT: Atraumatic, Normocephalic, No conjunctival injection CVS: S1 S2 no murmur, Regular Rhythm, no LE edema Respiratory: BL equal air entry with NVBS. No rhonchi, wheezes, or crackles. No increased work of breathing GI: Soft, Nondistended, Nontender, Normal Bowel sounds + MSK: No gross deformities noted Skin: Warm, Dry, No rashes Neuro: Alert, Oriented to TPP, No Focal deficit Psych: Mood and Affect congruent, Cooperative on exam Results & Data Results & Data Vital Signs (Past 12 Hours) Vital Signs Temp Pulse Pulse Resp BP BP Pulse Ox 06/30/25 07:43 36.6 C 79 20 92/55 L 96 06/30/25 04:00 36.5 C 63 16 105/60 94 06/30/25 01:00 69 06/30/25 00:17 36.5 C 67 19 123/62 97 06/29/25 23:56 06/29/25 20:35 109/62 06/29/25 20:07 36.8 C 80 16 82/38 L 92 O2 Del Method 06/30/25 07:43 Room Air 06/30/25 04:00 Room Air 06/30/25 01:00 06/30/25 00:17 Room Air 06/29/25 23:56 Room Air 06/29/25 20:35 06/29/25 20:07 Room Air Resident Activity Tracking Resident Involvement: Resident Care Provided Care Provided: Adult Hospital Medicine
--- NOTE | 2025-06-30 09:28 | Surgery Progress Note ---
Date of Service June 30, 2025 Assessment & Plan (1) Superior mesenteric artery stenosis: Plan: POD#3 after SMA stenting. Doing well postop. Eating small amts without associated abd pain, still with poor appetite. From vascular standpoint, pt ok for d/c. Would consider rehab for strengthening. Will see in office in 2 weeks. Please call if needed. (2) Acute blood loss as cause of postoperative anemia: Plan: hgb stable after 2 U PRBC Admission and Anticipated Discharge Date Admission Date: June 19, 2025 Subjective 85 yo f with hx of mesenteric artery disease, POD # 3 after SMA stenting, seen in f/u today. Pt states she has been eating small amts without abd pain, but is scared to eat more and still does not have a large appetite. States her abd pain is overall improved. No new complaints. Review of Systems Review of Systems: All systems reviewed & are unremarkable except as noted in HPI & below Physical Exam Constitutional: WD/WN, vitals as above Cardiovascular: RRR, no murmur, no edema Rate/Rhythm: regular rate and regular rhythm Gastrointestinal (Abdomen): Inspection/Auscultation: abdomen normal to inspection; abdomen not distended Percussion/Palpation: abdomen soft; abdomen nontender Skin: L arm incision C/D/I, brachial and radial pulses +2 Neurologic: CN's II-XI intact bilaterally and moves all extremities Psychiatric: A+Ox3, euthymic affect Results & Data Vital Signs (Past 12 Hours) Vital Signs Temp Pulse Pulse Resp BP BP Pulse Ox 06/30/25 07:43 36.6 C 79 20 92/55 L 96 06/30/25 04:00 36.5 C 63 16 105/60 94 06/30/25 01:00 69 06/30/25 00:17 36.5 C 67 19 123/62 97 06/29/25 23:56 O2 Del Method 06/30/25 07:43 Room Air 06/30/25 04:00 Room Air 06/30/25 01:00 06/30/25 00:17 Room Air 06/29/25 23:56 Room Air
[2025-06-30] MEDS ORDERED: ARTIFICIAL TEARS OPB PRN (23:18)
--- NOTE | 2025-07-01 06:48 | Hospitalist Progress Note ---
Date of Service July 01, 2025 Assessment & Plan (1) Superior mesenteric artery stenosis: (2) Coronary artery disease: (3) Essential hypertension: (4) Intestinal angina: Plan Mau Cano is an 85-year-old female with past medical history of CAD, HTN, gastritis, PAF, pulm HTN, carotid stenosis, and mesenteric insufficiency with intestinal angina. Patient presented to [facility] on 06/20/2025 with abdominal pain mostly noted post prandial. CTA in the past showed showed mesenteric artery stenosis. Patient was admitted and evaluated by vascular surgery. She was started on heparin gtt which has been discontinued now. 06/27/25 underwent mesenteric angiography with stenting to mesenteric artery for Mesenteric Artery Stenosis. She is being admitted for her ongoing pain post surgery. CT angio of abdomen and pelvis was done to rule out recurrence of clots. No new findings of clot on imaging. #Intestinal angina # 4th POD S/P mesenteric angiography with stenting for Mesenteric artery stenosis - Diet: Heart healthy regular diet. - Pt endorsed severe Abdominal pain this morning which was just transient. Discussed with vascular team, they do not think its recurrence of intestinal angina. - CT angio (abdomen and Pelvis) done on 06/28 to rule out clots. No findings of new clot. - Ordered US GB ,pending. Stable afternoon. -Plan to discharge, but needs rehab per OT/PT. #Acute Blood Loss Anemia -Hgb stable #Paroxysmal afib/HTN/CAD with bypass graft/HFrEF - continue home medications -Continue Metoprolol, DAPT -Continue Amlodipine and Entresto #Pulmonary Hypertension -Treat heart failure as above -Maintain SpO2 > 92% -Patient on room air now. #GERD -Cont PPI Dispo: OT/PT recs rehab. Diet: PPN + Heart Healthy Diet Code status: DNR/DNI VTE Prophylaxis: Lovenox Admission and Anticipated Discharge Date Admission Date: June 19, 2025 Supervising Physician Co-Signing Physician Notes I personally examined the patient and verified catalan points of history and exam, discussed case, and agree with decision making and plan documented by Dr. Velasquez. Referrals placed to rehabilitation pending. Subjective 85 yo very pleasant female, with hx of mesenteric artery disease, S/P SMA stenting. Pt states she has been eating small amts without abd pain, but her stomach does not feel just right. This morning pt has very severe pain 10/10 after she ate half banana. Bit by the time i was there, it was subsided. Its not radiating, non migrating, very severe sharp pain on her right upper quadrant, where the pain was when she presented in. She also had some nausea and eventually threw up. No new fever, ongoing bowel movement d.t use of miralax, but no blood in stool or very foul smelling nature. Review of Systems Review of Systems: Per HPI Physical Exam Physical Exam: Constitutional: Well appearing, No acute distress HEENT: Atraumatic, Normocephalic, No conjunctival injection CVS: S1 S2 no murmur, Regular Rhythm, no LE edema Respiratory: BL equal air entry with NVBS. No rhonchi, wheezes, or crackles. No increased work of breathing GI: Soft, Nondistended, Nontender, Normal Bowel sounds + MSK: No gross deformities noted Skin: Warm, Dry, No rashes Neuro: Alert, Oriented to TPP, No Focal deficit Psych: Mood and Affect congruent, Cooperative on exam Results & Data Results & Data Vital Signs (Past 12 Hours) Vital Signs Temp Pulse Resp BP Pulse Ox O2 Del Method 07/01/25 03:58 36.5 C 82 18 139/71 97 Room Air 06/30/25 23:49 36.6 C 92 H 18 104/67 96 Room Air 06/30/25 19:47 36.7 C 82 18 102/58 L 92 Room Air Resident Activity Tracking Resident Involvement: Resident Care Provided Care Provided: Adult Hospital Medicine
[2025-07-01 07:36] LABS: Anion Gap 9.0 (3-11); Calcium 9.0 mg/dl (8.6-10.3); Carbon Dioxide 25.0 mmol/L (21-32); Chloride 104.0 mmol/L (98-107); Magnesium 2.2 mg/dl (1.7-2.4); Potassium 4.1 mmol/L (3.5-5.1); Sodium 138.0 mmol/L (136-145)
[2025-07-01 07:42] LABS: Blood Urea Nitrogen 17.0 mg/dl (6-23); Creatinine Clr Calc Pharmacy 29.1 ml/min; Glucose 88.0 mg/dl (70-99(Fasting))
[2025-07-01] MEDS: SUCRALFATE 1 GM/10 ML UDC PO SCH (19:39)
--- NOTE | 2025-07-01 22:55 | Ultrasound Report ---
Exam(s): US ABDOMEN LIMITED EXAM: US Abdomen Limited, Right Upper Quadrant CLINICAL HISTORY: Reason for exam: RUQ pain. TECHNIQUE: Real-time ultrasound of the right upper quadrant with image documentation. COMPARISON: No relevant prior studies available. FINDINGS: Liver: Unremarkable. No mass. No intrahepatic bile duct dilation. Gallbladder: Unremarkable. No gallstones. Common bile duct: Unremarkable as visualized. No stones. No dilation. Pancreas: Unremarkable as visualized. Right kidney: Unremarkable. No stones. No solid mass. No hydronephrosis. Aorta: There is an abdominal aortic aneurysm is measures approximate 4. 0 x 3.6 cm. IMPRESSION: No acute findings in the right upper quadrant. Abdominal aortic aneurysm. Electronically signed by: aJh Okeefe MD 07/01/25 22:54 PM
--- NOTE | 2025-07-02 00:31 | XRay Report ---
Exam(s): XR KUB EXAM: XR Abdomen, 1 View CLINICAL HISTORY: Reason for exam: ?SBO. TECHNIQUE: Frontal supine view of the abdomen/pelvis. COMPARISON: No relevant prior studies available. FINDINGS: Gastrointestinal tract: Unremarkable. No dilation. Bones/joints: Unremarkable. No acute fracture. IMPRESSION: Normal abdominal x-ray. Electronically signed by: Jah Okeefe MD 07/02/25 00:30 AM
[2025-07-02 07:07] LABS: Alanine Aminotransferase 19.0 U/L (7-52); Albumin Globulin Ratio 0.8 (0.9-2); Albumin Level 2.8 gm/dl (3.4-5.0); Alkaline Phosphatase 55.0 U/L (34-104); Anion Gap 8.0 (3-11); Bilirubin,Total 0.5 mg/dl (0.2-1.0); Blood Urea Nitrogen 19.0 mg/dl (6-23); Calcium 9.0 mg/dl (8.6-10.3); Carbon Dioxide 27.0 mmol/L (21-32); Chloride 104.0 mmol/L (98-107); Creatinine Clr Calc Pharmacy 26.5 ml/min; Globulin 3.5 gm/dl (2.5-4.0); Glucose 90.0 mg/dl (70-99(Fasting)); Potassium 4.0 mmol/L (3.5-5.1); Sodium 139.0 mmol/L (136-145); Total Protein 6.3 gm/dl (6.0-8.3)
--- NOTE | 2025-07-02 07:13 | Hospitalist Progress Note ---
Date of Service July 02, 2025 Assessment & Plan (1) Superior mesenteric artery stenosis: (2) Coronary artery disease: (3) Essential hypertension: (4) Intestinal angina: Plan Mau Cano is an 85-year-old female with past medical history of CAD, HTN, gastritis, PAF, pulm HTN, carotid stenosis, and mesenteric insufficiency with intestinal angina. Patient presented to [facility] on 06/20/2025 with abdominal pain mostly noted post prandial. CTA in the past showed showed mesenteric artery stenosis. Patient was admitted and evaluated by vascular surgery. She was started on heparin gtt which has been discontinued now. 06/27/25 underwent mesenteric angiography with stenting to mesenteric artery for Mesenteric Artery Stenosis. She is being admitted for her ongoing pain post surgery. CT angio of abdomen and pelvis was done to rule out recurrence of clots. No new findings of clot on imaging. #Intestinal angina # 4th POD S/P mesenteric angiography with stenting for Mesenteric artery stenosis - Diet: Heart healthy regular diet. - Pt endorsed severe Abdominal last night which was just transient. Discussed with vascular team yesterday they do not think its recurrence of intestinal angina. - CT angio (abdomen and Pelvis) done on 06/28 to rule out clots. No findings of new clot. - Ordered US GB ,pending. Stable afternoon. -Plan to discharge, but needs rehab per OT/PT. #Intermittent pain abdomen Crampy pain abdomen, sometimes in her RUQ, sometime in LQ. - USG GB: Unremarkable. - LFTs: Unremarkable. - Repeat CAT torres: Stable - Vascular do not think anginal pain. - Constipation and gas pain is potential given KUB finding of still some stool burden - Simethicone, Miralax intensification. - Encourage enough hydration. #Acute Blood Loss Anemia -Hgb stable #Paroxysmal afib/HTN/CAD with bypass graft/HFrEF - continue home medications -Continue Metoprolol, DAPT -Continue Amlodipine and Entresto #Pulmonary Hypertension -Treat heart failure as above -Maintain SpO2 > 92% -Patient on room air now. #GERD -Cont PPI Dispo: OT/PT recs rehab. Diet: PPN + Heart Healthy Diet Code status: DNR/DNI VTE Prophylaxis: Lovenox Admission and Anticipated Discharge Date Admission Date: June 19, 2025 Supervising Physician Co-Signing Physician Notes I personally examined the patient and verified catalan points of history and exam, discussed case, and agree with decision making and plan documented by Dr. Velasquez. Patient reporting improvement of postprandial pain. Continue efforts to maintain nutritional approach. Auths for rehabilitation pending. Subjective Mau was pretty stable when I saw her this morning. She had a bout of pain last night ans XR was ordered, which show some poops in there still. Nurse mentioned me she refused taking her Simethicone I ordered this morning. She was afraid of having pain again. I explained her why I think Simethicone is helpful for and now she agrees. I talked to her daughter Denise( POA ) this afternoon, updated about ongoing plan. She was concerned about mom's diet. She admits she is not eating enough at home and was curious if we could encourage her more. I shared that we have involved lead systems developer in her care now and they are following her diet. Updated that she is recommended to go to rehab after this discharge. She agrees with this plan. Review of Systems Review of Systems: Per HPI Physical Exam Physical Exam: Constitutional: Well appearing, No acute distress HEENT: Atraumatic, Normocephalic, No conjunctival injection CVS: S1 S2 no murmur, Regular Rhythm, no LE edema Respiratory: BL equal air entry with NVBS. No rhonchi, wheezes, or crackles. No increased work of breathing GI: Soft, Nondistended, Nontender, Normal Bowel sounds + MSK: No gross deformities noted Skin: Warm, Dry, No rashes Neuro: Alert, Oriented to TPP, No Focal deficit Psych: Mood and Affect congruent, Cooperative on exam Results & Data Results & Data Vital Signs (Past 12 Hours) Vital Signs Temp Pulse Pulse Resp BP BP Pulse Ox 07/01/25 23:05 07/01/25 22:52 36.7 C 70 16 104/59 L 93 07/01/25 19:18 36.9 C 76 20 114/65 94 O2 Del Method 07/01/25 23:05 Room Air 07/01/25 22:52 Room Air 07/01/25 19:18 Room Air Resident Activity Tracking Resident Involvement: Resident Care Provided Care Provided: Adult Hospital Medicine
[2025-07-02] MEDS: POLYETHYLENE (MIRALAX) 17 GM PACK PO SCH (08:13)
[2025-07-02] MEDS: SIMETHICONE 80 MG CHEW PO ONE (08:31)
--- NOTE | 2025-07-02 09:26 | Surgery Progress Note ---
Date of Service July 02, 2025 Assessment & Plan (1) Superior mesenteric artery stenosis: Plan: POD#4 after SMA stenting. Doing well postop. Still having some intermittent abd pain, still with poor appetite. Gallbladder US negative for stones, but previous CT scan did indicate some sludge. If abd pain continues, would consider reconsult GI. From vascular standpoint, pt ok for d/c. Would recommend rehab for strengthening. Will see in office in 2 weeks. Please call if needed. (2) Acute blood loss as cause of postoperative anemia: Plan: hgb stable after 2 U PRBC Admission and Anticipated Discharge Date Admission Date: June 19, 2025 Subjective 85 yo f POD #5 after SMA stenting, seen in f/u today. Pt states she had a single episode of 10/10 sharp abd pain lasting about 15 minutes yesterday morning after eating 5 bites of egg whites and 3 bites of banana. Resolved after vomiting and having diarrhea. Besides that episode, she has intermittent mild crampy, low abd pain that waxes and wanes based on eating and activity. Feels weak, but otherwise well at this time. No new complaints. Review of Systems Review of Systems: All systems reviewed & are unremarkable except as noted in HPI & below Physical Exam Constitutional: WD/WN, vitals as above Cardiovascular: RRR, no murmur, no edema Rate/Rhythm: regular rate and regular rhythm Gastrointestinal (Abdomen): Inspection/Auscultation: abdomen normal to inspection; abdomen not distended Percussion/Palpation: abdomen soft; abdomen nontender Skin: no rashes, warm and dry (LUE brachial art incision C/D/I, mild local ecchymosis.) Neurologic: CN's II-XI intact bilaterally and moves all extremities Psychiatric: A+Ox3, euthymic affect Results & Data Vital Signs (Past 12 Hours) Vital Signs Temp Pulse Resp BP BP Pulse Ox O2 Del Method 07/02/25 08:02 36.8 C 80 18 107/66 96 Room Air 07/02/25 07:43 Room Air 07/01/25 23:05 Room Air 07/01/25 22:52 36.7 C 70 16 104/59 L 93 Room Air
[2025-07-03 07:07] VITALS: RESP 18; O2SAT 95
[2025-07-03 08:53] LABS: Hematocrit (blood only) 34.0 % (37.0-47.0); Hemoglobin 10.7 g/dl (12.0-16.0); Immature Granulocytes # (auto) 0.03 K/uL (0.01-0.20); Immature Granulocytes % (auto) 0.6 %; Mean Corpuscular Hemoglobin 26.8 pg (25.0-34.0); Mean Corpuscular Volume 85.0 fL (80.0-100.0); Platelet Count 254 K/uL (130-400); RDW Standard Deviation 50.9 fL (36.4-46.3); Red Blood Count 4.00 M/uL (4.20-5.40); White Blood Count 4.85 K/ul (4.8-10.8)
[2025-07-03] MEDS ORDERED: SIMETHICONE 80 MG CHEW PO PRN (09:00)
[2025-07-03 09:05] LABS: Anion Gap 6.0 (3-11); Blood Urea Nitrogen 23.0 mg/dl (6-23); Calcium 8.8 mg/dl (8.6-10.3); Carbon Dioxide 29.0 mmol/L (21-32); Chloride 105.0 mmol/L (98-107); Creatinine Clr Calc Pharmacy 21.0 ml/min; Glucose 90.0 mg/dl (70-99(Fasting)); Potassium 4.3 mmol/L (3.5-5.1); Sodium 140.0 mmol/L (136-145)
[2025-07-03] MEDS: LACTATED RINGER'S 500 ML IV ONE (10:01)
[2025-07-03] MEDS: POLYETHYLENE (MIRALAX) 17 GM PACK PO SCH (10:04)
[2025-07-03] MEDS: ONDANSETRON INJ 2 MG/ML 2 ML VIAL IV STA (13:40)
--- NOTE | 2025-07-03 14:30 | Discharge Summary ---
Date of Service July 03, 2025 Admission HPI Per Admitting Provider 85-year-old white female who presents with symptoms of intestinal angina that have been going on for quite some time. She was recently admitted and discharged for treatment of similar complaints. Abdominal CTA recently done reveals moderate stenosis of the celiac trunk with mild stenosis of the proximal superior mesenteric artery and moderate stenosis of the inferior mesenteric artery. HIDA scan done in May of this year was unremarkable. She also had an EGD in May of this year with low grade esophageal stenosis, evidence of gastritis and erosions which have been treated. She has no fever or chills. At the time of my examination she is alert and oriented without complaint. She will be started on a heparin drip and vascular consultation will be obtained. Hopefully she will respond to systemic anticoagulation and she can be switched to oral Eliquis or Xarelto at the time of discharge. The potential risks of bleeding with heparin were explained to the patient and her daughter and they understand and accept the risk. Admission Exam Per Admitting Provider Constitutionalno fever or chills ENTno blurred vision, no double vision, no epistaxis, no sore throat Respiratoryno cough, no wheezing, no shortness of breath Cardiacno palpitations, no chest pain, no syncope Armando nausea, vomiting, diarrhea, melena, hematochezia. Postprandial diffuse abdominal pain GUno urinary retention, no urinary incontinence, no dysuria, no hematuria Musculoskeletalno joint pain, no muscle tenderness Skinno bruising, no rashes, no pruritus Neurono isolated weakness, no paresthesia, no weakness Psychno depression, no anxiety Principal Diagnosis Superior Mesenteric Artery Stenosis S/P Stenting. Discharge Exam Constitutional: Well appearing, No acute distress HEENT: Atraumatic, Normocephalic, No conjunctival injection CVS: S1 S2 no murmur, Regular Rhythm, no LE edema Respiratory: BL equal air entry with NVBS. No rhonchi, wheezes, or crackles. No increased work of breathing GI: Soft, Nondistended, Nontender, Normal Bowel sounds + MSK: No gross deformities noted Skin: Warm, Dry, No rashes Neuro: Alert, Oriented to TPP, No Focal deficit Psych: Mood and Affect congruent, Cooperative on exam Discharge Data Allergies Allergy/AdvReac Type Severity Reaction Status Date / Time ondansetron [From Zofran] AdvReac Intermediate Unknown Verified 06/27/25 07:12 promethazine [From Phenergan] AdvReac Mild unknown Verified 06/27/25 07:12 Consultations 06/19/25 16:13 ED Decision to Admit Stat 06/19/25 21:00 Consult Vascular Surgery Routine 06/27/25 11:18 Consult Test Lead Routine Procedures Performed Operation Date: 06/27/25 08:00 Actual Procedures p Superior Mesenteric Artery Stenting, Left Brachial Cut Down, Mechanical Closure Right Femoral Artery(Not Applicable) - Aniceto Goldman MD Ordered Studies 06/21/25 16:24 CT Abd and Pelvis [CT abd pelvis IV con only] Urgent US Mesentary Duplex [US duplex mesenteric] Urgent 06/24/25 07:37 CTA abdomen w con [CT angio abdomen w con] Routine CTA chest w con [CT angio chest w con] Routine 06/27/25 07:37 EV Angio Abdomen Aorta Routine 06/28/25 14:17 CTA abdomen pelvis w con [CT angio abdomen pelvis w con] Urgent 07/01/25 10:38 US gallbladder Routine Hospital Course (1) Superior mesenteric artery stenosis: (2) Coronary artery disease: (3) Essential hypertension: (4) Intestinal angina: (5) Nutrition deficiency due to insufficient food: Judy Cano is an 85-year-old female with past medical history of CAD, HTN, gastritis, PAF, pulm HTN, carotid stenosis, and mesenteric insufficiency with intestinal angina. Patient presented to [facility] on 06/20/2025 with abdominal pain mostly noted post prandial. CTA in the past showed showed mesenteric artery stenosis. Patient was admitted and evaluated by vascular surgery. On 06/27/25 underwent mesenteric angiography with stenting to mesenteric artery for Mesenteric Artery Stenosis. She was admitted for her ongoing pain post surgery. CT angio of abdomen and pelvis was done to rule out recurrence of clots. No new findings of clot on imaging. #Intestinal angina *S/P mesenteric angiography with stenting for Mesenteric artery stenosis - Continue Aspirin and Plavix for lifelong per Vacular team. - F.u vascular in 2 weeks. - Repeat CAT scan post procedure- stable #Nutritional deficiency - 2/2 to poor intake. Pt admits she eats very less. Nutrition followed on admission-- Diet modification done and advised on DC. Handouts provided. - Need longitudinal follow up. - If pt does not have adequate weight gain, might need nutritional support in future. #Intermittent pain abdomen Crampy pain abdomen, sometimes in her RUQ, sometime in LQ. - USG GB: Unremarkable. - LFTs: Unremarkable. - Repeat CAT torres: Stable - Vascular do not think recurrent anginal pain. - Constipation and gas pain is potential given KUB finding of still some stool burden - Simethicone, Miralax continue on discharge. - Encourage enough hydration. #Acute Blood Loss Anemia -Hgb stable #Paroxysmal afib/HTN/CAD with bypass graft/HFrEF -Continue home medications -Continue Metoprolol, DAPT -Continue Amlodipine and Entresto #Pulmonary Hypertension -Treat heart failure as above -Maintain SpO2 > 92% -Patient on room air now. Dispo Pt. was recommended rehab placement per OT/PT, however peer to peer conversation was tried and denied by [facility] on 07/03/2025. Case management is arranging home health for her. Total Time Total Time Spent Total Time Spent (In Minutes): See attending's attestation Discharge Plan Discharge Items Patient Disposition: Home - Self-Care Reason For Visit: INTESTINAL ANGINA Discharge Diagnosis: Mesenteric Angina S/P Stenting. Condition on Discharge: Fair Activity: Resume your previous activity Non-emergency contact: Primary Care Provider and Metal Crafts Teacher Call non-emergency contact if: your pain is unusual for you Follow-up/Referrals: Ceci Shelby PA-C [Primary Care Provider] - 07/10/25 9:45 am Dorys Velasquez MD [Resident] - Diet: Heart Healthy Addtl Attending Provider Instructions: You were admitted to the hospital for severe abdominal pain. You were found to have superior mesenteric artery stenosis and hence stent was placed in. After stent procedure you were admitted in observation and CAT scan was repeated because of abdominal pain you had. CAT scan post procedure showed patent stent on artery but no other intraabdominal issues. You keep having recurrent bout of crampy abdominal pain post- procedure, hence we investigated with ultrasounds to see your gall bladder closely, your gall bladder looked fine. We did X-ray of your belly multiple times and all we could see was moderate amount of poop in there, hence we do think your pain is secondary to constipation and we are recommending Miralax treatment for you. Miralax might make you lose more water than before ans hence it's really important for you to drink enough fluids. I recommend you to drink at least 50-60 ounces of fluid each day. Also given the fact that your nutrition seem severely compromised, we involved cooperative education coordinator in your care during hospital stay. They have build a plan for you and recommend increasing amount of nutrition that you were taking in home. Occupational and physical therapy evaluated you during hospital stay and they recommend you sp ending some time in rehab before you go home. Hence we are discharging you to rehab after your pain was better. We anticipate your pain might come on and off even after discharge. Please continue taking miralax, regular diet, avoid Soda drink that might be the reason of gassy pain. Reach out to provider if pain is really severe and happens continuously. New antiplatelet medication called Plavix has been added to your medication because of stenting procedures, it is very important for you to take that regularly to keep your stent patent in place and avoid complication. Please follow you vascular surgeon regularly as well. A discharge summary will be sent to your primary care physician to ensure continuity of care. Please bring this discharge summary with you to your next office appointment so that your provider can review it at that time. Medications: Your medication list has been reviewed and reconciled upon discharge to ensure accuracy and continuity of care. An updated list of all your medications is included with your hospital discharge paperwork. Please review this list closely and make note of any changes to your medications. 1. Plavix 75 mg once daily continue, follow vascular recommendation. 2. Continue taking Miralax for 5 days. Follow up appointments: - Make a follow up appointment with your PCP within the next week. It is very important that you follow up with them shortly after discharge from the hospital. - Follow up with vascular surgery team in 2 weeks. You anticipate call from Dr. Aniceto Goldman's office for appointment or you can call them to schedule appointment. - Keep all of your follow up appointments as already scheduled. If you cannot make an appointment, notify your provider CONTACT YOUR PRIMARY CARE PROVIDER if you experience any of the following: - Difficulty following your treatment plan - Difficulty taking any of your medications CALL 911 OR GO TO THE EMERGENCY DEPARTMENT if you experience any of the following: - [related to reason for admission] - Sudden, severe abdominal pain or nausea/vomiting - Severe chest pain or chest pain that radiates to your jaw or arm - Sudden, severe shortness of breath or difficulty breathingg Pending Studies at Discharge: No Stand-Alone Forms: My [facility], Smoking Cessation Medications and DC Order Prescriptions: New multivitamin Tablet 1 tab PO DAILY Qty: 30 0RF clopidogrel 75 mg tablet 75 mg PO DAILY Qty: 30 0RF polyethylene glycol 3350 [Miralax] 17 gram powder in packet 17 g PO BID Qty: 14 0RF benzonatate 100 mg capsule 100 mg PO TID PRN (Reason: cough) Qty: 14 0RF ondansetron HCl 4 mg tablet 4 mg PO Q8H PRN (Reason: nausea and vomiting) 5 Days Qty: 10 0RF Continued coenzyme Q10 [CoQ-10] 100 mg capsule 100 mg PO QAM multivitamin [Daily Multi-Vitamin] tablet 1 tab PO QAM Caltrate 600 plus D 600 mg-20 mcg (800 unit) tablet,chewable 1 tab PO QAM nitroglycerin [Nitrostat] 0.4 mg tablet, sublingual 0.4 mg Sublingual UD PRN (Reason: Chest Pain) ondansetron HCl 4 mg tablet 4 mg PO Q8H PRN (Reason: nausea and vomiting) 5 Days Qty: 15 0RF sacubitril-valsartan [Entresto] 49-51 mg tablet 1 tab PO BID Hold Instructions: Resume on 07/04/25. Discuss with PCP metoprolol succinate 50 mg tablet extended release 24 hr 50 mg PO QAM amlodipine 2.5 mg tablet 2.5 mg PO QAM escitalopram oxalate 5 mg tablet 5 mg PO QAM rosuvastatin 10 mg tablet 10 mg PO HS albuterol sulfate 90 mcg/actuation HFA aerosol inhaler 1 inh inhalation Q4H PRN (Reason: shortness of breath or wheezing) Qty: 6.7 0RF furosemide 20 mg tablet 20 mg PO UD Rx Instructions: takes as needed for swelling lorazepam 0.5 mg tablet 0.5 mg PO BID PRN (Reason: Anxiety) aspirin 81 mg tablet,chewable 81 mg PO QAM sertraline 50 mg tablet 50 mg PO DAILY mirtazapine 7.5 mg tablet 7.5 mg PO HS omeprazole 20 mg capsule,delayed release(DR/EC) 20 mg PO DAILY Qty: 30 0RF Discharge Orders: Discharge Order (Routine); Ordered 07/03/25 Ordered By: Dorys Hebert/Other Patient Handouts: Anatomy of the Digestive System Admission Data Admit Date/Time: 06/19/25 17:26 Attending Provider: Flakita Lacey Admit Provider: Jah Shah Primary Care Provider: Ceci Shelby Other Providers: [facility] Fax; [facility]; [place],[facility]; [facility],Health system; Jah Shah; Aniceto Goldman; Ben Carty; Jeffrey Chacon; Gus Garcia; Tania Mitchell; Kal Rizo; Priyanka Turner; Juan Bojorquez; Donaldo Horne; Susan Bradford Other Interventions: Discharge Summary Assessment (RN) Last Done: 07/03/25 13:53 Supervising Physician Co-Signing Physician Notes I personally examined the patient and verified catalan points of history and exam, discussed case, and agree with decision making and plan documented by Dr. Velasquez. Patient is a 85-year-old female with past medical history pertinent for CAD, PAF, hypertension, carotid stenosis, pulmonary hypertension on admission for severe abdominal pain and found to have mesenteric insufficiency. SMA stent placed 06/28/25. Patient had some continued postprandial abdominal pain that improved prior to discharge. Gallbladder ultrasound was obtained and negative for acute findings with noted 4 x 3.6 cm abdominal aortic aneurysm. Patient was recommended to proceed to rehabilitation following discharge however this was not covered by insurance. On exam patient appears comfortable, non diaphoretic, conjunctiva clear, mucosa moist, non-labored breathing, lungs clear to auscultation bilaterally, no rales/rhonchi/wheezing, heart RRR, bowel sounds present and no tenderness in the abdomen to paplation, lower extremities without edema. Patient was discharged with home health services. She is recommended to follow-up with her PCP and vascular surgery. Total attending time 38 minutes
[2025-07-03 14:58] VITALS: BP 97/62; PULSE 62; TEMP 97.5
== END 2025-07-03 16:14 | disposition home health service (06) | DRG 356 ==
LOC: SUATTDRO → ED 14:07 → SUATTDRO 17:26 → 2N 17:26 → 1E 06-27 11:17 → 2S 06-28 16:26 → 3W 07-01 22:49